=== PATIENT | female | born 1940 | race Caucasian/White ===

== ENCOUNTER 2017-02-24 16:24 | Observation (INO) | payer MEDICARE, OTHER ==
[~2017-02-24] VITALS: Ht 157.5 cm; Wt 74.6 kg
[2017-02-24] MEDS ORDERED: WARFARIN SODIU2.5 MG PO (16:38)
[2017-02-24] MEDS ORDERED: DIGITEK125 MCG PO (16:38)
[2017-02-24] MEDS ORDERED: SPIRONOLACTONE25 MG PO (16:39)
[2017-02-24] MEDS ORDERED: LISINOPRIL40 MG PO (16:39)
[2017-02-24] MEDS ORDERED: METOPROLOL SUC100 MG PO (16:39)
--- NOTE | 2017-02-24 20:20 | NUR ---
PT ARRIVED ON FLOOR, ROOM 110. PT IS REFUSING TYLENOL FOR HER FEVER AT THIS TIME. PT IS GETTING REMAINING LABS DONE AND SHOWERED.
--- NOTE | 2017-02-25 00:04 | NUR ---
PT IS SLEEPING AT THIS TIME. TEMP WAS CHECKED AGAIN. IT IS 99.0 AT THIS TIME.
--- NOTE | 2017-02-25 02:00 | NUR ---
PT HAD A SBP OF 93 MANUALLY TAKEN. MD BENÍTEZ WAS CALLED BUT PHONE WAS NOT ANSWERED. PT IS ASYMPTOMATIC SO FAR. PT IS AFREBRILE AT THIS TIME, ALL LOBES ARE CLEAR, BILATERAL LOWER LEG EDEMA IS STILL +3. BILATERAL DORSALIS PEDIS IS +1. PT IS ALERT AND ORIENTED AT THIS TIME. NO NEW ISSUES NOTED SO FAR.
--- NOTE | 2017-02-25 03:57 | NUR ---
PT IS SLEEPING AT THIS TIME.
--- NOTE | 2017-02-25 04:19 | NUR ---
ASSISTED PT TO BEDSIDE COMODE. PT DENIED N/V AND PAIN. HOWEVER PT IS STILL DIZZY.
--- NOTE | 2017-02-25 06:40 | NUR ---
UPON ARRIVAL PT HAD A TEMP OF 102.4. 650MG TYLENOL WAS GIVEN. PT NOW IS AFEBRILE. PT HAS BEEN AAO X4 ALL SHIFT. PT SLEPT MOST OF THIS SHIFT. PT DOES NOT HAVE A DECUBE II ON COCCYX. PT OVERALL SEEMS IN GOOD SPIRITS. BILATERAL LOWER LEG EDEMA IS +3 AND RED. ALL LOBES ARE CLEAR, PT DENIES PAIN. CYBER CRIME INVESTIGATOR CAME TO SEE PT AT 0640
--- NOTE | 2017-02-25 07:00 | NUR ---
BEDSIDE HANDOFF REPORT RECEIVED FROM DETENTION OFFICER RN. PT RESTING IN BED. PT DENIES NEEDS AT THIS TIME.
--- NOTE | 2017-02-25 07:30 | NUR ---
PT RESTING IN BED. PT DENIES PAIN. PT LUNG SOUNDS CLEAR, ON ROOM AIR. PT WITH POOR APPETITE, DECLINING BREAKFAST. PT BOWLE TONES ACTIVE, DENIES NAUSEA. IV FLUIDS INFUSING AT 100 ML/HR. PT WITH REDNESS AND OPEN SORES TO BLE, EDEMA 2-3+. PT DENIES NEEDS AT THIS TIME, REQUESTING TO BE DISCHARGED TODAY.
[2017-02-25] MEDS ORDERED: CEPHALEXIN500 MG PO (09:05)
[2017-02-25] MEDS ORDERED: HYDROCORTISONE1.5 GM TOP (09:07)
--- NOTE | 2017-02-25 09:24 | NUR ---
PT ASSISTED TO BATHRROM AND BACK TO BED. PT DECINING BREAKFAST. REVIEWED MORNING MEDICATIONS, DISCUSSED SIDE EFFECT OF HYPOTENSION.
--- NOTE | 2017-02-25 09:50 | NUR ---
PT DID NOT WANT BREAKFAST AND DOES NOT WANT TO SHOWER. PT HAD A LOW BP WILL NOTIFY NURSE
--- NOTE | 2017-02-25 10:33 | NUR ---
SPOKE WITH SOFIE ASTUDILLO FROM [employer] [employer] [employer]. SHE CAME AND SAW THE PATIENT THIS MORNING. SHE STATES PATIENT IS ORIENTED AND IS STATING SHE IS GOING HOME TODAY. SHE STATES THE PATIENT HAS A HOME AND ADMITS SHE SPENDS ALOT OF TIME IN HER CAR BUT THAT SHE IS DOING THIS BY CHOICE. SHE STATES SHE WILL GO TO PATIENTS HOME NEXT WEEK AND VISIT HER. PATIENT AGREED TO THIS WHEN SHE SPOKE WITH HER.
--- NOTE | 2017-02-25 11:00 | NUR ---
SPOKE WITH PATIENT IN ROOM. PATIENT STATES SHE IS GOING HOME, NO WHERE ELSE. PATIENT ORIENTED. DISCUSSED THAT I HEARD SHE LIVES IN HER CAR. SHE STATES SHE DOES STAY IN HER CAR ALOT WHEN SHE IS AT [facility]. STATES HER HOUSE THERE IS FOR THE CATS. STATES SHE HAS A HOUSE IN [place]. STATES SHE HAS NO ISSUES DRIVING, JUST AT [place] OR [place]. DISCUSSED HER PCP IN [place], ASKED IF SHE WOULD BE ABLE TO FOLLOW UP THERE, STATES YES, SHE CAN DRIVE OR GET A RIDE. PATIENT ADAMENT SHE IS GOING HOME TODAY AND THANKS ME FOR MY CONCERN. SHE DID AGREE THAT SOFIE FROM [facility] CAN CALL HER AND MAKE AN APPOINTMENT TO COME VISIT HER AT HOME.
--- NOTE | 2017-02-25 11:42 | NUR ---
PT DISCHARGED AMA, VSS. GIVEN PRESCRIPTION FOR PO ABX AND HYDROCORTISONE CREAM. EDUCATED ON SIGNS OF INFECTION WORSENING. PT PROVIDED CLEAN CLOTHES FOR DICHARGE. ESCORTED TO LOBBY WITH NURSE AIDE, FRIEND TO PROVIDE RIDE HOME.
--- NOTE | 2017-02-26 07:55 | EKG ---
[facility] [address] [place] [address] Signed Atrial fibrillation Left axis deviation Septal infarct (cited on or before 24-FEB-2017) ST \T\ T wave abnormality, consider lateral ischemia Abnormal ECG When compared with ECG of 24-FEB-2017 16:46, (Unconfirmed) Serial changes of Septal infarct present Confirmed by RAINER SAEED MD ([id number]) on 02/26/2017 7:55:23 AM Electronically Signed By: RAINER ASEED MD 02/26/17 0755 PATIENT NAME: IRIS DIAZ Electrocardiogram DATE OF : 38 PHYSICIAN: RAINER SAEED MD REPORT #: [id number] REPORT IS CONFIDENTIAL AND NOT TO BE RELEASED WITHOUT AUTHORIZATION
== END 2017-02-25 11:30 | disposition left against medical advice (07) ==
LOC: ED 16:24 → MS 16:25
PROVIDERS: ADMIT Internal Medicine
DX: L03.116 Cellulitis of left lower limb (principal); L03.115 Cellulitis of right lower limb; I11.0 Hypertensive heart disease with heart failure; I50.23 Acute on chronic systolic (congestive) heart failure; I48.91 Unspecified atrial fibrillation; R79.89 Other specified abnormal findings of blood chemistry; I89.0 Lymphedema, not elsewhere classified; Z91.19 Patient's noncompliance with other medical treatment and regimen; Z53.21 Procedure and treatment not carried out due to patient leaving prior to being seen by health care provider; Z60.9 Problem related to social environment, unspecified; Z79.01 Long term (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 of anticoagulants; Z79.899 Other long term (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; Z85.038 Personal history of other malignant neoplasm of large intestine
CPT/HCPCS: 36415; 80048; 80053; 80176; 81001; 83605; 84443; 85025; 85610; 85730; 87040; 93005; 93010; 96374; 96376; 99285; G0378; G0480; J0690

== ENCOUNTER 2017-07-07 08:03 | Inpatient (IN) | payer MEDICARE, OTHER ==
[~2017-07-07] VITALS: Ht 157.5 cm; Wt 78.1 kg
--- NOTE | 2017-07-07 | NUR ---
ASSESSMENT DONE, UNCHANGED FROM PRIOR. PT REPOSISTIONED TO LEFT SIDE.
[~2017-07-07 08:03] MED LIST: CEPHALEXIN500 MG PO; DIGITEK125 MCG PO; HYDROCORTISONE1.5 GM TOP; LISINOPRIL40 MG PO; METOPROLOL SUC100 MG PO; SPIRONOLACTONE25 MG PO; WARFARIN SODIU2.5 MG PO
[2017-07-07] MEDS ORDERED: LISINOPRIL-HCT1 EAC1 PO (10:08)
[2017-07-07] MEDS ORDERED: CIPRO500 MG PO (10:09)
--- OUTSIDE RECORDS SUMMARY | 2017-07-07 11:30 | XMS | Encounter Summary ---
Demographics + + + | Address | [address] | | | [place] [address] | + + + | Home Phone | | + + + | Preferred Language | Unknown | + + + | Marital Status | | + + + | Mandaeism Affiliation | Unknown | + + + | Race | Unknown | + + + | Ethnic Group | Unknown | + + + Author + + + | Author | [facility] | | | and [place] | + + + | Organization | [facility] | | | and [place] | + + + | Address | Unknown | + + + | Phone | Unavailable | + + + Support + + + + + | Name | Relationship | Address | Phone | + + + + + | Jin Devine | [address]VEN | | | | | [place], [place] | | + + + + + | Melinda Segura | ECON | Unknown | | + + + + + Care Team Providers + +------+ + | Care Braille Transcriber Name | Role | Phone | + +------+ + | Maya Curry MD | PCP | | + +------+ + Reason for Visit + + + | Reason | Comments | + + + | Wound Care | right lower extremity | | Appointment | | + + + Encounter Details +--------+---------+ + + + | Date | Type | Department | Care Team | Description | +--------+---------+ + + + | 05/26/ | Office | [facility] | Maya Curry MD | Cellulitis of right | | 2018 | Visit | [facility] [place] | [address] | lower extremity | | | | [address] | [place] | (Primary Dx); | | | | [place] | [address] | HYPERTENSION, BENIGN | | | | [address] | | ESSENTIAL | | | | [phone] | | | +--------+---------+ + + + Social History + +-------+ +--------+------+ | Tobacco Use | Types | Packs/Day | Years | Date | | | | | Used | | + +-------+ +--------+------+ | Never Smoker | | | | | + +-------+ +--------+------+ + +---+---+---+ | Smokeless Tobacco: | | | | | Never Used | | | | + +---+---+---+ + + +---------+ + | Alcohol Use | Drinks/We | oz/Week | Comments | | | ek | | | + + +---------+ + | No | | | | + + +---------+ + + + + | Sex Assigned at | Date Recorded | | | | + + + | Not on file | | + + + as of this encounter Last Filed Vital Signs + + + + | Vital Sign | Reading | Time Taken | + + + + | Blood Pressure | 160/80 | 05/26/20171043 PST | + + + + | Pulse | 80 | 05/26/20171043 PST | + + + + | Temperature | 36.5 C (97.7 F) | 05/26/20171043 PST | + + + + | Respiratory Rate | 16 | 05/26/20171043 PST | + + + + | Oxygen Saturation | - | - | + + + + | Inhaled Oxygen | - | - | | Concentration | | | + + + + | Weight | 75.2 kg (165 lb 12.6 | 05/26/2017 1044 PST | | | oz) | | + + + + | Height | 157.5 cm (5' 2") | 05/26/2017 1044 PST | + + + + | Body Mass Index | 30.32 | 05/26/2017 1044 PST | + + + + in this encounter Instructions Patient Instructions - Maya Curry MD - 05/26/2017 1122 PSTFormatting of this note may be different from the original. Discharge Instructions for Cellulitis You have been diagnosed with cellulitis. This is an infection in the deepest layer of the s kin. In some cases, the infection also affects the muscle. Cellulitis is caused by bacteria. The bacteria canenter the body through broken skin. This can happen with a cut, scratch, animal bite, or an insect bite that has been scratched. You may have been treated in the hos pital with antibiotics and fluids. You will likely be given a prescription for antibiotics t o take at home. This sheet will help you take care of yourself at home. Home care When you are home: Take the prescribed antibiotic medicine you are given as directed until it is gone. Take it even if you feel better. It treats the infection and stops it from returning. Not taking all the medicine can make future infections hard to treat. Keep the infected area clean. When possible, raise the infected area above the level of your heart. This helps keep sw elling down. Talk with your healthcare provider if you are in pain. Ask what kind of dyqh-zsg-pcixkgt medicine you can take for pain. Apply clean bandages as advised. Take your temperature once a day for a week. Wash your hands often to prevent spreading the infection. In the future, wash your hands before and after you touch cuts, scratches, or bandages. Thi s will help prevent infection. When to call your healthcare provider Call your healthcare provider immediately if you have any of the following: Difficulty or pain when moving the joints above or below the infected area Discharge or pus draining from the area [id number] (38C) or higher, or as directed by your healthcare provider Pain that gets worse in or around the infected Redness that gets worse in or around the infected area,particularly if the area of red ness expands to a wider area Shaking chills Swelling of the infected area Vomiting Date Last Reviewed: 10/21/201519993445-0105 [employer]. [address] [place] [address]. All righ ts reserved. This information is not intended as a substitute for professional medical care. Always follow your healthcare professional's instructions. in this encounter Progress Notes Bryce Mohr RN - 05/26/2017 1100 PSTAfter obtaining informed consent, the immunization i s given by Bryce Mohr RN. aMya Curry MD - 05/26/2017 1100 PSTFormatting of this note may be different from the o riginal. Subjective: Patient ID: Nancy Celis is a 76 y.o. female. Chief Complaint Patient presents with Wound Care Appointment right lower extremity HPI: Nancy is a 76 year old female here for wound care today. The last time I seen her was on 04/23 09/06. Patient was given antibiotic Cipro 500 mg for 10 days initially and then 7 more days. Patient still taking antibiotics, can't tell me how many days left she has... (I am not lilliana e she is taking them properly, she should have finished according to my account) She has a history of Abnormal INR, Adenomatous colon polyps, Atrial Fibrillation, cancer- A DENOCARCINOMA SIGMOID, Cardiomyopathy, carotid stenosis, Dyslipidemia, GERD, Hemmorids, hiat al hernia, mitral regurgitation, myocardial hypertrophy, osteoporosis, HTN, PUD, Pulmonary H TN, Subclavian arterial stenosis, Tricuspid regurgitation, and vitamin d def. Cellulitis of right lower extremity: 03/22/2017 hit RLE on car door and got cellulitis and not healing. [facility] agnosed her and gave her Cephalexin and it seemed not to work, took it for about 10 days and not better, rather getting worse. I Obtained culture at our last office visit and start Cipro 500 Q 12 and wound care with Te gaderm film. 4+ Enterobacter cloacae complex + Staph and Strep all sensitive to Cipro. Compression ABEBE bandapplied and to keep all the time now. She refused the offer for OT for UNNA boot/edema therapy and I strongly recommended today t hat she calls back and schedules her appointment. Her R lower leg is pretty swollen with chronic edema, skin changes, possible lymphedema. Today she states that it looks much better. HTN Follow-Up: Not bettertoday, despite her Metoprolol XL 50 mg, Spironolactone 50 mg, Lisinopril 10 mg. We are increasing her Lisionpril 20/HCTZ 25 mg. Past Medical History: Diagnosis Date Abnormal INR Adenomatous colon polyp 02/02/12 next due 2013 Anticoagulated Atrial fibrillation (HCC) Cancer (HCC) aSSTLER-cOLLER c1 ADENOCARCINOMA SIGMOID Cardiomyopathy, idiopathic (HCC) Carotid stenosis Cataract Depression Dyslipidemia GERD (gastroesophageal reflux disease) Heart murmur Hemorrhoids Hiatal hernia High cholesterol Hypercholesterolemia Hypertension Mitral regurgitation Myocardial hypertrophy Osteoporosis Peptic ulcer disease Pulmonary hypertension Renal insufficiency Subclavian arterial stenosis (HCC) Tricuspid regurgitation Vitamin D deficiency Past Surgical History: Procedure Laterality Date APPENDECTOMY 01/21/1960 SECTION X 3 COLECTOMY 01/21/2000 COLON SURGERY SIGMOID RESECTIOON august, COLON SURGERY COLONOSCOPY 11/11/2006 COLONOSCOPY 02/02/2012 One 15mm, non-bleeding polyp in the cecum. resected and retrieved.; Normal exam otherwise. - Dr Castro COLONOSCOPY 09/26/2015 Normal colonoscopy. Repeat in 5 years unless symptoms dictate otherwise. - Dr. Castro COLONOSCOPY 08/1999 DILATION AND CURETTAGE OF UTERUS 1987 DILATION AND CURETTAGE OF UTERUS 1987 TONSILLECTOMY AND ADENOIDECTOMY AT AGE 11 Family History Problem Relation Age of Onset Suicide Mother Other (see comment) Mother CHRONIC PAIN SYNDROME Cancer Mother Heart disease Father High cholesterol Father High blood pressure Father Stroke Father High blood pressure Sister Depression Sister Heart attack Maternal Grandmother Social History Social History Marital status: Spouse name: N/A Number of children: N/A Years of education: N/A Social History Main Topics Smoking status: Never Smoker Smokeless tobacco: Never Used Alcohol use No Drug use: No Sexual activity: Not Asked Other Topics Concern None Social History Narrative None Allergies No active allergies Intolerance No active intolerances/contraindications Current Outpatient Prescriptions Medication Sig Dispense Refill atorvaSTATin (LIPITOR) 20 mg tablet Take 20 mg by mouth. Calcium 500 MG TABS Take by mouth Daily. Cholecalciferol (VITAMIN D3) 2000 UNITS CAPS Take 1 tablet by mouth. digoxin (LANOXIN) 250 mcg tablet Take 250 mcg by mouth See Admin Instructions. First da y 2 tab x1, after 6 hours 1 tab lisinopril-hydrochlorothiazide (PRINZIDE,ZESTORETIC) 20-25 MG per tablet Take 1 tablet by mouth Daily. 30 tablet 5 metoprolol succinate (TOPROL-XL) 50 mg 24 hr tablet Take 1 tablet by mouth Daily. 90 ta blet 3 spironolactone (ALDACTONE) 50 mg tablet Take 1 tablet by mouth Daily. 90 tablet 1 warfarin (COUMADIN) 2.5 mg tablet take 1 tablet by mouth every Wednesday and every ay take 2 tablets by mouth THE OTHER DAYS OF THE WEEK 90 tablet 1 warfarin (COUMADIN) 5 mg tablet Take 5 mg by mouth See Admin Instructions. 1 by mouth d aily as directed. No current facility-administered medications for this visit. Review of Systems Constitutional: Positive for malaise/fatigue. Negative for fever. HENT: Negative. Negative for congestion, sore throat and tinnitus. Eyes: Negative. Negative for blurred vision and pain. Wears glasses. Respiratory: Negative. Negative for cough and shortness of breath. Cardiovascular: Negative for chest pain and palpitations. Gastrointestinal: Negative. Negative for abdominal pain, constipation, diarrhea, heartburn , nausea and vomiting. Genitourinary: Negative. Negative for dysuria. Musculoskeletal: Negative. Negative for back pain, joint pain and myalgias. Skin: Negative for rash. Right lower extremity wound care. Neurological: Negative. Negative for dizziness, tingling, weakness and headaches. Endo/Heme/Allergies: Negative. Psychiatric/Behavioral: Negative. Negative for depression. The patient is not nervous/anxi ous and does not have insomnia. Objective: BP 160/80 | Pulse 80 | Temp 36.5 C (97.7 F) (Temporal) | Resp 16 | Ht 1.575 m (5' 2 ") | Wt 75.2 kg (165 lb 12.6 oz) | ? No | BMI 30.32 kg/m Physical Exam General Appearance: Alert, cooperative, no distress, appears stated age Head: Normocephalic, without obvious abnormality, atraumatic Eyes: PERRL, conjunctiva/corneas clear, EOM's intact Nose: Nares normal, septum midline, mucosa normal, no drainage or sinus tenderness Throat: Lips, mucosa, and tongue normal; teeth and gums normal Neck: Supple, symmetrical, no adenopathy Lungs: No accessory muscle use, breath sounds are clear to auscultation bilaterally, no w heezes, crackles or rhonchi Chest Wall: No tenderness or deformity Heart: Regular rate and rhythm, S1, S2 normal, no murmur, rub or gallop Abdomen: Soft, non-tender Extremities: Extremities normal, atraumatic, no cyanosis, clubbing, or edema; RLE: lower leg edema, non pitting 2++ Cellulitis: leg is less red, hot, swollen: improved; with two nummular ulcerations on the l ateral aspect, no odor and superficial; not healing, oozing. Lymphedema RLE Pulses: Radial pulses 2+ and symmetric Skin: Warm and dry Lymph nodes: Cervical and supraclavicular nodes normal Neurologic: Gait normal Assessment/Plan: 1. Cellulitis of right lower extremity (Primary) Assessment & Plan: Will finish her Cipro 500 mg Q12 for a few more days and proceed with leg compression wrap by OT. It is a must to keep the daily compression due to large edema. F/U 2 weeks 2. HYPERTENSION, BENIGN ESSENTIAL Assessment & Plan: Not better today, despite her Metoprolol XL 50 mg, Spironolactone 50 mg, Lisinopril 10 mg. Increased Lisionpril/HCTZ 20/25 mg today Other orders - Lisinopril-Hydrochlorothiazide; Take 1 tablet by mouth Daily. Dispense: 30 tablet; R efill: 5 - Pneumococcal polysaccharide vaccine 23-valent greater than or equal to 2yo subcutaneo us/IM The patient was satisfied with the care received and voiced understanding of the issues dis cussed and the plan. Return in about 2 weeks (around 06/09/2017) for recheck wound.. She must call and schedule her OT visit.in this encounter Plan of Treatment Not on fileas of this encounter Visit Diagnoses + + | Diagnosis | + + | Cellulitis of right lower extremity - Primary | + + | Cellulitis and abscess of leg, except foot | + + | HYPERTENSION, BENIGN ESSENTIAL | + + | Essential hypertension, benign | + +
--- OUTSIDE RECORDS SUMMARY | 2017-07-07 11:30 | XMS | Encounter Summary ---
Demographics + + + | Address | [address] | | | [place] [address] | + + + | Home Phone | | + + + | Preferred Language | Unknown | + + + | Marital Status | | + + + | Quaker Affiliation | Unknown | + + + | Race | Unknown | + + + | Ethnic Group | Unknown | + + + Author + + + | Author | [facility] | | | and [place] | + + + | Organization | [facility] | | | and [place] | + + + | Address | Unknown | + + + | Phone | Unavailable | + + + Support + + + + + | Name | Relationship | Address | Phone | + + + + + | Jin Devine | [address] | | | | | [place], [place] | | + + + + + | Melinda Segura | ECON | Unknown | | + + + + + Care Team Providers + +------+ + | Care Senior Technical Business Analyst Name | Role | Phone | + +------+ + | Maya Curry MD | PCP | | + +------+ + Reason for Visit + + + | Reason | Comments | + + + | Medication Refill | | + + + Encounter Details +--------+--------+ + + + | Date | Type | Department | Care Team | Description | +--------+--------+ + + + | 04/16/ | Refill | [facility] | Maya Curry MD | Medication Refill | | 2017 | | [facility] [place] | [address] | | | | | [address] | [place] | | | | | [place] | [address] | | | | | [address] | | | | | | [phone] | | | +--------+--------+ + + + Social History + +-------+ [...] + + + as of this encounter Plan of Treatment Not on fileas of this encounter Visit Diagnoses Not on filein this encounter"
--- OUTSIDE RECORDS SUMMARY | 2017-07-07 11:30 | XMS | Clinical Summary ---
Demographics + + + | Address | [address] | | | [place] [address] | + + + | Home Phone | | + + + | Preferred Language | Unknown | + + + | Marital Status | | + + + | Synagogue Affiliation | Unknown | + + + | Race | Unknown | + + + | Ethnic Group | Unknown | + + + Author + + + | Author | [facility] | | | and [place] | + + + | Organization | [facility] | | | and [place] | + + + | Address | Unknown | + + + | Phone | Unavailable | + + + Support + + + + + | Name | Relationship | Address | Phone | + + + + + | Jin Devine | [address] | | | | | [place], [place] | | + + + + + | Melinda Segura | ECON | Unknown | | + + + + + Care Team Providers + +------+ + | Care Earth Boring Machine Operator Name | Role | Phone | + +------+ + | Maya Curry MD | PP | | + +------+ + Allergies No Known Allergies Current Medications + + +--------+---------+------+------+-------+ | Prescription | Sig. | Disp. | Refills | Star | End | Statu | | | | | | t | Date | s | | | | | | Date | | | + + +--------+---------+------+------+-------+ | Cholecalciferol | Take 1 tablet by | | | | | Activ | | (VITAMIN D3) 2000 | mouth. | | | | | e | | UNITS CAPS | | | | | | | + + +--------+---------+------+------+-------+ | Calcium 500 MG | Take by mouth | | | | | Activ | | TABS | Daily. | | | | | e | + + +--------+---------+------+------+-------+ | warfarin | Take 5 mg by mouth | | | | | Activ | | (COUMADIN) 5 mg | See Admin | | | | | e | | tablet | Instructions. 1 by | | | | | | | | mouth daily as | | | | | | | | directed. | | | | | | + + +--------+---------+------+------+-------+ | digoxin (LANOXIN) | Take 250 mcg by | | | | | Activ | | 250 mcg tablet | mouth See Admin | | | | | e | | | Instructions. First | | | | | | | | day 2 tab x1, after | | | | | | | | 6 hours 1 tab | | | | | | + + +--------+---------+------+------+-------+ | atorvaSTATin | Take 20 mg by mouth. | | | | | Activ | | (LIPITOR) 20 mg | | | | | | e | | tablet | | | | | | | + + +--------+---------+------+------+-------+ | warfarin | take 1 tablet by | 90 | 1 | / | | Activ | | (COUMADIN) 2.5 mg | mouth every Wednesday | tablet | | 2/ | | e | | tablet | and every | | | 17 | | | | | take 2 tablets by | | | | | | | | mouth THE OTHER DAYS | | | | | | | | OF THE WEEK | | | | | | + + +--------+---------+------+------+-------+ | metoprolol | Take 1 tablet by | 90 | 3 | 02/ | | Activ | | succinate | mouth Daily. | tablet | | / | | e | | (TOPROL-XL) 50 mg 24 | | | | 18 | | | | hr tablet | | | | | | | + + +--------+---------+------+------+-------+ | spironolactone | Take 1 tablet by | 90 | 1 | 02/1 | | Activ | | (ALDACTONE) 50 mg | mouth Daily. | tablet | | 4/20 | | e | | tablet | | | | 18 | | | + + +--------+---------+------+------+-------+ | | Take 1 tablet by | 30 | 5 | 03/0 | | Activ | | lisinopril-hydrochlo | mouth Daily. | tablet | | 7/20 | | e | | rothiazide | | | | 18 | | | | (PRINZIDE,ZESTORETIC | | | | | | | | ) 20-25 MG per | | | | | | | | tablet | | | | | | | + + +--------+---------+------+------+-------+ Active Problems + + + | Problem | Noted Date | + + + | Cellulitis of right lower extremity | 05/05/2017 | + + + + + | Last Assessment & Plan: Will finish her Cipro 500 mg Q12 for | | a few more days and proceed with leg compression wrap by OT.It is | | a must to keep the daily compression due to large edema.F/U 2 | | weeks | + + + + + | Abnormal INR | 04/27/2017 | + + + | Cardiomyopathy (HCC) | 04/27/2017 | + + + | Carotid stenosis | 04/27/2017 | + + + | Dyslipidemia | 04/27/2017 | + + + | Mitral valve regurgitation | 04/27/2017 | + + + | Pulmonary hypertension (HCC) | 04/27/2017 | + + + | Subclavian artery stenosis (HCC) | 04/27/2017 | + + + | Tricuspid regurgitation | 04/27/2017 | + + + | Chronic atrial fibrillation (HCC) | 01/20/2017 | + + + | Anticoagulation monitoring, INR range 2-3 | 01/20/2017 | + + + | MICROSCOPIC HEMATURIA | 05/06/2010 | + + + | HYPERTENSION, BENIGN ESSENTIAL | | + + + + + | Last Assessment & Plan: Not better today, despite her | | Metoprolol XL 50 mg, Spironolactone 50 mg, Lisinopril 10 | | mg.Increased Lisionpril/HCTZ 20/25 mg today | + + + +---+ | HYPERCHOLESTEROLEMIA | | + +---+ | VITAMIN D DEFICIENCY | | + +---+ | GASTROESOPHAGEAL REFLUX DISEASE | | + +---+ | VENTRICULAR HYPERTROPHY, LEFT | | + +---+ Encounters +--------+ + + + + | Date | Type | Specialty | Care Team | Description | +--------+ + + + + | 05/26/ | Office | | Maya Curry MD | Cellulitis of right | | 2017 | Visit | | | lower extremity | | | | | | (Primary Dx); | | | | | | HYPERTENSION, BENIGN | | | | | | ESSENTIAL | +--------+ + + + + | 05/17/ | Office | | Maya Curry MD | Cellulitis of right | | 2017 | Visit | | | lower extremity | | | | | | (Primary Dx); | | | | | | HYPERTENSION, BENIGN | | | | | | ESSENTIAL | +--------+ + + + + | 05/05/ | Office | | Maya Curry MD | Cellulitis of right | | 2018 | Visit | | | lower extremity; | | | | | | HYPERTENSION, BENIGN | | | | | | ESSENTIAL | +--------+ + + + + | 05/04/ | Telephone | | Maya Curry MD | Abstract | | 2017 | | | | | +--------+ + + + + | 04/27/ | Abstract | | Maya Curry MD | | | 2017 | | | | | +--------+ + + + + | 04/19/ | Abstract | | Maya Curry MD | | | 2017 | | | | | +--------+ + + + + | 04/16/ | Refill | | Patricio, Maya, MD | Medication Refill | | 2017 | | | | | +--------+ + + + + from Last 3 Months Immunizations + + + + | Name | Dates Previously Given | Next Due | + + + + | PNEUMOCOCCAL | 12/05/2015 | | | CONJUGATE 13-VALENT | | | | (PCV13) | | | + + + + | PNEUMOCOCCAL | 05/26/2017 | | | POLYSACCHARIDE | | | | 23-VALENT (PPSV23) | | | + + + + Family History + + +------+ + | Medical History | Relation | Name | Comments | + + +------+ + | Heart disease | Father | | | + + +------+ + | High blood pressure | Father | | | + + +------+ + | High cholesterol | Father | | | + + +------+ + | Stroke | Father | | | + + +------+ + | Heart attack | Maternal | | | | | Grandmoth | | | | | er | | | + + +------+ + | Cancer | Mother | | | + + +------+ + | Other (see comment) | Mother | | CHRONIC PAIN SYNDROME | + + +------+ + | Suicide | Mother | | | + + +------+ + | Depression | Sister | | | + + +------+ + | High blood pressure | Sister | | | + + +------+ + + +------+ + + | Relation | Name | Status | Comments | + +------+ + + | Father | | | | + +------+ + + | Maternal Grandmother | | | | + +------+ + + | Mother | | | | + +------+ + + | Sister | | | | + +------+ + + Social History + +-------+ +--------+------+ [...] on file | | + + + Last Filed Vital Signs + + + + | Vital Sign | Reading | Time Taken | + + + + | Blood Pressure | 160/80 | 05/26/2017 1044 PST | + + + + | Pulse | 80 | 05/26/20174 PST | + + + + | Temperature | 36.5 C (97.7 F) | 05/26/20171043 PST | + + + + | Respiratory Rate | 16 | 05/26/20171043 PST | + + + + | Oxygen Saturation | 99% | 05/17/20171042 PST | + + + + | Inhaled Oxygen | - | - | | Concentration | | | + + + + | Weight | 75.2 kg (165 lb 12.6 | 05/26/20171043 PST | | | oz) | | + + + + | Height | 157.5 cm (5' 2") | 05/26/20171043 PST | + + + + | Body Mass Index | 30.32 | 05/26/2017 1044 PST | + + + + Plan of Treatment + + + + + | Health Maintenance | Due Date | Last Done | Comments | + + + + + | Vaccine: | | | | | Dtap/Tdap/Td (1 - | 9 | | | | Tdap) | | | | + + + + + | Vaccine: Zoster (#1) | | | | | | 0 | | | + + + + + | Vaccine: Influenza | | | | | (Season Ended) | 8 | | | + + + + + | Vaccine: | Completed | 05/26/2017, 12/05/2015 | | | Pneumococcal 65+ | | | | | Low/Medium Risk | | | | + + + + + Results Culture, Wound, Smear (05/06/2017 0817) + + + + | Component | Value | Ref Range | + + + + | Culture | 4+ Enterobacter cloacae complexComment: | | | | Consider combination therapy for serious | | | | infections.This organism is known to | | | | possess inducible beta-lactamases. Isolates | | | | may become resistant to all cephalosporins | | | | after initiation of therapy. Avoid | | | | beta-lactam/beta-lactamase inhibitory | | | | combinations. | | + + + + | Culture | 4+ Staphylococcus aureus | | + + + + | Culture | 4+ Beta Hemolytic Streptococci, Group | | | | CComment: Penicillin is the drug of choice | | | | for this organism. | | + + + + | Gram Stain Result | No white blood cells (PMNs) seen | | + + + + | Gram Stain Result | No squamous epithelial cells seen | | + + + + | Gram Stain Result | 4+ Gram positive cocci | | + + + + | Gram Stain Result | 2+ Gram negative rods | | + + + + + + + | Specimen | Performing Laboratory | + + + | Wound - Leg | [facility] | | | [place] [address] | + + + + + +--------+ + | Organism | Antibiotic | Method | Susceptibility | + + +--------+ + | Enterobacter cloacae | Cefazolin | | >=64 ug/mL: | | complex | | | Resistant | + + +--------+ + | Enterobacter cloacae | Cefoxitin | | >=64 ug/mL: | | complex | | | Resistant | + + +--------+ + | Enterobacter cloacae | Ceftazidime | | <=1 ug/mL: | | complex | | | Sensitive | + + +--------+ + | Enterobacter cloacae | Ceftriaxone | | <=1 ug/mL: | | complex | | | Sensitive | + + +--------+ + | Enterobacter cloacae | Ciprofloxacin | | <=0.25 ug/mL: | | complex | | | Sensitive | + + +--------+ + | Enterobacter cloacae | Ertapenem | | <=0.5 ug/mL: | | complex | | | Sensitive | + + +--------+ + | Enterobacter cloacae | Gentamicin | | <=1 ug/mL: | | complex | | | Sensitive | + + +--------+ + | Enterobacter cloacae | Meropenem | | <=0.25 ug/mL: | | complex | | | Sensitive | + + +--------+ + | Enterobacter cloacae | Piperacillin + | | <=4 ug/mL: | | complex | Tazobactam | | Sensitive | + + +--------+ + | Enterobacter cloacae | Tobramycin | | <=1 ug/mL: | | complex | | | Sensitive | + + +--------+ + | Enterobacter cloacae | Trimethoprim + | | <=20 ug/mL: | | complex | Sulfamethoxazole | | Sensitive | + + +--------+ + | Staphylococcus | Clindamycin | | <=0.25 ug/mL: | | aureus | | | Sensitive | + + +--------+ + | Staphylococcus | Oxacillin | | <=0.25 ug/mL: | | aureus | | | Sensitive | + + +--------+ + | Staphylococcus | Penicillin G | | Resistant | | aureus | | | | + + +--------+ + | Staphylococcus | Rifampin | | <=0.5 ug/mL: | | aureus | | | Sensitive | + + +--------+ + | Staphylococcus | Tetracycline | | <=1 ug/mL: | | aureus | | | Sensitive | + + +--------+ + | Staphylococcus | Trimethoprim + | | <=10 ug/mL: | | aureus | Sulfamethoxazole | | Sensitive | + + +--------+ + from Last 3 Months Insurance + +--------+ +--------+ + + | Payer | Benefi | Subscriber | Type | Phone | Address | | | t Plan | ID | | | | | | / | | | | | | | Group | | | | | + +--------+ +--------+ + + | MEDICARE | MEDICA | xxxxxxxxxx | Medica | [phone]- | | | | RE | | re | [phone] | | | | PART A | | | | | | | AND B | | | | | + +--------+ +--------+ + + | MODA | MODA | [phone] | Indemn | [phone] | [address] [address] | | | HEALTH | | ity | [phone] | [facility] [place] [id number] | | | MDCR | | | | | | | SUPPL | | | | | + +--------+ +--------+ + + + +--------+ +--------+ + + | Guarantor Name | Accoun | Relation to | Date | Phone | Billing Address | | | t Type | Patient | of | | | | | | | | | | + +--------+ +--------+ + + | IRIS DIAZ | Person | Self [birth year] Home: | [address] | | | al/Fam | | 1941 | [phone] | [place] [address] | | | marian | | | [phone] | | + +--------+ +--------+ + +
--- OUTSIDE RECORDS SUMMARY | 2017-07-07 11:30 | XMS | Encounter Summary ---
Demographics + + + | Address | [address] | | | [place] [address] | + + + | Home Phone | | + + + | Preferred Language | Unknown | + + + | Marital Status | | + + + | Mandaen Affiliation | Unknown | + + + | Race | Unknown | + + + | Ethnic Group | Unknown | + + + Author + + + | Author | [facility] | | | and [place] | + + + | Organization | [facility] | | | and [place] | + + + | Address | Unknown | + + + | Phone | Unavailable | + + + Support + + + + + | Name | Relationship | Address | Phone | + + + + + | Jin Devine | [address] | | | | | [place], [place] | | + + + + + | ImeldaMelinda | ECON | Unknown | | + + + + + Care Team Providers + +------+ + | Care Cash Register Servicer Name | Role | Phone | + +------+ + | Maya Curry MD | PCP | | + +------+ + Encounter Details +--------+ + + + + | Date | Type | Department | Care Team | Description | +--------+ + + + + | 04/27/ | Abstract | [facility] | Maya Curry MD | | | 2018 | | [facility] | [address] | | | | | [address] | [place] | | | | | [place] | [address] | | | | | [address] | | | | | | [phone] | | | +--------+ + + + + Social History + +-------+ [...]
--- OUTSIDE RECORDS SUMMARY | 2017-07-07 11:30 | XMS | Encounter Summary ---
Demographics + + + | Address | [address] | | | [place] [address] | + + + | Home Phone | | + + + | Preferred Language | Unknown | + + + | Marital Status | | + + + | Baptist Affiliation | Unknown | + + + | Race | Unknown | + + + | Ethnic Group | Unknown | + + + Author + + + | Author | [facility] | | | and [place] | + + + | Organization | [facility] | | | and [place] | + + + | Address | Unknown | + + + | Phone | Unavailable | + + + Support + + + + + | Name | Relationship | Address | Phone | + + + + + | Jin Devine | [address] | | | | | [place], [place] | | + + + + + | ImeldaMelinda | ECON | Unknown | | + + + + + Care Team Providers + +------+ + | Care Technology Professional Name | Role | Phone | + +------+ + | Maya Curry MD | PCP | | + +------+ + Encounter Details +--------+ + + + + | Date | Type | Department | Care Team | Description | +--------+ + + + + | 04/19/ | Abstract | [facility] | Maya Curry MD | | | 2018 | | MEDICINE [place] | [address] | | | | | [address] | [place] | | | | | [place] | [address] | | | | | [address] | | | | | | [phone] | | | +--------+ + + + [...] Treatment Not on fileas of this encounter Results Digoxin Level (12/05/2015) + +-------+ + | Component | Value | Ref Range | + +-------+ + | Digoxin level | 1.0 | 0.8 - 2.0 ng/mL | + +-------+ + + + + | Specimen | Performing Laboratory | + + + | Blood | | + + + Lipid Panel (12/05/2015) + +-------+ + | Component | Value | Ref Range | + +-------+ + | Chol/HDL Ratio | 2.4 | 0.0 - 4.9 | + +-------+ + | LDl/HDL Ratio | 1.15 | 0 - 3.67 | + +-------+ + | VLDL Cholesterol Zafar | 13 | 0 - 30 | + +-------+ + + + + | Specimen | Performing Laboratory | + + + | Blood | | + + + External Lab: Triglycerides (12/05/2015) + +-------+ + | Component | Value | Ref Range | + +-------+ + | Triglycerides, | 64 | 40 - 150 | | External | | | + +-------+ + + + + | Specimen | Performing Laboratory | + + + | Blood | | + + + External Lab: Cholesterol, HDL (12/05/2015) + +-------+ + | Component | Value | Ref Range | + +-------+ + | HDL Cholesterol, | 61 | 40 - 67 mg/dl | | External | | | + +-------+ + + + + | Specimen | Performing Laboratory | + + + | Blood | | + + + External Lab: Cholesterol, Total (12/05/2015) + +---------+ + | Component | Value | Ref Range | + +---------+ + | Cholesterol, Total, | 144 (A) | 150 - 200 mg/dl | | External | | | + +---------+ + + + + | Specimen | Performing Laboratory | + + + | Blood | | + + + External Lab: Cholesterol, LDL (12/05/2015) + +-------+ + | Component | Value | Ref Range | + +-------+ + | LDL Cholesterol, | 70 | 68 - 100 | | External | | | + +-------+ + + + + | Specimen | Performing Laboratory | + + + | Blood | | + + + Comprehensive Metabolic Panel (12/05/2015) + +-------+ + | Component | Value | Ref Range | + +-------+ + | ANION GAP | 8 | 1 - 16 mmol/L | + +-------+ + | Bun/Creatinine | 16.7 | | + +-------+ + | OSMOLALITY | 284 | mOsm/kg | + +-------+ + | Globulin | 3 | | + +-------+ + | Albumin/Globulin | 1.37 | 1 - 2 | | Ratio | | | + +-------+ + + + + | Specimen | Performing Laboratory | + + + | Blood | | + + + External Lab: BUN (12/05/2015) + +-------+ + | Component | Value | Ref Range | + +-------+ + | BUN, External | 15 | 7 - 23 | + +-------+ + External Lab: Glucose (12/05/2015) + +-------+ + | Component | Value | Ref Range | + +-------+ + | Glucose, External | 80 | 70 - 100 | + +-------+ + External Lab: ALT (12/05/2015) + +-------+ + | Component | Value | Ref Range | + +-------+ + | ALT, External | 19 | 10 - 60 | + +-------+ + External Lab: AST (12/05/2015) + +-------+ + | Component | Value | Ref Range | + +-------+ + | AST, External | 26 | 10 - 42 | + +-------+ + External Lab: Alkaline Phosphatase (12/05/2015) + +-------+ + | Component | Value | Ref Range | + +-------+ + | ALP, External | 88 | 32 - 92 | + +-------+ + External Lab: Bilirubin, Total (12/05/2015) + +---------+ + | Component | Value | Ref Range | + +---------+ + | Bilirubin, Total, | 1.7 (A) | 0.1 - 1.2 | | External | | | + +---------+ + External Lab: Albumin (12/05/2015) + +-------+ + | Component | Value | Ref Range | + +-------+ + | Albumin, External | 4.1 | 3.2 - 5.5 | + +-------+ + External Lab: Protein, Total (12/05/2015) + +-------+ + | Component | Value | Ref Range | + +-------+ + | Protein, Total, | 7.1 | 6.1 - 8 | | External | | | + +-------+ + External Lab: Calcium (12/05/2015) + +-------+ + | Component | Value | Ref Range | + +-------+ + | Calcium, External | 9 | 8.3 - 10.5 | + +-------+ + External Lab: Carbon Dioxide (12/05/2015) + +-------+ + | Component | Value | Ref Range | + +-------+ + | Carbon Dioxide, | 27 | 22 - 32 | | External | | | + +-------+ + External Lab: Chloride (12/05/2015) + +-------+ + | Component | Value | Ref Range | + +-------+ + | Chloride, External | 102 | 100 - 110 | + +-------+ + External Lab: Potassium (12/05/2015) + +-------+ + | Component | Value | Ref Range | + +-------+ + | Potassium, External | 4.1 | 3.5 - 5.1 | + +-------+ + External Lab: Sodium (12/05/2015) + +-------+ + | Component | Value | Ref Range | + +-------+ + | Sodium, External | 137 | 135 - 145 | + +-------+ + External Lab: Vitamin D, 25-Hydroxy (12/05/2015) + +-------+ + | Component | Value | Ref Range | + +-------+ + | Vitamin D, | 44.4 | 30 - 100 | | 25-Hydroxy, External | | | + +-------+ + + + + | Specimen | Performing Laboratory | + + + | Blood | | + + + External Lab: TSH (12/05/2015) + +-------+ + | Component | Value | Ref Range | + +-------+ + | TSH, External | 1 | 0.3 - 3 | + +-------+ + + + + | Specimen | Performing Laboratory | + + + | Blood | | + + + External Lab: eGFR (12/05/2015) + +-------+ + | Component | Value | Ref Range | + +-------+ + | eGFR, External | >60 | 60 | + +-------+ + + + + | Specimen | Performing Laboratory | + + + | Blood | | + + + External Lab: Creatinine (12/05/2015) + +-------+ + | Component | Value | Ref Range | + +-------+ + | Creatinine, External | 0.9 | 0.7 - 1.3 | + +-------+ + + + + | Specimen | Performing Laboratory | + + + | Blood | | + + + CBC with Differential (12/05/2015) + +-------+ + | Component | Value | Ref Range | + +-------+ + | MCH | 30.2 | 26.0 - 34.0 pg | + +-------+ + | MCHC | 33.2 | 31.0 - 36.0 % | + +-------+ + | BASOPHILS % | 0.9 | 1.0 % | + +-------+ + + + + | Specimen | Performing Laboratory | + + + | Blood | | + + + External Lab: CBC (12/05/2015) + +-------+ + | Component | Value | Ref Range | + +-------+ + | WBC, External | 8.1 | 4.5 - 10 | + +-------+ + | HGB, External | 13.3 | 11.8 - 16 | + +-------+ + | HCT, External | 40 | 34.8 - 45.2 | + +-------+ + | PLT, External | 232 | 150 - 400 | + +-------+ + | Neutrophils %, | 59.4 | | | External | | | + +-------+ + | Lymphocytes %, | 31 | | | External | | | + +-------+ + | Monocytes %, | 8 | | | External | | | + +-------+ + | Eosinophils %, | 0.7 | | | External | | | + +-------+ + | Neutrophils, | 4.8 | 2 - 7.3 | | Absolute, External | | | + +-------+ + | Lymphocytes, | 2.5 | 0.6 - 3.4 | | Absolute, External | | | + +-------+ + | Monocytes, Absolute, | 0.6 | 0.2 - 1 | | External | | | + +-------+ + | Eosinophils, | 0.1 | 0 - 0.4 | | Absolute | | | + +-------+ + | Basophils, Absolute | 0.1 | 0 - 0.1 | + +-------+ + | RBC, External | 4.4 | 4 - 5.1 | + +-------+ + | MCV, External | 91 | 80 - 100 | + +-------+ + | RDW, External | 13.4 | 9.6 - 14.2 | + +-------+ + Lipid Panel (07/29/2015) + +-------+ + | Component | Value | Ref Range | + +-------+ + | Chol/HDL Ratio | 3.0 | 0.0 - 4.9 | + +-------+ + | LDl/HDL Ratio | 1.72 | 0 - 3.67 | + +-------+ + | VLDL Cholesterol Zafar | 18 | 0 - 30 | + +-------+ + + + + | Specimen | Performing Laboratory | + + + | Blood | | + + + External Lab: Triglycerides (07/29/2015) + +-------+ + | Component | Value | Ref Range | + +-------+ + | Triglycerides, | 90 | 40 - 150 | | External | | | + +-------+ + + + + | Specimen | Performing Laboratory | + + + | Blood | | + + + External Lab: Cholesterol, HDL (07/29/2015) + +--------+ + | Component | Value | Ref Range | + +--------+ + | HDL Cholesterol, | 70 (A) | 40 - 67 mg/dl | | External | | | + +--------+ + + + + | Specimen | Performing Laboratory | + + + | Blood | | + + + External Lab: Cholesterol, Total (07/29/2015) + +---------+ + | Component | Value | Ref Range | + +---------+ + | Cholesterol, Total, | 209 (A) | 150 - 200 mg/dl | | External | | | + +---------+ + + + + | Specimen | Performing Laboratory | + + + | Blood | | + + + External Lab: Cholesterol, LDL (07/29/2015) + +---------+ + | Component | Value | Ref Range | + +---------+ + | LDL Cholesterol, | 121 (A) | 68 - 100 | | External | | | + +---------+ + + + + | Specimen | Performing Laboratory | + + + | Blood | | + + + Lipid Panel (07/10/2014) + +-------+ + | Component | Value | Ref Range | + +-------+ + | Chol/HDL Ratio | 2.4 | 0.0 - 4.9 | + +-------+ + | LDl/HDL Ratio | 1.2 | 0 - 3.67 | + +-------+ + | VLDL Cholesterol Zafar | 13 | 0 - 30 | + +-------+ + + + + | Specimen | Performing Laboratory | + + + | Blood | | + + + External Lab: Triglycerides (07/10/2014) + +-------+ + | Component | Value | Ref Range | + +-------+ + | Triglycerides, | 65 | 40 - 150 | | External | | | + +-------+ + + + + | Specimen | Performing Laboratory | + + + | Blood | | + + + External Lab: Cholesterol, HDL (07/10/2014) + +-------+ + | Component | Value | Ref Range | + +-------+ + | HDL Cholesterol, | 63 | 40 - 67 mg/dl | | External | | | + +-------+ + + + + | Specimen | Performing Laboratory | + + + | Blood | | + + + External Lab: Cholesterol, Total (07/10/2014) + +-------+ + | Component | Value | Ref Range | + +-------+ + | Cholesterol, Total, | 151 | 150 - 200 mg/dl | | External | | | + +-------+ + + + + | Specimen | Performing Laboratory | + + + | Blood | | + + + External Lab: Cholesterol, LDL (07/10/2014) + +-------+ + | Component | Value | Ref Range | + +-------+ + | LDL Cholesterol, | 75 | 68 - 100 | | External | | | + +-------+ + + + + | Specimen | Performing Laboratory | + + + | Blood | | + + + in this encounter Visit Diagnoses Not on filein this encounter"
--- OUTSIDE RECORDS SUMMARY | 2017-07-07 11:30 | XMS | Encounter Summary ---
Demographics + + + | Address | [address] | | | [place] [address] | + + + | Home Phone | | + + + | Preferred Language | Unknown | + + + | Marital Status | | + + + | Nondenominational Affiliation | Unknown | + + + | Race | Unknown | + + + | Ethnic Group | Unknown | + + + Author + + + | Author | [facility] | | | and [place] | + + + | Organization | [facility] | | | and [place] | + + + | Address | Unknown | + + + | Phone | Unavailable | + + + Support + + + + + | Name | Relationship | Address | Phone | + + + + + | Jin Devine | ANGELICA CRAVEN | | | | | [place], [place] | | + + + + + | Melinda Segura | ECON | Unknown | | + + + + + Care Team Providers + +------+ + | Care Waste Chopper Name | Role | Phone | + +------+ + | Maya Curry MD | PCP | | + +------+ + Reason for Visit + + + | Reason | Comments | + + + | Abstract | | + + + Encounter Details +--------+ + + + + | Date | Type | Department | Care Team | Description | +--------+ + + + + | 05/04/ | Telephone | [facility] | Maya Curry MD | Abstract | | 2018 | | [facility] [place] | [address] | | | | | [address] | [place] | | | | | [place] | [address] | | | | | [address] | | | | | | [phone] | | | +--------+ + + + [...]
--- OUTSIDE RECORDS SUMMARY | 2017-07-07 11:30 | XMS | Clinical Summary ---
Demographics + + + | Address | [address] | | | [place] [address] | + + + | Home Phone | | + + + | Preferred Language | Unknown | + + + | Marital Status | | + + + | Alevism Affiliation | Unknown | + + + | Race | Unknown | + + + | Ethnic Group | Unknown | + + + Author + + + | Author | [facility] | | | and [place] | + + + | Organization | [facility] | | | and [place] | + + + | Address | Unknown | + + + | Phone | Unavailable | + + + Support + + + + + | Name | Relationship | Address | Phone | + + + + + | Jin Devine | ANGELICA CRAVEN | | | | | [place], [place] | | + + + + + | Melinda Segura | ECON | Unknown | | + + + + + Care Team Providers + +------+ + | Care Mobility Specialist Name | Role | Phone | + [...] + | Wound - Leg | [facility] | | | [place] [address] | + + + + + +--------+ [...] | Indemn | [phone] [address] [address] | | | HEALTH | | ity | [phone] | [facility] [place] [address] | | | MDCR | | | [...] | 1941 | [phone] [place] [address] | | | marian | | | [phone] | | + +--------+ +--------+ + +
--- OUTSIDE RECORDS SUMMARY | 2017-07-07 11:30 | XMS | Encounter Summary ---
Demographics + + + | Address | [address] | | | [place] [address] | + + + | Home Phone | | + + + | Preferred Language | Unknown | + + + | Marital Status | | + + + | Temple Affiliation | Unknown | + + + | Race | Unknown | + + + | Ethnic Group | Unknown | + + + Author + + + | Author | [facility] | | | and [place] | + + + | Organization | [facility] | | | and [place] | + + + | Address | Unknown | + + + | Phone | Unavailable | + + + Support + + + + + | Name | Relationship | Address | Phone | + + + + + | Jin Devine | ANGELICA CRAVEN | | | | | [place], [place] | | + + + + + | Melinda Segura | ECON | Unknown | | + + + + + Care Team Providers + +------+ + | Care System Administration Advisor Name | Role | Phone | + +------+ + | Maya Curry MD | PCP | | + +------+ + Reason for Referral Evaluate & Treat (Urgent) +--------+ + + + + + | Status | Reason | Specialty | Diagnoses / | Referred By | Referred To | | | | | Procedures | Contact | Contact | +--------+ + + + + + | Closed | Specialty | Rehabilitatio | Diagnoses | Patricio, | [facility] | | | Services | n | Cellulitis | MD Maya | Ot Op [address] | | | Required | | of right | [address] | [place] | | | | | lower | [address] [place] | [place], | | | | | extremity | [place], [place] | [place] [address] | | | | | [phone] | [phone] | Phone: | | | | | (ICD-10-CM) | Phone: | [phone] | | | | | - 682.6 | [phone] | Fax: | | | | | (ICD-9-CM) - | Fax: | [phone] | | | | | Cellulitis | [phone] | | | | | | of right | | | | | | | lower | | | | | | | extremity | | | +--------+ + + + + + + + | Scheduling Instructions | + + | Edema and wound RLE for "unna boot" or similar wrap | + + Reason for Visit + + + | Reason | Comments | + + + | Dressing Change | 1 week follow up on wound care. | + + + Encounter Details +--------+---------+ + + + | Date | Type | Department | Care Team | Description | +--------+---------+ + + + | 05/17/ | Office | [facility] | Maya Curry MD | Cellulitis of right | | 2018 | Visit | MEDICINE [place] | [address] | lower extremity | | | | [address] | [place] | (Primary Dx); | | | | [place] | [address] | HYPERTENSION, BENIGN | | | | [address] | | ESSENTIAL | | | | [phone] | | | +--------+---------+ + + + [...] + + + | Blood Pressure | 158/84 | 05/17/2017 1043 PST | + + + + | Pulse | 96 | 05/17/2017 1043 PST | + + + + | Temperature | 36.5 C (97.7 F) | 05/17/20171042 PST | + + + + | Respiratory Rate | 17 | 05/17/20171042 PST | + + + + | Oxygen Saturation | 99% | 05/17/20171042 PST | + + + + | Inhaled Oxygen | - | - | | Concentration | | | + + + + | Weight | 75.9 kg (167 lb 6.4 | 05/17/20171042 PST | | | oz) | | + + + + | Height | 157.5 cm (5' 2") | 05/17/20171042 PST | + + + + | Body Mass Index | 30.62 | 05/17/2017 1043 PST | + + + + in this encounter Instructions Patient Instructions - Maya Curry MD - 05/17/2017 1144 PSTFormatting of this note may be different [...] are in pain. Ask what kind of ipxw-bvn-hxsvfhl medicine you can take for pain. Apply [...] Discharge or pus draining from the area [place]692.4F (38C) or higher, or as directed by your healthcare provider Pain that gets worse in or around the infected Redness that gets worse in or around the infected area,particularly if the area of red ness expands to a wider area Shaking chills Swelling of the infected area Vomiting Date Last Reviewed: 10/21/201519996721-6112 [employer]. [address] [place] [address]. All righ ts reserved. This information is not intended as a substitute for professional medical care. Always follow your healthcare professional's instructions. in this encounter Progress Notes Gage Meraz, PT - 05/17/2017 1045 [facility]PM[facility] [address] [facility] [address] Incident To Physical Therapy Treatment Note Date: 05/17/2017 Patient Information Patient Name: Nancy Celis Date of : 1940 Age: 76 y.o. Timed Treatment Codes: 6 minutes Subjective: Nancy presents to primary care provider visit today with complaints of LE wound and swelling . PT called to visit to help with compression bandage to be applied to right LE. Patient reporting that she normally wraps her RLE with this wrap to help decrease swelling but would like to have it applied today while in visit. Objective: -Manual Therapy: Below treatment performed below to help manage and alleviate patient sympt oms. -6' compression wrap applied in spiral technique beginning with moderate tension at the rig ht ankle progressing to minimal tension to the right proximal calf -Patient advised to remove wrap if any discomfort or adverse effects were to arise from wra p Electronically signed by: Gage Meraz, PT, 05/17/2017 14:55 Patient Name: Nancy Celis/: 1940/ Maya Curry MD - 05/17/2017 1045 PSTFormatting of this note may be different from the o riginal. Subjective: Patient ID: Nancy Celis is a 76 y.o. female. Chief Complaint Patient presents with Dressing Change 1 week follow up on wound care. HPI Nancy is a 76 year old female who has returned to the clinic to have her wound checked on he r right lower extremity today. Cellulitis of right lower extremity: 03/22/2017 hit RLE on car door and got cellulitis and not healing[facility] and it seemed not to work, took it for about 10 days and not better, rather getting worse. I Obtained culture at our last office visit and start Cipro 500 Q 12 and wound care with Te gaderm film. Compression ABEBE band applied and to keep daily 8 am to 8 pm; she tells me that she used the compression "every day, but quit 2 days ago"... Her R lower leg is pretty swollenl Today she states that her leg is fine, looks much better today. Did not take her BP meds today: her HTN is not better. Reports she "forgot" to taker her pi lls in the [place] to get out and come here. Still did not finish her antibiotics, even though today is 11 days from our initial visit. Past Medical History: Diagnosis Date Abnormal INR [...] UTERUS 1987 DILATION AND CURETTAGE OF UTERUS 1988 TONSILLECTOMY AND ADENOIDECTOMY AT AGE 11 Family [...] Current Outpatient Prescriptions Medication Sig Dispense Refill ADULT ASPIRIN EC LOW STRENGTH PO TBEC: Take one by mouth daily atorvaSTATin (LIPITOR) 20 mg tablet Take 20 mg by mouth. Calcium 500 MG TABS Take by mouth Daily. Cholecalciferol (VITAMIN D-3) 14451 units CAPS Take by mouth Once a week. Cholecalciferol (VITAMIN D3) 2000 UNITS CAPS Take 1 tablet by mouth. ciprofloxacin (CIPRO) 500 mg tablet Take 1 tablet by mouth 2 times daily for 7 days. 14 tablet 0 digoxin (LANOXIN) 250 mcg tablet Take 250 mcg by mouth See Admin Instructions. First da y 2 tab x1, after 6 hours 1 tab Gauze Pads & Dressings (TEGADERM CONTACT LAYER) 3"X4" PADS 1 each by Does not apply rou te Daily for 20 days. 20 each 1 lisinopril (PRINIVIL, ZESTRIL) 10 mg tablet Take 1 tablet by mouth Daily. 90 tablet 1 metoprolol succinate (TOPROL-XL) 50 mg 24 hr [...] for this visit. Review of Systems Constitutional: Negative for fever and malaise/fatigue. HENT: Negative for congestion, sore throat and tinnitus. Eyes: Negative for blurred vision and pain. Wears glasses. Respiratory: Negative for cough and shortness of breath. Cardiovascular: Negative for chest pain, palpitations and leg swelling. Gastrointestinal: Negative for abdominal pain, constipation, diarrhea, heartburn, nausea an d vomiting. Genitourinary: Negative for dysuria. Musculoskeletal: Positive for joint pain. Negative for back pain and myalgias. Skin: Positive for rash. Wound right lower extremity. Neurological: Negative for dizziness, tingling, weakness and headaches. Psychiatric/Behavioral: Negative for depression. The patient is not nervous/anxious and gannon s not have insomnia. Objective: BP 158/84 | Pulse 96 | Temp 36.5 C (97.7 F) (Temporal) | Resp 17 | Ht 1.575 m (5' 2 ") | Wt 75.9 kg (167 lb 6.4 oz) | SpO2 99% | ? No | BMI 30.62 kg/m Physical Exam General Appearance: Alert, cooperative, [...] non-tender Extremities: Extremities normal, atraumatic, no cyanosis, clubbing. RLE: lower leg edema, non pitting 2++ Cellulitis: leg better, less red, hot, swollen but still some; with two nummular ulceration s on the lateral aspect, foul odor and superficial: the ulcerations seem smaller, but they a re oozing today. Cultures + for Enterobacter, Staph and Strep, susceptible to Cipro, resista nt to Cephalosporins. Pulses: Radial pulses 2+ and symmetric Skin: Warm and dry Lymph nodes: Cervical and supraclavicular nodes normal Neurologic: Gait normal Physical therapy treatment room consult to educate in self care, instruct in therapeutic ex ercises, and use of manual therapy as indicated. Use of modalities for pain and swelling red uction when appropriate. Assessment/Plan: 1. Cellulitis of right lower extremity (Primary) Assessment & Plan: Will Continue Cipro 500 mg Q12 for 7 more days and proceed with leg compression wrap by PT. It is a must that keeps the daily compression due to large edema. 2. HYPERTENSION, BENIGN ESSENTIAL Assessment & Plan: Not bettertoday, despite her Metoprolol XL 50 mg, Spironolactone 50 mg, Lisinopril 10 mg. But she did not take her meds today.... Will monitor again in 1 week. Other orders - Ciprofloxacin HCl; Take 1 tablet by mouth 2 times daily for 7 days. Dispense: 14 tab let; Refill: 0 The patient was satisfied with the care received and voiced understanding of the issues dis cussed and the plan. Return in about 1 week (around 05/24/2017) for Wound Care. in this encounter Plan of Treatment + +--------+ + + | Name | Priori | Associated Diagnoses | Order Schedule | | | ty | | | + +--------+ + + | * [facility] Occupational Therapy - AMB | Routin | Cellulitis of | Ordered: 05/17/2017 | | Referral | e | right lower | | | | | extremity | | + +--------+ + + as of this encounter Visit Diagnoses + + | Diagnosis | + + | Cellulitis of right lower extremity - Primary | + + | Cellulitis and abscess of leg, except foot | + + | HYPERTENSION, BENIGN ESSENTIAL | + + | Essential hypertension, benign | + +
--- OUTSIDE RECORDS SUMMARY | 2017-07-07 11:30 | XMS | Encounter Summary ---
Demographics + + + | Address | [address] | | | [place] [address] | + + + | Home Phone | | + + + | Preferred Language | Unknown | + + + | Marital Status | | + + + | Sabianism Affiliation | Unknown | + + + | Race | Unknown | + + + | Ethnic Group | Unknown | + + + Author + + + | Author | [facility] | | | and [place] | + + + | Organization | [facility] | | | and [place] | + + + | Address | Unknown | + + + | Phone | Unavailable | + + + Support + + + + + | Name | Relationship | Address | Phone | + + + + + | Jin Devine | ANGELICA CRAVEN | | | | | [place], [place] | | + + + + + | Melinda Segura | ECON | Unknown | | + + + + + Care Team Providers + +------+ + | Care Filler Spreader Name | Role | Phone | + [...] + + | 05/26/ | Office | [facility] | Maya Curry MD | Cellulitis of right | | 2018 | Visit | MEDICINE [place] | [address] | lower extremity | | | | [address] | [place] | (Primary Dx); | | | | [place] | [address] | HYPERTENSION, BENIGN | | | | [address] | | ESSENTIAL | | | | [phone] | | | +--------+---------+ + + + [...] are in pain. Ask what kind of uqck-svi-hmchleu medicine you can take for pain. Apply [...] Discharge or pus draining from the area [id number] (38C) or higher, or as directed by your healthcare provider Pain that gets worse in or around the infected Redness that gets worse in or around the infected area,particularly if the area of red ness expands to a wider area Shaking chills Swelling of the infected area Vomiting Date Last Reviewed: 10/21/201519990662-2618 [employer]. [address] [place] [address]. All righ ts reserved. This information is not intended as a substitute for professional medical care. Always follow your healthcare professional's instructions. in this encounter Progress Notes Bryce Mohr RN - 05/26/2017 1100 PSTAfter obtaining informed consent, the immunization i s given by Bryce Mohr RN. Maya Curry MD - 05/26/2017 1100 PSTFormatting of [...] door and got cellulitis and not healing. [facility] agnosed her and gave her Cephalexin and [...]
--- OUTSIDE RECORDS SUMMARY | 2017-07-07 11:30 | XMS | Encounter Summary ---
Demographics + + + | Address | [address] | | | [place] [address] | + + + | Home Phone | | + + + | Preferred Language | Unknown | + + + | Marital Status | | + + + | Jewish Affiliation | Unknown | + + + | Race | Unknown | + + + | Ethnic Group | Unknown | + + + Author + + + | Author | [facility] | | | and [place] | + + + | Organization | [facility] | | | and [place] | + + + | Address | Unknown | + + + | Phone | Unavailable | + + + Support + + + + + | Name | Relationship | Address | Phone | + + + + + | Jin Devine | ANGELICA CRAVEN | | | | | [place], [place] | | + + + + + | ImeldaMelinda | ECON | Unknown | | + + + + + Care Team Providers + +------+ + | Care Photoengraving Proofer Name | Role | Phone | + +------+ + | Maya Curry MD | PCP | | + +------+ + Reason for Visit + + + | Reason | Comments | + + + | Establish Care | re-establish care prior patient of [facility]. | + + + Encounter Details +--------+---------+ + + + | Date | Type | Department | Care Team | Description | +--------+---------+ + + + | 05/05/ | Office | [facility] | Maya Curry MD | Cellulitis of right | | 2018 | Visit | [facility] [place] | [address] | lower extremity; | | | | [address] | [place] | HYPERTENSION, BENIGN | | | | [place] | [phone] | ESSENTIAL | | | | [address] | | | | | | [phone] | | | +--------+---------+ + + + [...] + + + | Blood Pressure | 158/74 | 05/05/2017 1320 PST | + + + + | Pulse | 80 | 05/05/2017 1320 PST | + + + + | Temperature | 36.5 C (97.7 F) | 05/05/2017 1320 PST | + + + + | Respiratory Rate | 17 | 05/05/2017 1320 PST | + + + + | Oxygen Saturation | 98% | 05/05/20171319 PST | + + + + | Inhaled Oxygen | - | - | | Concentration | | | + + + + | Weight | 72.3 kg (159 lb 6.3 | 05/05/20171319 PST | | | oz) | | + + + + | Height | 157.5 cm (5' 2") | 05/05/20171319 PST | + + + + | Body Mass Index | 29.15 | 05/05/20171319 PST | + + + + in this encounter Instructions Patient Instructions - Maya Curry MD - 05/05/2017 1406 PSTFormatting of this note may be different from the original. Medicine for Cholesterol Control Cholesterol is a waxy substance in your bloodstream. If there is too much of it in your blo od, it can build up in the crawley of your arteries. Over time, this buildup can lead to coron jay disease. Coronary disease can put you at risk for a heart attack or stroke. It can also put you at risk for disease of the arteries in your legs and other places in your body. Medi cine can give you the extra help you need to controlyour cholesterol. How medicine helps Different kinds of medicines help with cholesterol levels. Some help lower your LDL (bad ch olesterol). Some help raise your HDL (good cholesterol).Other medicines lower your triglyc eride levels. And some do all three. It may take some time to find the right medicine for yo u. Taking medicine will be only one part of your cholesterol control plan. You will still ne ed to eat right and get regular exercise. Talk with your healthcare provider to find out your risks for having a heart attack. Your stacia stoner can tell you what goals to use to see if your treatment is working. These goals may vary based on your health issues or family history. Also ask your provider how often your ch olesterol should be checked as part of your treatment plan. You may need to fast before gett ing your cholesterol checked. Taking your medicine It is important to: Tell your healthcare provider about any other medicines you take. Thisincludes over-th e-counter medicines. It also includes vitamins and herbs. Take your medicine exactly as directed. This helps make sure that it works as it should. Don't skip a dose. Don't stop taking it if you feel better. Don't stop taking it when your cholesterol numbers improve. Order your refill before your medicine runs out. Side effects Medicines can cause side effects. These often occur at the start of taking a new medicine. Side effects can include headache and upset stomach. Rarely you can have muscle aches. Tell your healthcare provider about any side effects you have. When to call your healthcare provider When taking your medicine, let your healthcare provider know if you have: Yellowing of the whites ofeyes Blurred vision Muscle aches Trouble breathing High-risk groups Some people may need to take medicines called statins to control their cholesterol. This is in addition to eating a healthy diet and getting regular exercise. Statins can help you stay healthy. They can also help prevent a heart attack or stroke. You may need to take a statin if you are in one of these groups: Adults who have had a heart attack or stroke. Or adults who have had peripheral vascular disease, a ministroke (transient ischemic attack), or stable or unstable angina. This group also includes people who have had a procedure to restore blood flow through a blocked arter y. These procedures include percutaneous coronary intervention, angioplasty, stent, and open -heart bypass surgery. Adults who have diabetes. Or adults who are at higher risk of having a heart attack or s troke and have an LDL cholesterol level of 70 to 189 mg/dL Adults who are 21 years old or older and have an LDL cholesterol level of 190 mg/dL or h igher. If you are in a high-risk group, talk with your healthcare provider about your treatment go als. Make sure you understand why these goals are important, based on your own health histor y and your family history of heart disease or high cholesterol. Make a plan to have regular cholesterol checks. You may need to fast before getting this te st. Also ask your provider about any side effects your medicines may cause. Let your provide r know about any side effects you have. You may need to take more than one medicine to reach the cholesterol goals that you and your provider decide on. Date Last Reviewed: 12/21/201519992649-7390 [employer]. [address] [place] [address]. All righ ts reserved. This information is not intended as a substitute for professional medical care. Always follow your healthcare professional's instructions. Medicine for Cholesterol Control Cholesterol is a waxy substance in your bloodstream. If there is too much of it in your blo od, it can build up in the crawley of your arteries. Over time, this buildup can lead to coron jay disease. Coronary disease can put you at risk for a heart attack or stroke. It can also put you at risk for disease of the arteries in your legs and other places in your body. Medi cine can give you the extra help you need to controlyour cholesterol. How medicine helps Different kinds of medicines help with cholesterol levels. Some help lower your LDL (bad ch olesterol). Some help raise your HDL (good cholesterol).Other medicines lower your triglyc eride levels. And some do all three. It may take some time to find the right medicine for yo u. Taking medicine will be only one part of your cholesterol control plan. You will still ne ed to eat right and get regular exercise. Talk with your healthcare provider to find out your risks for having a heart attack. Your stacia stoner can tell you what goals to use to see if your treatment is working. These goals may vary based on your health issues or family history. Also ask your provider how often your ch olesterol should be checked as part of your treatment plan. You may need to fast before gett ing your cholesterol checked. Taking your medicine It is important to: Tell your healthcare provider about any other medicines you take. Thisincludes over-th e-counter medicines. It also includes vitamins and herbs. Take your medicine exactly as directed. This helps make sure that it works as it should. Don't skip a dose. Don't stop taking it if you feel better. Don't stop taking it when your cholesterol numbers improve. Order your refill before your medicine runs out. Side effects Medicines can cause side effects. These often occur at the start of taking a new medicine. Side effects can include headache and upset stomach. Rarely you can have muscle aches. Tell your healthcare provider about any side effects you have. When to call your healthcare provider When taking your medicine, let your healthcare provider know if you have: Yellowing of the whites ofeyes Blurred vision Muscle aches Trouble breathing High-risk groups Some people may need to take medicines called statins to control their cholesterol. This is in addition to eating a healthy diet and getting regular exercise. Statins can help you stay healthy. They can also help prevent a heart attack or stroke. You may need to take a statin if you are in one of these groups: Adults who have had a heart attack or stroke. Or adults who have had peripheral vascular disease, a ministroke (transient ischemic attack), or stable or unstable angina. This group also includes people who have had a procedure to restore blood flow through a blocked arter y. These procedures include percutaneous coronary intervention, angioplasty, stent, and open -heart bypass surgery. Adults who have diabetes. Or adults who are at higher risk of having a heart attack or s troke and have an LDL cholesterol level of 70 to 189 mg/dL Adults who are 21 years old or older and have an LDL cholesterol level of 190 mg/dL or h igher. If you are in a high-risk group, talk with your healthcare provider about your treatment go als. Make sure you understand why these goals are important, based on your own health histor y and your family history of heart disease or high cholesterol. Make a plan to have regular cholesterol checks. You may need to fast before getting this te st. Also ask your provider about any side effects your medicines may cause. Let your provide r know about any side effects you have. You may need to take more than one medicine to reach the cholesterol goals that you and your provider decide on. Date Last Reviewed: 12/21/201519997620-1750 [employer]. [address] [place] [address], [place] [address]. All righ ts reserved. This information is not intended as a substitute for professional medical care. Always follow your healthcare professional's instructions. in this encounter Progress Notes Maya Curry MD - 05/05/2017 1300 PSTFormatting of this note may be different from the o riginal. Subjective: Patient ID: Nancy Celis is a 76 y.o. female. Chief Complaint Patient presents with Establish Care re-establish care prior patient of [facility]. ZAKIA Cruz is a 76 year lod female whom is here to re-establish care with me today. Our last off ice visit was in 2015 in November on the . She has a history of Abnormal INR, Adenomatous colon polyps, Atrial Fibrillation, cancer- A DENOCARCINOMA SIGMOID, Cardiomyopathy, carotid stenosis, Dyslipidemia, GERD, Hemmorids, hiat al hernia, mitral regurgitation, myocardial hypertrophy, osteoporosis, HTN, PUD, Pulmonary H TN, Subclavian arterial stenosis, Tricuspid regurgitation, and vitamin d def. She presented to the ED on March 2017 for Right lower extremity edema with infection (aliza lulitis). She was seen at [place] [facility]. When she was there the ED physician told her she h ad low blood pressure so she stopped her BP medication. 03/22/17 hit RLE on car door and got cellulitis and not healing. [facility], diagnosed her and gave her Cephalexin and it seemed not to work, too k it for about 10 days and not better, rather getting worse... Her colonoscopy done in September of 2015 was normal repeat in [address] Castro. Past Medical History: Diagnosis Date Abnormal INR Adenomatous colon polyp 02/02/12 next due 2014 Anticoagulated Atrial fibrillation (HCC) Cancer (HCC) aSSTLER-cOLLER c1 ADENOCARCINOMA SIGMOID Cardiomyopathy, idiopathic (HCC) Carotid stenosis Dyslipidemia GERD (gastroesophageal reflux disease) Hemorrhoids Hiatal hernia Hypercholesterolemia Hypertension Mitral regurgitation Myocardial hypertrophy Osteoporosis Peptic ulcer disease Pulmonary hypertension Renal insufficiency Subclavian arterial stenosis (HCC) Tricuspid regurgitation Vitamin D deficiency Past Surgical History: Procedure Laterality Date APPENDECTOMY 01/21/1960 SECTION X 3 COLECTOMY 01/21/2000 COLECTOMY COLON SURGERY SIGMOID RESECTIOON august, COLONOSCOPY 11/11/2006 COLONOSCOPY 02/02/2012 One 15mm, non-bleeding [...] Take by mouth Daily. Cholecalciferol (VITAMIN D-3) 43870 units CAPS Take by mouth Once a week. Cholecalciferol (VITAMIN D3) 2000 UNITS CAPS Take 1 tablet by mouth. ciprofloxacin (CIPRO) 500 mg tablet Take 1 tablet by mouth 2 times daily for 10 days. 2 0 tablet 0 digoxin (LANOXIN) 250 mcg tablet [...] for this visit. Review of Systems Constitutional: Negative. Negative for fever and malaise/fatigue. HENT: Negative. Negative for congestion, sore throat and tinnitus. Eyes: Negative. Negative for blurred vision and pain. Wears glasses. Respiratory: Negative. Negative for cough and shortness of breath. Cardiovascular: Negative. Negative for chest pain, palpitations and leg swelling. Gastrointestinal: Negative for abdominal pain, constipation, diarrhea, heartburn, nausea an d vomiting. Genitourinary: Negative. Negative for dysuria. Musculoskeletal: Positive for joint pain. Negative for back pain and myalgias. Right lower leg infection. Skin: Positive for rash. Lower rt side cellulitis from edema. Neurological: Negative. Negative for dizziness, tingling, weakness and headaches. Endo/Heme/Allergies: Bruises/bleeds easily. Psychiatric/Behavioral: Negative. Negative for depression. The patient is not nervous/anxi ous and does not have insomnia. Objective: BP 158/74 | Pulse 80 | Temp 36.5 C (97.7 F) (Temporal) | Resp 17 | Ht 1.575 m (5' 2 ") | Wt 72.3 kg (159 lb 6.3 oz) | SpO2 98% | ? No | BMI 29.15 kg/m Physical Exam General Appearance: Alert, cooperative, [...] edema, non pitting 2++ Cellulitis: leg is red, hot, swollen with two nummular ulcerations on the lateral aspect, f oul odor and superficial. Cultures taken. Pulses: Radial pulses 2+ and symmetric Skin: Warm and dry Lymph nodes: Cervical and supraclavicular nodes normal Neurologic: Gait normal Assessment/Plan: 1. Cellulitis of right lower extremity Assessment & Plan: Obtained culture and will start Cipro 500 Q 12 and wound care with Tegaderm film F/U 1 week Compression ABEBE band applied and to keep daily 8 am to 8 pm 2. HYPERTENSION, BENIGN ESSENTIAL Assessment & Plan: Resume Metoprolol XL 50 mg, Spironolactone 50 mg, Lisinopril 10 mg and monitor in 1 week Other orders - Metoprolol Succinate ER; Take 1 tablet by mouth Daily. Dispense: 90 tablet; Refill: 3 - Spironolactone; Take 1 tablet by mouth Daily. Dispense: 90 tablet; Refill: 1 - Lisinopril; Take 1 tablet by mouth Daily. Dispense: 90 tablet; Refill: 1 - Ciprofloxacin HCl; Take 1 tablet by mouth 2 times daily for 10 days. Dispense: 20 ta blet; Refill: 0 - Tegaderm Contact Layer; 1 each by Does not apply route Daily for 20 days. Dispense: 20 each; Refill: 1 The patient was satisfied with the care received and voiced understanding of the issues dis cussed and the plan. Return in about 1 week (around 05/12/2017) for Wound Care. in this encounter Plan of Treatment Not on fileas of this encounter Results Culture, Wound, Smear (05/06/2017 0817) + [...] + | Wound - Leg | [facility] [address] | | | [place] [address] | + + + + + +--------+ [...] | Sensitive | + + +--------+ + in this encounter Visit Diagnoses + + | Diagnosis | + + | Cellulitis of right lower extremity | + + | Cellulitis and abscess of leg, except foot | + + | HYPERTENSION, BENIGN ESSENTIAL | + + | Essential hypertension, benign | + +
--- OUTSIDE RECORDS SUMMARY | 2017-07-07 11:31 | XMS | Encounter Summary ---
Demographics + + + | Address | [address] | | | [place] [address] | + + + | Home Phone | | + + + | Preferred Language | Unknown | + + + | Marital Status | | + + + | Oriental Orthodox Affiliation | Unknown | + + + | Race | Unknown | + + + | Ethnic Group | Unknown | + + + Author + + + | Author | [facility] | | | and [place] | + + + | Organization | [facility] | | | and [place] | + + + | Address | Unknown | + + + | Phone | Unavailable | + + + Support + + + + + | Name | Relationship | Address | Phone | + + + + + | Jin Devine | ANGELICA CRAVEN | | | | | [place], [place] | | + + + + + | ImeldaMelinda | ECON | Unknown | | + + + + + Care Team Providers + +------+ + | Care Sock Liner Name | Role | Phone | + [...] | | | 2018 | | MEDICINE [place] | [address] | | | | | [address] | [place] | | | | | [place] | [address] | | | | | [address] | | | | | | [phone] | | | +--------+ + + + [...]
--- OUTSIDE RECORDS SUMMARY | 2017-07-07 11:31 | XMS | Encounter Summary ---
Demographics + + + | Address | [address] | | | [place] [address] | + + + | Home Phone | | + + + | Preferred Language | Unknown | + + + | Marital Status | | + + + | Pentecostalism Affiliation | Unknown | + + + | Race | Unknown | + + + | Ethnic Group | Unknown | + + + Author + + + | Author | [facility] | | | and [place] | + + + | Organization | [facility] | | | and [place] | + + + | Address | Unknown | + + + | Phone | Unavailable | + + + Support + + + + + | Name | Relationship | Address | Phone | + + + + + | Jin Devine | ANGELICA CRAVEN | | | | | [place], [place] | | + + + + + | Melinda Segura | ECON | Unknown | | + + + + + Care Team Providers + +------+ + | Care Toll Test Desk Worker Name | Role | Phone | + [...] + + | 04/16/ | Refill | [facility] | Maya Curry MD | Medication Refill | | 2017 | | MEDICINE [place] | [address] | | | | | [address] | [place] | | | | | [place] | [address] | | | | | [address] | | | | | | [phone] | | | +--------+--------+ + + + [...]
--- OUTSIDE RECORDS SUMMARY | 2017-07-07 11:31 | XMS | Encounter Summary ---
Demographics + + + | Address | [address] | | | [place] [address] | + + + | Home Phone | | + + + | Preferred Language | Unknown | + + + | Marital Status | | + + + | Jewish Affiliation | Unknown | + + + | Race | Unknown | + + + | Ethnic Group | Unknown | + + + Author + + + | Author | [facility] | | | and [place] | + + + | Organization | [facility] | | | and [place] | + + + | Address | Unknown | + + + | Phone | Unavailable | + + + Support + + + + + | Name | Relationship | Address | Phone | + + + + + | Jin Devine | ANGELICA CRAVEN | | | | | [place], [place] | | + + + + + | ImeldaMelinda | ECON | Unknown | | + + + + + Care Team Providers + +------+ + | Care Race Relations Professor Name | Role | Phone | + [...] | | | 2018 | | MEDICINE [place] | [address] | | | | | [address] | [place] | | | | | [place] | [address] | | | | | [address] | | | | | | [phone] | | | +--------+ + + + [...]
--- OUTSIDE RECORDS SUMMARY | 2017-07-07 11:31 | XMS | Encounter Summary ---
Demographics + + + | Address | [address] | | | [place] [address] | + + + | Home Phone | | + + + | Preferred Language | Unknown | + + + | Marital Status | | + + + | Spiritism Affiliation | Unknown | + + + | Race | Unknown | + + + | Ethnic Group | Unknown | + + + Author + + + | Author | [facility] | | | and [place] | + + + | Organization | [facility] | | | and [place] | + + + | Address | Unknown | + + + | Phone | Unavailable | + + + Support + + + + + | Name | Relationship | Address | Phone | + + + + + | Jin Devine | ANGELICA CRAVEN | | | | | [place], [place] | | + + + + + | Melinda Segura | ECON | Unknown | | + + + + + Care Team Providers + +------+ + | Care Diesel Engine Engineer Name | Role | Phone | + [...] + + | 05/04/ | Telephone | [facility] | Maya Curry MD | Abstract | | 2018 | | [facility] [place] | [address] | | | | | [address] | [place] | | | | | [place], [place] | [address] | | | | | [address] | | | | | | [phone] | | | +--------+ + + + [...]
--- OUTSIDE RECORDS SUMMARY | 2017-07-07 11:31 | XMS | Encounter Summary ---
Demographics + + + | Address | [address] | | | [place] [address] | + + + | Home Phone | | + + + | Preferred Language | Unknown | + + + | Marital Status | | + + + | Rastafarian Affiliation | Unknown | + + + | Race | Unknown | + + + | Ethnic Group | Unknown | + + + Author + + + | Author | [facility] | | | and [place] | + + + | Organization | [facility] | | | and [place] | + + + | Address | Unknown | + + + | Phone | Unavailable | + + + Support + + + + + | Name | Relationship | Address | Phone | + + + + + | Jin Devine | ANGELICA CRAVEN | | | | | [place], [place] | | + + + + + | Melinda Segura | ECON | Unknown | | + + + + + Care Team Providers + +------+ + | Care Warehouse Puller Name | Role | Phone | + [...] + + | 05/04/ | Telephone | [facility] | Maya Curry MD | Abstract | | 2018 | | MEDICINE [place] | [address] | | | | | [address] | [place] | | | | | [place], [place] | [address] | | | | | [address] | | | | | | [phone] | | | +--------+ + + + [...]
--- OUTSIDE RECORDS SUMMARY | 2017-07-07 11:31 | XMS | Encounter Summary ---
Demographics + + + | Address | [address] | | | [place] [address] | + + + | Home Phone | | + + + | Preferred Language | Unknown | + + + | Marital Status | | + + + | Quaker Affiliation | Unknown | + + + | Race | Unknown | + + + | Ethnic Group | Unknown | + + + Author + + + | Author | and [facility] | | | and [place] | + + + | Organization | and [facility] | | | and [place] | + + + | Address | Unknown | + + + | Phone | Unavailable | + + + Support + + + + + | Name | Relationship | Address | Phone | + + + + + | Jin Devine | ANGELICA CRAVEN | | | | | [place], [place] | | + + + + + | Melinda Segura | ECON | Unknown | | + + + + + Care Team Providers + +------+ + | Care Farmworker Livestock Name | Role | Phone | + [...] of right | [address] | [place] | | | | | lower | [address] [place] | [place], | | | | | extremity | [place], [place] | [place] [address] | | | | | [phone] | [address] | Phone: | | | | | (ICD-10-CM) | Phone: | [phone] | | | | | - 682.6 | [phone] | Fax: | | | | | (ICD-9-CM) - | Fax: | [phone] | | | | | Cellulitis | [phone] | | | | | | of [...] + + | 05/17/ | Office | [facility] | Maya Curry MD | Cellulitis of right | | 2018 | Visit | MEDICINE [place] | [address] | lower extremity | | | | [address] | [place] | (Primary Dx); | | | | [place] | [address] | HYPERTENSION, BENIGN | | | | [address] | | ESSENTIAL | | | | [phone] | | | +--------+---------+ + + + [...] are in pain. Ask what kind of kdid-qzz-nbxqhwk medicine you can take for pain. Apply [...] Discharge or pus draining from the area Aqbqboy882.4F (38C) or higher, or as directed by your healthcare provider Pain that gets worse in or around the infected Redness that gets worse in or around the infected area,particularly if the area of red ness expands to a wider area Shaking chills Swelling of the infected area Vomiting Date Last Reviewed: 10/21/201519998502-8448 The [employer]. [address] [place] [address]. All righ ts reserved. This information is not intended as a substitute for professional medical care. Always follow your healthcare professional's instructions. in this encounter Progress Notes Gage Meraz, PT - 05/17/2017 [facility] [address] [facility] [address] Incident To Physical Therapy Treatment Note Date: [...] arise from wra p Electronically signed by: Ggae Meraz, PT, 05/17/2017 14:55 Patient Name: Nancy [...] door and got [facility]ul[facility] healing[facility] [...] Take by mouth Daily. Cholecalciferol (VITAMIN D-3) 81867 units CAPS Take by mouth Once a [...] | + +--------+ + + | * [facility] Occupational Therapy - AMB | Routin [...]
--- OUTSIDE RECORDS SUMMARY | 2017-07-07 11:31 | XMS | Encounter Summary ---
Demographics + + + | Address | [address] | | | [place] [address] | + + + | Home Phone | | + + + | Preferred Language | Unknown | + + + | Marital Status | | + + + | Scientologist Affiliation | Unknown | + + + | Race | Unknown | + + + | Ethnic Group | Unknown | + + + Author + + + | Author | [facility] | | | and [place] | + + + | Organization | [facility] | | | and [place] | + + + | Address | Unknown | + + + | Phone | Unavailable | + + + Support + + + + + | Name | Relationship | Address | Phone | + + + + + | Jin Devine | ANGELICA CRAVEN | | | | | [place], [place] | | + + + + + | ImeldaMelinda | ECON | Unknown | | + + + + + Care Team Providers + +------+ + | Care Shipping And Receiving Material Handler Name | Role | Phone | + [...] | | | 2018 | | MEDICINE [place] | [address] | | | | | [address] | [place] | | | | | [place] | [address] | | | | | [address] | | | | | | [phone] | | | +--------+ + + + [...]
--- OUTSIDE RECORDS SUMMARY | 2017-07-07 11:31 | XMS | Encounter Summary ---
Demographics + + + | Address | [address] | | | [place] [address] | + + + | Home Phone | | + + + | Preferred Language | Unknown | + + + | Marital Status | | + + + | Yazidism Affiliation | Unknown | + + + | Race | Unknown | + + + | Ethnic Group | Unknown | + + + Author + + + | Author | [facility] | | | and [place] | + + + | Organization | [facility] | | | and [place] | + + + | Address | Unknown | + + + | Phone | Unavailable | + + + Support + + + + + | Name | Relationship | Address | Phone | + + + + + | Jin Devine | ANGELICA CRAVEN | | | | | [place], [place] | | + + + + + | ImeldaMelinda | ECON | Unknown | | + + + + + Care Team Providers + +------+ + | Care Manager Hiv Name | Role | Phone | + +------+ + | Maya Curry MD | PCP | | + +------+ + Reason for Visit + + + | Reason | Comments | + + + | Establish Care | re-establish care prior patient of [facility]. | + + + Encounter Details +--------+---------+ + + + | Date | Type | Department | Care Team | Description | +--------+---------+ + + + | 05/05/ | Office | [facility] | Maya Curry MD | Cellulitis of right | | 2018 | Visit | MEDICINE [place] | [address] | lower extremity; | | | | [address] | [place] | HYPERTENSION, BENIGN | | | | [place] | [phone] | ESSENTIAL | | | | [address] | | | | | | [phone] | | | +--------+---------+ + + + [...] your provider decide on. Date Last Reviewed: 12/21/201519996961-4312 [employer]. [address] [place] [address]. All righ ts reserved. This information is [...] your provider decide on. Date Last Reviewed: 12/21/201519994514-6176 [employer]. [address] [place] [address], [place] [address]. All righ ts reserved. This information is [...] Establish Care re-establish care prior patient of [facility]. ZAKIA Cruz is a 76 year lod [...] infection (aliza lulitis). She was seen at [place] [facility]. When she was there the ED physician told her she h ad low blood pressure so she stopped her BP medication. 03/22/17 hit RLE on car door and got cellulitis and not healing. [facility], diagnosed her and gave her [...] Take by mouth Daily. Cholecalciferol (VITAMIN D-3) 67737 units CAPS Take by mouth Once a [...] Leg | [facility] [address] | | | [place] [address] | + + + + + +--------+ [...]
--- OUTSIDE RECORDS SUMMARY | 2017-07-07 11:31 | XMS | Encounter Summary ---
Demographics + + + | Address | [address] | | | [place] [address] | + + + | Home Phone | | + + + | Preferred Language | Unknown | + + + | Marital Status | | + + + | Protestant Affiliation | Unknown | + + + | Race | Unknown | + + + | Ethnic Group | Unknown | + + + Author + + + | Author | [facility] | | | and [place] | + + + | Organization | [facility] | | | and [place] | + + + | Address | Unknown | + + + | Phone | Unavailable | + + + Support + + + + + | Name | Relationship | Address | Phone | + + + + + | Jin Devine | ANGELICA CRAVEN | | | | | [place], [place] | | + + + + + | Melinda Segura | ECON | Unknown | | + + + + + Care Team Providers + +------+ + | Care Lead Sprinkler Name | Role | Phone | + [...] + + | 04/16/ | Refill | [facility] | Maya Curry MD | Medication Refill | | 2017 | | MEDICINE [place] | [address] | | | | | [address] | [place] | | | | | [place] | [address] | | | | | [address] | | | | | | [phone] | | | +--------+--------+ + + + [...]
--- OUTSIDE RECORDS SUMMARY | 2017-07-07 11:31 | XMS | Encounter Summary ---
Demographics + + + | Address | [address] | | | [place] [address] | + + + | Home Phone | | + + + | Preferred Language | Unknown | + + + | Marital Status | | + + + | Mormonism Affiliation | Unknown | + + + | Race | Unknown | + + + | Ethnic Group | Unknown | + + + Author + + + | Author | [facility] | | | and [place] | + + + | Organization | [facility] | | | and [place] | + + + | Address | Unknown | + + + | Phone | Unavailable | + + + Support + + + + + | Name | Relationship | Address | Phone | + + + + + | Jin Devine | ANGELICA CRAVEN | | | | | [place], [place] | | + + + + + | ImeldaMelinda | ECON | Unknown | | + + + + + Care Team Providers + +------+ + | Care Director Of Rehabilitative Services Name | Role | Phone | + +------+ + | Maya Curry MD | PCP | | + +------+ + Reason for Visit + + + | Reason | Comments | + + + | Establish Care | re-establish care prior patient of [facility]. | + + + Encounter Details +--------+---------+ + + + | Date | Type | Department | Care Team | Description | +--------+---------+ + + + | 05/05/ | Office | [facility] | Maya Curry MD | Cellulitis of right | | 2018 | Visit | MEDICINE [place] | [address] | lower extremity; | | | | [address] | [place] | HYPERTENSION, BENIGN | | | | [place] | [phone] | ESSENTIAL | | | | [address] | | | | | | [phone] | | | +--------+---------+ + + + [...] your provider decide on. Date Last Reviewed: 12/21/201519997364-1319 [employer]. [address] [place] [address]. All righ ts reserved. This information is [...] your provider decide on. Date Last Reviewed: 12/21/201519997253-6846 [employer]. [address] [place] [address], [place] [address]. All righ ts reserved. This information is [...] Establish Care re-establish care prior patient of [facility]. ZAKIA Cruz is a 76 [...] infection (aliza lulitis). She was seen at [place] [facility]. When she was there the ED physician told her she h ad low blood pressure so she stopped her BP medication. 03/22/17 hit RLE on car door and got cellulitis and not healing. [facility], diagnosed her and gave her Cephalexin and [...] Take by mouth Daily. Cholecalciferol (VITAMIN D-3) 05104 units CAPS Take by mouth Once a [...] + | Wound - Leg | [facility] [address] | | | [place] [address] | + + + + + +--------+ [...]
--- OUTSIDE RECORDS SUMMARY | 2017-07-07 11:31 | XMS | Clinical Summary ---
Demographics + + + | Address | [address] | | | [place] [address] | + + + | Home Phone | | + + + | Preferred Language | Unknown | + + + | Marital Status | | + + + | Holiness Affiliation | Unknown | + + + | Race | Unknown | + + + | Ethnic Group | Unknown | + + + Author + + + | Author | [facility] | | | and [place] | + + + | Organization | [facility] | | | and [place] | + + + | Address | Unknown | + + + | Phone | Unavailable | + + + Support + + + + + | Name | Relationship | Address | Phone | + + + + + | Jin Devine | ANGELICA CRAVEN | | | | | [place], [place] | | + + + + + | Melinda Segura | ECON | Unknown | | + + + + + Care Team Providers + +------+ + | Care Church Musician Name | Role | Phone | + [...] + | Wound - Leg | [facility] | | | [place] [address] | + + + + + +--------+ [...] | Indemn | [phone] | [address] [address] | | | HEALTH | | ity | [phone] | [facility] [place] [address] | | | MDCR | | | [...] | 1941 | [phone] | [place] [address] | | | marian | | | [address] | | + +--------+ +--------+ + +
--- OUTSIDE RECORDS SUMMARY | 2017-07-07 11:31 | XMS | Encounter Summary ---
Demographics + + + | Address | [address] | | | [place] [address] | + + + | Home Phone | | + + + | Preferred Language | Unknown | + + + | Marital Status | | + + + | Caodaism Affiliation | Unknown | + + + | Race | Unknown | + + + | Ethnic Group | Unknown | + + + Author + + + | Author | [facility] | | | and [place] | + + + | Organization | [facility] | | | and [place] | + + + | Address | Unknown | + + + | Phone | Unavailable | + + + Support + + + + + | Name | Relationship | Address | Phone | + + + + + | Jin Devine | ANGELICA CRAVEN | | | | | [place], [place] | | + + + + + | Melinda Segura | ECON | Unknown | | + + + + + Care Team Providers + +------+ + | Care Manager Audit Name | Role | Phone | + [...] + + | 05/26/ | Office | [facility] | Maya Curry MD | Cellulitis of right | | 2018 | Visit | MEDICINE [place] | [address] | lower extremity | | | | [address] | [place] | (Primary Dx); | | | | [place] | [address] | HYPERTENSION, BENIGN | | | | [address] | | ESSENTIAL | | | | [phone] | | | +--------+---------+ + + + [...] are in pain. Ask what kind of kzid-vsy-rjnfoph medicine you can take for pain. Apply [...] Discharge or pus draining from the area Oboqesz461.4F (38C) or higher, or as directed by your healthcare provider Pain that gets worse in or around the infected Redness that gets worse in or around the infected area,particularly if the area of red ness expands to a wider area Shaking chills Swelling of the infected area Vomiting Date Last Reviewed: 10/21/201519992282-1287 [employer]. [address] [place] [address]. All righ ts reserved. This information is [...] door and got cellulitis and not healing. [facility] agnosed her and gave her Cephalexin [...]
--- OUTSIDE RECORDS SUMMARY | 2017-07-07 11:31 | XMS | Encounter Summary ---
Demographics + + + | Address | [address] | | | [place] [address] | + + + | Home Phone | | + + + | Preferred Language | Unknown | + + + | Marital Status | | + + + | Religion Affiliation | Unknown | + + + | Race | Unknown | + + + | Ethnic Group | Unknown | + + + Author + + + | Author | [facility] | | | and [place] | + + + | Organization | [facility] | | | and [place] | + + + | Address | Unknown | + + + | Phone | Unavailable | + + + Support + + + + + | Name | Relationship | Address | Phone | + + + + + | Jin Devine | ANGELICA CRAVEN | | | | | [place], [place] | | + + + + + | ImeldaMelinda | ECON | Unknown | | + + + + + Care Team Providers + +------+ + | Care Granulator Operator Name | Role | Phone | [...] | | | 2018 | | MEDICINE [place] | [address] | | | | | [address] | [place] | | | | | [place] | [address] | | | | | [address] | | | | | | [phone] | | | +--------+ + + + [...]
--- OUTSIDE RECORDS SUMMARY | 2017-07-07 11:31 | XMS | Encounter Summary ---
Demographics + + + | Address | [address] | | | [place] [address] | + + + | Home Phone | | + + + | Preferred Language | Unknown | + + + | Marital Status | | + + + | Baptism Affiliation | Unknown | + + + | Race | Unknown | + + + | Ethnic Group | Unknown | + + + Author + + + | Author | [facility] | | | and [place] | + + + | Organization | [facility] | | | and [place] | + + + | Address | Unknown | + + + | Phone | Unavailable | + + + Support + + + + + | Name | Relationship | Address | Phone | + + + + + | Jin Devine | ANGELICA CRAVEN | | | | | [place], [place] | | + + + + + | Melinda Segura | ECON | Unknown | | + + + + + Care Team Providers + +------+ + | Care Chemical Process Engineer Name | Role | Phone | + +------+ + | Maya Curyr MD | PCP | | + +------+ [...] of right | [address] | [place] | | | | | lower | [address]VE [place] | [place], | | | | | extremity | [place], [place] | [place] [address] | | | | | [phone] | [address] | Phone: | | | | | (ICD-10-CM) | Phone: | [phone] | | | | | - 682.6 | [phone] | Fax: | | | | | (ICD-9-CM) - | Fax: | [phone] | | | | | Cellulitis | [phone] | | | | | | of [...] + + | 05/17/ | Office | [facility] | Maya Curry MD | Cellulitis of right | | 2018 | Visit | MEDICINE [place] | [address] | lower extremity | | | | [address] | [place] | (Primary Dx); | | | | [place] | [address] | HYPERTENSION, BENIGN | | | | [address] | | ESSENTIAL | | | | [phone] | | | +--------+---------+ + + + [...] are in pain. Ask what kind of kzml-yqf-miwtzgk medicine you can take for pain. Apply [...] Discharge or pus draining from the area Qjykdwa058.4F (38C) or higher, or as directed by your healthcare provider Pain that gets worse in or around the infected Redness that gets worse in or around the infected area,particularly if the area of red ness expands to a wider area Shaking chills Swelling of the infected area Vomiting Date Last Reviewed: 10/21/201519994107-9436 The [employer]. [address] [place] [address]. All righ ts reserved. This information is not intended as a substitute for professional medical care. Always follow your healthcare professional's instructions. in this encounter Progress Notes Gage Meraz, PT - 05/17/2017 [facility] [address] [facility] [address] Incident To Physical Therapy Treatment Note Date: [...] door and got cellul[facility] and not healing[facility] and [...] Take by mouth Daily. Cholecalciferol (VITAMIN D-3) 69892 units CAPS Take by mouth Once a [...] | + +--------+ + + | * [facility] Occupational Therapy - AMB | Routin [...]
[2017-07-07] MEDS ORDERED: SPIRONOLACTONE50 MG PO (12:06)
[2017-07-07] MEDS ORDERED: METOPROLOL SUCC50 MG PO (12:09)
--- NOTE | 2017-07-07 15:02 | NUR ---
PT ARRIVED TO ROOM 127 VIA STRETCHER FROM ER AT 1318. TRANSFERRED TO BED WITH HOVER MAT ASSIST. PT HAS LEFT SIDE NEGLECT BUT IS ABLE TO MOVE LEFT FOOT AND TOES. PT ORIENTED AND ABLE TO ANSWER QUESTIONS BUT HAS TROUBLE SPEEKING D/T LEFT SIDE FACIAL DROOP. ASSESSMENT COMPLETED, PT DENIES C/O AT THIS TIME. O.T. HERE AND WORKED WITH PT. PT RENATO WELL.
--- NOTE | 2017-07-07 15:11 | NUR ---
PT SLEEPING AT THIS TIME WITH HOB ELEVATED. RESP 20, SATS 95% ON RA, BP 157/75 HR 64
--- NOTE | 2017-07-07 15:18 | NUR ---
ULTRA SOUND TECH HERE FOR 2D ECHO PER DR. CHIOMA LUTZ.
--- NOTE | 2017-07-07 16:28 | NUR ---
ASSESSMENT COMPLETED, RESTING WITH EYES CLOSED BUT AWAKENS TO VOICE. NO CHANGE IN ASSESSMENT AT THIS TIME. I/O'S COMPLETED.
--- NOTE | 2017-07-07 16:48 | NUR ---
DR. BEDOLLA IN TO LOOK AT LOWER EXTREMITIES. CARRILLO/YELLOW DRAINAGE NOTED. ORDERS RECEIVED.
--- NOTE | 2017-07-07 16:51 | NUR ---
SPEECH THERAPY HERE TO WORK WITH PT.
--- NOTE | 2017-07-07 17:10 | NUR ---
PER SPEECH THERAPY, PT CAN TOLERATED PUREE AND THIN DIET. DR. CHIOMA VILLALTA.
--- NOTE | 2017-07-07 17:10 | NUR ---
ASSESSED PT'S ABILITY TO USE CALL LIGHT. PT UNABLE TO USE. SWITCHED TO PUSH BUTTON CALL LIGHT AT THIS TIME. ADVISED PT OF CALL LIGHT USE. PT VERALIZED AN UNDERSTANDING AND DEMONSTRATED ABILITY TO USE CALL LIGHT.
--- NOTE | 2017-07-07 17:47 | EKG ---
[facility] [address] [place] [address] Signed Poor data quality, interpretation may be adversely affected Atrial fibrillation Left axis deviation Minimal voltage criteria for LVH, may be normal variant Septal infarct (cited on or before 24-FEB-2017) ST \T\ T wave abnormality, consider lateral ischemia Abnormal ECG When compared with ECG of 07-JUL-2017 08:28, (Unconfirmed) Sinus rhythm has replaced Atrial fibrillation Nonspecific T wave abnormality now evident in Inferior leads Confirmed by TAN BEDOLLA MD ([id number]) on 07/07/2017 5:47:30 PM Electronically Signed By: TAN BEDOLLA MD 07/07/17 1747 PATIENT NAME: EMILY OSBORNIRIS Electrocardiogram DATE OF : 38 PHYSICIAN: TAN BEDOLLA MD REPORT #: [id number] REPORT IS CONFIDENTIAL AND NOT TO BE RELEASED WITHOUT AUTHORIZATION
--- NOTE | 2017-07-07 17:47 | EKG ---
[facility] [address] [place] [address] Signed Atrial fibrillation with premature ventricular or aberrantly conducted complexes Left axis deviation Anteroseptal infarct (cited on or before 24-FEB-2017) Abnormal ECG When compared with ECG of 07-JUL-2017 08:29, (Unconfirmed) Atrial fibrillation has replaced Sinus rhythm ST no longer depressed in Inferior leads Nonspecific T wave abnormality, improved in Inferior leads Confirmed by TAN BEDOLLA MD ([id number]) on 07/07/2017 5:47:35 PM Electronically Signed By: TAN BEDOLLA MD 07/07/17 1747 PATIENT NAME: EMILY OSBORNIRIS Electrocardiogram DATE OF : 38 PHYSICIAN: TAN BEDOLLA MD REPORT #: [id number] REPORT IS CONFIDENTIAL AND NOT TO BE RELEASED WITHOUT AUTHORIZATION
--- NOTE | 2017-07-07 17:50 | NUR ---
PT'S LEGS CLEANSED WITH SURGICAL SCRUB, RINSED, PAT DRIED, AND OINTMENT APPLIED. PT TOLERATED WELL. PT'S FRIEND NALLELY AT BEDSIDE.
--- NOTE | 2017-07-07 18:32 | NUR ---
PT HAS BEEN RESTING THE MAJORITY OF THE AFTERNOON. LLE AND LUE NOTED TO BE ABSENT IN SENSATION OR MOVEMENT WHEN FIRST ADMITTED. PT NOTED TO LIFT LLE AND MOVE TOES TOWARDS THE END OF SHIFT. PT ASSESSED BY OT AND SPEECH THERAPY. CONTINUOUS D5LR @ 75MLS/HR IN RAC, RH IS SALINE LOCKED AT THIS TIME AND FLUSHING WELL. PT'S FAMILY NOTIFIED AND WILL BE IN LATER TONIGHT.
--- NOTE | 2017-07-07 19:30 | NUR ---
IN FOR BEDSIDE REPORT, PT RESTING WITH EYES CLOSED, AWAKENS AND ANSWERS QUESTIONS FOR DAY SHIFT NURSE WHILE KEEPING EYES CLOSED. CALL LIGHT IN HAND.
--- NOTE | 2017-07-07 19:50 | NUR ---
PT CONTINUES RESTING WITH EYES CLOSED, HR 50'S, RR 20, CALL LIGHT IN HAND.
--- NOTE | 2017-07-07 20:30 | NUR ---
IN FOR ASSESSMENT AND NEURO CHECK. PT IS VERY SLEEPY, DOES NOT WANT TO WAKE UP BUT WILL ANSWER QUESTIONS WITH EYES CLOSED. LEFT SIDED FACIAL DROOP NOTED, SOME SLURRED SPEECH, CAN LIFT LEFT ARM AND MOVE LEFT LEG SOME. DENIES PAIN OR OTHER NEEDS.
--- NOTE | 2017-07-07 20:45 | NUR ---
DR BEDOLLA IN UNIT, AWARE OF PTS SLOWER HR AND FREQUENT PAUSES. ORDER FOR METOPROLOL CHANGED BY DR BEDOLLA.
--- NOTE | 2017-07-07 22:00 | NUR ---
[place] ARRIVED FROM [place], INTO SEE PT. PT AWAKENS AND TALKS SOME BUT MOSTLY SLEEPY.
--- NOTE | 2017-07-07 23:50 | NUR ---
PT HAS BEEN VERY RESTLESS, CONTINUES TO PULL AT IV TUBING, PULL OFF MONITOR LEADS DESPITE CONSTANT ATTEMPTS TO ORIENT/DIRECT PT. 0.5MG IV ATIVAN GIVEN TO HELP PT SLEEP AND PROTECT IV SITE.
--- NOTE | 2017-07-08 | NUR ---
ASSESSMENT DONE, PT REPOSITIONED. PTS HR STILL IN 60'S AND 50'S AT TIMES, WILL HOLD OFF ON IV METOPROLOL FOR NOW.
--- NOTE | 2017-07-08 01:00 | NUR ---
METOPROLOL GIVEN, HR IN 80'S.
--- NOTE | 2017-07-08 01:45 | NUR ---
PT RESTING SOME AND FIDGETING AND PULLING AT MONITOR CORDS OFTEN. UP TO VOID IN URINAL WITH TWO PERSON STAND BY ASSIT, REQUIRES MUCH DIRECTION TO GET HIM TO USE URINAL HE IS CONFUSED. BACK TO BED WITH BED ALARM ON.
--- NOTE | 2017-07-08 02:00 | NUR ---
PT REPOSITIONED, ABEBE WRAP WITH NON ADHERENT DRESSING APPLIED TO WOUNDS ON RIGHT LEG. PT MOSTLY SLEEPY, NO REQUESTS, BACK TO SLEEP WITH CALL LIGHT IN HAND.
--- NOTE | 2017-07-08 03:54 | NUR ---
PT UP SETTING OFF BED ALARM, VOIDS 600ML THEN BACK TO BED. HR REMAINS 70'S WHILE UP.
--- NOTE | 2017-07-08 04:23 | NUR ---
PT RESTING WITH EYES CLOSED, HR 70'S, RR 24 AND SPO2 92% ON ROOM AIR.
--- NOTE | 2017-07-08 06:30 | NUR ---
PT REPOSITIONED UP IN BED, DENIES PAIN BUT DOES STATE THAT SHE WANTS HER CATHETER OUT.
--- NOTE | 2017-07-08 07:56 | NUR ---
PT RESTING IN BED WITH EYES CLOSED. 2L O2 VIA NC, SPO2 NOTED TO BE 97% AND RR 25. D5LR RUNNING @75 MLS/HR. RAC IV NOT FLUSHING WELL AND DRAINING NOTED, WILL DC IV SITE. SPEECH THERAPY IN ROOM TO ASSESS INTAKE. NO INTAKE NOTED SINCE LAST NIGHT, PT DECLINED BREAKFAST AT THIS TIME.
--- NOTE | 2017-07-08 08:20 | NUR ---
PT IS RESTING IN BED SAFELY WITH CALL LIGHT IN REACH AND EYES CLOSED, RESPIRATIONS EVEN. NURSE CULP TOOK AND CHARTED 0800 VITALS.
--- NOTE | 2017-07-08 09:27 | NUR ---
ASSISTED NURSE CULP WITH GIVING THE PT A FULL BED BATH WITH SHAMPOO CAP, KD/CATH CARE, LEG WOUND CARE/DERSSING CHANGE, LINEN CHANGE, AND REPOSITIONING. PT IS NOW RESTING SAFELY IN BED WITH CALL LIGHT IN REACH. PT ASKED TO HAVE SOME BREAKFAST, NURSE CULP WORKING WITH PT TO SEE WHAT SHE CAN HAVE DUE TO HER DYSPHAGIA DIET.
--- NOTE | 2017-07-08 09:30 | NUR ---
TALKED TO PT AND SHE SAID I COULD TALK WITH HER DAUGHTER. HAD A CONVERSATION WITH SHANELL AND HER , AND NGUYEN. SHANELL #[phone]. OTHER CONTACT IS NGUYEN (CLOSE FAMILY FRIEND) SHANELL ASKED ME WHERE DO WE GO FROM HERE AND WHAT DOES SHE NEED TO DO TO TAKE CARE OF HER MOTHER. SHE STATES HER MOTHER WAS NOT BEING TRUTHFUL WITH THEM AND THAT SHE WAS LIVING IN THE HOUSE AND JUST HAD A FEW CATS. PT INFORMED ME THIS AM THAT SHE MOSTLY WAS STAYING IN HER CAR AND ALSO STAYING SOME AT THE MOTEL 6. SHE SAYS SHE HATES THE HOUSE BECAUSE IT DOESN'T HAVE HEAT OR WATER, NO ELECTRICITY AND THAT SHE ONLY EATS ONE MEAL A DAY--MAYBE TOAST. SO SHE STATES SHE SLEEPS IN HER CAR. WAS FOUND DOWN ON GROUND NEXT TO HER CAR BY NEIGHBORS HER CALLED 911. PT STATED SHE HAD JUST A FEW CATS IN THIS HOUSE MAYBE 12 OR SO AND A FEW AT THE HOUSE IN [place] TOO--MAYBE 4. DAUGHTER AFTER OUR CONVERSATION WOULD LIKE PT TO GO TO [facility] WHEN SHE IS READY TO BE DC'D FROM THE HOSPITAL. PT CONT TELLING ME THAT SHE IS CAPABLE OF TAKING CARE OF HERSELF AND SHE WILL BE GOING HOME. STATED TO HER THAT SHE NEEDS TO GO TO SNF FOR REHAB BEFORE GOING HOME. DAUGHTER WOULD LIKE TO MOVE HER UP TO WHERE SHE LIVES FROM THE SNF WHEN SHE FINDS PLACEMENT UP THERE. STATES SHE CAN'T KEEP LIVING LIKE SHE WAS.
--- NOTE | 2017-07-08 10:10 | NUR ---
ROCHELLE FROM CASE MANAGEMENT MEETING WITH FAMILY AT THIS TIME.
--- NOTE | 2017-07-08 10:15 | NUR ---
PT GIVEN WATER THROUGH STRAW, TOLERATED WELL, NO COUGHING OR SWALLOWING DIFFICULTIES NOTED. PT GIVEN SMALL AMOUNT OF PUDDING WITH ORAL MEDICATIONS. PT WAS ABLE TO SWALLOW MEDICATIONS WITH PUDDING AND TOELRATED WELL. PT REMAINED IN UPRIGHT POSITIONING. NO COUGHING NOTED. PT DECLINED ADDITIONAL PUDDING.
--- NOTE | 2017-07-08 10:17 | NUR ---
OT AT BEDSIDE AT [facility] TIME
[2017-07-08] MEDS ORDERED: WARFARIN SODIU2.5 MG PO (10:22)
--- NOTE | 2017-07-08 10:45 | NUR ---
PT'S WALLET AND CELLPHONE GIVEN TO PT'S DAUGHTER SHAY, PER PT'S APPROVAL.
--- NOTE | 2017-07-08 11:15 | NUR ---
PATIENT TO FLOOR FROM CCU. REPORT RECIEVED FROM ROBBI STROUD. NO COMPLAINTS OF PAIN. MCKINNON TO DRAINAGE BAG. PATIENT ON LEFT SIDE, RESTING WITH EYES CLOSED. LUNG SOUNDS CLEAR IN UPPERLOBES, DIMINISHED IN BASES. MAINTENANCE IV FLUIDS INFUSING. ORDERED PATIENT SOME MASH POTATOES FOR LUNCH, AND PUDDING PARFAIT.
--- NOTE | 2017-07-08 12:40 | NUR ---
FAXED CHART NOTES TO T AFTER TALKING WITH LISA, ADMISSIONS AT [facility], THESE INCLUDED FACESHEET, ER NOTES, H AND P, PROG NOTES, IMAGING, PT AND OT AND ST EVAL AND NOTES. RECIEVED FAX CONFIRMATION.
--- NOTE | 2017-07-08 14:02 | NUR ---
PATIENT ATE 100% OF LUNCH, NEEDING SOME ASSISTANCE WITH EATING. APPEARS TO CLENCH EYES SHUT. INSTRUCTED TO TUCK CHIN WHEN SWALLOWING, PATIENT ABLE TO FOLLOW DIRECTION. NOTED SOME POCKETING IN RIGHT CHEEK, PATIENT ABLE TO CLEAR POCKET OF FOOD IN CHEEK. NOW RESTING UP IN 90 DEGREE ANGLE, REQUESTED TO SIT THAT WAY FOR AWHILE.
--- NOTE | 2017-07-08 15:52 | NUR ---
BROUGHT PATIENT SOME ICE WATER SHE TOOK A COUPLE OF SIPS. NOW SHE IS WORKING WITH OCCUPATIONAL THERAPIST.
--- NOTE | 2017-07-08 15:55 | NUR ---
PATIENT PULLING AT MCKINNON CATHETER, STATING" I WANT THIS REMOVED NOW" TELPHONE CALL TO DR. BEDOLLA. ORDERS TO MAAME.
--- NOTE | 2017-07-08 16:33 | NUR ---
TALKED WITH BRAN FROM [facility], TO REPORT MY CONCERN REGARDING PT CURRENT LIVING HABITATING SITUATIONS. HE STATED THEY WERE AWARE OF HER AND HER CONDITIONS AND SOFIE WAS WORKING WITH HER. I ALSO INFORMED HIM OF THE SORES ON HER R LEG.
--- NOTE | 2017-07-08 18:27 | NUR ---
TRANSFER FROM CCU TODAY. RIGHT SIDED FRONTAL CVA, PATIENT FLACID ON LEFT SIDE. PT EVALUATION DONE, PATIENT NEEDS A CELESTINA LIFT. MCKINNON DCD, PATIENT DUE TO VOID. LUNG SOUNDS CLEAR, PATIENT AAOX3. CALLS APROPRIATLEY WITH PUSH BUTTON CALL LIGHT. NO COMPLAINTS OF PAIN.
--- NOTE | 2017-07-08 18:27 | NUR ---
PATIENT ATE MOST OF DINNER, PUREED HAMBURGER AND MASH POTATOES AND GRAVY AND PEACHES. TOLERATED WELL NO CHOKING.
--- NOTE | 2017-07-08 19:20 | NUR ---
SHIFT REPORT RECEIVED. PATIENT RESTING IN BED WITH EYES CLOSED. SHE RESPONDS TO QUESTIONS APPROPRIATELY BUT DOES NOT OPEN HER EYES. PATIENT'S BEDDING WAS WET FROM HER DRINK. FRESH LINEN APPLIED AND PATIENT REPOSITIONS. STATES SHE IS COMFORTABLE. CALL LIGHT BUTTON IN HAND. IV FLUIDS INFUSING PER ORDER.
--- NOTE | 2017-07-08 20:42 | NUR ---
ROUNDED CHARGE. PATIENT IS RESTING IN BED WITH EYES CLOSED. BREATHING IS EVEN AND UNLABORED, RR 17. CALL LIGHT IN REACH.
--- NOTE | 2017-07-08 22:00 | NUR ---
EVENING MEDS GIVEN PER ORDER. PATIENT ASSESSMENT COMPLETED. PATIENT IS ORIENTED X4. KEEPS HER EYES CLOSED DURING INTERACTION. DENIES PAIN. APPEARS VERY DROWSEY. LUNG SOUNDS ARE CLEAR. ABD IS SOFT AND NONTENDER. PATIENT INCONTINENT OF URINE AND DID NOT REALIZE SHE WAS WET. 2PA TO TURN AND PROVIDE KD CARE. LEGS CLEANS WITH ANTIBACTERIAL SOAP AND WATER. BACTROBAN APPLIED TO OPEN AREAS. NONADHERANT GAUZE APPLIED THEN REGULAR GAUZE WRAP AND ABEBE WRAP. PATIENT HAS SOME GROSS MOVEMENT IN LEFT LEG. NO MOVEMENT IN LEFT ARM. SENSATION DOES NOT APPEAR TO BE INTACT IN EITHER EXTREMITIY. NO FACIAL DROOP OR SLURRED SPEECH. HEELS FLOATED. IV FLUIDS INFUSING PER ORDER. IV SITE WNL.
--- NOTE | 2017-07-08 22:27 | NUR ---
HELPED RN EVAN CHANGE PT'S ATTEND INCONTINENT OF URINE. REPOSITIONED PT IN BED. BEDSIDE TABLE AND CALL LIGHT WITHIN REACH.
--- NOTE | 2017-07-09 02:10 | NUR ---
PATIENT'S ATTENDS CHANGED. LARGE AMOUNT OF URINE. FRESH BED LINEN PROVIDED. REPOSITIONED TO LEFT SIDE.
--- NOTE | 2017-07-09 05:42 | NUR ---
PATIENT SLEPT THROUGHOUT THE SHIFT. AWOKE EASILY WHEN ASSESSED FOR TOILETING NEEDS AND MEDS, BUT NEVER OPENED HER EYES. STATES "I'M JUST TIRED". NO PAIN. LUNGS ARE CLEAR, DIMINISHED IN BASES. 1L NC WHILE ASLEEP, BREATHING CAN BE SOMEWHAT LABORED AT TIMES. O2 SAT >90%. INCONTINENT OF URINE. IV FLUIDS INFUSING PER ORDER. TURN Q2H. WOUND CARE PERFORMED ON PATTIE LOWER EXTREMITIES PER ORDER. OPEN AREAS ON RIGHT LEG, HEALING AREAS ON LEFT. LEFT LEG HAS SOME GROSS MOVEMENT. LEFT ARM CONTINUES TO BE FLACCID.
--- NOTE | 2017-07-09 06:57 | NUR ---
PATIENT RESTING IN BED WITH EYES CLOSED. BREATHING NONLABORED, RR 18.
--- NOTE | 2017-07-09 07:56 | NUR ---
PT WAS SAT UP AND HAD FACE AND HANDS WASHED. PT WAS THEN FEED HER BREAKFAST. PT ONLY ATE APPROXIMATELY 40% AND DRANK 150ML OF CRANDBERRY JUICE, PT THEN STATED SHE WAS FULL AND DID NOT WANT ANYMORE. PT IS NOW RESTING IN BED SAFELY WITH CALL LIGHT IN REACH.
--- NOTE | 2017-07-09 08:00 | NUR ---
CHANGED ATTEND, SATURATED. ASSISTED PATIENT WITH EATING, THEN GRADUATE STUDENT TOOK OVER. PATIENT AAOX3. NOTED SOME WHEEZING, RT TO ROOM. LUNG SOUNDS CLEAR THROUGHUT. PATIENT HAS NO COMPLAINTS OF PAIN. FULL BODY ASSESMENT DONE.
--- NOTE | 2017-07-09 08:40 | NUR ---
PATIENT APPEARS TO BE SLEEPING SOUNDLY, CALL LIGHT IN REACH
--- NOTE | 2017-07-09 11:25 | NUR ---
2 PERSON ASSIST WITH MAXIMUS MARINELLI TO CHANGE PATIENTS ATTENDS AND DRAW SHEET. PATIENT REPORTS SHE IS NOT HUNGRY AT ALL. AGREED TO SHOWER LATER TODAY. CALL LIGHT IN REACH.
--- NOTE | 2017-07-09 14:39 | NUR ---
PATIENT SITTING AT EDGE OF BED WITH PT ADY. VITALS AND I/OS DONE. PATIENT PATIENT IS RESPONSIVE BUT UNABLE TO SIT UP UNASSISTED NOR ABLE TO KEEP HER EYES OPEN. 2 PERSON ASSIST MOVED PATIENT BACK INTO BED, LEFT LEG ELEVATED. CALL LIGHT IN REACH
[2017-07-09] MEDS ORDERED: WARFARIN SODIU2.5 MG PO ×2 (14:56→14:58)
[2017-07-09] MEDS ORDERED: LIPITOR40 MG PO (14:58)
[2017-07-09] MEDS ORDERED: ASPIRIN EC81 MG PO (15:00)
[2017-07-09] MEDS ORDERED: CITRATE OF MAG296 ML PO (15:01)
[2017-07-09] MEDS ORDERED: MUPIROCIN22 GM TOP (15:01)
[2017-07-09] MEDS ORDERED: MAPAP500 M1 PO (15:02)
[2017-07-09] MEDS ORDERED: SENNA-TIME S T1 EACH PO (15:02)
[2017-07-09] MEDS ORDERED: ONDANSETRON ODT4 MG PO (15:02)
--- NOTE | 2017-07-09 15:04 | NUR ---
DR. BEDOLLA ROUNDED, PATIENT NOW SL. PLAN TO GET PATIENT UP IN RECLINER. POSSIBLE TRANSFER TO ALF TOMORROW. PATIENT RESTING IN BED, PROVIDED PATIENT WITH GLASSES. PATIENT HAS NO COMPLAINTS OF PAIN. RESTING WELL.
[2017-07-09] MEDS ORDERED: LISINOPRIL20 MG PO (15:17)
--- NOTE | 2017-07-09 16:09 | NUR ---
PT WAS GIVEN A COMPLETE BEDBATH WITH A BASIN OF WARM SOAPY WATER AND WASH CLOTHS. KD CARE, ORAL CARE, AND SHAMPOO CAP WERE DONE. PT WAS THEN CELESTINA INIGUEZ LIFTED TO BEDSIDE CHAIR. PT WAS FLOATED WITH PILLOWS AND GIVEN WARM BLANKETS. PT IS SITTING UP IN CHAIR WITH FEET ELEVATED AND CALL LIGHT IN REACH. PK HAUSER ASSISTED ME WITH ALL CARE.
--- NOTE | 2017-07-09 17:10 | NUR ---
PATIENT SITTING UP IN CHAIR, MAXIMUS MARINELLI FEEDING PATIENT, THIS CONCRETE FINISHING MACHINE OPERATOR TOOK OVER. SON IN LAW AT BEDSIDE. CALL LIGHT IN REACH NO OTHER NEEDS
--- NOTE | 2017-07-09 18:45 | NUR ---
PATIENT UP TO RECLINER WITH CELESTINA LIFT TOLERATED WELL. NO COMPLAINTS OF PAIN THROUGHOUT DAY. TOLERATING PUREE DIET WELL, AND DRINKING GOOD AMOUNTS OF FLUID. PATIENT NOW SL. INCONTINENT. PLAN TO DC TO [facility] IN THE MORNING.
--- NOTE | 2017-07-09 19:05 | NUR ---
SHIFT REPORT RECEIVED. CNAS IN ROOM ASSISTING PATIENT BACK INTO BED FROM THE RECLINER.
--- NOTE | 2017-07-09 19:20 | NUR ---
ROUNDED CHARGE. PATIENT IS RESTING IN BED WITH EYES CLOSED. BREATHING EVEN AND UNLABORED, RR 17. CALL LIGHT IN REACH.
--- NOTE | 2017-07-09 20:30 | NUR ---
EVENING MEDS GIVEN PER ORDER. PATIENT IS ORIENTED X4, BUT FREQUENTLY DROWSEY AND KEEPS HER EYES CLOSED. PATIENT IS TOLERATING ROOM AIR, LUNGS ARE CLEAR THROUGHOUT. SHE DOES HAVE SOME LABORED DRINKING AFTER TRANSFER OR ROLLING IN BED. EVEN AFTER DRINKING SHE APPEARS SLIGHT SOB. BUT SHE DENIES FEELING SOB AND O2 SAT >90% ON RA. ABD IS MILDLY DISTENDED, SOFT AND NONTENDER. BOWEL SOUNDS ACTIVE. PATIENT TOLERATING PUREED DIET. ORAL FLUID INTAKE ENCOURAGED. ATTENDS IS DRY AT THIS TIME AND PATIENT DENIES TOILETING NEEDS. WOUND CARE DONE ON PATTIE LOWER EXTREMITIES. WASHED WITH FOAM ANTIBACTERIAL SOAP AND DRIED. LOTION APPLIED. BACTROBAN TO OPEN AREAS AND THEN NONADHERANT DRESSING, GAUZE AND ABEBE WRAP ON BOTH LEGS. PATIENT TOLERATED WELL BUT STATES HER RIGHT LEG IS PAINFUL AT THE OPEN AREAS. LEFT LEG ELEVATED ON PILLOW. +2 EDEMA NOTED PATTIE LOWER EXTREMITIES. PATIENT DENIES ANY NEEDS AT THIS TIME. CALL LIGHT IN HAND.
--- NOTE | 2017-07-09 22:30 | NUR ---
PATIENT APPEARS TO BE RESTING COMFORTABLE. REPOSITIONED PATIENT'S BLANKETS AND ASSESSED TOILETING NEEDS. ATTENDS ARE DRY. CALL LIGHT IN REACH.
--- NOTE | 2017-07-10 00:10 | NUR ---
ASSISTED SENIOR TECH MANUFACTURING ENGINEERING JUNE WITH REPOSITIONING PATIENT AND CHANGING ATTEND, WHICH WAS SATURATED WITH LARGE AMOUNT OF URINE. PATIENT'S SKIN APPEARS WNL ON COCCXY AND KD AREA. KD CARE PERFORMED. PATIENT REQUEST TO TURN TO LEFT SIDE. POSITIONED WITH PILLOWS TO REDUCE PRESSURE. PATIENT REPORTS FEELING COMFORTABLE AND DENIES OTHER NEEDS.
--- NOTE | 2017-07-10 04:45 | NUR ---
PATIENT WAS LAYING ON HER SIDE WITH HER LEGS OUT OF THE BED. PATIENT STATED "I WAS TRYING TO GET MY PILLOW". WHICH HAD FALLEN TO THE GROUND. ASSISTED PATIENT BACK TO THE BED. DISCUSSED SOME BOWEL CARE ISSUES WITH THE PATIENT. SHE IS IN AGREEMENT WITH TRYING A SUPPOSITORY. PATIENT'S ATTEND WAS SATURATED WITH URINE. KD CARE PERFORMED. SUPPOSITORY ADMINISTERED. PATIENT TOLERATED WELL. REPOSITIONED HER TO HER BACK WITH PILLOWS SUPPORTING HER LEFT SIDE. CALL LIGHT PLACED IN HAND. FRESH ICE WATER PROVIDED BY PK
--- NOTE | 2017-07-10 06:14 | NUR ---
PATIENT HAD MEDIUM SOFT BM. KD CARE PROVIDED. PATIENT STATES "MY STOMACH FEELS ALOT BETTER". SHE DENIED ANY OTHER NEEDS. CALL LIGHT IN REACH.
--- NOTE | 2017-07-10 06:28 | NUR ---
PATIENT SLEPT WELL THROUGHOUT THE NIGHT. TOLERATING ROOM AIR. ORIENTED X4. CONTINUES TO KEEP HER EYES CLOSED. ASSISTED WITH DRINKING WATER. SUPPOSITORY ADMINISTERED THIS AM. MEDIUM BOWEL MOVEMENT THIS AM.
--- NOTE | 2017-07-10 09:57 | NUR ---
PT WAS IN CONTINENT OF URINE AND STOOL, PT WAS CHANGED AND KD CARE WAS DONE. PT'S FACE AND HANDS WERE WASHED WITH A WARM WASH CLOTH. PT WAS THEN TRANSFERED VIA 2 PERSON CELESTINA LIFT TO THE CHAIR. PT WAS FED BREAKFAST BUT ONLY ATE HER PUDDING AND TWO BITES OF EGG BEFORE SHE STATED SHE DIDN'T WANT ANYMORE. PT IS NOW SITTING UP IN CHAIR WITH CALL LIGHT IN REACH AND FEET ELEVATED. PT WILL BE DISCHARGING SOON TO [place], VITALS HAVE BEEN TAKEN.
--- NOTE | 2017-07-10 10:15 | NUR ---
PATIENT WORKING WITH PHYSICAL THERAPY, ADMINISTERED MORNING MEDICAITONS. NO COMPLAINTS OF PAIN. PATIENT STATES " I REALLY AM NOT LOOKING FORWARD TO GOING TO [place]" PROVIDED ENCOURAGEMENT. PATIENT HAS NOT COMPLAINTS OF PAIN OR DISCOMFORT. FULL BODY ASSESMENT DONE, NO CHANGES.
== END 2017-07-10 11:00 | DRG 65 ==
LOC: ED 08:03 → CCU 10:28 → MS 10:28 → CCU 10:30 → MS 07-08 11:10
PROVIDERS: ADMIT Internal Medicine
DX: I63.411 Cerebral infarction due to embolism of right middle cerebral artery (principal); G81.94 Hemiplegia, unspecified affecting left nondominant side; R29.810 Facial weakness; R47.1 Dysarthria and anarthria; I48.2 Chronic atrial fibrillation; I10 Essential (primary) hypertension; G47.33 Obstructive sleep apnea (adult) (pediatric); I27.20 Pulmonary hypertension, unspecified; Z91.14 Patient's other noncompliance with medication regimen; Z59.0 Homelessness; Z79.01 Long term (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 of anticoagulants; Z79.899 Other long term (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
CPT/HCPCS: 36415; 70450; 70496; 70498; 71045; 80053; 80061; 80162; 81001; 83735; 85025; 85610; 92526; 92610; 93005; 93010; 93306; 97110; 97112; 97162; 97166; 97530; J1650; J2405; J3475; J7120; Q9967

== ENCOUNTER 2017-12-13 13:15 | Emergency (ER) | payer MEDICARE, OTHER ==
[~2017-12-13] VITALS: Ht 157.5 cm; Wt 78.1 kg
--- OUTSIDE RECORDS SUMMARY | ~2017-12-13 | XMS | Encounter Summary ---
Demographics + + + | Address | [address] | | | [place] [address] | + + + | Home Phone | | + + + | Preferred Language | Unknown | + + + | Marital Status | | + + + | Mormon Affiliation | Unknown | + + + | Race | Unknown | + + + | Ethnic Group | Unknown | + + + Author + + + | Author | [facility] | | | and [place] | + + + | Organization | [facility] | | | and [place] | + + + | Address | Unknown | + + + | Phone | Unavailable | + + + Support + + + + + | Name | Relationship | Address | Phone | + + + + + | Jin Devine | [address] | | | | | [place], [place] | | + + + + + | Melinda Segura | ECON | Unknown | | + + + + + Care Team Providers + +------+ + | Care Air Brake Mechanic Name | Role | Phone | + +------+ + | Maya Curry MD | PCP | | + +------+ + Reason for Visit + + + | Reason | Comments | + + + | Anticoagulation | NEEDS APT. | + + + Encounter Details +--------+ + + + + | Date | Type | Department | Care Team | Description | +--------+ + + + + | 11/25/ | Telephone | [facility] | Maya Curry MD | Anticoagulation | | 2018 | | MEDIC[facility] [place] | [address] | ([address] | | | | [address] | [place] | | | | | [place] | [address] | | | | | [address] | | | | | | [phone] | | | +--------+ + + + [...]
--- OUTSIDE RECORDS SUMMARY | ~2017-12-13 | XMS | Encounter Summary ---
Demographics + + + | Address | [address] | | | [place] [address] | + + + | Home Phone | | + + + | Preferred Language | Unknown | + + + | Marital Status | | + + + | Buddhist Affiliation | Unknown | + + + | Race | Unknown | + + + | Ethnic Group | Unknown | + + + Author + + + | Author | [facility] | | | and [place] | + + + | Organization | [facility] | | | and [place] | + + + | Address | Unknown | + + + | Phone | Unavailable | + + + Support + + + + + | Name | Relationship | Address | Phone | + + + + + | Jin Devine | [address] | | | | | [place], [place] | | + + + + + | Melinda Segura | ECON | Unknown | | + + + + + Care Team Providers + +------+ + | Care Jack Machine Operator Name | Role | Phone | + +------+ + | Maya Curry MD | PCP | | + +------+ + Encounter Details +--------+ + + + + | Date | Type | Department | Care Team | Description | +--------+ + + + + | 11/25/ | Anti-coag | [facility] | Maya Curry MD | Chronic atrial | | 2018 | Telephone | MEDICINE [place] | [address] | fibrillation (HCC) | | | | [address] | [place] | | | | | [place] | [address] | | | | | [address] | | | | | | [phone] | | | +--------+ + + + [...] + | Diagnosis | + + | Chronic atrial fibrillation (HCC) | + + | Atrial fibrillation | + +"
--- OUTSIDE RECORDS SUMMARY | ~2017-12-13 | XMS | Encounter Summary ---
Demographics + + + | Address | [address] | | | [place] [address] | + + + | Home Phone | | + + + | Preferred Language | Unknown | + + + | Marital Status | | + + + | Cheondoism Affiliation | Unknown | + + + | Race | Unknown | + + + | Ethnic Group | Unknown | + + + Author + + + | Author | [facility] | | | and [place] | + + + | Organization | [facility] | | | and [place] | + + + | Address | Unknown | + + + | Phone | Unavailable | + + + Support + + + + + | Name | Relationship | Address | Phone | + + + + + | Jin Devine | [address] | | | | | [place], [place] | | + + + + + | Melinda Segura | ECON | Unknown | | + + + + + Care Team Providers + +------+ + | Care Revenue Coordinator Name | Role | Phone | + +------+ + | Maya Curry MD | PCP | | + +------+ + Encounter Details +--------+ + + + + | Date | Type | Department | Care Team | Description | +--------+ + + + + | 11/25/ | Anti-coag | [facility] | Maya Curry MD | Chronic atrial | | 2018 | Telephone | MEDICINE [place] | [address] | fibrillation (HCC) | | | | [address] | [place] | | | | | [place] | [address] | | | | | [address] | | | | | | [phone] | | | +--------+ + + + [...]
--- OUTSIDE RECORDS SUMMARY | ~2017-12-13 | XMS | Encounter Summary ---
Demographics + + + | Address | [address] | | | [place] [address] | + + + | Home Phone [...] | Author | [facility] | | | and [place] | + + + | Organization | [facility] | | | and [place] | + + + | Address | Unknown | + + + | Phone | Unavailable | + + + Support + + + + + | Name | Relationship | Address | Phone | + + + + + | Jin Devine | [address] | | | | | [place], [place] | | + + + + + | Melinda Segura | ECON | Unknown | | + + + + + Care Team Providers + +------+ + | Care Machine Greaser Name | Role | Phone | + [...] + + | 11/25/ | Telephone | [facility] | Maya Curry MD | Anticoagulation | | 2018 | | MEDICINE [place] | [address] | ([address] | | | | [address] | [place] | | | | | [place] | [address] | | | | | [address] | | | | | | [phone] | | | +--------+ + + + [...]
--- OUTSIDE RECORDS SUMMARY | ~2017-12-13 | XMS | Clinical Summary ---
Demographics + + + | Address | [address] | | | [place] [address] | + + + | Home Phone [...] Author | [facility] | | | and [place] | + + + | Organization | [facility] | | | and [place] | + + + | Address | Unknown | + + + | Phone | Unavailable | + + + Support + + + + + | Name | Relationship | Address | Phone | + + + + + | Jin Devine | [address] | | | | | [place], [place] | | + + + + + | Melinda Segura | ECON | Unknown | | + + + + + Care Team Providers + +------+ + | Care Art Educator Name | Role | Phone | [...] mouth every Wednesday | tablet | | 05/11 | | e | | tablet | [...] tablet by | 90 | 3 | /1 | | Activ | | succinate | mouth Daily. | tablet | | 4/20 | | e | | (TOPROL-XL) 50 [...] + +--------+---------+------+------+-------+ | digoxin (LANOXIN) | Take 1 tablet by | 30 | 5 | 05/1 | | Activ | | 125 mcg | mouth Daily. | tablet | | 5/20 | | e | | tabletIndications: | | | | 18 | | | | Chronic atrial | | | | | | | | fibrillation (HCC) | | | | | | | [...] + + | 11/25/ | Telephone | | Maya Curry MD | Anticoagulation | | 2017 | | | | ([address] | +--------+ + + + + | 11/25/ | Anti-coag | | Maya Curry MD | Chronic atrial | | 2018 | Telephone | | | fibrillation (HCC) | +--------+ + + + + from [...] | Body Mass Index | 30.32 | 05/26/20171043 PST | + + + + Plan [...] | | | | | (#1) | 8 | | | + + [...] + + | MEDICARE | MEDICA | [id number] | Medica | [phone] | | | RE | | re | [phone] | | | | PART A | | | | | | | AND B | | | | | + +--------+ +--------+ + + | MODA | MODA | [id number] | Indemn | [phone] | [address] [address] | | | HEALTH | | ity | [phone] | [place] [address] | | | MDCR | | | [...] Self | [birth year] | Home: | [address] | | | al/Fam | | 1941 | [phone] | [place] [address] | | | marian | | | [address] | | + +--------+ +--------+ + +
--- OUTSIDE RECORDS SUMMARY | ~2017-12-13 | XMS | Clinical Summary ---
Demographics + + + | Address | [address] | | | [place] [address] | + + + | Home Phone | | + + + | Preferred Language | Unknown | + + + | Marital Status | | + + + | Mormonism Affiliation | Unknown | + + + | Race | Unknown | + + + | Ethnic Group | Unknown | + + + Author + + + | Author | [facility] | | | and [place] | + + + | Organization | [facility] | | | and [place] | + + + | Address | Unknown | + + + | Phone | Unavailable | + + + Support + + + + + | Name | Relationship | Address | Phone | + + + + + | Jin Devine | [address] | | | | | [place], [place] | | + + + + + | Melinda Segura | ECON | Unknown | | + + + + + Care Team Providers + +------+ + | Care Temporary Staff Accountant Name | Role | Phone | + [...] + + | MEDICARE | MEDICA | [id number] | Medica | [phone] | | | | RE | | re | [phone] | | | | PART A | | | | | | | AND B | | | | | + +--------+ +--------+ + + | MODA | MODA | [id number] | Indemn | [phone] | [address] [address] | | | HEALTH | | ity | [phone] | [place] [address] | | | MDCR | | | [...] | 1941 | [phone] | [place] [address] | | | marian | | | [address] | | + +--------+ +--------+ + +
[~2017-12-13 13:15] MED LIST changes: +ASPIRIN EC81 MG PO; +CIPRO500 MG PO; +CITRATE OF MAG296 ML PO; +LIPITOR40 MG PO; +LISINOPRIL-HCT1 EAC1 PO; +LISINOPRIL20 MG PO; +MAPAP500 M1 PO; +METOPROLOL SUCC50 MG PO; +MUPIROCIN22 GM TOP; +ONDANSETRON ODT4 MG PO; +SENNA-TIME S T1 EACH PO; +SPIRONOLACTONE50 MG PO
== END 2017-12-13 16:05 | disposition home or self-care (01) ==
LOC: ED 13:15
PROC: 0HQ1XZZ Repair Face Skin, External Approach (ICD-10-PCS; principal; 2017-12-13)
DX: S01.81XA Laceration without foreign body of other part of head, initial encounter (principal); Z23 Encounter for immunization; I11.0 Hypertensive heart disease with heart failure; I50.9 Heart failure, unspecified; I48.91 Unspecified atrial fibrillation; Z79.899 Other long term (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; Z79.01 Long term (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 of anticoagulants; Z79.82 Long term (current) use of aspirin; W06.XXXA Fall from bed, initial encounter
CPT/HCPCS: 12011; 70450; 90471; 90715; 99283

== ENCOUNTER 2018-03-24 11:51 | Emergency (ER) | payer MEDICARE, OTHER ==
[~2018-03-24] VITALS: Ht 157.5 cm; Wt 78.1 kg
[2018-03-24] MEDS ORDERED: LIPITOR40 MG PO (12:34)
[2018-03-24] MEDS ORDERED: TOPROL XL25 MG PO (12:36)
[2018-03-24] MEDS ORDERED: METOPROLOL TART25 MG PO (12:38)
[2018-03-24] MEDS ORDERED: XARELTO20 MG PO (12:39)
[2018-03-24] MEDS ORDERED: BISCOLAX10 MG PR (12:41)
[2018-03-24] MEDS ORDERED: MILK OF MA400 MG/5 M PO (12:42)
--- NOTE | 2018-03-24 15:19 | EKG ---
[facility] [address] [facility] [place] [address] Signed Atrial fibrillation with rapid ventricular response with premature ventricular or aberrantly conducted complexes Low voltage QRS Possible Anterolateral infarct (cited on or before 07-JUL-2017) Abnormal ECG When compared with ECG of 07-JUL-2017 09:19, QRS axis shifted right QRS voltage has decreased Questionable change in initial forces of Lateral leads Confirmed by SURENDRA JOHNSON DO ([id number]) on 03/24/2018 3:18:54 PM Electronically Signed By: SURENDRA JOHNSON DO 03/24/18 1519 PATIENT NAME: EMILY OSBORNIRIS Electrocardiogram DATE OF : 38 PHYSICIAN: SURENDRA JOHNSON DO REPORT #: [id number] REPORT IS CONFIDENTIAL AND NOT TO BE RELEASED WITHOUT AUTHORIZATION
== END 2018-03-24 16:39 | disposition short-term general hospital (02) ==
LOC: ED 11:51
DX: K92.2 Gastrointestinal hemorrhage, unspecified (principal); D68.8 Other specified coagulation defects; I95.9 Hypotension, unspecified; D64.9 Anemia, unspecified; I48.91 Unspecified atrial fibrillation; Z79.01 Long term (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 of anticoagulants; I11.0 Hypertensive heart disease with heart failure; I50.9 Heart failure, unspecified; Z86.73 Personal history of transient ischemic attack (TIA), and cerebral infarction without residual deficits; Z85.038 Personal history of other malignant neoplasm of large intestine; Z79.82 Long term (current) use of aspirin; Z79.899 Other long term (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
CPT/HCPCS: 36430; 71045; 80053; 81001; 83690; 84484; 85025; 85610; 86850; 86900; 86901; 86920; 86927; 87088; 93005; 93010; 96361; 96374; 96375; 99284-25; C9113; J2405; J3430; J7030; J7040; J7060; P9016

== ENCOUNTER 2018-03-29 14:32 | Emergency (ER) | payer MEDICARE, OTHER ==
[~2018-03-29] VITALS: Ht 157.5 cm; Wt 78.1 kg
[~2018-03-29 14:32] MED LIST changes: +BISCOLAX10 MG PR; +METOPROLOL TART25 MG PO; +MILK OF MA400 MG/5 M PO; +TOPROL XL25 MG PO; +XARELTO20 MG PO
--- OUTSIDE RECORDS SUMMARY | 2018-03-29 14:38 | XMS ---
PreManage Notification: IRIS OLIVAREZ Security Regional Safety Manager Events No recent Security Events currently on file CRITERIA MET - [facility] - 2 Visits in 30 Days CARE PROVIDERS PEDRO IGNACIO [facility] Current PHONE: Unknown Sarbjit has no Care Guidelines for this patient. E.Nida VISIT COUNT (12 MO.) [address] TOTAL 5 NOTE: Visits indicate total known visits. ED/C VISIT TRACKING (12 MO.) 03/29/2018 14:33 [facility] [place] TYPE: Emergency COMPLAINT: - LETHARGIC 03/24/2018 17:43 [facility] TYPE: Emergency DIAGNOSES: - Unspecified dementia without behavioral disturbance - Illness, unspecified - Hypovolemia - Other hypotension - Acute posthemorrhagic anemia - Gastrointestinal hemorrhage, unspecified 03/24/2018 11:51 [facility] [place] TYPE: Emergency COMPLAINT: - BLOOD PRESSURE PROBLEM DIAGNOSES: - Heart failure, unspecified - Other terminal make up operator (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 - Elevated blood-pressure reading, without diagnosis of hypertension - Gastrointestinal hemorrhage, unspecified - halfway (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 - Other specified coagulation defects - Personal history of transient ischemic attack (TIA), and cerebral infarction without residual deficits - Unspecified atrial fibrillation - halfway (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 of anticoagulants - Personal history of other malignant neoplasm of large intestine - Anemia, unspecified - Hypertensive heart disease with heart failure 12/13/2017 13:16 [facility] [place] TYPE: Emergency COMPLAINT: - FALL DIAGNOSES: - Other terminal make up operator (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 - halfway (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 - Encounter for immunization - Hypertensive heart disease with heart failure - Laceration without foreign body of other part of head, initial encounter - Unspecified atrial fibrillation - Heart failure, unspecified - ferry terminal supervisor (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 of anticoagulants - Fall from bed, initial encounter 07/07/2017 08:04 [facility] [place] TYPE: Emergency COMPLAINT: - STROKE SYMPTOMS INPATIENT VISIT TRACKING (12 MO.) 03/24/2018 17:43 [facility] TYPE: General Medicine DIAGNOSES: - Gastrointestinal hemorrhage, unspecified - Unspecified dementia without behavioral disturbance - Acute posthemorrhagic anemia - Hypovolemia - Melena - Other hypotension - Illness, unspecified 07/07/2017 10:28 [facility] [place] TYPE: Medical Surgical COMPLAINT: - STROKE, A FIB W/ RVR DIAGNOSES: - Patient's other noncompliance with medication regimen - Facial weakness - Obstructive sleep apnea (adult) (pediatric) - Cerebral infarction due to embolism of right middle cerebral artery - Chronic atrial fibrillation - Hemiplegia, unspecified affecting left nondominant side - Homelessness - Cerebral infarction, unspecified - Pulmonary hypertension, unspecified - halfway (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 of anticoagulants - Essential (primary) hypertension - Other terminal make up operator (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 - Dysarthria and anarthria [email or web address]
[2018-03-29] MEDS ORDERED: BIOFREEZE118 ML TOP (16:55)
[2018-03-29] MEDS ORDERED: MIRALAX17 GM PO (16:55)
[2018-03-29] MEDS ORDERED: OCUFLOX5 ML OPTH (16:56)
[2018-03-29] MEDS ORDERED: PRED MILD5 ML OPTH (16:56)
[2018-03-29] MEDS ORDERED: SEROQUEL100 MG PO (16:57)
[2018-03-29] MEDS ORDERED: SEROPHENE50 MG PO (16:57)
[2018-03-29] MEDS ORDERED: SEROQUEL50 MG PO (16:59)
== END 2018-03-29 16:00 | disposition home or self-care (01) ==
LOC: ED 14:32
DX: R53.1 Weakness (principal); I11.0 Hypertensive heart disease with heart failure; I50.9 Heart failure, unspecified; I48.91 Unspecified atrial fibrillation; Z79.899 Other long term (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; Z79.01 Long term (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 of anticoagulants; Z79.82 Long term (current) use of aspirin; Z85.038 Personal history of other malignant neoplasm of large intestine
CPT/HCPCS: 80048; 85025; 99284

== ENCOUNTER 2018-04-27 12:12 | Emergency (ER) | payer MEDICARE, OTHER ==
[~2018-04-27] VITALS: Ht 157.5 cm; Wt 69.5 kg
[~2018-04-27 12:12] MED LIST changes: +BIOFREEZE118 ML TOP; +MIRALAX17 GM PO; +OCUFLOX5 ML OPTH; +PRED MILD5 ML OPTH; +SEROPHENE50 MG PO; +SEROQUEL100 MG PO; +SEROQUEL50 MG PO
--- OUTSIDE RECORDS SUMMARY | 2018-04-27 12:14 | XMS ---
PreManage Notification: IRIS OLIVAREZ Security Lump Receiver Events No recent Security Events currently on file CRITERIA MET - [facility] - Has Care Guidelines - [facility] - 2 Visits in 30 Days CARE PROVIDERS PEDRO IGNACIO [facility] Current PHONE: Unknown Ryan Meza Internal Medicine: Pulmonary Disease 03/30/2018-Current PHONE: Unknown Sarbjit has no Care Guidelines for this patient. Care History Medical/Surgical 03/30/2018 [facility] - Patient is currently established with [facility]. If patient is seen in the ED during business hours. Please contact CHWs at [facility]. Care Recommendation: This patient has had 5 or more Emergency Department visits in the last 12 months.\T\nbsp; Patient requires education on the scope and purpose of the ED as an acute care provider not a Primary Care Provider and should not be utilized for chronic conditions.\T\nbsp; These are guidelines and the provider should exercise clinical judgment when providing care. E.D. VISIT COUNT (12 MO.) 1 [place] [address] MARIA ANTONIA Denny TOTAL 6 NOTE: Visits indicate total known visits. ED/UCC VISIT TRACKING (12 MO.) 04/27/2018 12:12 [facility] [place] TYPE: Emergency COMPLAINT: - SEIZURE 03/29/2018 14:33 [facility] [place] TYPE: Emergency COMPLAINT: - LETHARGIC DIAGNOSES: - intermediate school teacher (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 of anticoagulants - correction (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 - Personal history of other malignant neoplasm of large intestine - Hypertensive heart disease with heart failure - Heart failure, unspecified - Other terminal manager (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 - Weakness - Unspecified atrial fibrillation 03/24/2018 17:43 [facility] TYPE: Emergency DIAGNOSES: - Unspecified dementia without behavioral disturbance - Illness, unspecified - Hypovolemia - Other hypotension - Acute posthemorrhagic anemia - Gastrointestinal hemorrhage, unspecified 03/24/2018 11:51 [facility] TYPE: Emergency COMPLAINT: - BLOOD PRESSURE PROBLEM DIAGNOSES: - Heart failure, unspecified - Other intermediate (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 - Elevated blood-pressure reading, without diagnosis of hypertension - Gastrointestinal hemorrhage, unspecified - correction (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 - Other specified coagulation defects - Personal history of transient ischemic attack (TIA), and cerebral infarction without residual deficits - Unspecified atrial fibrillation - intermediate school teacher (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 of anticoagulants - Personal history of other malignant neoplasm of large intestine - Anemia, unspecified - Hypotension, unspecified - Hypertensive heart disease with heart failure 12/13/2017 13:16 [facility] [place] TYPE: Emergency COMPLAINT: - FALL DIAGNOSES: - Other terminal manager (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 - intermediate school teacher (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 - Encounter for immunization - Hypertensive heart disease with heart failure - Laceration without foreign body of other part of head, initial encounter - Unspecified atrial fibrillation - Heart failure, unspecified - correction (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 of anticoagulants - Fall from bed, initial encounter 07/07/2017 08:04 [facility] TYPE: Emergency COMPLAINT: - STROKE SYMPTOMS INPATIENT VISIT TRACKING (12 MO.) 03/24/2018 17:43 [facility] DIAGNOSES: - Gastrointestinal [...] infarction, unspecified - Pulmonary hypertension, unspecified - correction (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 of anticoagulants - Essential (primary) hypertension - Other terminal manager (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 - Dysarthria and anarthria [email or web address]
[2018-04-27] MEDS ORDERED: BIOFREEZE118 ML TOP (12:21)
[2018-04-27] MEDS ORDERED: CELEXA10 MG PO (12:22)
--- NOTE | 2018-04-28 00:33 | EKG ---
[facility] [address] [place] [address] Signed Atrial fibrillation Left axis deviation Septal infarct (cited on or before 24-FEB-2017) Abnormal ECG When compared with ECG of 24-MAR-2018 12:11, QRS axis shifted left Questionable change in initial forces of Lateral leads Confirmed by TAN BEDOLLA MD ([id number]) on 04/28/2018 12:33:38 AM Electronically Signed By: TAN BEDOLLA MD 04/28/18 0033 PATIENT NAME: IRIS OLIVAREZ Electrocardiogram DATE OF : 38 PHYSICIAN: TAN BEDOLLA MD REPORT #: [id number] REPORT IS CONFIDENTIAL AND NOT TO BE RELEASED WITHOUT AUTHORIZATION
== END 2018-04-27 14:30 | disposition home or self-care (01) ==
LOC: ED 12:12
DX: R56.9 Unspecified convulsions (principal); I11.0 Hypertensive heart disease with heart failure; I50.9 Heart failure, unspecified; I48.91 Unspecified atrial fibrillation; Z86.73 Personal history of transient ischemic attack (TIA), and cerebral infarction without residual deficits; Z79.899 Other long term (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
CPT/HCPCS: 51701; 80053; 81001; 84484; 85025; 93005; 93010; 99284-25

== ENCOUNTER 2018-06-12 14:22 | Emergency (ER) | payer MEDICARE, OTHER ==
[~2018-06-12] VITALS: Ht 157.5 cm; Wt 69.5 kg
[~2018-06-12 14:22] MED LIST changes: +CELEXA10 MG PO
--- OUTSIDE RECORDS SUMMARY | 2018-06-12 14:24 | XMS ---
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 Care History Medical/Surgical 03/30/2018 [facility] - Patient is currently established with [facility]. If patient is seen in the ED during business hours. Please contact CHWs at [facility]. Care Recommendation: This patient has had 5 [...] care. E.D. VISIT COUNT (12 MO.) [address] [facility] 6 MARIA ANTONIA Denny TOTAL 7 NOTE: Visits indicate total known visits. ED/UCC VISIT TRACKING (12 MO.) 06/12/2018 14:22 [facility] [place] TYPE: Emergency COMPLAINT: - WEAKNESS 04/27/2018 12:12 [facility] [place] TYPE: Emergency COMPLAINT: - SEIZURE DIAGNOSES: - Personal history of transient ischemic attack (TIA), and cerebral infarction without residual deficits - Unspecified atrial fibrillation - Unspecified convulsions - Other fpc (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 - Hypertensive heart disease with heart failure - Heart failure, unspecified 03/29/2018 14:33 [facility] [place] TYPE: Emergency COMPLAINT: - LETHARGIC DIAGNOSES: - [facility] (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 of anticoagulants - [facility] (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 - Personal history of other malignant neoplasm of large intestine - Hypertensive heart disease with heart failure - Heart failure, unspecified - Other contract technician (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 - Weakness - Unspecified atrial fibrillation 03/24/2018 17:43 [facility] TYPE: Emergency DIAGNOSES: - Unspecified dementia without behavioral disturbance - Illness, unspecified - Hypovolemia - Other hypotension - Acute posthemorrhagic anemia - Gastrointestinal hemorrhage, unspecified 03/24/2018 11:51 [facility] [place] TYPE: Emergency COMPLAINT: - BLOOD PRESSURE PROBLEM DIAGNOSES: - Heart failure, unspecified - Other contract technician (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 - Elevated blood-pressure reading, without diagnosis of hypertension - Gastrointestinal hemorrhage, unspecified - 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 mixer 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 - Other specified coagulation defects - Personal history of transient ischemic attack (TIA), and cerebral infarction without residual deficits - Unspecified atrial fibrillation - [facility] (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 of anticoagulants - Personal history of other malignant neoplasm of large intestine - Anemia, unspecified - Hypotension, unspecified - Hypertensive heart disease with heart failure 12/13/2017 13:16 [facility] [place] TYPE: Emergency COMPLAINT: - FALL DIAGNOSES: - Other fpc (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 - 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 mixer 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 - Encounter for immunization - Hypertensive heart disease with heart failure - Laceration without foreign body of other part of head, initial encounter - Unspecified atrial fibrillation - Heart failure, unspecified - 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 mixer operator (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 of anticoagulants - Fall from bed, initial encounter 07/07/2017 08:04 [facility] [place] TYPE: Emergency COMPLAINT: - STROKE SYMPTOMS INPATIENT VISIT TRACKING (12 MO.) 03/24/2018 17:[facility] TYPE: General Medicine DIAGNOSES: - Gastrointestinal hemorrhage, unspecified - Unspecified dementia without behavioral disturbance - Acute posthemorrhagic anemia - Hypovolemia - Melena - Other hypotension - Illness, unspecified 07/07/2017 10:28 [facility] TYPE: Medical Surgical COMPLAINT: - STROKE, A FIB W/ RVR DIAGNOSES: - Patient's other noncompliance with medication regimen - Facial weakness - Obstructive sleep apnea (adult) (pediatric) - Cerebral infarction due to embolism of right middle cerebral artery - Chronic atrial fibrillation - Hemiplegia, unspecified affecting left nondominant side - Homelessness - Cerebral infarction, unspecified - Pulmonary hypertension, unspecified - 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 mixer operator (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
== END 2018-06-12 18:30 | disposition home or self-care (01) ==
LOC: ED 14:22
PROC: 0T9B70Z Drainage of Bladder with Drainage Device, Via Natural or Artificial Opening (ICD-10-PCS; principal; 2018-06-12)
DX: I95.9 Hypotension, unspecified (principal); I11.0 Hypertensive heart disease with heart failure; I50.9 Heart failure, unspecified; I48.91 Unspecified atrial fibrillation; Z86.73 Personal history of transient ischemic attack (TIA), and cerebral infarction without residual deficits; Z87.440 Personal history of urinary (tract) infections; Z79.899 Other long term (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
CPT/HCPCS: 51701; 80053; 81001; 85025; 99285-25

== ENCOUNTER 2018-08-18 19:16 | Emergency (ER) | payer MEDICARE, OTHER ==
[~2018-08-18] VITALS: Ht 157.5 cm; Wt 69.4 kg
--- OUTSIDE RECORDS SUMMARY | 2018-08-18 19:20 | XMS ---
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 - Has Care Guidelines CARE PROVIDERS PEDRO IGNACIO [facility] Current PHONE: Unknown Ryan Meza Internal Medicine: Pulmonary Disease 03/30/2018-Current PHONE: Unknown Sarbjit has no Care Guidelines for this patient. Care History Medical/Surgical 03/30/2018 [facility] - Patient is currently established with [facility]. If patient is seen in the ED during business hours. Please contact CHWs at [facility]. Care Recommendation: This patient has [...] care. E.D. VISIT COUNT (12 MO.) 1 [facility] 6 MARIA ANTONIA Denny TOTAL 7 NOTE: Visits indicate total known visits. ED/UCC VISIT TRACKING (12 MO.) 08/18/2018 19:18 [facility] [place] TYPE: Emergency COMPLAINT: - DIZZINESS 06/12/2018 14:22 [facility] [place] TYPE: Emergency COMPLAINT: - WEAKNESS DIAGNOSES: - Hypertensive heart disease with heart failure - Heart failure, unspecified - Personal history of urinary (tract) infections - Other detention (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 - Personal history of transient ischemic attack (TIA), and cerebral infarction without residual deficits - Hypotension, unspecified - Unspecified atrial fibrillation 04/27/2018 12:12 [facility] TYPE: Emergency COMPLAINT: - SEIZURE DIAGNOSES: - Personal history of transient ischemic attack (TIA), and cerebral infarction without residual deficits - Unspecified atrial fibrillation - Unspecified convulsions - Other detention (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 - Hypertensive heart disease with heart failure - Heart failure, unspecified 03/29/2018 14:33 [facility] TYPE: Emergency COMPLAINT: - LETHARGIC DIAGNOSES: - terminal carman (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 of anticoagulants - penitentiary (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 - Personal history of other malignant neoplasm of large intestine - Hypertensive heart disease with heart failure - Heart failure, unspecified - Other detention (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 - Weakness - Unspecified atrial fibrillation 03/24/2018 17:43 [facility] TYPE: Emergency DIAGNOSES: - Unspecified dementia without behavioral disturbance - Illness, unspecified - Hypovolemia - Other hypotension - Acute posthemorrhagic anemia - Gastrointestinal hemorrhage, unspecified 03/24/2018 11:51 [facility] TYPE: Emergency COMPLAINT: - BLOOD PRESSURE PROBLEM DIAGNOSES: - Heart failure, unspecified - Other terminal carman (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 - Elevated blood-pressure reading, without diagnosis of hypertension - Gastrointestinal hemorrhage, unspecified - penitentiary (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 - Other specified coagulation defects - Personal history of transient ischemic attack (TIA), and cerebral infarction without residual deficits - Unspecified atrial fibrillation - terminal carman (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 of anticoagulants - Personal history of other malignant neoplasm of large intestine - Anemia, unspecified - Hypotension, unspecified - Hypertensive heart disease with heart failure 12/13/2017 13:16 [facility] TYPE: Emergency COMPLAINT: - FALL DIAGNOSES: - Other terminal carman (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 - terminal carman (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 - Encounter for immunization - Hypertensive heart disease with heart failure - Laceration without foreign body of other part of head, initial encounter - Unspecified atrial fibrillation - Heart failure, unspecified - penitentiary (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 of anticoagulants - Fall from bed, initial encounter INPATIENT VISIT TRACKING (12 MO.) 03/24/2018 17:43 [facility] TYPE: General Medicine DIAGNOSES: - Gastrointestinal hemorrhage, unspecified - Unspecified dementia without behavioral disturbance - Acute posthemorrhagic anemia - Hypovolemia - Melena - Other hypotension - Illness, unspecified [email or web address]
[2018-08-18] MEDS ORDERED: ELIQUIS5 MG PO (19:55)
--- NOTE | 2018-08-19 17:08 | EKG ---
[facility] [address] [place] [address] Signed Atrial fibrillation with rapid ventricular response with premature ventricular or aberrantly conducted complexes Left axis deviation Anteroseptal infarct (cited on or before 24-FEB-2017) ST \T\ T wave abnormality, consider lateral ischemia Abnormal ECG When compared with ECG of 27-APR-2018 12:38, T wave inversion no longer evident in Inferior leads T wave inversion now evident in Lateral leads Confirmed by SURENDRA JOHNSON DO ([id number]) on 08/19/2018 5:08:12 PM Electronically Signed By: SURENDRA JOHNSON DO 08/19/18 1708 PATIENT NAME: EMILY OSBORNIRIS Electrocardiogram DATE OF : 38 PHYSICIAN: SURENDRA JOHNSON DO REPORT #: [id number] REPORT IS CONFIDENTIAL AND NOT TO BE RELEASED WITHOUT AUTHORIZATION
== END 2018-08-18 21:44 | disposition home or self-care (01) ==
LOC: ED 19:16
PROC: 0T9B70Z Drainage of Bladder with Drainage Device, Via Natural or Artificial Opening (ICD-10-PCS; principal; 2018-08-18)
DX: I95.9 Hypotension, unspecified (principal); E86.0 Dehydration; D64.9 Anemia, unspecified; I48.91 Unspecified atrial fibrillation; I11.0 Hypertensive heart disease with heart failure; I50.9 Heart failure, unspecified; Z86.73 Personal history of transient ischemic attack (TIA), and cerebral infarction without residual deficits; Z79.899 Other long term (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
CPT/HCPCS: 36415; 51701; 80053; 81001; 83735; 84484; 85025; 93005; 93010; 99284-25

== ENCOUNTER 2019-01-03 11:51 | Observation (INO) | payer MEDICARE, OTHER ==
[~2019-01-03] VITALS: Ht 157.5 cm; Wt 77.8 kg
--- OUTSIDE RECORDS SUMMARY | ~2019-01-03 | XMS | Clinical Summary ---
Demographics + + + | Address | [address] | | | [place] [address] | + + + | Home Phone | | + + + | Preferred Language | Unknown | + + + | Marital Status | | + + + | Christian Affiliation | Unknown | + + + | Race | Unknown | + + + | Ethnic Group | Unknown | + + + Author + + + | Author | [facility] | | | and [place] | + + + | Organization | [facility] | | | and [place] | + + + | Address | Unknown | + + + | Phone | Unavailable | + + + Support + + + + + | Name | Relationship | Address | Phone | + + + + + | Jin Devine | [address] | | | | | [place], [place] | | + + + + + | ImeldaMelinda | ECON | Unknown | | + + + + + | Liliam Simpson | ECON | Unknown | | + + + + + Care Team Providers + +------+ + | Care Clinic Manager Name | Role | Phone | + +------+ + | Maya Curry MD | PCP | | + +------+ + Allergies No Known Allergies Medications + + + +---------+------+------+-------+ | Medication | Sig | Dispensed | Refills | Star | End | Statu | | | | | | t | Date | s | | | | | | Date | | | + + + +---------+------+------+-------+ | Cholecalciferol | Take 1 tablet by | | 0 | | | Activ | | (VITAMIN D3) 2000 | mouth. | | | | | e | | UNITS CAPS | | | | | | | + + + +---------+------+------+-------+ | Calcium 500 MG | Take by mouth | | 0 | | | Activ | | TABS | Daily. | | | | | e | + + + +---------+------+------+-------+ | warfarin | Take 5 mg by mouth | | 0 | | | Activ | | (COUMADIN) 5 mg | See Admin | | | | | e | | tablet | Instructions. 1 by | | | | | | | | mouth daily as | | | | | | | | directed. | | | | | | + + + +---------+------+------+-------+ | atorvaSTATin | Take 20 mg by mouth. | | 0 | | | Activ | | (LIPITOR) 20 mg | | | | | | e | | tablet | | | | | | | + + + +---------+------+------+-------+ | warfarin | take 1 tablet by | 90 | 1 | / | | Activ | | (COUMADIN) 2.5 mg | mouth every Wednesday | tablet | | 2/20 | | e | | tablet | and every | | | 17 | | | | | take 2 tablets by | | | | | | | | mouth THE OTHER DAYS | | | | | | | | OF THE WEEK | | | | | | + + + +---------+------+------+-------+ | metoprolol | Take 1 tablet by | 90 | 3 | 02/ | | Activ | | succinate | mouth Daily. | tablet | | / | | e | | (TOPROL-XL) 50 mg 24 | | | | 18 | | | | hr tablet | | | | | | | + + + +---------+------+------+-------+ | spironolactone | Take 1 tablet by | 90 | 1 | 02/1 | | Activ | | (ALDACTONE) 50 mg | mouth Daily. | tablet | | 4/20 | | e | | tablet | | | | 18 | | | + + + +---------+------+------+-------+ | | Take 1 tablet by | 30 | 5 | 03/0 | | Activ | | lisinopril-hydrochlo | mouth Daily. | tablet | | /20 | | e | | rothiazide | | | | 18 | | | | (PRINZIDE,ZESTORETIC | | | | | | | | ) 20-25 MG per | | | | | | | | tablet | | | | | | | + + + +---------+------+------+-------+ | digoxin (LANOXIN) | Take 1 tablet by | 30 | 5 | 05/1 | | Activ | | 125 mcg | mouth Daily. | tablet | | 5/20 | | e | | tabletIndications: | | | | 18 | | | | Chronic atrial | | | | | | | | fibrillation | | | | | | | + + + +---------+------+------+-------+ | menthol, topical | Apply topically | | 0 | | | Activ | | analgesic, 4 % | daily. | | | | | e | + + + +---------+------+------+-------+ | nitrofurantoin | take 1 capsule by | | 0 | 09/ | | Activ | | (MACROBID) 100 mg | mouth every 12 hours | | | 3/20 | | e | | capsule | for 5 days with | | | 18 | | | | | food | | | | | | + + + +---------+------+------+-------+ | ofloxacin | Place 1 drop into | | 0 | | | Activ | | (OCUFLOX) 0.3% | both eyes 4 (four) | | | | | e | | ophthalmic solution | times daily. | | | | | | + + + +---------+------+------+-------+ | ondansetron | Take 8 mg by mouth | | 0 | | | Activ | | (ZOFRAN ODT) 4 mg | every 6 (six) hours | | | | | e | | disintegrating | as needed for | | | | | | | tablet | Nausea. Max daily | | | | | | | | dose= 24 mg | | | | | | + + + +---------+------+------+-------+ | polyethylene | Take 17 g by mouth | | 0 | | | Activ | | glycol (MIRALAX) | daily. | | | | | e | | packet | | | | | | | + + + +---------+------+------+-------+ | prednisoLONE (PRED | Place 1 drop into | | 0 | | | Activ | | FORTE) 1% | both eyes 2 (two) | | | | | e | | ophthalmic | times daily. | | | | | | | suspension | | | | | | | + + + +---------+------+------+-------+ | QUEtiapine | Take 50-100 mg by | | 0 | | | Activ | | (SEROQUEL) 50 MG | mouth 2 (two) times | | | | | e | | tablet | daily. Take 50 mg | | | | | | | | every morning and | | | | | | | | 100 mg every evening | | | | | | | | at bedtime. | | | | | | + + + +---------+------+------+-------+ | QUEtiapine | take 1 tablet by | | 0 | 11/20 | | Activ | | (SEROQUEL) 25 mg | mouth twice a day | | | 06/08 | | e | | tablet | | | | 18 | | | + + + +---------+------+------+-------+ | rivaroxaban | Take 20 mg by mouth | | 0 | | | Activ | | (XARELTO) 20 mg | daily with | | | | | e | | tablet | breakfast. | | | | | | + + + +---------+------+------+-------+ | atorvaSTATin | Take 40 mg by mouth | | 0 | | | Activ | | (LIPITOR) 40 mg | daily. | | | | | e | | tablet | | | | | | | + + + +---------+------+------+-------+ Active Problems + + + | Problem | Noted Date | + + + | Acute blood loss anemia | 03/24/2018 | + + + | Acute lower UTI (urinary tract infection) | 03/24/2018 | + + + | CARMELA (acute kidney injury) | 03/24/2018 | + + + | Congestive heart failure | 03/24/2018 | + + + | Dementia with behavioral disturbance | 03/24/2018 | + + + | Gastrointestinal hemorrhage with melena | 03/24/2018 | + + + | Malignant neoplasm | 03/24/2018 | + + + + + | Overview: colon cancer; per patient, this was treated with | | surgery and chemo and pt has been cancer free since 1999. | + + + + + | Atrial fibrillation | 03/24/2018 | + + + | Cellulitis of [...] 04/27/2017 | + + + | Cardiomyopathy | 04/27/2017 | + + + | Carotid stenosis | 04/27/2017 | + + + | Dyslipidemia | 04/27/2017 | + + + | Mitral valve regurgitation | 04/27/2017 | + + + | Pulmonary hypertension | 04/27/2017 | + + + | Subclavian artery stenosis | 04/27/2017 | + + + | Tricuspid regurgitation | 04/27/2017 | + + + | Chronic atrial fibrillation | 01/20/2017 | + + + | [...] | +--------+ + + + + | 10/16/ | Orders Only | | Provider, | | | 2018 | | | Historical, MD | | +--------+ + + + + [...] +---------+ + | No | | | Alcoholic Drinks/day: pt denies | + + +---------+ + + + [...] recent travel history available. | + + Last Filed Vital Signs + + + + | Vital Sign | Reading | Time Taken | + + + + | Blood Pressure | 158/84 | 03/28/2018 1137 PST | + + + + | Pulse | 112 | 03/28/20181136 PST | + + + + | Temperature | 36.6 C (97.9 F) | 03/28/20181136 PST | + + + + | Respiratory Rate | 20 | 03/28/20181136 PST | + + + + | Oxygen Saturation | 99% | 05/17/20173 PST | + + + + | Inhaled Oxygen | - | - | | Concentration | | | + + + + | Weight | 75.5 kg (166 lb 7.2 | 03/28/20181136 PST | | | oz) | | + + + + | Height | 157.5 cm (5' 2") | 03/28/20181136 PST | + + + + | Body Mass Index | 30.44 | 03/28/20181136 PST | + + + + Plan of Treatment + + + + + | Health Maintenance | Due Date | Last Done | Comments | + + + + + | Vaccine: | | | | | Dtap/Tdap/Td (1 - | 9 | | | | Tdap) | | | | + + + + + | Vaccine: Zoster (1 | | | | | of 2) | 0 | | | + + + + + | Breast Cancer | | | | | Screening | 5 | | | + + + + + | Adult Annual | | | | | Wellness Visit | 5 | | | + + + + + | Vaccine: Influenza | | | | | (#1) | 9 | | | + + + + + | Vaccine: | Completed | 05/26/2017, 12/05/2015 | | | Pneumococcal 65+ | | | | | High/Highest Risk | | | | + + + + + Results Not on filefrom Last 3 Months Insurance + +--------+ +--------+ + +--------+ | Payer | Benefi | Subscriber | Effect | Phone | Address | Type | | | t Plan | ID | reji | | | | | | / | | Dates | | | | | | Group | | | | | | + +--------+ +--------+ + +--------+ | MEDICARE | MEDICA | [id number] | 06/21/19 | [phone] | | Medica | | | RE | | 05-Pre | 5 | | re | | | PART A | | sent | | | | | | AND B | | | | | | + +--------+ +--------+ + +--------+ | MODA | MODA | [id number] | 05/21/19 | [phone] | [address] | Indemn | | | HEALTH | | 08-Pre | 9 | [phone] | ity | | | MDCR | | sent | | [place], | | | | [place] | | | | [place] [address] | | + +--------+ +--------+ + +--------+ + +--------+ +--------+ + + | Guarantor Name | Accoun | Relation to | Date | Phone | Billing Address | | | t Type | Patient | of | | | | | | | | | | + +--------+ +--------+ + + | Nancy Celis | Person | Self | [birth year] | [address] [address] | | | al/Fam | | 1941 | [phone] | [place] [address] | | | marian | | | 4 (Home) | | + +--------+ +--------+ + + Advance Directives Patient has advance care planning documents on file. For more information, please contact:[facility] [address]
--- OUTSIDE RECORDS SUMMARY | ~2019-01-03 | XMS | Clinical Summary ---
Demographics + + + | Address | [address] | | | [place] [address] | + + + | Home Phone | | + + + | Preferred Language | Unknown | + + + | Marital Status | Single | + + + | Hindu Affiliation | Unknown | + + + | Race | Unknown | + + + | Ethnic Group | Unknown | + + + Author + + + | Author | [facility] (Historical as of | | | 11-05-18) | + + + | Organization | [facility] (Historical as of | | | 11-05-18) [...] Team Providers + +------+ + | Care Wire Spooler Name | Role | Phone | + [...] + + | CARMELA (acute kidney injury) ([facility]) | 03/24/2018 | + + + | [...] +------+-------+ + | MEDICARE | MEDICA | [id number] | | | [address] | | | RE | | | | [place] [address] | | | IP-OP | | | | | + +--------+ +------+-------+ + | ODS HEALTH PLAN | ODS | [id number] | | | | | | HEALTH [...] | Self | [birth year] | Home: | [address] | | | al/Jimmie | | 1941 | [phone] [place] [address] | | | marian | | | [phone] | | + +--------+ +--------+ + +
--- OUTSIDE RECORDS SUMMARY | ~2019-01-03 | XMS | Encounter Summary ---
Demographics + + + | Address | [address] | | | [place] [address] | + + + | Home Phone [...] + | Author | [facility] | | | and [place] | + + + | Organization | [facility] | | | and [place] | + + + | Address | Unknown | + + + | Phone | Unavailable | + + + Support + + + + + | Name | Relationship | Address | Phone | + + + + + | Jin Devine | [address] | | | | | [place], [place] | | + + + + + | ImeldaMelinda | ECON | Unknown | | + + + + + | Liliam Simpson | ECON | Unknown | | + + + + + Care Team Providers + +------+ + | Care Frit Burner Name | Role | Phone | + +------+ + | Maya Curry MD | PCP | | + +------+ + Encounter Details +--------+ + + + + | Date | Type | Department | Care Team | Description | +--------+ + + + + | 10/16/ | Orders Only | [facility] | Provider, | | | 2018 | | SYSTEM GENERIC OP | [address] | | | | | [address] | [address] | | | | | [address] [place], [place] | [place] [address] | | | | | [address] | | | | | | [phone] | | | +--------+ + + + [...]
[~2019-01-03 11:51] MED LIST changes: +ELIQUIS5 MG PO
--- OUTSIDE RECORDS SUMMARY | 2019-01-03 11:54 | XMS ---
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 - Has Care Guidelines CARE PROVIDERS PEDRO IGNACIO [facility] Current PHONE: Unknown Ryan Meza Internal Medicine: Pulmonary Disease 03/30/2018-Current PHONE: Unknown Sarbjit has no Care Guidelines for this patient. Care History Medical/Surgical 03/30/2018 [facility] - Patient is currently established with [facility]. If patient is seen in the ED during business hours. Please contact CHWs at [facility]. Care Recommendation: This patient has had 5 [...] care. E.D. VISIT COUNT (12 MO.) 1 [facility] 6 MARIA ANTONIA Denny TOTAL 7 NOTE: Visits indicate total known visits. ED/UCC VISIT TRACKING (12 MO.) 01/03/2019 11:51 [facility] [place] TYPE: Emergency COMPLAINT: - SOB, COUGH 08/18/2018 19:18 [facility] [place] TYPE: Emergency COMPLAINT: - DIZZINESS DIAGNOSES: - Dehydration - Other intermediate designer (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 - Anemia, unspecified - Unspecified atrial fibrillation - Heart failure, unspecified - Hypotension, unspecified - Prsnl hx of TIA (TIA), 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 deficits - Hypertensive heart disease with heart failure - Dizziness and giddiness 06/12/2018 14:22 [facility] [place] TYPE: Emergency COMPLAINT: - WEAKNESS DIAGNOSES: - Hypertensive heart disease with heart failure - Heart failure, unspecified - Personal history of urinary (tract) infections - Other intermediate designer (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 - Prsnl hx of TIA (TIA), 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 deficits - Hypotension, unspecified - Unspecified atrial fibrillation 04/27/2018 12:12 [facility] [place] TYPE: Emergency COMPLAINT: - SEIZURE DIAGNOSES: - Prsnl hx of TIA (TIA), 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 deficits - Unspecified atrial fibrillation - Unspecified convulsions - Other prison (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 - Hypertensive heart disease with heart failure - Heart failure, unspecified 03/29/2018 14:33 [facility] [place] TYPE: Emergency COMPLAINT: - LETHARGIC DIAGNOSES: - long term acute care registered nurse (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 of anticoagulants - long term acute care registered nurse (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 - Personal history of malignant neoplasm of large intestine - Hypertensive heart disease with heart failure - Heart failure, unspecified - Other prison (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 - Weakness - Unspecified atrial fibrillation 03/24/2018 17:43 [facility] TYPE: Emergency DIAGNOSES: - Unspecified dementia without behavioral disturbance - Illness, unspecified - Hypovolemia - Other hypotension - Acute posthemorrhagic anemia - Gastrointestinal hemorrhage, unspecified 03/24/2018 11:[address] [facility] [place] TYPE: Emergency COMPLAINT: - BLOOD PRESSURE PROBLEM DIAGNOSES: - Heart failure, unspecified - Other intermediate designer (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 - Elevated blood-pressure reading, w/o diagnosis of htn - Gastrointestinal hemorrhage, unspecified - group home (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 - Other specified coagulation defects - Prsnl hx of TIA (TIA), 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 deficits - Unspecified atrial fibrillation - long term acute care registered nurse (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 of anticoagulants - Personal history of malignant neoplasm of large intestine - Anemia, unspecified - Hypotension, unspecified - Hypertensive heart disease with heart failure INPATIENT VISIT TRACKING (12 MO.) 03/24/2018 17:43 [facility] TYPE: General Medicine DIAGNOSES: - Gastrointestinal hemorrhage, unspecified - Unspecified dementia without behavioral disturbance - Acute posthemorrhagic anemia - Hypovolemia - Melena - Other hypotension - Illness, unspecified [email or web address]
--- NOTE | 2019-01-03 13:03 | EKG ---
[facility] [address] [facility] [place] [address] Signed Atrial fibrillation with rapid ventricular response with premature ventricular or aberrantly conducted complexes Left axis deviation Septal infarct (cited on or before 24-FEB-2017) Abnormal ECG When compared with ECG of 18-AUG-2018 19:32, Questionable change in initial forces of Anterior leads Confirmed by TAN BEDOLLA MD ([id number]) on 01/03/2019 1:03:11 PM Electronically Signed By: TAN BEDOLLA MD 01/03/19 1303 PATIENT NAME: EMILY OSBORNIRIS Electrocardiogram DATE OF : 38 PHYSICIAN: TAN BEDOLLA MD REPORT #: [id number] REPORT IS CONFIDENTIAL AND NOT TO BE RELEASED WITHOUT AUTHORIZATION
--- NOTE | 2019-01-03 17:45 | NUR ---
PATIENT ARRIVES TO CCU AT 1725 FROM ER. PATIENT BEING ADMITTED FOR AFIB W/RVR. HEART RATE WELL CONTROLLED AT THIS TIME IN THE 90s. PT VERY EMOTIONALLY LABILE AND CAN EASILY BREAK OUT IN TEARS. PT'S LEFT SIDE HAS VERY LIMITED MOBILITY DUE TO HER CVA IN 2018. PT LIVES AT A LOCAL CARE FACILITY. PT'S CAREGIVER'S NAME IS TAINA, AND PATIENT IS VERY TRUSTING AND DEPENDENT ON LES TO HELP HER WITH HER MEDICAL DECISIONS. PT HAS AUDIBLE EXP WHEEZES HEARDBUT DENIES SHORTNESS OF BREATH. ATTENDS IN PLACE. CALL LIGHT MELITONMARIANO CLARK.
--- NOTE | 2019-01-03 18:13 | NUR ---
PATIENT UP TO BSC X 2 PERSON ASSIST. PT UNABLE TO VOID AT THIS TIME. BACK TO BED AND ATTENDS IN PLACE. PT REMAINS IN AFIB BUT HEART RATE IN THE 90s MOSTLY. SP02 97% ON ROOM AIR. AUDIBLE WHEEZING HEARD WITH ANY EXERTION BUT PATIENT DENIES SOB.CONTINUE TO MONITOR.
--- NOTE | 2019-01-03 19:16 | NUR ---
HR NOTED TO BE INCREASING TO 100-110s AT TIMES. DR. BEDOLLA NOTIFIED AND ASKED TO GIVE PATIENT 2100 DOSE OF METOPROLOL AT THIS TIME. PT HELPED TO REPOSITION TO LEFT SIDE. CONTINUE TO MONITOR.
--- NOTE | 2019-01-03 21:00 | NUR ---
PATIENT REQUESTED UP TO BSC TO VOID. 2 PERSON MAX ASSIST TO STAND PIVOT. PATIENT UNCOOPERATIVE WITH STAFF INSTRUCTIONS. PATIENT LIFTED BACK TO BED. NEW ATTENDS IN PLACE. PATIENT CRYING AND STATING "I WANT TO GO HOME, I HATE [facility]". PATIENT UNCONSOLABLE. POSITIONED FOR COMFORT. CALL LIGHT IN REACH.
--- NOTE | 2019-01-03 21:40 | NUR ---
PATIENT PROVIDED WITH EVENING MEDICATION. PATIENT REPORTS BACK PAIN, DENIES PRN TYLENOL. PATIENT STATING "I WANT TO GO HOME" REPEATEDLY AND CRYING. ATTEMPTS TO CALM PATIENT ARE SOMEWHAT HELPFUL. PATIENT HAS AUDIBLE WHEEZING WHEN EMOTIONALLY DISTURBED AND TAKES SOME TIME TO CALM BACK TO NORMAL BREATHING. APPEARS TO BE UPPER AIRWAY. PATIENT TOLERATING ROOM AIR. VS STABLE. LEFT ARM HAS LIMITED TO NO MOVEMENT AND APPEARS CONTRACTURED. LEFT LEG IS WEAKER THAN THE RIGHT. PATIENT ASSISTED TO COMFORTABLE POSITION IN BED. LIP BALM PROVIDED PER REQUEST AND FRESH ICE WATER. HR CONTROLLED; 80-90'S IRREGULAR.
--- NOTE | 2019-01-03 22:15 | NUR ---
PATIENT CALLED AND REQUESTED PRN TYLENOL FOR "20" OUT OF 10 BACK PAIN. TYLENOL PROVIDED.
--- NOTE | 2019-01-03 23:39 | NUR ---
PATIENT APPEARS TO BE SLEEPING SOUNDLY. HR 80'S AND IRREGULAR.
--- NOTE | 2019-01-04 00:56 | NUR ---
PATIENT APPEARED TO BE SLEEPING SOUNDLY. WOKE TO NURSES VOICE. PATIENT DENIES TOILETING NEEDS AT FIRST AND THEN AGREES TO USE BEDPAN. PATIENT VOIDED 75MLS. THEN SOON AFTER BEING REPOSITIONED WITH ATTENDS IN PLACE, PATIENT WAS INCONTINENT OF SMALL AMOUNT OF URINE. NEW ATTENDS PLACED. PATIENT REPOSITIONED TO LEFT SIDE AND REPORTS BEING COMFORTABLE. PATIENT THEN REPORTS THE NEED TO VOID MANY TIMES, ATTENDS ARE DRY WHEN ASSESSED. NO FURTHER VOIDS OCCURED. ENCOURAGED PATIENT TO SLEEP. CALL LIGHT IN REACH.
--- NOTE | 2019-01-04 03:50 | NUR ---
PATIENT CALLED OUT FOR ASSISTANCE. PATIENT INCONTINENT OF MODERATE AMOUNT OF URINE. NEW ATTENDS PLACED. PATIENT POSITIONED FOR COMFORT. CALL LIGHT IN RIGHT HAND.
--- NOTE | 2019-01-04 04:20 | NUR ---
PATIENT USED CALL LIGHT. REPORTS TO STAFF THAT HER USUALY ROUTINE IS TO GET UP AT 0500 AND HAVE BREAKFAST. DISCUSSED THE OPTION TO TRANSFER TO THE RECLINER FOR BREAKFAST THIS MORNING AND THAT BREAKFAST IS SERVED AROUND 0730. PATIENT APPEARED UPSET BY THIS AND STATED "I HATE THIS PLACE, I JUST WANT TO GO HOME".
--- NOTE | 2019-01-04 06:24 | NUR ---
PATIENT REPORTED NEED TO VOID. [place] RN AND READING ASSISTANT GRACY STROUD ATTEMPTED TO PLACE BEDPAN UNDER PATIENT, WHICH SHE DID NOT TOLERATE DUE TO PAIN. PATIENT REQUEST TO GET UP TO [facility] [place]. PATIENT MAX 2PA STAND PIVOT. PATIENT UNABLE TO VOID. RETURNED TO BED. PATIENT EMOTIONAL AND UPSET, STATING "I JUST WANT TO GET OUT OF HERE. I'LL RODRIGO YOU AND THIS WHOLE HOSPITAL." PATIENT DEMANDS ASSISTED LIVING EXECUTIVE DIRECTOR BE REMOVED. DISCUSSED IMPORTANCE OF CARDIAC MONITORING WITH HER CONDITION AND PLAN OF CARE TO ASSIST HER IN RETURNING HOME. PATIENT ANGRY AND VERBALLY ABUSIVE TO STAFF. PLACED CALL LIGHT IN RIGHT HAND. POSITIONED PATIENT FOR COMFORT AND SAFETY.
--- NOTE | 2019-01-04 08:18 | NUR ---
PATIENT USES CALL LIGHT AND STATES, "WASN'T ANYONE GOING TO CHECK ON ME?" PATIENT TEARFUL AND STATES SHE WANTS TO GO HOME. PT REFUSING BREAKFAST, REFUSING MEDICATIONS AT FIRST, AND AGAIN STATES SHE IS NOT STAYING HERE TODAY. HR IN THE 90-110s, AFIB. PT AGREEABLE TO TAKE MEDS AFTER DISCUSSION WITH THIS RN REGARDING HER HEART RATE. PT GIVEN WARM PACK FOR HER LOWER BACK PAIN AND ALSO TYLENOL (SEE EMAR). ASSESSMENT COMPLETE MUCH PATIENT ALLOWED. CONTINUE TO MONITOR.
--- NOTE | 2019-01-04 09:19 | NUR ---
BAKERY MANAGER HERE TO PERFORM ECHO. PATIENT HAS FINISHED HER BREAKFAST AND EAGER TO GO HOME.
--- NOTE | 2019-01-04 10:05 | NUR ---
DR. BEDOLLA IN TO SEE PATIENT AT THIS TIME.
[2019-01-04] MEDS ORDERED: LIPITOR40 MG PO ×2 (10:11)
[2019-01-04] MEDS ORDERED: METOPROLOL SUCC50 MG PO ×2 (10:12)
[2019-01-04] MEDS ORDERED: TORSEMIDE5 MG PO ×2 (10:13)
--- NOTE | 2019-01-04 11:16 | NUR ---
PATIENT TO BE D/C HOME. CALLED [facility] AND INFORMED THEM OF HER PENDING D/C. PT'S OWN WHEELCHAIR TO BE BROUGHT UP. PATIENT UP TO [facility] TO HAVE A BM AND VOID. PT IN GOOD SPIRITS NOW AND READY TO D/C HOME.
== END 2019-01-04 12:11 | disposition home or self-care (01) ==
LOC: ED 11:51 → CCU 16:56
PROVIDERS: ADMIT Internal Medicine
DX: I48.20 Chronic atrial fibrillation, unspecified (principal); I11.0 Hypertensive heart disease with heart failure; I50.33 Acute on chronic diastolic (congestive) heart failure; I69.392 Facial weakness following cerebral infarction; I69.354 Hemiplegia and hemiparesis following cerebral infarction affecting left non-dominant side; I69.322 Dysarthria following cerebral infarction; K59.00 Constipation, unspecified; F39 Unspecified mood [affective] disorder; I27.20 Pulmonary hypertension, unspecified; D50.9 Iron deficiency anemia, unspecified; E78.5 Hyperlipidemia, unspecified; Z79.899 Other long term (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; Z79.01 Long term (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 of anticoagulants
CPT/HCPCS: 71045; 80053; 82728; 83540; 83735; 83880; 84466; 84484; 85025; 85379; 93005; 93010; 93306; 96374; 99285-25; G0378

== ENCOUNTER 2019-01-04 21:10 | Emergency (ER) | payer MEDICARE, OTHER ==
[~2019-01-04] VITALS: Ht 157.5 cm; Wt 77.9 kg
--- OUTSIDE RECORDS SUMMARY | ~2019-01-04 | XMS | Encounter Summary ---
Demographics + + + | Address | [address] | | | [place] [address] | + + + | Home Phone | | + + + | Preferred Language | Unknown | + + + | Marital Status | | + + + | Hoahaoism Affiliation | Unknown | + + + | Race | Unknown | + + + | Ethnic Group | Unknown | + + + Author + + + | Author | [facility] | | | and [place] | + + + | Organization | [facility] | | | and [place] | + + + | Address | Unknown | + + + | Phone | Unavailable | + + + Support + + + + + | Name | Relationship | Address | Phone | + + + + + | Jin Devine | [address] | | | | | [place], [place] | | + + + + + | ImeldaMelinda | ECON | Unknown | | + + + + + | Liliam Simpson | ECON | Unknown | | + + + + + Care Team Providers + +------+ + | Care Autos Disassembler Name | Role | Phone | + +------+ + | Maya Curry MD | PCP | | + +------+ + Encounter Details +--------+ + + + + | Date | Type | Department | Care Team | Description | +--------+ + + + + | 10/16/ | Orders Only | [facility] | Provider, | | | 2018 | | SYSTEM GENERIC OP | [address] | | | | | [address] | [address] | | | | | [address] [place], [place] | [place] [address] | | | | | [address] | | | | | | [phone] | | | +--------+ + + + [...]
--- OUTSIDE RECORDS SUMMARY | ~2019-01-04 | XMS | Clinical Summary ---
Demographics + + + | Address | [address] | | | [place] [address] | + + + | Home Phone | | + + + | Preferred Language | Unknown | + + + | Marital Status | Single | + + + | Hinduism Affiliation | Unknown | + + + | Race | Unknown | + + + | Ethnic Group | Unknown | + + + Author + + + | Author | [facility] (Historical as of | | | 11-05-18) | + + + | Organization | [facility] (Historical as of | | | 11-05-18) | + + + | Address | Unknown | + + + | Phone | Unavailable | + + + Support + + +---------+ + | Name | Relationship | Address | Phone | + + +---------+ + | Liliam Simpson | ECON | Unknown | | + + +---------+ + Care Team Providers + +------+ + | Care Day Care Home Provider Name | Role | Phone | + +------+ + | Shellie Meza MD | PP | | + +------+ + Allergies No Known Allergies Current Medications + + +-------+---------+------+------+-------+ | Prescription | Sig. | Disp. | Refills | Star | End | Statu | | | | | | t | Date | s | | | | | | Date | | | + + +-------+---------+------+------+-------+ | atorvastatin | Take 40 mg by mouth | | | | | Activ | | (LIPITOR) 40 MG | daily. | | | | | e | | tablet | | | | | | | + + +-------+---------+------+------+-------+ | Menthol, Topical | Apply topically | | | | | Activ | | Analgesic, | daily. | | | | | e | | (BIOFREEZE) 4 % GEL | | | | | | | + + +-------+---------+------+------+-------+ | ofloxacin | Place 1 drop into | | | | | Activ | | (OCUFLOX) 0.3 % | both eyes 4 (four) | | | | | e | | ophthalmic solution | times daily. | | | | | | + + +-------+---------+------+------+-------+ | polyethylene | Take 17 g by mouth | | | | | Activ | | glycol (GLYCOLAX) | daily. | | | | | e | | packet | | | | | | | + + +-------+---------+------+------+-------+ | prednisoLONE | Place 1 drop into | | | | | Activ | | acetate (PRED FORTE) | both eyes 2 (two) | | | | | e | | 1 % ophthalmic | times daily. | | | | | | | suspension | | | | | | | + + +-------+---------+------+------+-------+ | quetiapine | Take 50-100 mg by | | | | | Activ | | (SEROQUEL) [...] | | | | | + + +-------+---------+------+------+-------+ | rivaroxaban | Take 20 mg by mouth | | | | | Activ | | (XARELTO) 20 mg | daily with | | | | | e | | tablet | breakfast. | | | | | | + + +-------+---------+------+------+-------+ | ondansetron | Take 8 mg by mouth | | | | | Activ | | (ZOFRAN-ODT) 4 MG | every 6 (six) hours | | | | | e | | disintegrating | as needed for | | | | | | | tablet | Nausea. Max daily | | | | | | | | dose= 24 mg | | | | | | + + +-------+---------+------+------+-------+ Active Problems + + + | Problem | Noted Date | + + + | Acute blood loss anemia | 03/24/2018 | + + + | Gastrointestinal hemorrhage with melena | 03/24/2018 | + + + | Congestive heart failure (HCC) | 03/24/2018 | + + + | Atrial fibrillation (HCC) | 03/24/2018 | + + + | Malignant neoplasm (HCC) | 03/24/2018 | + + + + + | Overview: colon cancer; per patient, this was treated with | | surgery and chemo and pt has been cancer free since 1999. | + + + + + | Dementia with behavioral disturbance | 03/24/2018 | + + + | Left ventricular hypertrophy | 03/24/2018 | + + + | CARMELA (acute kidney injury) ([facility]) | 03/24/2018 | + + + | Acute lower UTI (urinary tract infection) | 03/24/2018 | + + + | Mitral valve regurgitation | 04/27/2017 | + + + | Pulmonary hypertension (HCC) | 04/27/2017 | + + + | Subclavian artery stenosis (HCC) | 04/27/2017 | + + + | Tricuspid regurgitation | 04/27/2017 | + + + Immunizations + + + + | Name | Dates Previously Given | Next Due | + + + + | Pneumococcal | 12/05/2015 | | | Conjugate 13-valent | | | + + + + | Pneumococcal | 05/26/2017 | | | Polysaccharide | | | | 23-valent | | | + + + + Social History + [...] +---------+ + | No | | | pt denies | + + +---------+ + + + + | Sex Assigned at | Date Recorded | | | | + + + | Not on file | | + + + Last Filed Vital Signs + + + + | Vital Sign | Reading | Time Taken | + + + + | Blood Pressure | 158/84 | 03/28/2018 11:35 AM PST | + + + + | Pulse | 112 | 03/28/2018 11:35 AM PST | + + + + | Temperature | 36.6 C (97.9 F) | 03/28/2018 11:35 AM PST | + + + + | Respiratory Rate | 20 | 03/28/2018 11:35 AM PST | + + + + | Oxygen Saturation | 97% | 03/28/2018 11:35 AM PST | + + + + | Inhaled Oxygen | - | - | | Concentration | | | + + + + | Weight | 75.5 kg (166 lb 7.2 | 03/28/2018 5:50 AM PST | | | oz) | | + + + + | Height | 157.5 cm (5' 2") | 03/24/2018 9:01 PM PST | + + + + | Body Mass Index | 30.44 | 03/28/2018 5:50 AM PST | + + + + Plan [...] | + + + + + | DEXA SCAN SCREENING | | | | | | 5 | | | + + [...] filefrom Last 3 Months Insurance + +--------+ +------+-------+ + | Payer | Benefi | Subscriber | Type | Phone | Address | | | t Plan | ID | | | | | | / | | | | | | | Group | | | | | + +--------+ +------+-------+ + | MEDICARE | MEDICA | [id number] | | | [address] | | | RE | | | | [place] [address] | | | IP-OP | | | | | + +--------+ +------+-------+ + | ODS HEALTH PLAN | ODS | [id number] | | | | | | HEALTH | | | | | | | PLAN | | | | | + +--------+ +------+-------+ + + +--------+ +--------+ + + | Guarantor Name | Accoun | Relation to | Date | Phone | Billing Address | | | t Type | Patient | of | | | | | | | | | | + +--------+ +--------+ + + | IRIS DIAZ | Person | Self | [birth year] | Home: | [address] | | | al/Jimmie | | 1941 | [phone] | [place] [address] | | | marian | | | [address] | | + +--------+ +--------+ + +
--- OUTSIDE RECORDS SUMMARY | ~2019-01-04 | XMS | Clinical Summary ---
Demographics + + + | Address | [address] | | | [place] [address] | + + + | Home Phone [...] | [facility] | | | and [place] | + + + | Organization | [facility] | | | and [place] | + + + | Address | Unknown | + + + | Phone | Unavailable | + + + Support + + + + + | Name | Relationship | Address | Phone | + + + + + | Jin Devine | [address] | | | | | [place], [place] | | + + + + + | ImeldaMelinda | ECON | Unknown | | + + + + + | Liliam Smipson | ECON | Unknown | | + + + + + Care Team Providers + +------+ + | Care Bilingual Spanish Inbound Sales Name | Role | Phone | + [...] + +--------+ | MEDICARE | MEDICA | [id number] | 06/21/19 | [phone] | | Medica | | | RE | | 05-Pre | 5 | | re | | | PART A | | sent | | | | | | AND B | | | | | | + +--------+ +--------+ + +--------+ | MODA | MODA | [id number] | 05/21/19 | [phone] | [address] | Indemn | | | HEALTH | | 08-Pre | 9 | [phone] | ity | | | MDCR | | sent | | [place], | | | | [place] | | | | [place] [address] | | + +--------+ +--------+ + +--------+ + +--------+ +--------+ + + | Guarantor Name | Accoun | Relation to | Date | Phone | Billing Address | | | t Type | Patient | of | | | | | | | | | | + +--------+ +--------+ + + | Nancy Celis | Person | Self | [birth year] | [address] | | | al/Fam | | 1941 | [phone] | [place] [address] | | | marian | | | 4 (Home) | | + +--------+ +--------+ + + Advance Directives Patient has advance care planning documents on file. For more information, please contact:[facility] [place] [address]
--- OUTSIDE RECORDS SUMMARY | ~2019-01-04 | XMS | Clinical Summary ---
Demographics + + + | Address | [address] | | | [place] [address] | + + + | Home Phone [...] Author | [facility] | | | and [place] | + + + | Organization | [facility] | | | and [place] | + + + | Address | Unknown | + + + | Phone | Unavailable | + + + Support + + + + + | Name | Relationship | Address | Phone | + + + + + | Jin Devine | [address] | | | | | [place], [place] | | + + + + + | ImeldaMelinda | ECON | Unknown | | + + + + + | Liliam Simpson | ECON | Unknown | | + + + + + Care Team Providers + +------+ + | Care Automotive Service Consultant Name | Role | Phone | [...] + +--------+ | MEDICARE | MEDICA | [id number] | 06/21/19 | [phone] | | Medica | | | RE | | 05-Pre | 5 | | re | | | PART A | | sent | | | | | | AND B | | | | | | + +--------+ +--------+ + +--------+ | MODA | MODA | [id number] | 05/21/19 | [phone] | [address] | Indemn | | | HEALTH | | 08-Pre | 9 | [address] | ity | | | MDCR | | sent | | [place], | | | | [place] | | | | [place] [address] | | + +--------+ +--------+ + +--------+ + +--------+ +--------+ + + | Guarantor Name | Accoun | Relation to | Date | Phone | Billing Address | | | t Type | Patient | of | | | | | | | | | | + +--------+ +--------+ + + | Nancy Celis | Person | Self | [birth year] | | [address] | | | al/Fam | | 1941 | [phone] | [place] [address] | | | marian | | | 4 (Home) | | + +--------+ +--------+ + + Advance Directives Patient has advance care planning documents on file. For more information, please contact:[facility] [place] [address]
--- OUTSIDE RECORDS SUMMARY | ~2019-01-04 | XMS | Encounter Summary ---
Demographics + + + | Address | [address] | | | [place] [address] | + + + | Home Phone | | + + + | Preferred Language | Unknown | + + + | Marital Status | | + + + | Zoroastrianism Affiliation | Unknown | + + + | Race | Unknown | + + + | Ethnic Group | Unknown | + + + Author + + + | Author | [facility] | | | and [place] | + + + | Organization | [facility] | | | and [place] | + + + | Address | Unknown | + + + | Phone | Unavailable | + + + Support + + + + + | Name | Relationship | Address | Phone | + + + + + | Jin Devine | [address] | | | | | [place], [place] | | + + + + + | ImeldaMelinda | ECON | Unknown | | + + + + + | Liliam Simpson | ECON | Unknown | | + + + + + Care Team Providers + +------+ + | Care Transport Specialist Name | Role | Phone | + +------+ + | Maya Curry MD | PCP | | + +------+ + Encounter Details +--------+ + + + + | Date | Type | Department | Care Team | Description | +--------+ + + + + | 10/16/ | Orders Only | [facility] | Provider, | | | 2018 | | SYSTEM GENERIC OP | [address] | | | | | [address] | [address] | | | | | [address] [place], [place] | [place] [address] | | | | | [address] | | | | | | [phone] | | | +--------+ + + + [...]
--- OUTSIDE RECORDS SUMMARY | ~2019-01-04 | XMS | Clinical Summary ---
Demographics + + + | Address | [address] | | | [place] [address] | + + + | Home Phone | | + + + | Preferred Language | Unknown | + + + | Marital Status | Single | + + + | Orthodoxy Affiliation | Unknown | + + + | Race | Unknown | + + + | Ethnic Group | Unknown | + + + Author + + + | Author | [facility] (Historical as of | | | 11-05-18) | + + + | Organization | [facility] [facility] (Historical as of | | | 11-05-18) [...] Providers + +------+ + | Care Hot Roll Laminator Name | Role | Phone | + [...] + + | CARMELA (acute kidney injury) ([facility]) | 03/24/2018 | + + + | [...] +------+-------+ + | MEDICARE | MEDICA | [id number] | | | [address] | | | RE | | | | [place] [address] | | | IP-OP | | | | | + +--------+ +------+-------+ + | ODS HEALTH PLAN | ODS | [id number] | | | | | | HEALTH [...] | Self | [birth year] | Home: | [address] | | | al/Jimmie | | 1941 | [phone] | [place] [address] | | | marian | | | [address] | | + +--------+ +--------+ + +
[~2019-01-04 21:10] MED LIST changes: +TORSEMIDE5 MG PO
--- OUTSIDE RECORDS SUMMARY | 2019-01-04 21:14 | XMS ---
PreManage Notification: IRIS OLIVAREZ Security Quiller Runner Events No recent Security Events currently on file CRITERIA MET - [facility] - Has Care Guidelines - [facility] - 2 Visits in 30 Days CARE PROVIDERS PEDRO IGNACIO [facility] Current PHONE: Unknown Ryan Meza Internal Medicine: Pulmonary Disease 03/30/2018-Current PHONE: Unknown Sarbjit has no Care Guidelines for this patient. Care History Medical/Surgical 03/30/2018 [facility] - Patient is currently established with [facility]. If patient is seen in the ED during business hours. Please contact [facility] at [facility]. Care Recommendation: This patient has had 5 [...] care. E.D. VISIT COUNT (12 MO.) [address] [place] [address] [facility] [place] [place] TOTAL 8 NOTE: Visits indicate total known visits. ED/UCC VISIT TRACKING (12 MO.) 01/04/2019 21:11 [facility] [place] TYPE: Emergency COMPLAINT: - CHEST PAIN 01/03/2019 11:51 [facility] [place] TYPE: Emergency COMPLAINT: - SOB, COUGH 08/18/2018 19:18 [facility] [place] TYPE: Emergency COMPLAINT: - DIZZINESS DIAGNOSES: - Dehydration - Other retirement (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 - Anemia, unspecified - [...] of urinary (tract) infections - Other intermediate project manager (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 - Prsnl hx of TIA (TIA), 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 deficits - Hypotension, unspecified - Unspecified atrial fibrillation 04/27/2018 12:12 [facility] [place] TYPE: Emergency COMPLAINT: - SEIZURE DIAGNOSES: - Prsnl hx of TIA (TIA), 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 deficits - Unspecified atrial fibrillation - Unspecified convulsions - Other retirement (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 - Hypertensive heart disease with heart failure - Heart failure, unspecified 03/29/2018 14:33 [facility] [place] TYPE: Emergency COMPLAINT: - LETHARGIC DIAGNOSES: - buttermilk drier operator (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 of anticoagulants - USP (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 - Personal history of malignant neoplasm of large intestine - Hypertensive heart disease with heart failure - Heart failure, unspecified - Other intermediate project manager (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 - Weakness - Unspecified atrial fibrillation 03/24/2018 17:43 [facility] TYPE: Emergency DIAGNOSES: - Unspecified dementia without behavioral disturbance - Illness, unspecified - Hypovolemia - Other hypotension - Acute posthemorrhagic anemia - Gastrointestinal hemorrhage, unspecified 03/24/2018 11:51 [facility] [place] TYPE: Emergency COMPLAINT: - BLOOD PRESSURE PROBLEM DIAGNOSES: - Heart failure, unspecified - Other intermediate project manager (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 - Elevated blood-pressure reading, w/o diagnosis of htn - Gastrointestinal hemorrhage, unspecified - buttermilk drier 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 - Other specified coagulation defects - Prsnl hx of TIA (TIA), 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 deficits - Unspecified atrial fibrillation - buttermilk drier operator (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 of anticoagulants - Personal history of malignant neoplasm of large intestine - Anemia, unspecified - Hypotension, unspecified - Hypertensive heart disease with heart failure INPATIENT VISIT TRACKING (12 MO.) 01/03/2019 16:56 [facility] TYPE: Observation COMPLAINT: - A-FIB, RVR [facility]2018 [facility] TYPE: General Medicine DIAGNOSES: - Gastrointestinal hemorrhage, unspecified - Unspecified dementia without behavioral disturbance - Acute posthemorrhagic anemia - Hypovolemia - Melena - Other hypotension - Illness, unspecified [email or web address]
--- NOTE | 2019-01-05 20:53 | EKG ---
[facility] [address] [place] [address] Signed Atrial fibrillation with rapid ventricular response with premature ventricular or aberrantly conducted complexes Left axis deviation Anteroseptal infarct (cited on or before 24-FEB-2017) Abnormal ECG When compared with ECG of 03-JAN-2019 12:03, Questionable change in initial forces of Anterior leads Confirmed by TAN BEDOLLA MD ([id number]) on 01/05/2019 8:52:49 PM Electronically Signed By: TAN BEDOLLA MD 01/05/192052 PATIENT NAME: EMILY OSBORNIRIS Electrocardiogram DATE OF : 38 PHYSICIAN: TAN BEDOLLA MD REPORT #: [id number] REPORT IS CONFIDENTIAL AND NOT TO BE RELEASED WITHOUT AUTHORIZATION
== END 2019-01-04 22:41 | disposition home or self-care (01) ==
LOC: ED 21:10
DX: R07.9 Chest pain, unspecified (principal); I11.0 Hypertensive heart disease with heart failure; I50.9 Heart failure, unspecified; I48.91 Unspecified atrial fibrillation; Z79.899 Other long term (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
CPT/HCPCS: 71045; 80053; 83735; 84484; 85025; 93005; 93010; 99285-25

== ENCOUNTER 2019-03-28 16:45 | Emergency (ER) | payer MEDICARE, OTHER ==
[~2019-03-28] VITALS: Ht 157.5 cm; Wt 77.6 kg
--- OUTSIDE RECORDS SUMMARY | ~2019-03-28 | XMS | Encounter Summary ---
Demographics + + + | Address | [address] | | | [place] [address] | + + + | Home Phone | | + + + | Preferred Language | Unknown | + + + | Marital Status | | + + + | Samaritan Affiliation | Unknown | + + + | Race | Unknown | + + + | Ethnic Group | Unknown | + + + Author + + + | Author | [facility] | | | and [place] | + + + | Organization | [facility] | | | and [place] | + + + | Address | Unknown | + + + | Phone | Unavailable | + + + Support + + + + + | Name | Relationship | Address | Phone | + + + + + | Jin Devine | ANGELICA | NA | | | | | [place], [place] | | + + + + + | Melinda Segura | ECON | Unknown | | + + + + + | Liliam Calvin | ECON | Unknown | | + + + + + Care Team Providers + +------+ + | Care Talent Acquisition Director Name | Role | Phone | + +------+ + PCP | Unavailable | + +------+ + Encounter Details +--------+ + + + + | Date | Type | Department | Care Team | Description | +--------+ + + + + | 09/17/ | Hospital | [facility] | | | | 2004 | Encounter | MED CTR XRAY [address] | | | | | | [place] | | | | | | [place] [address] | | | | | | [phone] | | | +--------+ + + + + Social History + +-------+ +--------+------+ | Tobacco Use | Types | Packs/Day | Years | Date | | | | | Used | | + +-------+ +--------+------+ | Never Assessed | | | | | + +-------+ +--------+------+ + + + | Sex Assigned at | Date Recorded | | | | + + + | Not on file | | + + + + + + + | Job Start Date | Occupation | Industry | + + + + | Not on file | Not on file | Not on file | + + + + + + + + | Travel History | Travel Start | Travel End | + + + + + + | No recent travel history available. | + + documented as of this encounter Plan of Treatment Not on filedocumented as of this encounter Visit Diagnoses Not on filedocumented in this encounter"
--- OUTSIDE RECORDS SUMMARY | ~2019-03-28 | XMS | Encounter Summary ---
Demographics + + + | Address | [address] | | | [place] [address] | + + + | Home Phone | | + + + | Preferred Language | Unknown | + + + | Marital Status | | + + + | Anabaptist Affiliation | Unknown | + + + | Race | Unknown | + + + | Ethnic Group | Unknown | + + + Author + + + | Author | [facility] | | | and [place] | + + + | Organization | [facility] | | | and [place] [...] Team Providers + +------+ + | Care Hand Frame Surgical Elastic Knitter Name | Role | Phone | + +------+ + | Sangeetha Dixon MD | PCP | | + +------+ + Encounter Details +--------+ + + + + | Date | Type | Department | Care Team | Description | +--------+ + + + + | 02/01/ | Hospital | [facility] | Gerardo Castro MD | | | 2011 | Encounter | MED CTR MP INTRA OP | [address], [place] | | | | | [address] | [address] [place] | | | | | [place] | [address] | | | | | [address] | | | | | | [phone] | | | +--------+ + + + [...] + +---------+ + | Alcohol Use | Drinks/Week | oz/Week | Comments | + + +---------+ + | No [...] + + documented as of this encounter Medications at Time of Discharge + + + +---------+ + + | Medication | Sig | Dispensed | Refills | Start | End Date | | | | | | Date | | + + + +---------+ + + | Cholecalciferol | Take 1 tablet by | | 0 | | | | (VITAMIN D3) 2000 | mouth. | | | | | | UNITS CAPS | | | | | | + + + +---------+ + + | ADULT ASPIRIN EC | TBEC: Take one by | | 0 | 05/06/19 | | | LOW STRENGTH PO | mouth daily | | | 11 | 8 | + + + +---------+ + + | amLODIPine | Take 5 mg by mouth | | 0 | | | | (NORVASC) 5 mg | Daily. | | | | 8 | | tablet | | | | | | + + + +---------+ + + | Cholecalciferol | CAPS: 5000 unit | | 0 | 12/03/19 | | | (VITAMIN D3) | capsule by mouth | | | 12 | 6 | | | daily | | | | | + + + +---------+ + + | | Take 25 mg by mouth | | 0 | 12/03/19 | | | hydrochlorothiazide | Daily. | | | 12 | 8 | | 25 mg tablet | | | | | | + + + +---------+ + + | lisinopril | Take 30 mg by mouth | | 0 | 12/03/19 | | | (PRINIVIL,ZESTRIL) | 2 times daily. | | | 12 | 6 | | 30 MG tablet | | | | | | + + + +---------+ + + | metoprolol | Take 50 mg by mouth | | 0 | 12/03/19 | | | tartrate (LOPRESSOR) | Daily. | | | 12 | 6 | | 50 mg tablet | | | | | | + + + +---------+ + + documented as of this encounter Plan of Treatment Not on filedocumented as of this encounter Visit Diagnoses Not on filedocumented in this encounter"
--- OUTSIDE RECORDS SUMMARY | ~2019-03-28 | XMS | Encounter Summary ---
Demographics + + + | Address | [address] | | | [place] [address] | + + + | Home Phone | | + + + | Preferred Language | Unknown | + + + | Marital Status | | + + + | Rastafari Affiliation | Unknown | + + + | Race | Unknown | + + + | Ethnic Group | Unknown | + + + Author + + + | Author | [facility] | | | and [place] | + + + | Organization | [facility] | | | and [place] [...] Team Providers + +------+ + | Care President + Publisher Name | Role | Phone | + +------+ + PCP | Unavailable | + +------+ + Encounter Details +--------+ + + + + | Date | Type | Department | Care Team | Description | +--------+ + + + + | 03/13/ | Hospital | [facility] | | | | 2009 | Encounter | MED CTR XRAY [address] | | | | | | [place] | | | | | | [place] [address] | | | | | | [phone] | | | +--------+ + + + [...]
--- OUTSIDE RECORDS SUMMARY | ~2019-03-28 | XMS | Encounter Summary ---
Demographics + + + | Address | [address] | | | [place] [address] | + + + | Home Phone | | + + + | Preferred Language | Unknown | + + + | Marital Status | | + + + | Advent Affiliation | Unknown | + + + | Race | Unknown | + + + | Ethnic Group | Unknown | + + + Author + + + | Author | [facility] | | | and [place] | + + + | Organization | [facility] | | | and [...] Team Providers + +------+ + | Care Radiological Defense Officer Name | Role | Phone | + +------+ + PCP | Unavailable | + +------+ + Encounter Details +--------+ + + + + | Date | Type | Department | Care Team | Description | +--------+ + + + + | 08/30/ | Hospital | [facility] | | | | 2003 - | Encounter | MED CTR CANCER | | | | | | CENTER [address] | | | | 12/12/ | | [place] | | | | 2003 | | [address] | | | | | | [phone] | | | +--------+ + + + [...]
--- OUTSIDE RECORDS SUMMARY | ~2019-03-28 | XMS | Encounter Summary ---
Demographics + + + | Address | [address] | | | [place] [address] | + + + | Home Phone | | + + + | Preferred Language | Unknown | + + + | Marital Status | | + + + | Uatsdin Affiliation | Unknown | + + + | Race | Unknown | + + + | Ethnic Group | Unknown | + + + Author + + + | Author | [facility] | | | and [place] | + + + | Organization | [facility] | | [...] Team Providers + +------+ + | Care Worm Farmer Name | Role | Phone | + +------+ + | Maya Curry MD | PCP | | + +------+ + Encounter Details +--------+ + + + + | Date | Type | Department | Care Team | Description | +--------+ + + + + | 10/14/ | Abstract | [facility] | Jens Woodward, | | | 2016 | | [facility] [address] | BRANCH RETAIL EXECUTIVE [address] [facility] | | | | | Street [place], | [place] | | | | | [place] [address] | [address] | | | | | [phone] | | | +--------+ + + + [...] Not on filedocumented as of this encounter Procedures + +--------+ + + + | Procedure Name | Priori | Date/Time | Associated Diagnosis | Comments | | | ty | | | | + +--------+ + + + | EXTERNAL LAB: | Routin | 12/05/2015 | | Results for this | | PROTIME INR | e | | | procedure are in the | | | | | | results section. | + +--------+ + + + | EXTERNAL LAB: | Routin | 07/17/2015 | | Results for this | | PROTIME INR | e | | | procedure are in the | | | | | | results section. | + +--------+ + + + | EXTERNAL LAB: | Routin | 06/05/2015 | | Results for this | | PROTIME INR | e | | | procedure are in the | | | | | | results section. | + +--------+ + + + | EXTERNAL LAB: | Routin | 04/24/2015 | | Results for this | | PROTIME INR | e | | | procedure are in the | | | | | | results section. | + +--------+ + + + | EXTERNAL LAB: | Routin | 04/17/2015 | | Results for this | | PROTIME INR | e | | | procedure are in the | | | | | | results section. | + +--------+ + + + | EXTERNAL LAB: | Routin | 10/31/2014 | | Results for this | | PROTIME INR | e | | | procedure are in the | | | | | | results section. | + +--------+ + + + | EXTERNAL LAB: | Routin | 09/19/2014 | | Results for this | | PROTIME INR | e | | | procedure are in the | | | | | | results section. | + +--------+ + + + documented in this encounter Results External Lab: [facility] (12/05/2015) + +-------+ + + + | Component | Value | Ref Range | Performed | Pathologist | | | | | At | Signature | + +-------+ + + + | INR, | 2.6 | 2 - 3 | | | | External | | | | | + +-------+ + + + + + | Specimen | + + | Blood | + + External Lab: [facility] (07/17/2015) + +-------+ + + + | Component | Value | Ref Range | Performed | Pathologist | | | | | At | Signature | + +-------+ + + + | INR, | 3 | 2 - 3 | | | | External | | | | | + +-------+ + + + + + | Specimen | + + | Blood | + + External Lab: [facility] (06/05/2015) + +-------+ + + + | Component | Value | Ref Range | Performed | Pathologist | | | | | At | Signature | + +-------+ + + + | INR, | 2.3 | 2 - 3 | | | | External | | | | | + +-------+ + + + + + | Specimen | + + | Blood | + + External Lab: [facility] (04/24/2015) + +-------+ + + + | Component | Value | Ref Range | Performed | Pathologist | | | | | At | Signature | + +-------+ + + + | INR, | 2.4 | 2 - 3 | | | | External | | | | | + +-------+ + + + + + | Specimen | + + | Blood | + + External Lab: [facility] (04/17/2015) + +---------+ + + + | Component | Value | Ref Range | Performed | Pathologist | | | | | At | Signature | + +---------+ + + + | INR, | 1.3 (A) | 2 - 3 | | | | External | | | | | + +---------+ + + + + + | Specimen | + + | Blood | + + External Lab: [facility] (10/31/2014) + +---------+ + + + | Component | Value | Ref Range | Performed | Pathologist | | | | | At | Signature | + +---------+ + + + | INR, | 1.6 (A) | 2 - 3 | | | | External | | | | | + +---------+ + + + + + | Specimen | + + | Blood | + + External Lab: [facility] (09/19/2014) + +---------+ + + + | Component | Value | Ref Range | Performed | Pathologist | | | | | At | Signature | + +---------+ + + + | INR, | 1.2 (A) | 2 - 3 | | | | External | | | | | + +---------+ + + + + + | Specimen | + + | Blood | + + documented in this encounter Visit Diagnoses Not on filedocumented in this encounter"
--- OUTSIDE RECORDS SUMMARY | ~2019-03-28 | XMS | Encounter Summary ---
Demographics + + + | Address | [address] | | | [place] [address] | + + + | Home Phone | | + + + | Preferred Language | Unknown | + + + | Marital Status | | + + + | Mandaen Affiliation | Unknown | + + + | Race | Unknown | + + + | Ethnic Group | Unknown | + + + Author + + + | Author | [facility] | | | and [place] | + + + | Organization | [facility] | | | and [place] | [...] Team Providers + +------+ + | Care Middle School Reading Teacher Name | Role | Phone | + +------+ + | Maya Curry MD | PCP | | + +------+ + Encounter Details +--------+ + + + + | Date | Type | Department | Care Team | Description | +--------+ + + + + | 08/28/ | Orders Only | [facility] [place] | Gerardo Castro MD | Personal history of | | 2016 | | GASTROENTEROLOGY | [address], [place] | colon cancer; | | | | [address] [place] | [address] [place], [place] | Congestive heart | | | | [address] [place], [place] | [address] | failure with | | | | [address] | | cardiomyopathy (HCC) | | | | [phone] | | | +--------+ + + + [...] filedocumented as of this encounter Visit Diagnoses + + | Diagnosis | + + | Personal history of colon cancer Personal history of malignant neoplasm of large | | intestine | + + | Congestive heart failure with cardiomyopathy (HCC) Congestive heart failure, | | unspecified | + + documented in this encounter"
--- OUTSIDE RECORDS SUMMARY | ~2019-03-28 | XMS | Encounter Summary ---
Demographics + + + | Address | [address] | | | [place] [address] | + + + | Home Phone | | + + + | Preferred Language | Unknown | + + + | Marital Status | | + + + | Faith Affiliation | Unknown | + + + | Race | Unknown | + + + | Ethnic Group | Unknown | + + + Author + + + | Author | [facility] | | | and [place] | + + + | Organization | [facility] | | | and [place] [...] Team Providers + +------+ + | Care Parts Analyst Name | Role | Phone | + +------+ + PCP | Unavailable | + +------+ + Encounter Details +--------+ + + + + | Date | Type | Department | Care Team | Description | +--------+ + + + + | 09/26/ | Hospital | [facility] | Gerardo Castro MD | | | 2003 | Encounter | MED CTR GENERIC OP | [address], [place] | | | | | CONV DEPT [address] | [address] [place], [place] | | | | | [place], | [address] | | | | | [place] [address] | | | | | | [phone] | | | +--------+ + + + [...]
--- OUTSIDE RECORDS SUMMARY | ~2019-03-28 | XMS | Encounter Summary ---
Demographics + + + | Address | [address] | | | [place] [address] | + + + | Home Phone | | + + + | Preferred Language | Unknown | + + + | Marital Status | | + + + | Jehovah'S Witness Affiliation | Unknown | + + + | Race | Unknown | + + + | Ethnic Group | Unknown | + + + Author + + + | Author | [facility] | | | and [place] | + + + | Organization | [facility] [...] + + + + + | Melinda Teebairon | ECON | Unknown | | + + + + + | Liliam Calvin | ECON | Unknown | | + + + + + Care Team Providers + +------+ + | Care Associate Professor Name | Role | Phone | + +------+ + | Sangeetha Dixon MD | PCP | | + +------+ + Reason for Visit +--------+ + | Reason | Comments | +--------+ + | Other | recall for colonoscopy | +--------+ + Encounter Details +--------+ + + + + | Date | Type | Department | Care Team | Description | +--------+ + + + + | 09/12/ | Telephone | [facility] | Gerardo Castro MD | Other (recall for | | 2013 | | GASTROENTEROLOGY | [address], [place] | colonoscopy) | | | | [address] [place] | [address] [place] [facility] [place] | | | | | [address] [place], [place] | [address] | | | | | [address] | | | | | | [phone] | | | +--------+ + + + [...]
--- OUTSIDE RECORDS SUMMARY | ~2019-03-28 | XMS | Encounter Summary ---
Demographics + + + | Address | [address] | | | [place] [address] | + + + | Home Phone [...] | Author | [facility] | | | and [place] | + + + | Organization | [facility] | | | and [place] | [...] Team Providers + +------+ + | Care Bottle Selector Name | Role | Phone | + +------+ + PCP | Unavailable | + +------+ + Encounter Details +--------+ + + + + | Date | Type | Department | Care Team | Description | +--------+ + + + + | 08/31/ | Hospital | [facility] | | | | 2002 | Encounter | MED CTR LABORATORY | | | | | | [address] | | | | | | [place] | | | | | | [address] | | | | | | [phone] | | | +--------+ + + + [...]
--- OUTSIDE RECORDS SUMMARY | ~2019-03-28 | XMS | Encounter Summary ---
Demographics + + + | Address | [address] | | | [place] [address] | + + + | Home Phone | | + + + | Preferred Language | Unknown | + + + | Marital Status | | + + + | Worship Affiliation | Unknown | + + + | Race | Unknown | + + + | Ethnic Group | Unknown | + + + Author + + + | Author | [facility] | | | and [place] | + + + | Organization | [facility] [...] Team Providers + +------+ + | Care Mold Machine Operator Name | Role | Phone | + +------+ + PCP | Unavailable | + +------+ + Encounter Details +--------+ + + + + | Date | Type | Department | Care Team | Description | +--------+ + + + + | 09/08/ | Hospital | [facility] | | | | 2000 | Encounter | MED CTR XRAY [address] | | | | | | [place] | | | | | | [place] [address] | | | | | | [phone] | | | +--------+ + + + [...]
--- OUTSIDE RECORDS SUMMARY | ~2019-03-28 | XMS | Encounter Summary ---
Demographics + + + | Address | [address] | | | [place] [address] | + + + | Home Phone | | + + + | Preferred Language | Unknown | + + + | Marital Status | | + + + | Islam Affiliation | Unknown | + + + | Race | Unknown | + + + | Ethnic Group | Unknown | + + + Author + + + | Author | [facility] | | | and [place] | + + + | Organization | [facility] | | | and [place] [...] Team Providers + +------+ + | Care Reeler Operator Name | Role | Phone | + +------+ + PCP | Unavailable | + +------+ + Encounter Details +--------+ + + + + | Date | Type | Department | Care Team | Description | +--------+ + + + + | 03/07/ | Hospital | [facility] | | | | 2001 - | Encounter | MED CTR CANCER | | | | | | CENTER [address] | | | | 07/10/ | | [place] | | | | 2002 | | [address] | | | | | | [phone] | | | +--------+ + + + [...]
--- OUTSIDE RECORDS SUMMARY | ~2019-03-28 | XMS | Encounter Summary ---
Demographics + + + | Address | [address] | | | [place] [address] | + + + | Home Phone | | + + + | Preferred Language | Unknown | + + + | Marital Status | | + + + | Temple Affiliation | Unknown | + + + | Race | Unknown | + + + | Ethnic Group | Unknown | + + + Author + + + | Author | [facility] | | | and [place] | + + + | Organization | [facility] | | | and [...] Team Providers + +------+ + | Care Peer Educator Name | Role | Phone | + +------+ + PCP | Unavailable | + +------+ + Encounter Details +--------+ + + + + | Date | Type | Department | Care Team | Description | +--------+ + + + + | 05/27/ | Hospital | [facility] | | | | 2000 | Encounter | MED CTR LABORATORY | | | | | | [address] | | | | | | [place] | | | | | | [address] | | | | | | [phone] | | | +--------+ + + + [...]
--- OUTSIDE RECORDS SUMMARY | ~2019-03-28 | XMS | Encounter Summary ---
Demographics + + + | Address | [address] | | | [place] [address] | + + + | Home Phone | | + + + | Preferred Language | Unknown | + + + | Marital Status | | + + + | Restoration Affiliation | Unknown | + + + | Race | Unknown | + + + | Ethnic Group | Unknown | + + + Author + + + | Author | [facility] | | | and [place] | + + + | Organization | [facility] | | | and [place] [...] Team Providers + +------+ + | Care Field Services Analyst Name | Role | Phone | + +------+ + PCP | Unavailable | + +------+ + Encounter Details +--------+ + + + + | Date | Type | Department | Care Team | Description | +--------+ + + + + | 10/28/ | Hospital | [facility] | | | | 1999 - | Encounter | MED CTR CANCER | | | | | | CENTER [address] | | | | 03/06/ | | [place] | | | | 1999 | | [address] | | | | | | [phone] | | | +--------+ + + + [...]
--- OUTSIDE RECORDS SUMMARY | ~2019-03-28 | XMS | Encounter Summary ---
Demographics + + + | Address | [address] | | | [place] [address] | + + + | Home Phone | | + + + | Preferred Language | Unknown | + + + | Marital Status | | + + + | Voodoo Affiliation | Unknown | + + + | Race | Unknown | + + + | Ethnic Group | Unknown | + + + Author + + + | Author | [facility] | | | and [place] | + + + | Organization | [facility] | | | and [place] [...] Team Providers + +------+ + | Care Flotation Tank Operator Name | Role | Phone | + +------+ + | Sangeetha Dixon MD | PCP | | + +------+ + Reason for Referral Evaluate & Treat (Routine) +--------+ + + + + + | Status | Reason | Specialty | Diagnoses / | Referred By | Referred To | | | | | Procedures | Contact | Contact | +--------+ + + + + + | Closed | Specialty | Gastroenterol | Diagnoses | Matthew, | Matthew, | | | Services | emelina | Personal | Gerardo Fuentes MD | Gerardo Fuentes MD | | | Required | | history of | [address], | | | | | malignant | [place], [place] | [address] | | | | | neoplasm of | [address] [place] | [place], | | | | | large | [place], [place] | [place] [address] | | | | | intestine | [address] | Phone: | | | | | Procedures | Phone: | [phone] | | | | | [place] | [phone] | Fax: | | | | | COLONOSCOPY, | Fax: | [phone] | | | | | DIAGNOSTIC | [phone] | | | | | | [place] | | | | | | | COLONOSCOPY, | | | | | | | BIOPSY | | | +--------+ + + + + + Reason for Visit + + + | Reason | Comments | + + + | Follow-up | | + + + Evaluate & Treat (Routine) +--------+ + + + + + | Status | Reason | Specialty | Diagnoses / | Referred By | Referred To | | | | | Procedures | Contact | Contact | +--------+ + + + + + | Closed | Specialty | Gastroenterol | Diagnoses | Harri, | Harri, | | | Services | ogy | Personal | Gerardo Fuentes MD | Gerardo Fuentes MD | | | Required | | history of | [address], | | | | | malignant | [place], [place] | [address] | | | | | neoplasm of | [address] [place] | [place], | | | | | large | [place], [place] | [place] [address] | | | | | intestine | [address] | Phone: | | | | | Procedures | Phone: | [phone] | | | | | [place] | [phone] | Fax: | | | | | COLONOSCOPY, | Fax: | [phone] | | | | | DIAGNOSTIC | [phone] | | | | | | [place] | | | | | | | COLONOSCOPY, | | | | | | | BIOPSY | | | +--------+ + + + + + Encounter Details +--------+---------+ + + + | Date | Type | Department | Care Team | Description | +--------+---------+ + + + | 01/18/ | Office | [facility] | Gerardo Castro MD | Personal history of | | 2011 | Visit | GASTROENTEROLOGY | [address], [place] | malignant neoplasm | | | | [address] | [address] [place], [place] | of large intestine | | | | [address] [place], [place] | [address] | (Primary Dx); | | | | [address] | | Unspecified | | | | [phone] | | essential | | | | | | hypertension | +--------+---------+ + + + Social History [...] + + documented as of this encounter Last Filed Vital Signs + + + + + | Vital Sign | Reading | Time Taken | Comments | + + + + + | Blood Pressure | 135/72 | 01/19/2012 2:50 PM | | | | | PDT | | + + + + + | Pulse | 68 | 01/19/2012 2:50 PM | | | | | PDT | | + + + + + | Temperature | - | - | | + + + + + | Respiratory Rate | - | - | | + + + + + | Oxygen Saturation | - | - | | + + + + + | Inhaled Oxygen | - | - | | | Concentration | | | | + + + + + | Weight | 82.6 kg (182 lb) | 01/19/2012 2:50 PM | | | | | PDT | | + + + + + | Height | 157.5 cm (5' 2") | 01/19/2012 2:50 PM | | | | | PDT | | + + + + + | Body Mass Index | 33.29 | 01/19/2012 2:50 PM | | | | | PDT | | + + + + + documented in this encounter Progress Notes Gerardo Castro MD - 01/19/2012 3:42 PM PDT Subjective: Patient ID: Nancy Celis is a 71 y.o. female. HPI Comments: A 71-year-old female comes to the office for followup. Patient has a history of sigmoid carcinoma treated with resection in 1999. Her last colonoscopy was in 2006. Low tatum denies any change in bowel pattern murmurs her bowels daily denies alternation between constipation diarrhea or narrow stools. She denies any abdominal pain cramping or blood in the sternal or blood in the stools. He is a family history of colonic polyps in her grandm other her sister recently has been found to have heme positive stools. Chart review shows hypertension CT scan of the abdomen and pelvis in March 2010 was with in normal limits except for a hiatal hernia and atherosclerotic disease of the abdominal aor ta. Patient's laboratory studies done profile within normal limits CBC not done at that time but in july of 2011 was within normal limits with hemoglobin of 12.6 patient repor ts that she was told that she had a myocardial infarction by EKG criteria but she denies any cardiovascular symptoms and/or respiratory symptoms. Filed Vitals: 01/19/12 1450 BP: 135/72 Pulse: 68 PainSc: 0 - No pain No Known Allergies Past Medical History Diagnosis Date Cancer aSSTLER-cOLLER c1 ADENOCARCINOMA SIGMOID Hypercholesterolemia Peptic ulcer disease Hiatal hernia Hypertension Pulmonary hypertension Myocardial hypertrophy Renal insufficiency Vitamin d deficiency Osteoporosis Hemorrhoids GERD (gastroesophageal reflux disease) Past Surgical History Procedure Date Colonoscopy 11/11/2006 Dilation and curettage of uterus 1988 section X 3 Colon surgery SIGMOID RESECTIOON august, Colectomy 01/21/2000 Dilation and curettage of uterus 1988 Appendectomy 01/21/1960 Tonsillectomy and adenoidectomy AT AGE 11 Family History Problem Relation Age of Onset Suicide Mother Other (See Comment) Mother CHRONIC PAIN SYNDROME Cancer Mother Heart disease Father High cholesterol Father High blood pressure Father High blood pressure Sister Depression Sister History Social History Marital Status: Single Spouse Name: N/A Number of Children: N/A Years of Education: N/A Social History Main Topics Smoking status: Never Smoker Smokeless tobacco: Never Used Alcohol Use: No Drug Use: No Sexually Active: None Other Topics Concern None Social History Narrative None Review of Systems Constitutional: Negative. HENT: Negative. Eyes: Negative. Respiratory: Negative. Cardiovascular: Negative. Gastrointestinal: Negative. Genitourinary: Negative. Musculoskeletal: Negative. Skin: Negative. Neurological: Negative. Hematological: Negative. Psychiatric/Behavioral: Negative. Objective: Physical Exam Constitutional: She is oriented to person, place, and time. She appears well-developed and well-nourished. No distress. HENT: Head: Normocephalic and atraumatic. Right Ear: External ear normal. Left Ear: External ear normal. Nose: Nose normal. Mouth/Throat: Oropharynx is clear and moist. No oropharyngeal exudate. Eyes: Conjunctivae and EOM are normal. Pupils are equal, round, and reactive to light. Righ t eye exhibits no discharge. Left eye exhibits no discharge. Neck: Normal range of motion. Neck supple. No JVD present. No tracheal deviation present. Cardiovascular: Normal rate, regular rhythm, normal heart sounds and intact distal pulses. Exam reveals no gallop and no friction rub. No murmur heard. Pulmonary/Chest: Effort normal and breath sounds normal. No respiratory distress. She has n o wheezes. She exhibits no tenderness. Abdominal: Soft. Bowel sounds are normal. She exhibits no distension and no mass. There is no tenderness. There is no rebound and no guarding. Musculoskeletal: Normal range of motion. She exhibits no edema and no tenderness. Lymphadenopathy: She has no cervical adenopathy. Neurological: She is alert and oriented to person, place, and time. She has normal reflexes . No cranial nerve deficit. She exhibits normal muscle tone. Coordination normal. Skin: Skin is warm and dry. No rash noted. She is not diaphoretic. No erythema. No pallor. Psychiatric: She has a normal mood and affect. Her behavior is normal. Judgment and thought content normal. Assessment: Appropriate candidate for colonoscopy given past history of colonic carcinoma past colonosc opy in 2006 Other medical problems being addressed by primary care physician Plan: At this time the patient is a candidate for colonoscopy. Benefits risks procedure explaine d to the patient she concurs and she'll be scheduled sometime in the future. documented in this enc ounter Plan of Treatment + + +--------+ + + | Name | Type | Priori | Associated Diagnoses | Order Schedule | | | | ty | | | + + +--------+ + + | Ambulatory referral | Outpatient | Routin | Personal history | Expected: | | to Gastroenterology | Referral | e | of malignant | 02/02/2012, Expires: | | | | | neoplasm of large | 01/18/2013 | | | | | intestine | | + + +--------+ + + documented as of this encounter Visit Diagnoses + + | Diagnosis | + + | Personal history of malignant neoplasm of large intestine - Primary | + + | Unspecified essential hypertension | + + documented in this encounter
--- OUTSIDE RECORDS SUMMARY | ~2019-03-28 | XMS | Encounter Summary ---
Demographics + + + | Address | [address] | | | [place] [address] | + + + | Home Phone | | + + + | Preferred Language | Unknown | + + + | Marital Status | | + + + | Yazidi Affiliation | Unknown | + + + | Race | Unknown | + + + | Ethnic Group | Unknown | + + + Author + + + | Author | [facility] | | | and [place] | + + + | Organization | [facility] | | | and [place] | [...] Team Providers + +------+ + | Care Medical Specialist Name | Role | Phone | [...] | +--------+ + + + + | 07/20/ | Telephone | [facility] | Maya Curry MD | Medication Refill | | 2017 | | [facility] [place] | [address] | | | | | [address] | [place], [place] | | | | | [place], [place] | [address] | | | | | [address] | | | | | | [phone] | | | +--------+ + + + [...]
--- OUTSIDE RECORDS SUMMARY | ~2019-03-28 | XMS | Encounter Summary ---
Demographics + + + | Address | [address] | | | [place] [address] | + + + | Home Phone | | + + + | Preferred Language | Unknown | + + + | Marital Status | | + + + | Congregational Affiliation | Unknown | + + + | Race | Unknown | + + + | Ethnic Group | Unknown | + + + Author + + + | Author | [facility] | | | and [place] | + + + | Organization | [facility] | | | and [...] Team Providers + +------+ + | Care Gatekeeper Name | Role | Phone | + +------+ + PCP | Unavailable | + +------+ + Encounter Details +--------+ + + + + | Date | Type | Department | Care Team | Description | +--------+ + + + + | 12/02/ | Abstract | [facility] | DATA MIGRATION [facility] | | | 2011 | | Conversion Location | SR | | | | | [phone] | | | +--------+ + + + [...] + + + | Blood Pressure | 140/79 | 05/06/2010 12:00 AM | | | | | PST | | + + + + + | Pulse | - | - | | + [...] + + + + | Weight | 77.6 kg (171 lb) | 05/06/2010 12:00 AM | | | | | PST | | + + + + + | Height | 157.5 cm (5' 2") | 01/30/2010 12:00 AM | | | | | PST | | + + + + + | Body Mass Index | 31.28 | 01/30/2010 12:00 AM | | | | | PST | | + + + + + documented in this encounter Plan of Treatment Not on filedocumented as of this encounter Visit Diagnoses Not on filedocumented in this encounter
--- OUTSIDE RECORDS SUMMARY | ~2019-03-28 | XMS | Encounter Summary ---
Demographics + + + | Address | [address] | | | [place] [address] | + + + | Home Phone | | + + + | Preferred Language | Unknown | + + + | Marital Status | | + + + | Anglican Affiliation | Unknown | + + + | Race | Unknown | + + + | Ethnic Group | Unknown | + + + Author + + + | Author | [facility] | | | and [place] | + + + | Organization | [facility] | | | and [place] | [...] Providers + +------+ + | Care Manager Packaging Name | Role | Phone | + +------+ + PCP | Unavailable | + +------+ + Encounter Details +--------+ + + + + | Date | Type | Department | Care Team | Description | +--------+ + + + + | 08/22/ | Hospital | [facility] | | | | 2001 | Encounter | MED CTR LABORATORY | | | | | | [address] | | | | | | [place] | | | | | | [address] | | | | | | [phone] | | | +--------+ + + + [...]
--- OUTSIDE RECORDS SUMMARY | ~2019-03-28 | XMS | Encounter Summary ---
Demographics + + + | Address | [address] | | | [place] [address] | + + + | Home Phone | | + + + | Preferred Language | Unknown | + + + | Marital Status | | + + + | Roman Catholic Affiliation | Unknown | + + + | Race | Unknown | + + + | Ethnic Group | Unknown | + + + Author + + + | Author | [facility] | | | and [place] | + + + | Organization | [facility] | | | and [place] [...] Team Providers + +------+ + | Care Hard Rock Drill Operator Name | Role | Phone | [...] | | | 07/10/ | | [place] | | | | 2002 | | [address] | | | | | | [phone] | | | +--------+ + + + [...]
--- OUTSIDE RECORDS SUMMARY | ~2019-03-28 | XMS | Encounter Summary ---
Demographics + + + | Address | [address] | | | [place] [address] | + + + | Home Phone [...] + | Author | [facility] | | | and [place] | + + + | Organization | [facility] | | | and [...] Team Providers + +------+ + | Care Mainstreaming Facilitator Name | Role | Phone | + +------+ + PCP | Unavailable | + +------+ + Encounter Details +--------+ + + + + | Date | Type | Department | Care Team | Description | +--------+ + + + + | 03/07/ | Hospital | [facility] | | | | 2002 - | Encounter | MED CTR CANCER | | | | | | CENTER [address] | | | | 07/11/ | | [place] | | | | 2003 | | [address] | | | | | | [phone] | | | +--------+ + + + [...]
--- OUTSIDE RECORDS SUMMARY | ~2019-03-28 | XMS | Encounter Summary ---
Demographics + + + | Address | [address] | | | [place] [address] | + + + | Home Phone | | + + + | Preferred Language | Unknown | + + + | Marital Status | | + + + | Advent Affiliation | Unknown | + + + | Race | Unknown | + + + | Ethnic Group | Unknown | + + + Author + + + | Author | [facility] | | | and [place] | + + + | Organization | [facility] | | | and [...] Team Providers + +------+ + | Care Drug Safety Assistant Name | Role | Phone | + [...] + + | 11/25/ | Telephone | [facility] | Maya Curry MD | Anticoagulation | | 2018 | | MEDIC[facility] [place] | [address] | ([address] | | | | [address] | [place], [place] | | | | | [place], [place] | [address] | | | | | [address] | | | | | | [phone] | | | +--------+ + + + [...]
--- OUTSIDE RECORDS SUMMARY | ~2019-03-28 | XMS | Encounter Summary ---
Demographics + + + | Address | [address] | | | [place] [address] | + + + | Home Phone | | + + + | Preferred Language | Unknown | + + + | Marital Status | | + + + | Hoahaoism Affiliation | Unknown | + + + | Race | Unknown | + + + | Ethnic Group | Unknown | + + + Author + + + | Author | [facility] | | | and [place] | + + + | Organization | [facility] | | | and [...] Team Providers + +------+ + | Care Inbound Ingredient Logistics Specialist Name | Role | Phone | [...] Description | +--------+--------+ + + + | 08/22/ | Refill | [facility] | Jody Young T, | Medication Refill | | 2017 | | MEDICINE [place] | [address] | | | | | [address] | [place] | | | | | [place], [place] | [address] | | | | | [address] | | | | | | [phone] | | | +--------+--------+ + + + [...]
--- OUTSIDE RECORDS SUMMARY | ~2019-03-28 | XMS | Encounter Summary ---
Demographics + + + | Address | [address] | | | [place] [address] | + + + | Home Phone | | + + + | Preferred Language | Unknown | + + + | Marital Status | | + + + | Advent Affiliation | Unknown | + + + | Race | Unknown | + + + | Ethnic Group | Unknown | + + + Author + + + | Author | [facility] | | | and [place] | + + + | Organization | [facility] | | | and [place] [...] Team Providers + +------+ + | Care Drive Thru Order Taker Name | Role | Phone | + +------+ + PCP | Unavailable | + +------+ + Encounter Details +--------+ + + + + | Date | Type | Department | Care Team | Description | +--------+ + + + + | 10/13/ | Hospital | [facility] | | | | 1999 | Encounter | MED CTR XRAY [address] | | | | | | [place] | | | | | | [place] [address] | | | | | | [phone] | | | +--------+ + + + [...]
--- OUTSIDE RECORDS SUMMARY | ~2019-03-28 | XMS | Encounter Summary ---
Demographics + + + | Address | [address] | | | [place] [address] | + + + | Home Phone | | + + + | Preferred Language | Unknown | + + + | Marital Status | | + + + | Orthodoxy Affiliation | Unknown | + + + | Race | Unknown | + + + | Ethnic Group | Unknown | + + + Author + + + | Author | [facility] | | | and [place] | + + + | Organization | [facility] | | | and [...] Team Providers + +------+ + | Care Didactic Program In Dietetics Director Name | Role | Phone | [...] + + | 04/16/ | Refill | [facility] | Maya Curry MD | Medication Refill | | 2017 | | MEDICINE [place] | [address] | | | | | [address] | [place], [place] | | | | | [place], [place] | [address] | | | | | [address] | | | | | | [phone] | | | +--------+--------+ + + + [...]
--- OUTSIDE RECORDS SUMMARY | ~2019-03-28 | XMS | Encounter Summary ---
Demographics + + + | Address | [address] | | | [place] [address] | + + + | Home Phone | | + + + | Preferred Language | Unknown | + + + | Marital Status | | + + + | Denominational Affiliation | Unknown | + + + | Race | Unknown | + + + | Ethnic Group | Unknown | + + + Author + + + | Author | [facility] | | | and [place] | + + + | Organization | [facility] | | | and [...] Team Providers + +------+ + | Care Baker Pastry Name | Role | Phone | + +------+ + PCP | Unavailable | + +------+ + Encounter Details +--------+ + + + + | Date | Type | Department | Care Team | Description | +--------+ + + + + | 03/16/ | Hospital | [facility] | | | | 1999 - | Encounter | MED CTR CANCER | | | | | | CENTER [address] | | | | 10/01/ | | [place] | | | | 2000 | | [address] | | | | | | [phone] | | | +--------+ + + + [...]
--- OUTSIDE RECORDS SUMMARY | ~2019-03-28 | XMS | Encounter Summary ---
Demographics + + + | Address | [address] | | | [place] [address] | + + + | Home Phone | | + + + | Preferred Language | Unknown | + + + | Marital Status | | + + + | Jain Affiliation | Unknown | + + + | Race | Unknown | + + + | Ethnic Group | Unknown | + + + Author + + + | Author | [facility] | | | and [place] | + + + | Organization | [facility] | | | and [place] [...] Team Providers + +------+ + | Care Bilingual Trainer Name | Role | Phone | + +------+ + PCP | Unavailable | + +------+ + Encounter Details +--------+ + + + + | Date | Type | Department | Care Team | Description | +--------+ + + + + | 08/22/ | Hospital | [facility] | | | | 2001 | Encounter | MED CTR LABORATORY | | | | | | [address] | | | | | | [place] | | | | | | [address] | | | | | | [phone] | | | +--------+ + + + [...]
--- OUTSIDE RECORDS SUMMARY | ~2019-03-28 | XMS | Encounter Summary ---
Demographics + + + | Address | [address] | | | [place] [address] | + + + | Home Phone | | + + + | Preferred Language | Unknown | + + + | Marital Status | | + + + | Sikh Affiliation | Unknown | + + + | Race | Unknown | + + + | Ethnic Group | Unknown | + + + Author + + + | Author | [facility] | | | and [place] | + + + | Organization | [facility] | | | and [...] Team Providers + +------+ + | Care Stitching Department Supervisor Name | Role | Phone | + +------+ + | Sangeetha Dixon MD | PCP | | + +------+ + Encounter Details +--------+ + + + + | Date | Type | Department | Care Team | Description | +--------+ + + + + | 07/30/ | Abstract | [facility] | Gerardo Castro MD | | | 2015 | | GASTROENTEROLOGY | [address] | | | | | [address] | [address] [place], [place] | | | | | [address] [place], [place] | [address] | | | | | [address] | | | | | | [phone] | | | +--------+ + + + [...] + | EXTERNAL LAB: | Routin | 04/30/2015 | | Results for this | | PROTIME INR | e | | | procedure are in the | | | | | | results section. | + +--------+ + + + documented in this encounter Results External Lab: [facility] (04/30/2015) + + + + + + | Component | Value | Ref Range | Performed | Pathologist | | | | | At | Signature | + + + + + + | INR, | 2.16 | | EXTERNAL | | | External | | | LAB | | + + + + + + | PT, | 26.1 (A) | 9.7 - 12 | EXTERNAL | | | External | | | LAB | | + + + + + + + + | Specimen | + + | Blood specimen | | (specimen) | + + + + | Resulting Agency Comment | + + | [facility] | + + + +---------+ + + | Performing | Address | City/State/Zipcode | Phone Number | | Organization | | | | + +---------+ + + | EXTERNAL LAB | | | | + +---------+ + + documented in this encounter Visit Diagnoses Not on filedocumented in this encounter"
--- OUTSIDE RECORDS SUMMARY | ~2019-03-28 | XMS | Encounter Summary ---
Demographics + + + | Address | [address] | | | [place] [address] | + + + | Home Phone | | + + + | Preferred Language | Unknown | + + + | Marital Status | | + + + | Christian Affiliation | Unknown | + + + | Race | Unknown | + + + | Ethnic Group | Unknown | + + + Author + + + | Author | [facility] | | | and [place] | + + + | Organization | [facility] | [...] Team Providers + +------+ + | Care Bioinformatics Software Engineer Name | Role | Phone | + +------+ + PCP | Unavailable | + +------+ + Encounter Details +--------+ + + + + | Date | Type | Department | Care Team | Description | +--------+ + + + + | 02/21/ | Hospital | [facility] | | | | 2000 | Encounter | MED CTR XRAY [address] | | | | | | [place] | | | | | | [place] [address] | | | | | | [phone] | | | +--------+ + + + [...]
--- OUTSIDE RECORDS SUMMARY | ~2019-03-28 | XMS | Encounter Summary ---
Demographics + + + | Address | [address] | | | [place] [address] | + + + | Home Phone | | + + + | Preferred Language | Unknown | + + + | Marital Status | | + + + | Yazidi Affiliation | Unknown | + + + | Race | Unknown | + + + | Ethnic Group | Unknown | + + + Author + + + | Author | [facility] | | | and [place] | + + + | Organization | [facility] [...] Team Providers + +------+ + | Care Continuity Editor Name | Role | Phone | + +------+ + PCP | Unavailable | + +------+ + Encounter Details +--------+ + + + + | Date | Type | Department | Care Team | Description | +--------+ + + + + | 08/26/ | Hospital | [facility] | | | | 2004 - | Encounter | MED CTR GENERIC OP | | | | | | CONV DEPT [address] | | | | 11/24/ | | [place], | | | | 2004 | | [place] [address] | | | | | | [phone] | | | +--------+ + + + [...]
--- OUTSIDE RECORDS SUMMARY | ~2019-03-28 | XMS | Encounter Summary ---
Demographics + + + | Address | [address] | | | [place] [address] | + + + | Home Phone | | + + + | Preferred Language | Unknown | + + + | Marital Status | | + + + | Muslim Affiliation | Unknown | + + + | Race | Unknown | + + + | Ethnic Group | Unknown | + + + Author + + + | Author | [facility] | | | and [place] | + + + | Organization | [facility] | | | and [...] Team Providers + +------+ + | Care Dumpster Driver Name | Role | Phone | + +------+ + | Sangeetha Dixon MD | PCP | | + +------+ + Reason for Visit + + + | Reason | Comments | + + + | Results, Pathology | | + + + Encounter Details +--------+ + + + + | Date | Type | Department | Care Team | Description | +--------+ + + + + | 02/07/ | Telephone | [facility] | Gerardo Castro MD | Results, Pathology | | 2011 | | GASTROENTEROLOGY | [address] | | | | | [address] [facility] | [address] [place] [address] | | | | | [address] [place], [place] | [address] | | | | | [address] | | | | | | [phone] | | | +--------+ + + + [...]
--- OUTSIDE RECORDS SUMMARY | ~2019-03-28 | XMS | Encounter Summary ---
Demographics + + + | Address | [address] | | | [place] [address] | + + + | Home Phone | | + + + | Preferred Language | Unknown | + + + | Marital Status | | + + + | Moravian Affiliation | Unknown | + + + | Race | Unknown | + + + | Ethnic Group | Unknown | + + + Author + + + | Author | [facility] | | | and [place] | + + + | Organization | [facility] | | | and [...] Providers + +------+ + | Care Filler Feeder Name | Role | Phone | + +------+ + | Maya Curry MD | PCP | | + +------+ + Encounter Details +--------+ + + + + | Date | Type | Department | Care Team | Description | +--------+ + + + + | 04/27/ | Abstract | [facility] | Maya Curry MD | | | 2018 | | MEDICINE [place] | [address] | | | | | [address] | [place] | | | | | [place], [place] | [address] | | | | | [address] | | | | | | [phone] | | | +--------+ + + + [...]
--- OUTSIDE RECORDS SUMMARY | ~2019-03-28 | XMS | Encounter Summary ---
Demographics + + + | Address | [address] | | | [place] [address] | + + + | Home Phone | | + + + | Preferred Language | Unknown | + + + | Marital Status | | + + + | Sikhism Affiliation | Unknown | + + + | Race | Unknown | + + + | Ethnic Group | Unknown | + + + Author + + + | Author | [facility] | | | and [place] | + + + | Organization | [facility] | | | and [...] Team Providers + +------+ + | Care Environmental Programs Manager Name | Role | Phone | + +------+ + | Maya Curry MD | PCP | | + +------+ + Reason for Visit +--------+ + | Reason | Comments | +--------+ + | LABS | | +--------+ + Encounter Details +--------+ + + + + | Date | Type | Department | Care Team | Description | +--------+ + + + + | 06/03/ | Telephone | [facility] | Maya Curry MD | LABS | | 2019 | | [facility] | [address] | | | | | [address] | [place], [place] | | | | | [place], [place] | [address] | | | | | [address] | | | | | | [phone] | | | +--------+ + + + [...] + | No | | | Alcoholic | | | | | Drinks/day: pt | | | | | denies | + + +---------+ + + [...]
--- OUTSIDE RECORDS SUMMARY | ~2019-03-28 | XMS | Encounter Summary ---
Demographics + + + | Address | [address] | | | [place] [address] | + + + | Home Phone | | + + + | Preferred Language | Unknown | + + + | Marital Status | | + + + | Moravian Affiliation | Unknown | + + + | Race | Unknown | + + + | Ethnic Group | Unknown | + + + Author + + + | Author | [facility] | | | and [place] | + + + | Organization | [facility] [...] Team Providers + +------+ + | Care Composition Weatherboard Installer Name | Role | Phone | + +------+ + | Maya Curry MD | PCP | | + +------+ + Reason for Visit + + + | Reason | Comments | + + + | Appointment | r/s colon | + + + Encounter Details +--------+ + + + + | Date | Type | Department | Care Team | Description | +--------+ + + + + | 08/21/ | Telephone | [facility] | Gerardo Castro MD | Appointment (r/s | | 2015 | | GASTROENTEROLOGY | [address] | colon) | | | | [address] | [address] [place] | | | | | [address] [place] | [address] | | | | | [address] | | | | | | [phone] | | | +--------+ + + + [...]
--- OUTSIDE RECORDS SUMMARY | ~2019-03-28 | XMS | Encounter Summary ---
Demographics + + + | Address | [address] | | | [place] [address] | + + + | Home Phone | | + + + | Preferred Language | Unknown | + + + | Marital Status | | + + + | Mu-Ism Affiliation | Unknown | + + + | Race | Unknown | + + + | Ethnic Group | Unknown | + + + Author + + + | Author | [facility] | | | and [place] | + + + | Organization | [facility] | | | and [...] Team Providers + +------+ + | Care Hoisting Machine Operator Name | Role | Phone | + +------+ + PCP | Unavailable | + +------+ + Encounter Details +--------+ + + + + | Date | Type | Department | Care Team | Description | +--------+ + + + + | 05/17/ | Hospital | [facility] | | | | 2006 | Encounter | MED CTR XRAY [address] | | | | | | [place] | | | | | | [place] [address] | | | | | | [phone] | | | +--------+ + + + [...]
--- OUTSIDE RECORDS SUMMARY | ~2019-03-28 | XMS | Encounter Summary ---
Demographics + + + | Address | [address] | | | [place] [address] | + + + | Home Phone [...] | [facility] | | | and [place] | + + + | Organization | [facility] | | | and [place] [...] Team Providers + +------+ + | Care Animal Behaviorist Name | Role | Phone | + [...] + + | 05/04/ | Telephone | [facility] | Maya Curry MD | Abstract | | 2018 | | [facility] | [address] | | | | | [address] | [place], [place] | | | | | [place], [place] | [address] | | | | | [address] | | | | | | [phone] | | | +--------+ + + + [...]
--- OUTSIDE RECORDS SUMMARY | ~2019-03-28 | XMS | Encounter Summary ---
Demographics + + + | Address | [address] | | | [place] [address] | + + + | Home Phone | | + + + | Preferred Language | Unknown | + + + | Marital Status | | + + + | Sikh Affiliation | Unknown | + + + | Race | Unknown | + + + | Ethnic Group | Unknown | + + + Author + + + | Author | [facility] | | | and [place] | + + + | Organization | [facility] | | | and [...] Team Providers + +------+ + | Care Utility Sales And Service Manager Name | Role | Phone | + +------+ + PCP | Unavailable | + +------+ + Encounter Details +--------+ + + + + | Date | Type | Department | Care Team | Description | +--------+ + + + + | 09/26/ | Hospital | [facility] | Gerardo Castro MD | | | 2003 | Encounter | MED CTR GENERIC OP | [address] | | | | | CONV DEPT [address] | [address] [place], [place] | | | | | [place], | [address] | | | | | [place] [address] | | | | | | [phone] | | | +--------+ + + + [...]
--- OUTSIDE RECORDS SUMMARY | ~2019-03-28 | XMS | Encounter Summary ---
Demographics + + + | Address | [address] | | | [place] [address] | + + + | Home Phone [...] [facility] | | | and [place] | + + + | Organization | [facility] | | | and [place] [...] Team Providers + +------+ + | Care Supervisor Contact And Service Clerks Name | Role | Phone | + +------+ + PCP | Unavailable | + +------+ + Encounter Details +--------+ + + + + | Date | Type | Department | Care Team | Description | +--------+ + + + + | 09/09/ | Hospital | [facility] | | | | 2003 | Encounter | MED CTR XRAY [address] | | | | | | [place] | | | | | | [place] [address] | | | | | | [phone] | | | +--------+ + + + [...]
--- OUTSIDE RECORDS SUMMARY | ~2019-03-28 | XMS | Encounter Summary ---
Demographics + + + | Address | [address] | | | [place] [address] | + + + | Home Phone | | + + + | Preferred Language | Unknown | + + + | Marital Status | | + + + | Yarsani Affiliation | Unknown | + + + | Race | Unknown | + + + | Ethnic Group | Unknown | + + + Author + + + | Author | [facility] | | | and [place] | + + + | Organization | [facility] | | | and [place] | [...] Team Providers + +------+ + | Care Route Salesman Name | Role | Phone | + +------+ + PCP | Unavailable | + +------+ + Encounter Details +--------+ + + + + | Date | Type | Department | Care Team | Description | +--------+ + + + + | 02/27/ | Hospital | [facility] | | | | 2004 - | Encounter | MED CTR GENERIC OP | | | | | | CONV DEPT [address] | | | | 05/28/ | | [place], | | | | 2004 | | [place] [address] | | | | | | [phone] | | | +--------+ + + + [...]
--- OUTSIDE RECORDS SUMMARY | ~2019-03-28 | XMS | Encounter Summary ---
Demographics + + + | Address | [address] | | | [place] [address] | + + + | Home Phone | | + + + | Preferred Language | Unknown | + + + | Marital Status | | + + + | Confucianist Affiliation | Unknown | + + + | Race | Unknown | + + + | Ethnic Group | Unknown | + + + Author + + + | Author | [facility] | | | and [place] | + + + | Organization | [facility] | | | and [place] [...] Team Providers + +------+ + | Care Volleyball Assembler Name | Role | Phone | + +------+ + PCP | Unavailable | + +------+ + Encounter Details +--------+ + + + + | Date | Type | Department | Care Team | Description | +--------+ + + + + | 10/27/ | Hospital | [facility] | | | | 2005 | Encounter | MED CTR XRAY [address] | | | | | | [place] | | | | | | [place] [address] | | | | | | [phone] | | | +--------+ + + + [...]
--- OUTSIDE RECORDS SUMMARY | ~2019-03-28 | XMS | Encounter Summary ---
Demographics + + + | Address | [address] | | | [place] [address] | + + + | Home Phone | | + + + | Preferred Language | Unknown | + + + | Marital Status | | + + + | Hinduism Affiliation | Unknown | + + + | Race | Unknown | + + + | Ethnic Group | Unknown | + + + Author + + + | Author | [facility] | | | and [place] | + + + | Organization | [facility] | | | and [...] Team Providers + +------+ + | Care Ui Developer Name | Role | Phone | + +------+ + PCP | Unavailable | + +------+ + Encounter Details +--------+ + + + + | Date | Type | Department | Care Team | Description | +--------+ + + + + | 09/20/ | Hospital | [facility] | | | | 2002 | Encounter | MED CTR GENERIC OP | | | | | | CONV DEPT [address] | | | | | | [place], | | | | | | [place] [address] | | | | | | [phone] | | | +--------+ + + + [...]
--- OUTSIDE RECORDS SUMMARY | ~2019-03-28 | XMS | Encounter Summary ---
Demographics + + + | Address | [address] | | | [place] [address] | + + + | Home Phone | | + + + | Preferred Language | Unknown | + + + | Marital Status | | + + + | Amish Affiliation | Unknown | + + + | Race | Unknown | + + + | Ethnic Group | Unknown | + + + Author + + + | Author | [facility] | | | and [place] | + + + | Organization | [facility] | | | and [place] [...] Team Providers + +------+ + | Care Physical Therapy Teacher Name | Role | Phone | + +------+ + PCP | Unavailable | + +------+ + Encounter Details +--------+ + + + + | Date | Type | Department | Care Team | Description | +--------+ + + + + | 08/25/ | Hospital | [facility] | | | | 2001 | Encounter | MED CTR XRAY [address] | | | | | | [place] | | | | | | [place] [address] | | | | | | [phone] | | | +--------+ + + + [...]
--- OUTSIDE RECORDS SUMMARY | ~2019-03-28 | XMS | Encounter Summary ---
Demographics + + + | Address | [address] | | | [place] [address] | + + + | Home Phone | | + + + | Preferred Language | Unknown | + + + | Marital Status | | + + + | Jainism Affiliation | Unknown | + + + | Race | Unknown | + + + | Ethnic Group | Unknown | + + + Author + + + | Author | [facility] | | | and [place] | + + + | Organization | [facility] | | | and [...] Team Providers + +------+ + | Care Big Data Admin Name | Role | Phone | + [...] + + | 08/21/ | Telephone | [facility] | Gerardo Castro MD | Appointment (r/s | | 2015 | | GASTROENTEROLOGY | [address], [place] | colon) | | | | [address] [place] | [address] [place] | | | | | [address] [place] | [address] | | | | | [address] | | | | | | [phone] | | | +--------+ + + + [...]
--- OUTSIDE RECORDS SUMMARY | ~2019-03-28 | XMS | Clinical Summary ---
Demographics + + + | Address | [address] | | | [place] [address] | + + + | Home Phone | | + + + | Preferred Language | Unknown | + + + | Marital Status | Single | + + + | Episcopal Affiliation | Unknown | + + + | Race | Unknown | + + + | Ethnic Group | Unknown | + + + Author + + + | Author | [facility] (Historical as of | | | 11-05-18) | + + + | Organization | [facility] (Historical as of | | | 11-05-18) [...] Team Providers + +------+ + | Care It Quality Assurance Analyst Name | Role | Phone | [...] + + | CARMELA (acute kidney injury) ([facility]) | 03/24/2018 | + + + [...] +------+-------+ + | MEDICARE | MEDICA | [id number] | | | [address] | | | RE | | | | [place] [address] | | | IP-OP | | | | | + +--------+ +------+-------+ + | [employer]DS HEALTH PLAN | ODS | [id number] | | | | | | HEALTH [...] | Self | [birth year] | Home: | [address] | | | al/Jimmie | | 1941 | [phone] [place] [address] | | | marian | | | [phone] | | + +--------+ +--------+ + +
--- OUTSIDE RECORDS SUMMARY | ~2019-03-28 | XMS | Encounter Summary ---
Demographics + + + | Address | [address] | | | [place] [address] | + + + | Home Phone | | + + + | Preferred Language | Unknown | + + + | Marital Status | | + + + | Pentecostal Affiliation | Unknown | + + + | Race | Unknown | + + + | Ethnic Group | Unknown | + + + Author + + + | Author | [facility] | | | and [place] | + + + | Organization | [facility] | | | and [...] + + + + + | Liliam Ghoshaly | ECON | Unknown | | + + + + + Care Team Providers + +------+ + | Care Area Manager Name | Role | Phone | [...] | Rehabilitatio | Diagnoses | Patricio, | Krystalm | | | Services | n | Cellulitis | MD Maya | Oncology | | | Required | | of right | [address] | Therapy [address] | | | | | [address] | [address] [place] | [address] | | | | | extremity | [place], [place] | [place], | | | | | [phone] | [address] | [place] [address] | | | | | (ICD-10-CM) | Phone: | Phone: | | | | | - 241.6 | [phone] | [phone] | | | | | (ICD-9-CM) - | Fax: | Fax: | | | | | Cellulitis | [phone] | [phone] | | | | | of right [...] + + | 05/17/ | Office | [facility] | Maya Curry MD | Cellulitis of right | | 2018 | Visit | MEDICINE [place] | [address] | lower extremity | | | | [address] | [place] | (Primary Dx); | | | | [place], [place] | [address] | HYPERTENSION, BENIGN | | | | [address] | | ESSENTIAL | | | | [phone] | | | +--------+---------+ + + + [...] | Blood Pressure | 158/84 | 05/17/2017 10:43 AM | | | | | PST | | + + + + + | Pulse | 96 | 05/17/2017 10:43 AM | | | | | PST | | + + + + + | Temperature | 36.5 C (97.7 F) | 05/17/2017 10:43 AM | | | | | PST | | + + + + + | Respiratory Rate | 17 | 05/17/2017 10:43 AM | | | | | PST | | + + + + + | Oxygen Saturation | 99% | 05/17/2017 10:43 AM | | | | | PST | | + + + + + | Inhaled Oxygen | - | - | | | Concentration | | | | + + + + + | Weight | 75.9 kg (167 lb 6.4 | 05/17/2017 10:43 AM | | | | oz) | PST | | + + + + + | Height | 157.5 cm (5' 2") | 05/17/2017 10:43 AM | | | | | PST | | + + + + + | Body Mass Index | 30.62 | 05/17/2017 10:43 AM | | | | | PST | | + + + + + documented in this encounter Patient Instructions Patient Instructions Maya Curry MD - 05/17/2017 11:44 AM PSTFormatting of this note mi ght be different from the original. Discharge Instructions [...] are in pain. Ask what kind of rvmn-yow-jcgwixa medicine you can take for pain. Apply [...] Discharge or pus draining from the area Svwfwgk468.4F (38C) or higher, or as directed by your healthcare provider Pain that gets worse in or around the infected Redness that gets worse in or around the infected area,particularly if the area of red ness expands to a wider area Shaking chills Swelling of the infected area Vomiting Date Last Reviewed: 10/21/201519992515-8780 The [email or web address]. [address] [place] [address]. All rig ts reserved. This information is not intended as a substitute for professional medical care. Always follow your healthcare professional's instructions. documented in this encounter Progress Notes Gage Meraz, PT - 05/17/2017 10:45 [facility] [place] [address] [place] [address] Incident To Physical Therapy Treatment Note Date: [...] 14:55 Patient Name: Nancy Celis/: 1940/ Maya Merino MD - 05/17/2017 10:45 AM PST Subjective: Patient ID: Nancy Celis is a [...] door and got cellulitis and not healing. [facility] agnosed her and gave her Cephalexin [...] Take by mouth Daily. Cholecalciferol (VITAMIN D-3) 40747 units CAPS Take by mouth Once a [...] 1 week (around 05/24/2017) for Wound Care. documented in this enc ounter Plan of Treatment + + +--------+ + + | Name | Type | Priori | Associated Diagnoses | Order Schedule | | | | ty | | | + + +--------+ + + | * [facility] Occupational | Outpatient | Routin | Cellulitis of | Ordered: 05/17/2017 | | Therapy - AMB | Referral | e | right lower | | | Referral | | | extremity | | + + +--------+ + + documented as of this encounter Visit Diagnoses + + | Diagnosis | + + | Cellulitis of right lower extremity - Primary Cellulitis and abscess of leg, except | | foot | + + | HYPERTENSION, BENIGN ESSENTIAL Essential hypertension, benign | + + documented in this encounter
--- OUTSIDE RECORDS SUMMARY | ~2019-03-28 | XMS | Encounter Summary ---
Demographics + + + | Address | [address] | | | [place] [address] | + + + | Home Phone | | + + + | Preferred Language | Unknown | + + + | Marital Status | | + + + | Pentecostal Affiliation | Unknown | + + + | Race | Unknown | + + + | Ethnic Group | Unknown | + + + Author + + + | Author | [facility] | | | and [place] | + + + | Organization | [facility] | | | and [place] [...] Team Providers + +------+ + | Care Figure Skater Name | Role | Phone | + +------+ + | Maya Curry MD | PCP | | + +------+ + Reason for Visit + + + | Reason | Comments | + + + | Lab Order | | + + + Encounter Details +--------+ + + + + | Date | Type | Department | Care Team | Description | +--------+ + + + + | 03/03/ | Telephone | [facility] | Jody Young, | Lab Order | | 2016 | | MEDICINE [place] | CLINICAL STATISTICS MANAGER [address] | | | | | [address] | [address] | | | | | [place] | [address] | | | | | [address] | | | | | | [phone] | | | +--------+ + + + [...]
--- OUTSIDE RECORDS SUMMARY | ~2019-03-28 | XMS | Encounter Summary ---
Demographics + + + | Address | [address] | | | [place] [address] | + + + | Home Phone | | + + + | Preferred Language | Unknown | + + + | Marital Status | | + + + | Rastafari Affiliation | Unknown | + + + | Race | Unknown | + + + | Ethnic Group | Unknown | + + + Author + + + | Author | [facility] | | | and [place] | + + + | Organization | [facility] | | [...] Team Providers + +------+ + | Care Dry Cleaning Supervisor Name | Role | Phone | + +------+ + | Pcp, Prov Inactive | PCP | | + +------+ + Reason for Visit + + + | Reason | Comments | + + + | Medication Refill | | + + + Encounter Details +--------+--------+ + + + | Date | Type | Department | Care Team | Description | +--------+--------+ + + + | 12/09/ | Refill | [facility] | Jody Young T, | Medication Refill | | 2016 | | MEDICINE [place] | BLOCK GREASER [address] | | | | | [address] | [place] | | | | | [place] | [id number] | | | | | [address] | | | | | | [phone] | | | +--------+--------+ + + + [...]
--- OUTSIDE RECORDS SUMMARY | ~2019-03-28 | XMS | Encounter Summary ---
Demographics + + + | Address | [address] | | | [place] [address] | + + + | Home Phone | | + + + | Preferred Language | Unknown | + + + | Marital Status | | + + + | Nondenominational Affiliation | Unknown | + + + | Race | Unknown | + + + | Ethnic Group | Unknown | + + + Author + + + | Author | [facility] | | | and [place] | + + + | Organization | [facility] | | [...] Team Providers + +------+ + | Care In Room Dining Server Name | Role | Phone | + +------+ + PCP | Unavailable | + +------+ + Encounter Details +--------+ + + + + | Date | Type | Department | Care Team | Description | +--------+ + + + + | 03/12/ | Hospital | [facility] | | | | 2008 | Encounter | MED CTR XRAY [address] | | | | | | [place] | | | | | | [place] [address] | | | | | | [phone] | | | +--------+ + + + [...]
--- OUTSIDE RECORDS SUMMARY | ~2019-03-28 | XMS | Encounter Summary ---
Demographics + + + | Address | [address] | | | [place] [address] | + + + | Home Phone | | + + + | Preferred Language | Unknown | + + + | Marital Status | | + + + | Congregation Affiliation | Unknown | + + + | Race | Unknown | + + + | Ethnic Group | Unknown | + + + Author + + + | Author | [facility] | | | and [place] | + + + | Organization | [facility] | | | and [place] [...] Team Providers + +------+ + | Care Mill Operator Helper Name | Role | Phone | + +------+ + PCP | Unavailable | + +------+ + Encounter Details +--------+ + + + + | Date | Type | Department | Care Team | Description | +--------+ + + + + | 02/27/ | Hospital | [facility] | | | | 2004 - | Encounter | MED CTR GENERIC OP | | | | | | CONV DEPT [address] | | | | 05/28/ | | [place], | | | | 2004 | | [place] [address] | | | | | | [phone] | | | +--------+ + + + [...]
--- OUTSIDE RECORDS SUMMARY | ~2019-03-28 | XMS | Encounter Summary ---
Demographics + + + | Address | [address] | | | [place] [address] | + + + | Home Phone | | + + + | Preferred Language | Unknown | + + + | Marital Status | | + + + | Methodist Affiliation | Unknown | + + + | Race | Unknown | + + + | Ethnic Group | Unknown | + + + Author + + + | Author | [facility] | | | and [place] | + + + | Organization | [facility] | | | and [place] [...] Team Providers + +------+ + | Care Printing Pressman Name | Role | Phone | + +------+ + PCP | Unavailable | + +------+ + Encounter Details +--------+ + + + + | Date | Type | Department | Care Team | Description | +--------+ + + + + | 03/13/ | Hospital | [facility] | | | | 2009 | Encounter | MED CTR XRAY [address] | | | | | | [place] | | | | | | [place] [address] | | | | | | [phone] | | | +--------+ + + + [...]
--- OUTSIDE RECORDS SUMMARY | ~2019-03-28 | XMS | Encounter Summary ---
Demographics + + + | Address | [address] | | | [place] [address] | + + + | Home Phone | | + + + | Preferred Language | Unknown | + + + | Marital Status | | + + + | Voodoo Affiliation | Unknown | + + + | Race | Unknown | + + + | Ethnic Group | Unknown | + + + Author + + + | Author | [facility] | | | and [place] | + + + | Organization | [facility] | | | and [...] Team Providers + +------+ + | Care Home Manager Name | Role | Phone | [...] 2016 | | GASTROENTEROLOGY | [address], [place] | colon cancer; | | | | [address] [place] | [address] [place] | Congestive heart | | | | [address] [place], [place] | [address] | failure with | | | | [address] | | cardiomyopathy (HCC) | | | | [phone] | | | +--------+ + + + [...]
--- OUTSIDE RECORDS SUMMARY | ~2019-03-28 | XMS | Encounter Summary ---
Demographics + + + | Address | [address] | | | [place] [address] | + + + | Home Phone | | + + + | Preferred Language | Unknown | + + + | Marital Status | | + + + | Druze Affiliation | Unknown | + + + | Race | Unknown | + + + | Ethnic Group | Unknown | + + + Author + + + | Author | [facility] | | | and [place] | + + + | Organization | [facility] | | | and [...] Team Providers + +------+ + | Care Seaport Planning Manager Name | Role | Phone | + +------+ + PCP | Unavailable | + +------+ + Encounter Details +--------+ + + + + | Date | Type | Department | Care Team | Description | +--------+ + + + + | 11/13/ | Hospital | [facility] | | | | 2005 | Encounter | MED CTR XRAY [address] | | | | | | [place] | | | | | | [place] [address] | | | | | | [phone] | | | +--------+ + + + [...]
--- OUTSIDE RECORDS SUMMARY | ~2019-03-28 | XMS | Encounter Summary ---
Demographics + + + | Address | [address] | | | [place] [address] | + + + | Home Phone | | + + + | Preferred Language | Unknown | + + + | Marital Status | | + + + | Bahai Affiliation | Unknown | + + + | Race | Unknown | + + + | Ethnic Group | Unknown | + + + Author + + + | Author | [facility] | | | and [place] | + + + | Organization | [facility] | | | and [...] Team Providers + +------+ + | Care Call Center Consultant Name | Role | Phone | + [...] Description | +--------+--------+ + + + | 02/10/ | Refill | [facility] | Jody Young T, | Medication Refill | | 2017 | | MEDICINE [place] | FLYING TEACHER [address] | | | | | [address] | [place] | | | | | [place], [place] | [address] | | | | | [address] | | | | | | [phone] | | | +--------+--------+ + + + [...]
--- OUTSIDE RECORDS SUMMARY | ~2019-03-28 | XMS | Encounter Summary ---
Demographics + + + | Address | [address] | | | [place] [address] | + + + | Home Phone | | + + + | Preferred Language | Unknown | + + + | Marital Status | | + + + | Yazdanism Affiliation | Unknown | + + + | Race | Unknown | + + + | Ethnic Group | Unknown | + + + Author + + + | Author | [facility] | | | and [place] | + + + | Organization | [facility] | | | and [...] Team Providers + +------+ + | Care Alumni Relations Coordinator Name | Role | Phone | + +------+ + PCP | Unavailable | + +------+ + Encounter Details +--------+ + + + + | Date | Type | Department | Care Team | Description | +--------+ + + + + | 08/30/ | Hospital | [facility] | | | | 2000 | Encounter | MED CTR LABORATORY | | | | | | [address] | | | | | | [place] | | | | | | [address] | | | | | | [phone] | | | +--------+ + + + [...]
--- OUTSIDE RECORDS SUMMARY | ~2019-03-28 | XMS | Encounter Summary ---
Demographics + + + | Address | [address] | | | [place] [address] | + + + | Home Phone | | + + + | Preferred Language | Unknown | + + + | Marital Status | | + + + | Christianity Affiliation | Unknown | + + + | Race | Unknown | + + + | Ethnic Group | Unknown | + + + Author + + + | Author | [facility] | | | and [place] | + + + | Organization | [facility] | | | and [...] Team Providers + +------+ + | Care Plate Finisher Name | Role | Phone | + +------+ + PCP | Unavailable | + +------+ + Encounter Details +--------+ + + + + | Date | Type | Department | Care Team | Description | +--------+ + + + + | 10/09/ | Hospital | [facility] | | | | 1999 | Encounter | MED CTR GENERIC OP | | | | | | CONV DEPT [address] | | | | | | [place], | | | | | | [place] [address] | | | | | | [phone] | | | +--------+ + + + [...]
--- OUTSIDE RECORDS SUMMARY | ~2019-03-28 | XMS | Encounter Summary ---
Demographics + + + | Address | [address] | | | [place] [address] | + + + | Home Phone | | + + + | Preferred Language | Unknown | + + + | Marital Status | | + + + | Zoroastrian Affiliation | Unknown | + + + | Race | Unknown | + + + | Ethnic Group | Unknown | + + + Author + + + | Author | [facility] | | | and [place] | + + + | Organization | [facility] | | [...] Providers + +------+ + | Care Medical Technologist Chemistry Name | Role | Phone | + +------+ + PCP | Unavailable | + +------+ + Encounter Details +--------+ + + + + | Date | Type | Department | Care Team | Description | +--------+ + + + + | 02/25/ | Hospital | [facility] | | | | 1997 | Encounter | MED CTR XRAY [address] | | | | | | [place] | | | | | | [place] [address] | | | | | | [phone] | | | +--------+ + + + [...]
--- OUTSIDE RECORDS SUMMARY | ~2019-03-28 | XMS | Encounter Summary ---
Demographics + + + | Address | [address] | | | [place] [address] | + + + | Home Phone | | + + + | Preferred Language | Unknown | + + + | Marital Status | | + + + | Jain Affiliation | Unknown | + + + | Race | Unknown | + + + | Ethnic Group | Unknown | + + + Author + + + | Author | [facility] | | | and [place] | + + + | Organization | [facility] [...] Team Providers + +------+ + | Care Brush Painter Name | Role | Phone | + +------+ + PCP | Unavailable | + +------+ + Encounter Details +--------+ + + + + | Date | Type | Department | Care Team | Description | +--------+ + + + + | 10/15/ | Hospital | [facility] | | | | 1999 - | Encounter | MED CTR MED ONC | | | | | | [address] | | | | 10/19/ | | [place] [address] | | | | 1999 | | [phone] | | | +--------+ + + + [...]
--- OUTSIDE RECORDS SUMMARY | ~2019-03-28 | XMS | Encounter Summary ---
Demographics + + + | Address | [address] | | | [place] [address] | + + + | Home Phone | | + + + | Preferred Language | Unknown | + + + | Marital Status | | + + + | Episcopalian Affiliation | Unknown | + + + | Race | Unknown | + + + | Ethnic Group | Unknown | + + + Author + + + | Author | [facility] | | | and [place] | + + + | Organization | [facility] [...] + + + + + | Liliam Gohshaly | ECON | Unknown | | + + + + + Care Team Providers + +------+ + | Care Hydraulic Boom Operator Name | Role | Phone | [...] | Gastroenterol | Diagnoses | Harri, | [place] | | | Services | ogy | Personal | Gerardo Fuentes MD | [facility] [facility] | | | Required | | history of | [address] | | | | | colon cancer | [address] [place], [place] | [address] | | | | | Congestive | [address] [place] [address] [place] | | | | | heart | [place] | | | | | failure with | [address] | [address] | | | | | | Phone: | | | | | | cardiomyopat | [phone] | | | | | | hy (HCC) | Fax: | | | | | | Procedures | [phone] | | | | | | [place] | | | | | | | COLONOSCOPY | | | | | | | FLX DX | | | | | | | W/COLLJ SPEC | | | | | | | WHEN PFRMD | | | | | | | [place] | | | | | | | COLONOSCOPY | | | | | | | W/BIOPSY | | | | | | | SINGLE/MULTI | | | | | | | PLE [place] | | | | | | | COLSC FLX | | | | | | | W/RMVL OF | | | | | | | TUMOR POLYP | | | | | | | LESION SNARE | | | | | | | TQ VA | | | | | | | ANESTH,INTES | | | | | | | ENOCH,SCOPE,L | | | | | | | OW | | | +--------+ + + + + + Reason for Visit + + + | Reason | Comments | + + + | Colon Cancer | | | Screening | | + + + Evaluate & Treat (Routine) +--------+--------+ + + + + | Status | Reason | Specialty | Diagnoses / | Referred By | Referred To | | | | | Procedures | Contact | Contact | +--------+--------+ + + + + | Closed | | Gastroenterol | Diagnoses | Zack, | Matthew, | | | | ogy | Personal | Sangeetha Meredith MD | Gerardo Fuentes MD | | | | | history of | [address], | | | | | other | Second | [address] [address] | | | | | malignant | [address] | [place], | | | | | neoplasm of | [place], | [place] [address] | | | | | large | [place] [address] | Phone: | | | | | intestine | Phone: | [phone] | | | | | Follow | [phone] | Fax: | | | | | up/Medicare/ | Fax: | [phone] | | | | | Shinkle | [phone] | | | | | | Procedures | | | | | | | OFFICE VISIT | | | | | | | REGULAR | | | +--------+--------+ + + + + Encounter Details +--------+---------+ + + + | Date | Type | Department | Care Team | Description | +--------+---------+ + + + | 08/06/ | Office | [facility] | Gerardo Castro MD | Personal history of | | 2016 | Visit | GASTROENTEROLOGY | [address], [place] | colon cancer | | | | [address] [place] | [address] | (Primary Dx); | | | | [address] | [address] | Congestive heart | | | | [address] | | failure with | | | | [phone] | | cardiomyopathy (HCC) | +--------+---------+ + + + Social History [...] + + + | Blood Pressure | 146/72 | 08/07/2015 1:44 PM | | | | | PDT | | + + + + + | Pulse | 72 | 08/07/2015 1:44 PM | | | | | PDT | | + + + + + | Temperature | - | - | | + + + + + | Respiratory Rate | 16 | 08/07/2015 1:44 PM | | | | | PDT | | + + + + + | Oxygen Saturation | 97% | 08/07/2015 1:44 PM | | | | | PDT | | + + + + + | Inhaled Oxygen | - | - | | | Concentration | | | | + + + + + | Weight | 72.1 kg (159 lb) | 08/07/2015 1:44 PM | | | | | PDT | | + + + + + | Height | 157.5 cm (5' 2") | 08/07/2015 1:44 PM | | | | | PDT | | + + + + + | Body Mass Index | 29.08 | 08/07/2015 1:44 PM | | | | | PDT | | + + + + + documented in this encounter Progress Notes Gerardo Castro MD - 08/07/2015 2:13 PM PDT Subjective: Patient ID: Nancy Celis is a 75 y.o. female. HPI Comments: The patient has a history of colon cancer. Outside records are reviewed incl uding cardiology studies office notes Patient has a history of sigmoid carcinoma treated with resection in 1999. Last colonoscop y in 2010 was positive for no adenomatous polyp removed from the cecum. The patient denies any change in bowel pattern or any blood in the stools. She denies any abdominal pain. The patient has a significant history of atherosclerotic cardiovascular disease atrial fibr illation. She is on chronic anticoagulation with Coumadin. Patient reports that she can cl imb 1 flight of stairs without difficulties and in fact climbed a continuous flight of stair s to reach the office for appointment today. She denies any chest pain denies any periphera l edema or PND. Echocardiogram done 2014 showed left ventricular ejection fraction of 20% pulmonary hypertension with right systolic pressure of 55-60. She is ongoing evaluation wi respect to her atrial fibrillation. Pressure today is 146/72. He overall is feeling wel l although she states she had a rough year with the loss of her brother and her son Filed Vitals: 08/07/15 1344 BP: 146/72 Pulse: 72 Resp: 16 PainSc: 0 - No pain No Known Allergies Past Medical History Diagnosis Date Cancer (HCC) aSSTLER-cOLLER c1 ADENOCARCINOMA SIGMOID Hypercholesterolemia Peptic ulcer disease Hiatal hernia Hypertension Pulmonary hypertension (HCC) Myocardial hypertrophy Renal insufficiency Vitamin D deficiency Osteoporosis Hemorrhoids GERD (gastroesophageal reflux disease) Adenomatous colon polyp 02/02/12 next due 2013 Dyslipidemia Atrial fibrillation (HCC) Cardiomyopathy, idiopathic (HCC) Carotid stenosis Mitral regurgitation Subclavian arterial stenosis (HCC) Tricuspid regurgitation Past Surgical History Procedure Laterality Date Colonoscopy 11/11/2006 Dilation and curettage of uterus 1987 section X 3 Colon surgery SIGMOID RESECTIOON august, Colectomy 01/21/2000 Dilation and curettage of uterus 1987 Appendectomy 01/21/1960 Tonsillectomy and adenoidectomy AT AGE 11 Family History Problem Relation Age of Onset Suicide Mother Other (see comment) Mother CHRONIC PAIN SYNDROME Cancer Mother Heart disease Father High cholesterol Father High blood pressure Father High blood pressure Sister Depressive disorder Sister Stroke Father History Social History Marital Status: Spouse Name: N/A Number of Children: N/A Years of Education: N/A Social History Main Topics Smoking status: Never Smoker Smokeless tobacco: Never Used Alcohol Use: No Drug Use: No Sexual Activity: Not on file Other Topics Concern None Social History Narrative Review of Systems Cardiovascular: Positive for palpitations. All other systems reviewed and are negative. Objective: Physical Exam Constitutional: She is oriented [...] no discharge. Left eye exhibits no discharge. No scleral icterus. Neck: Normal range of motion. Neck supple. No JVD present. No tracheal deviation present. Cardiovascular: Exam reveals no gallop and no friction rub. No murmur heard. Irregular rhythm Pulmonary/Chest: Effort normal and breath sounds normal. No stridor. No respiratory distres s. She has no wheezes. She has no rales. She exhibits no tenderness. Abdominal: Soft. Bowel sounds are normal. She exhibits no distension and no mass. There is no tenderness. There is no rebound and no guarding. Musculoskeletal: Normal range of motion. She exhibits no edema or tenderness. Lymphadenopathy: She has no cervical adenopathy. Neurological: She is alert and oriented to person, place, and time. No cranial nerve defici t. She exhibits normal muscle tone. Coordination normal. Skin: Skin is warm and dry. No rash noted. She is not diaphoretic. No erythema. No pallor. Psychiatric: She has a normal mood and affect. Her behavior is normal. Judgment and thought content normal. Nursing note and vitals reviewed. Assessment: History of colon cancer status post sigmoid resection adenomatous polyp removed on last exa m in 2010 appropriate candidate for colonic polyp cancer surveillance Atherosclerotic cardiovascular disease with atrial fibrillation decrease in ejection fracti on moderate pulmonary hypertension Chronic anticoagulation Plan: Colonoscopy with propofol sedation. Benefits and risks of the procedure explained to the p atient she concurs and she'll be scheduled as an outpatient. I will contact the cardiology department all [facility] and get their clearance wit h respect to discontinuation of Unasyn for 3 days and overall assessment with respect to the patient will tolerate the procedure with modest pulmonary hypertension decreased ejection f raction Portions of this report were transcribed using voice recognition software. Every effort wa s made to ensure accuracy; however, inadvertent computerized shaker out errors may be pre sent. documented in this enc ounter Plan of Treatment + + +--------+ + + | Name | Type | Priori | Associated Diagnoses | Order Schedule | | | | ty | | | + + +--------+ + + | Ambulatory referral | Outpatient | Routin | Personal history | Expected: | | to Gastroenterology | Referral | e | of colon cancer | 08/29/2015, Expires: | | (matthew) | | | Congestive heart | 08/06/2016 | | | | | failure with | | | | | | cardiomyopathy (HCC) | | + + +--------+ + + documented as of this encounter Visit Diagnoses + + | Diagnosis | + + | Personal history of colon cancer - Primary Personal history of malignant neoplasm of | | large intestine | + + | Congestive heart failure with cardiomyopathy (HCC) Congestive heart failure, | | unspecified | + + documented in this encounter
--- OUTSIDE RECORDS SUMMARY | ~2019-03-28 | XMS | Encounter Summary ---
Demographics + + + | Address | [address] | | | [place] [address] | + + + | Home Phone | | + + + | Preferred Language | Unknown | + + + | Marital Status | | + + + | Gnosticism Affiliation | Unknown | + + + | Race | Unknown | + + + | Ethnic Group | Unknown | + + + Author + + + | Author | [facility] | | | and [place] | + + + | Organization | [facility] | | | and [place] [...] Team Providers + +------+ + | Care Support Services Tech Name | Role | Phone | + [...] + + | 08/22/ | Refill | [facility] | Jody Young T, | Medication Refill | | 2017 | | MEDICINE [place] | POLICE RESERVES COMMANDER [address] | | | | | [address] | [place] | | | | | [place], [place] | [address] | | | | | [address] | | | | | | [phone] | | | +--------+--------+ + + + [...]
--- OUTSIDE RECORDS SUMMARY | ~2019-03-28 | XMS | Encounter Summary ---
Demographics + + + | Address | [address] | | | [place] [address] | + + + | Home Phone | | + + + | Preferred Language | Unknown | + + + | Marital Status | | + + + | Taoism Affiliation | Unknown | + + + | Race | Unknown | + + + | Ethnic Group | Unknown | + + + Author + + + | Author | [facility] | | | and [place] | + + + | Organization | [facility] [...] Team Providers + +------+ + | Care Elevator Operator Service Name | Role | Phone | + +------+ + | Maya Curry MD | PCP | | + +------+ + Reason for Visit + + + | Reason | Comments | + + + | Medication Prior | [employer] | | Authorization | | + + + Encounter Details +--------+ + + + + | Date | Type | Department | Care Team | Description | +--------+ + + + + | 07/28/ | Telephone | [facility] | Maya Curry MD | Medication Prior | | 2017 | | MEDICINE [place] | [address] | Authorization | | | | [address] | [place], [place] | ([employer]) | | | | [place], [place] | [address] | | | | | [address] | | | | | | [phone] | | | +--------+ + + + [...] | + + | Chronic atrial fibrillation - Primary Atrial fibrillation | + + documented in this encounter"
--- OUTSIDE RECORDS SUMMARY | ~2019-03-28 | XMS | Encounter Summary ---
Demographics + + + | Address | [address] | | | [place] [address] | + + + | Home Phone [...] + | Author | [facility] | | | and [place] | + + + | Organization | [facility] | | | and [...] Team Providers + +------+ + | Care Pilot Teacher Name | Role | Phone | [...] 2015 | | GASTROENTEROLOGY | [address], [place] | | | | | [address] [place] | [address] [place], [place] | | | | | [address] [place], [place] | [address] | | | | | [address] | | | | | | [phone] | | | +--------+ + + + [...]
--- OUTSIDE RECORDS SUMMARY | ~2019-03-28 | XMS | Encounter Summary ---
Demographics + + + | Address | [address] | | | [place] [address] | + + + | Home Phone | | + + + | Preferred Language | Unknown | + + + | Marital Status | | + + + | Holiness Affiliation | Unknown | + + + | Race | Unknown | + + + | Ethnic Group | Unknown | + + + Author + + + | Author | [facility] | | | and [place] | + + + | Organization | [facility] | | | and [place] [...] Team Providers + +------+ + | Care Seed Cone Picker Name | Role | Phone | + +------+ + | Maya uCrry MD | PCP | | + +------+ + Encounter Details +--------+ + + + + | Date | Type | Department | Care Team | Description | +--------+ + + + + | 04/27/ | Abstract | [facility] | Maya Curry MD | | | 2018 | | MEDICINE [place] | [address] | | | | | [address] | [place] | | | | | [place], [place] | [address] | | | | | [address] | | | | | | [phone] | | | +--------+ + + + [...]
--- OUTSIDE RECORDS SUMMARY | ~2019-03-28 | XMS | Encounter Summary ---
Demographics + + + | Address | [address] | | | [place] [address] | + + + | Home Phone [...] | Author | [facility] | | | and [place] | + + + | Organization | [facility] | | | and [...] Providers + +------+ + | Care Supervisor Bit And Shank Department Name | Role | Phone | + [...] + + | 02/10/ | Refill | [facility] | Jody Young T, | Medication Refill | | 2017 | | MEDICINE [place] | MAIL OPENER [address] | | | | | [address] | [place] | | | | | [place], [place] | [address] | | | | | [address] | | | | | | [phone] | | | +--------+--------+ + + + [...]
--- OUTSIDE RECORDS SUMMARY | ~2019-03-28 | XMS | Encounter Summary ---
Demographics + + + | Address | [address] | | | [place] [address] | + + + | Home Phone [...] | Author | [facility] | | | and [place] | + + + | Organization | [facility] | [...] Team Providers + +------+ + | Care Tire Changer Aircraft Name | Role | Phone | + [...] + + | 07/28/ | Telephone | [facility] | Maya Curry MD | Medication Prior | | 2017 | | MEDICINE [place] | [address] | Authorization | | | | [address] | [place], [place] | ([employer]) | | | | [place], [place] | [address] | | | | | [address] | | | | | | [phone] | | | +--------+ + + + [...]
--- OUTSIDE RECORDS SUMMARY | ~2019-03-28 | XMS | Encounter Summary ---
Demographics + + + | Address | [address] | | | [place] [address] | + + + | Home Phone [...] Author | [facility] | | | and [place] | + + + | Organization | [facility] | | | and [place] | [...] Team Providers + +------+ + | Care Production Welding Supervisor Name | Role | Phone | + +------+ + | Maya Curry MD | PCP | | + +------+ + Encounter Details +--------+ + + + + | Date | Type | Department | Care Team | Description | +--------+ + + + + | 09/08/ | Patient | [facility] | Maya Curry MD | | | 2017 | Outreach | MEDICINE [place] | [address] | | | | | [address] | [place] | | | | | [place] | [address] | | | | | [address] | | | | | | [phone] | | | +--------+ + + + [...]
--- OUTSIDE RECORDS SUMMARY | ~2019-03-28 | XMS | Encounter Summary ---
Demographics + + + | Address | [address] | | | [place] [address] | + + + | Home Phone | | + + + | Preferred Language | Unknown | + + + | Marital Status | | + + + | Muslim Affiliation | Unknown | + + + | Race | Unknown | + + + | Ethnic Group | Unknown | + + + Author + + + | Author | [facility] | | | and [place] | + + + | Organization | [facility] | | | [...] Team Providers + +------+ + | Care Labeling Machine Operator Name | Role | Phone | + +------+ + PCP | Unavailable | + +------+ + Encounter Details +--------+ + + + + | Date | Type | Department | Care Team | Description | +--------+ + + + + | 08/26/ | Hospital | [facility] | | | | 2004 - | Encounter | MED CTR GENERIC OP | | | | | | CONV DEPT [address] | | | | 11/24/ | | [place], | | | | 2004 | | [place] [address] | | | | | | [phone] | | | +--------+ + + + [...]
--- OUTSIDE RECORDS SUMMARY | ~2019-03-28 | XMS | Encounter Summary ---
Demographics + + + | Address | [address] | | | [place] [address] | + + + | Home Phone | | + + + | Preferred Language | Unknown | + + + | Marital Status | | + + + | Buddhism Affiliation | Unknown | + + + | Race | Unknown | + + + | Ethnic Group | Unknown | + + + Author + + + | Author | [facility] | | | and [place] | + + + | Organization | [facility] | | | and [place] [...] Team Providers + +------+ + | Care Sales Audit Clerk Name | Role | Phone | + +------+ + | Maya Curry MD | PCP | | + +------+ + Encounter Details +--------+ + + + + | Date | Type | Department | Care Team | Description | +--------+ + + + + | 10/16/ | Orders Only | [facility] | Provider, | | | 2018 | | SYSTEM GENERIC OP | [address] | | | | | [address] | [place] | | | | | [address] [place], [place] | [place] [address] | | | | | [address] | | | | | | [phone] | | | +--------+ + + + [...]
--- OUTSIDE RECORDS SUMMARY | ~2019-03-28 | XMS | Encounter Summary ---
Demographics + + + | Address | [address] | | | [place] [address] | + + + | Home Phone [...] Author | [facility] | | | and [place] | + + + | Organization | [facility] | | [...] Team Providers + +------+ + | Care Railroad Track Inspector Name | Role | Phone | + +------+ + | Sangeetha Dixon MD | PCP | | + +------+ + Encounter Details +--------+ + + + + | Date | Type | Department | Care Team | Description | +--------+ + + + + | 01/18/ | Abstract | [facility] [place] | Gerardo Castro MD | | | 2011 | | GASTROENTEROLOGY | [address], [place] | | | | | [address] [place] | [address] [place], [place] | | | | | [address] [place], [place] | [address] | | | | | [address] | | | | | | [phone] | | | +--------+ + + + [...]
--- OUTSIDE RECORDS SUMMARY | ~2019-03-28 | XMS | Encounter Summary ---
Demographics + + + | Address | [address] | | | [place] [address] | + + + | Home Phone | | + + + | Preferred Language | Unknown | + + + | Marital Status | | + + + | Jainism Affiliation | Unknown | + + + | Race | Unknown | + + + | Ethnic Group | Unknown | + + + Author + + + | Author | [facility] | | | and [place] | + + + | Organization | [facility] | | | [...] Team Providers + +------+ + | Care Inspector Plug Seam Name | Role | Phone | + +------+ + | Maya Curry MD | PCP | | + +------+ + Encounter Details +--------+ + + + + | Date | Type | Department | Care Team | Description | +--------+ + + + + | 11/25/ | Anti-coag | [facility] | Maya Curry MD | Chronic atrial | | 2018 | Telephone | MEDICINE [place] | [address] | fibrillation (HCC) | | | | [address] | [place] | | | | | [place] | [address] | | | | | [address] | | | | | | [phone] | | | +--------+ + + + [...] | + + | Chronic atrial fibrillation Atrial fibrillation | + + documented in this encounter"
--- OUTSIDE RECORDS SUMMARY | ~2019-03-28 | XMS | Encounter Summary ---
Demographics + + + | Address | [address] | | | [place] [address] | + + + | Home Phone [...] + + | Author | [facility] | | | and [place] | + + + | Organization | [facility] | | | and [place] | [...] + +------+ + | Care Director Of Alumni Relations Name | Role | Phone | + [...] + + | 03/03/ | Telephone | [facility] | Jody Young, | Lab Order | | 2016 | | MEDICINE [place] | SOCCER COACH [address] | | | | | [address] | [place] | | | | | [place] | [address] | | | | | [address] | | | | | | [phone] | | | +--------+ + + + [...]
--- OUTSIDE RECORDS SUMMARY | ~2019-03-28 | XMS | Encounter Summary ---
Demographics + + + | Address | [address] | | | [place] [address] | + + + | Home Phone [...] + + + | Author | [facility] | | | and [place] | + + + | Organization | [facility] | [...] Team Providers + +------+ + | Care Molder Apprentice Name | Role | Phone | + +------+ + PCP | Unavailable | + +------+ + Encounter Details +--------+ + + + + | Date | Type | Department | Care Team | Description | +--------+ + + + + | 02/25/ | Hospital | [facility] | | | | 1997 | Encounter | MED CTR XRAY [address] | | | | | | [place] | | | | | | [place] [address] | | | | | | [phone] | | | +--------+ + + + [...]
--- OUTSIDE RECORDS SUMMARY | ~2019-03-28 | XMS | Encounter Summary ---
Demographics + + + | Address | [address] | | | [place] [address] | + + + | Home Phone | | + + + | Preferred Language | Unknown | + + + | Marital Status | | + + + | Faith Affiliation | Unknown | + + + | Race | Unknown | + + + | Ethnic Group | Unknown | + + + Author + + + | Author | [facility] | | | and [place] | + + + | Organization | [facility] | | | and [place] [...] Team Providers + +------+ + | Care Pamphlet Distributor Name | Role | Phone | + [...] | SR | | | | | [phone] | | | +--------+ + + + [...]
--- OUTSIDE RECORDS SUMMARY | ~2019-03-28 | XMS | Encounter Summary ---
Demographics + + + | Address | [address] | | | [place] [address] | + + + | Home Phone | | + + + | Preferred Language | Unknown | + + + | Marital Status | | + + + | Restorationism Affiliation | Unknown | + + + | Race | Unknown | + + + | Ethnic Group | Unknown | + + + Author + + + | Author | [facility] | | | and Juanito[place] | + + + | Organization | [facility] | | | and [...] Providers + +------+ + | Care Supervisor Fishing Name | Role | Phone | + [...] + | 05/26/ | Office | [facility] | Maay Curry MD | Cellulitis of right | | 2018 | Visit | [facility] [place] | [address] | lower extremity | | | | [address] | [place] | (Primary Dx); | | | | [place] | [address] | HYPERTENSION, BENIGN | | | | [address] | | ESSENTIAL | | | | [phone] | | | +--------+---------+ + + + [...] | Blood Pressure | 160/80 | 05/26/2017 10:44 AM | | | | | PST | | + + + + + | Pulse | 80 | 05/26/2017 10:44 AM | | | | | PST | | + + + + + | Temperature | 36.5 C (97.7 F) | 05/26/2017 10:44 AM | | | | | PST | | + + + + + | Respiratory Rate | 16 | 05/26/2017 10:44 AM | | | | | PST | | + + + + + | Oxygen Saturation | - | - | | + + + + + | Inhaled Oxygen | - | - | | | Concentration | | | | + + + + + | Weight | 75.2 kg (165 lb 12.6 | 05/26/2017 10:44 AM | | | | oz) | PST | | + + + + + | Height | 157.5 cm (5' 2") | 05/26/2017 10:44 AM | | | | | PST | | + + + + + | Body Mass Index | 30.32 | 05/26/2017 10:44 AM | | | | | PST | | + + + + + documented in this encounter Patient Instructions Patient Instructions Maya Curry MD - 05/26/2017 11:22 AM PSTFormatting of this note mi ght [...] are in pain. Ask what kind of vejt-wbr-mdvfjnu medicine you can take for pain. Apply [...] Discharge or pus draining from the area [id number] (38C) or higher, or as directed by your healthcare provider Pain that gets worse in or around the infected Redness that gets worse in or around the infected area,particularly if the area of red ness expands to a wider area Shaking chills Swelling of the infected area Vomiting Date Last Reviewed: 10/21/201519992171-9570 [employer]. [address] [place] [address]. All righ ts reserved. This information is not intended as a substitute for professional medical care. Always follow your healthcare professional's instructions. documented in this encounter Progress Notes Bryce Mohr RN - 05/26/2017 11:00 AM PSTAfter obtaining informed consent, the immunizati on is given by Bryce Mohr RN. Maya Merino MD - 11:00 AM PST Subjective: Patient ID: Nancy Celis [...] got cellulitis and not healing. [facility] agnosed her and gave her Cephalexin and [...] She must call and schedule her OT visit.Electronically signed by Maya Curry MD at 05/26 6:38 PM PSTdocumented in this encounter Plan of Treatment Not on filedocumented as of this encounter Visit Diagnoses + + | Diagnosis | + + | Cellulitis of right lower extremity - Primary Cellulitis and abscess of leg, except | | foot | + + | HYPERTENSION, BENIGN ESSENTIAL Essential hypertension, benign | + + documented in this encounter
--- OUTSIDE RECORDS SUMMARY | ~2019-03-28 | XMS | Encounter Summary ---
Demographics + + + | Address | [address] | | | [place] [address] | + + + | Home Phone [...] | Author | [facility] | | | and [place] | + + + | Organization | [facility] | [...] Team Providers + +------+ + | Care Patient Support Assistant Name | Role | Phone | + +------+ + | Maya Curry MD | PCP | | + +------+ + Encounter Details +--------+ + + + + | Date | Type | Department | Care Team | Description | +--------+ + + + + | 07/12/ | Patient | [facility] | Maya Curry MD | [facility] | | 2019 | Outreach | [facility] [place] | [address] | Conditions | | | | [address] | [place] | | | | | [place], [place] | [address] | | | | | [address] | | | | | | [phone] | | | +--------+ + + + [...]
--- OUTSIDE RECORDS SUMMARY | ~2019-03-28 | XMS | Encounter Summary ---
Demographics + + + | Address | [address] | | | [place] [address] | + + + | Home Phone [...] Author | [facility] | | | and [place] | + + + | Organization | [facility] | [...] Team Providers + +------+ + | Care Nuclear Medicine Technologist Name | Role | Phone | + +------+ + | Maya Curry MD | PCP | | + +------+ + Reason for Visit + + + | Reason | Comments | + + + | Establish Care | re-establish care prior patient of [facility]. | + + + Encounter Details +--------+---------+ + + + | Date | Type | Department | Care Team | Description | +--------+---------+ + + + | 05/05/ | Office | [facility] | Maya Curry MD | Cellulitis of right | | 2018 | Visit | [facility] [place] | [address] | lower extremity; | | | | [address] | [place] | HYPERTENSION, BENIGN | | | | [place] | [address] | ESSENTIAL | | | | [address] | | | | | | [phone] | | | +--------+---------+ + + + [...] | Blood Pressure | 158/74 | 05/05/2017 1:20 PM | | | | | PST | | + + + + + | Pulse | 80 | 05/05/2017 1:20 PM | | | | | PST | | + + + + + | Temperature | 36.5 C (97.7 F) | 05/05/2017 1:20 PM | | | | | PST | | + + + + + | Respiratory Rate | 17 | 05/05/2017 1:20 PM | | | | | PST | | + + + + + | Oxygen Saturation | 98% | 05/05/2017 1:20 PM | | | | | PST | | + + + + + | Inhaled Oxygen | - | - | | | Concentration | | | | + + + + + | Weight | 72.3 kg (159 lb 6.3 | 05/05/2017 1:20 PM | | | | oz) | PST | | + + + + + | Height | 157.5 cm (5' 2") | 05/05/2017 1:20 PM | | | | | PST | | + + + + + | Body Mass Index | 29.15 | 05/05/2017 1:20 PM | | | | | PST | | + + + + + documented in this encounter Patient Instructions Patient Instructions Maya Curry MD - 05/05/2017 2:06 PM PSTFormatting of this note mi ght be different from the original. Medicine for [...] your provider decide on. Date Last Reviewed: 12/21/201519990524-6939 [employer]. [address] [place] [address], [place] [address]. All righ ts reserved. This information is [...] risks for having a heart attack. Your p georgiana can tell you what goals to use [...] your provider decide on. Date Last Reviewed: 12/21/201519992372-2469 [employer]. [address] [place] [address]. All righ ts reserved. This information is not intended as a substitute for professional medical care. Always follow your healthcare professional's instructions. documented in this encounter Progress Notes Maya Curry MD - 05/05/2017 1:00 PM PST Subjective: Patient ID: Nancy Celis is a 76 y.o. female. Chief Complaint Patient presents with Establish Care re-establish care prior patient of [facility]. HPI Nancy is a 76 year lod female whom [...] infection (aliza lulitis). She was seen at [place] ED. When she was there the ED physician told her she h ad low blood pressure so she stopped her BP medication. 03/22/17 hit RLE on car door and got cellulitis and not healing. [facility], diagnosed her and gave her Cephalexin and [...] Take by mouth Daily. Cholecalciferol (VITAMIN D-3) 81903 units CAPS Take by mouth Once a [...] 1 week (around 05/12/2017) for Wound Care. documented in this enc ounter Plan of Treatment Not on filedocumented as of this encounter Procedures + +--------+ + + + | Procedure Name | Priori | Date/Time | Associated Diagnosis | Comments | | | ty | | | | + +--------+ + + + | CULTURE, WOUND, | Routin | 05/06/2017 | Cellulitis of | Results for this | | SMEAR | e | 8:17 AM | right lower | procedure are in the | | | | PST | extremity | results section. | + +--------+ + + + documented in this encounter Results Culture, Wound, Smear (05/06/2017 8:17 AM PST) + + + + + + | Component | Value | Ref Range | Performed | Pathologist | | | | | At | Signature | + + + + + + | Culture | 4+ Enterobacter cloacae | | [facility] | | | | complexComment: Consider | | [facility] | | | | combination therapy for | | MEDICAL | | | | serious infections.This | | CENTER - | | | | organism is known to | | LABORATORY | | | | possess inducible | | | | | | beta-lactamases. | | | | | | Isolates may become | | | | | | resistant to all | | | | | | cephalosporins after | | | | | | initiation of therapy. | | | | | | Avoid | | | | | | beta-lactam/beta-lactama | | | | | | se inhibitory | | | | | | combinations. | | | | + + + + + + | Culture | 4+ Staphylococcus aureus | | [facility] | | | | | | [facility] | | | | | | MEDICAL | | | | | | CENTER - | | | | | | LABORATORY | | + + + + + + | Culture | 4+ Beta Hemolytic | | [facility] | | | | Streptococci, Group | | [facility] | | | | CComment: Penicillin is | | MEDICAL | | | | the drug of choice for | | CENTER - | | | | this organism. | | LABORATORY | | + + + + + + | Gram Stain | No white blood cells | | [facility] | | | Result | (PMNs) seen | | [facility] | | | | | | MEDICAL | | | | | | CENTER - | | | | | | LABORATORY | | + + + + + + | Gram Stain | No squamous epithelial | | [facility] | | | Result | cells seen | | [facility] | | | | | | MEDICAL | | | | | | CENTER - | | | | | | LABORATORY | | + + + + + + | Gram Stain | 4+ Gram positive cocci | | [facility] | | | Result | | | [facility] | | | | | | MEDICAL | | | | | | CENTER - | | | | | | LABORATORY | | + + + + + + | Gram Stain | 2+ Gram negative rods | | [facility] | | | Result | | | [facility] | | | | | | MEDICAL | | | | | | CENTER - | | | | | | LABORATORY | | + + + + + + + + | Specimen | + + | Wound - All legs | | (body structure) | + + + + +--------+ + | [...] | Sensitive | + + +--------+ + + + + + + | Performing | Address | City/State/Zipcode | Phone Number | | Organization | | | | + + + + + | [facility] | [address] | [place], [place] | [phone] | | [facility] | | [address] | | | - LABORATORY | | | | + + + + + documented in this encounter Visit Diagnoses + + | Diagnosis | + + | Cellulitis of right lower extremity Cellulitis and abscess of leg, except foot | + + | HYPERTENSION, BENIGN ESSENTIAL Essential hypertension, benign | + + documented in this encounter
--- OUTSIDE RECORDS SUMMARY | ~2019-03-28 | XMS | Encounter Summary ---
Demographics + + + | Address | [address] | | | [place] [address] | + + + | Home Phone [...] | Author | [facility] | | | and [place] | + + + | Organization | [facility] | | | and [place] [...] Team Providers + +------+ + | Care Fastener Sewing Machine Operator Name | Role | Phone | + +------+ + | Maya Curry MD | PCP | | + +------+ + Reason for Visit + + + | Reason | Comments | + + + | Anticoagulation | presents for anticoagulation therapy (3.5/41.6) | + + + | Medication Screening | stated that doesn't have changes her medications with exception | | | of her vitamin D (stopped) | + + + Encounter Details +--------+ + + + + | Date | Type | Department | Care Team | Description | +--------+ + + + + | 01/20/ | Anti-coag | [facility] | Hector, Jody T, | Anticoagulation | | 2017 | visit | [facility] [place] | [employer] [address] | monitoring, INR | | | | [address] | [place] | range 2-3 (Primary | | | | [place], [place] | [address] | Dx); Chronic atrial | | | | [address] | | fibrillation (HCC) | | | | [phone] | | | +--------+ + + + [...] this encounter Last Filed Vital Signs + +---------+ + + | Vital Sign | Reading | Time Taken | Comments | + +---------+ + + | Blood Pressure | 228/118 | 01/20/2017 2:39 PM | | | | | PDT | | + +---------+ + + | Pulse | 84 | 01/20/2017 2:39 PM | | | | | PDT | | + +---------+ + + | Temperature | - | - | | + +---------+ + + | Respiratory Rate | - | - | | + +---------+ + + | Oxygen Saturation | - | - | | + +---------+ + + | Inhaled Oxygen | - | - | | | Concentration | | | | + +---------+ + + | Weight | - | - | | + +---------+ + + | Height | - | - | | + +---------+ + + | Body Mass Index | - | - | | + +---------+ + + documented in this encounter Patient Instructions Patient Instructions Jody Young ARNP - 01/20/2017 2:30 PM PDTINR 3.5 is over goal 2. 0-3.0 PLAN: Take 2.5mg Wed/Wed/Wed and 5mg the other 4 days of the week. Repeat INR in 2 weeks on 02/01/17. documented in this encounter Progress Notes Jody Young ARNP - 01/20/2017 2:30 PM PDTFormatting of this note might be different f rom the original. Subjective: Patient ID: Nancy Celis is a 76 y.o. female. Chief Complaint Patient presents with Anticoagulation presents for anticoagulation therapy (3.5/41.6) Medication Screening stated that doesn't have changes her medications with exception of her vitamin D (stopped ) HPI Nancy was not seen for PT/INR or primary care since [facility] closed. PCP: Dr. Curry, has appt scheduled for mid February. Last seen for INR 09/23/16 when I was at [facility]. INR 2.6 on that date. Taking 2.5mg on / and 5mg tablets all the other days. Patient Findings Positives: Change in medications (stopped Vit D3), Falls (sidewalk slippery and wet/fell on sidewalk and bruised Left knee) Legs are swelling and oozing fluids. Negatives: Alcohol Changes, Change in diet/appetite, Hospital admission, Other complaint s (chronically swollen lower extremities that are oozing.), Procedures Scheduled, Missed/Ext ra Doses, Bleeding sx, Clotting sx, Activity Changes, Tobacco/Drug Use Change, Cognition Brigette nges, Health Changes, Pain Comments: Past Medical History: Diagnosis Date Abnormal INR [...] COLON SURGERY SIGMOID RESECTIOON august, COLONOSCOPY 11/11/2006 DILATION AND CURETTAGE OF UTERUS 1988 DILATION AND CURETTAGE OF UTERUS 1988 TONSILLECTOMY [...] Topics Concern None Social History Narrative None Current Outpatient Prescriptions Medication Sig Dispense Refill ADULT ASPIRIN EC LOW STRENGTH PO TBEC: Take one by mouth daily amLODIPine (NORVASC) 5 mg tablet Take 5 mg by mouth Daily. atorvaSTATin (LIPITOR) 20 mg tablet Take 20 mg by mouth. Calcium 500 MG TABS Take by mouth Daily. Cholecalciferol (VITAMIN D-3) 22759 units CAPS Take by mouth Once a week. Cholecalciferol (VITAMIN D3) 2000 UNITS CAPS Patient is not sure what dose she is taking? Take 1 tablet by mouth. digoxin (LANOXIN) 125 mcg tablet Take 125 mcg by mouth Daily. digoxin (LANOXIN) 250 mcg tablet Take 250 mcg by mouth See Admin Instructions. First da y 2 tab x1, after 6 hours 1 tab hydrochlorothiazide 25 mg tablet Take 25 mg by mouth Daily. lisinopril (PRINIVIL,ZESTRIL) 40 MG tablet Take 40 mg by mouth Daily. metoprolol succinate (TOPROL-XL) 100 mg ER tablet Take 100 mg by mouth 2 times daily. spironolactone (ALDACTONE) 25 mg tablet Take 25 mg by mouth Daily. warfarin (COUMADIN) 2.5 mg tablet take 1 tablet by mouth every Wednesday every a nd 2 tablets THE OTHER DAYS OF THE WEEK 90 tablet 0 warfarin (COUMADIN) 5 mg tablet Take 5 mg by mouth See Admin Instructions. 1 by mouth d aily as directed. No current facility-administered medications for this visit. Allergies No active allergies Intolerance No active intolerances/contraindications Review of Systems Respiratory: Negative for cough and shortness of breath. Cardiovascular: Positive for leg swelling. Negative for chest pain and palpitations. All other systems reviewed and are negative. Objective: BP (!) 228/118 | Pulse 84 Recheck BP 192/110 pulse 92 Physical Exam Constitutional: She is well-developed, well-nourished, and in no distress. HENT: Head: Normocephalic. Cardiovascular: Normal rate and normal heart sounds. irregular Pulmonary/Chest: Effort normal and breath sounds normal. No respiratory distress. She has n o wheezes. She has no rales. Skin: She is not diaphoretic. She reports edema for over 2 months. Bilateral LE are severely swollen, measuring >20 inches at calf; skin shiny and oozing sero us fluid. There are ulcerations And superficial excoriations on the right shen. She can bar willy get her pants off to show me they are so tight. Assessment/Plan: 1. Anticoagulation monitoring, INR range 2-3 (Primary) INR 3.5 is over goal 2.0-3.0 PLAN: Take 2.5mg Mon/Wed/Wed and 5mg the other 4 days of the week. Repeat INR in 2 weeks on 02/01/17. 2. Chronic atrial fibrillation (HCC) Other orders - POCT PT/INR fingerstick Her BP is very elevated. She has a history of pulmonary hypertension. I am going to try to assist her to get her appointment with Dr. Curry moved up if possible . Return in about 12 days (around 02/01/2017) for anticoagulation. documented in this encounter Plan of Treatment Not on filedocumented as of this encounter Procedures + +--------+ + + + | Procedure Name | Priori | Date/Time | Associated Diagnosis | Comments | | | ty | | | | + +--------+ + + + | POC PT/INR | Routin | 01/20/2017 | Anticoagulation | Results for this | | FINGERSTICK | e | 2:55 PM | monitoring, INR | procedure are in the | | | | PDT | range 2-3 Chronic | results section. | | | | | atrial fibrillation | | | | | | (HCC) | | + +--------+ + + + documented in this encounter Results POCT PT/INR fingerstick (01/20/2017 2:55 PM PDT) + +---------+ + + + | Component | Value | Ref Range | Performed | Pathologist | | | | | At | Signature | + +---------+ + + + | INR, POC | 3.5 (A) | 2 - 3 | | | + +---------+ + + + + + | Specimen | + + | Blood | + + documented in this encounter Visit Diagnoses + + | Diagnosis | + + | Anticoagulation monitoring, INR range 2-3 - Primary Encounter for long-term (current) | | use of anticoagulants | + + | Chronic atrial fibrillation Atrial fibrillation | + + documented in this encounter"
--- OUTSIDE RECORDS SUMMARY | ~2019-03-28 | XMS | Encounter Summary ---
Demographics + + + | Address | [address] | | | [place] [address] | + + + | Home Phone | | + + + | Preferred Language | Unknown | + + + | Marital Status | | + + + | Holiness Affiliation | Unknown | + + + | Race | Unknown | + + + | Ethnic Group | Unknown | + + + Author + + + | Author | [facility] | | | and [place] | + + + | Organization | [facility] | | | and [place] [...] Providers + +------+ + | Care Sales Representative Groceries Name | Role | Phone | + +------+ + PCP | Unavailable | + +------+ + Encounter Details +--------+ + + + + | Date | Type | Department | Care Team | Description | +--------+ + + + + | 09/16/ | Hospital | [facility] | | | | 2000 | Encounter | [facility] | | | | | | CONV DEPT [address] | | | | | | [place], | | | | | | [place] [address] | | | | | | [phone] | | | +--------+ + + + [...]
--- OUTSIDE RECORDS SUMMARY | ~2019-03-28 | XMS | Encounter Summary ---
Demographics + + + | Address | [address] | | | [place] [address] | + + + | Home Phone | | + + + | Preferred Language | Unknown | + + + | Marital Status | | + + + | Restorationist Affiliation | Unknown | + + + | Race | Unknown | + + + | Ethnic Group | Unknown | + + + Author + + + | Author | [facility] | | | and [place] | + + + | Organization | [facility] | | | and [place] [...] Team Providers + +------+ + | Care Rn Hospital Name | Role | Phone | + +------+ + | Maya Curry MD | PCP | | + +------+ + Encounter Details +--------+ + + + + | Date | Type | Department | Care Team | Description | +--------+ + + + + | 09/08/ | Patient | [facility] | Maya Curry MD | | | 2017 | Outreach | [facility] [place] | [address] | | | | | [address] | [place] | | | | | [place] | [address] | | | | | [address] | | | | | | [phone] | | | +--------+ + + + [...]
--- OUTSIDE RECORDS SUMMARY | ~2019-03-28 | XMS | Encounter Summary ---
Demographics + + + | Address | [address] | | | [place] [address] | + + + | Home Phone [...] | Author | [facility] | | | and [place] | + + + | Organization | [facility] Team Providers + +------+ + | Care Core Filer Name | Role | Phone | + +------+ + | Maya Curry MD | PCP | | + +------+ + Encounter Details +--------+ + + + + | Date | Type | Department | Care Team | Description | +--------+ + + + + | 04/19/ | Abstract | [facility] | Maya Curry MD | | | 2017 | | [facility] [place] | [address] | | | | | [address] | [place] | | | | | [place], [place] | [address] | | | | | [address] | | | | | | [phone] | | | +--------+ + + + [...] +--------+ + + + | EXTERNAL LAB: KATEY | Routin | 12/05/2015 | | Results for this | | | e | | | procedure are in the | | | | | | results section. | + +--------+ + + + | EXTERNAL LAB: | Routin | 12/05/2015 | | Results for this | | GLUCOSE | e | | | procedure are in the | | | | | | results section. | + +--------+ + + + | EXTERNAL LAB: ALT | Routin | 12/05/2015 | | Results for this | | | e | | | procedure are in the | | | | | | results section. | + +--------+ + + + | EXTERNAL LAB: AST | Routin | 12/05/2015 | | Results for this | | | e | | | procedure are in the | | | | | | results section. | + +--------+ + + + | EXTERNAL LAB: | Routin | 12/05/2015 | | Results for this | | ALKALINE PHOSPHATASE | e | | | procedure are in the | | | | | | results section. | + +--------+ + + + | EXTERNAL LAB: | Routin | 12/05/2015 | | Results for this | | BILIRUBIN, TOTAL | e | | | procedure are in the | | | | | | results section. | + +--------+ + + + | EXTERNAL LAB: | Routin | 12/05/2015 | | Results for this | | ALBUMIN | e | | | procedure are in the | | | | | | results section. | + +--------+ + + + | EXTERNAL LAB: | Routin | 12/05/2015 | | Results for this | | PROTEIN, TOTAL | e | | | procedure are in the | | | | | | results section. | + +--------+ + + + | EXTERNAL LAB: | Routin | 12/05/2015 | | Results for this | | CALCIUM | e | | | procedure are in the | | | | | | results section. | + +--------+ + + + | EXTERNAL LAB: CARBON | Routin | 12/05/2015 | | Results for this | | DIOXIDE | e | | | procedure are in the | | | | | | results section. | + +--------+ + + + | EXTERNAL LAB: | Routin | 12/05/2015 | | Results for this | | CHLORIDE | e | | | procedure are in the | | | | | | results section. | + +--------+ + + + | EXTERNAL LAB: | Routin | 12/05/2015 | | Results for this | | POTASSIUM | e | | | procedure are in the | | | | | | results section. | + +--------+ + + + | EXTERNAL LAB: SODIUM | Routin | 12/05/2015 | | Results for this | | | e | | | procedure are in the | | | | | | results section. | + +--------+ + + + | EXTERNAL LAB: | Routin | 12/05/2015 | | Results for this | | VITAMIN D, | e | | | procedure are in the | | 25-HYDROXY | | | | results section. | + +--------+ + + + | EXTERNAL LAB: CBC | Routin | 12/05/2015 | | Results for this | | | e | | | procedure are in the | | | | | | results section. | + +--------+ + + + | EXTERNAL LAB: TSH | Routin | 12/05/2015 | | Results for this | | | e | | | procedure are in the | | | | | | results section. | + +--------+ + + + | EXTERNAL LAB: | Routin | 12/05/2015 | | Results for this | | TRIGLYCERIDES | e | | | procedure are in the | | | | | | results section. | + +--------+ + + + | EXTERNAL LAB: | Routin | 12/05/2015 | | Results for this | | CHOLESTEROL, HDL | e | | | procedure are in the | | | | | | results section. | + +--------+ + + + | EXTERNAL LAB: | Routin | 12/05/2015 | | Results for this | | CHOLESTEROL, TOTAL | e | | | procedure are in the | | | | | | results section. | + +--------+ + + + | EXTERNAL LAB: | Routin | 12/05/2015 | | Results for this | | CHOLESTEROL, LDL | e | | | procedure are in the | | | | | | results section. | + +--------+ + + + | EXTERNAL LAB: EGFR | Routin | 12/05/2015 | | Results for this | | | e | | | procedure are in the | | | | | | results section. | + +--------+ + + + | EXTERNAL LAB: | Routin | 12/05/2015 | | Results for this | | CREATININE | e | | | procedure are in the | | | | | | results section. | + +--------+ + + + | LIPID PANEL | Routin | 12/05/2015 | | Results for this | | | e | | | procedure are in the | | | | | | results section. | + +--------+ + + + | CBC WITH | Routin | 12/05/2015 | | Results for this | | DIFFERENTIAL | e | | | procedure are in the | | | | | | results section. | + +--------+ + + + | DIGOXIN LEVEL | Routin | 12/05/2015 | | Results for this | | | e | | | procedure are in the | | | | | | results section. | + +--------+ + + + | COMPREHENSIVE | Routin | 12/05/2015 | | Results for this | | METABOLIC PANEL | e | | | procedure are in the | | | | | | results section. | + +--------+ + + + | EXTERNAL LAB: | Routin | 07/29/2015 | | Results for this | | TRIGLYCERIDES | e | | | procedure are in the | | | | | | results section. | + +--------+ + + + | EXTERNAL LAB: | Routin | 07/29/2015 | | Results for this | | CHOLESTEROL, HDL | e | | | procedure are in the | | | | | | results section. | + +--------+ + + + | EXTERNAL LAB: | Routin | 07/29/2015 | | Results for this | | CHOLESTEROL, TOTAL | e | | | procedure are in the | | | | | | results section. | + +--------+ + + + | EXTERNAL LAB: | Routin | 07/29/2015 | | Results for this | | CHOLESTEROL, LDL | e | | | procedure are in the | | | | | | results section. | + +--------+ + + + | LIPID PANEL | Routin | 07/29/2015 | | Results for this | | | e | | | procedure are in the | | | | | | results section. | + +--------+ + + + | EXTERNAL LAB: | Routin | 07/10/2014 | | Results for this | | TRIGLYCERIDES | e | | | procedure are in the | | | | | | results section. | + +--------+ + + + | EXTERNAL LAB: | Routin | 07/10/2014 | | Results for this | | CHOLESTEROL, HDL | e | | | procedure are in the | | | | | | results section. | + +--------+ + + + | EXTERNAL LAB: | Routin | 07/10/2014 | | Results for this | | CHOLESTEROL, TOTAL | e | | | procedure are in the | | | | | | results section. | + +--------+ + + + | EXTERNAL LAB: | Routin | 07/10/2014 | | Results for this | | CHOLESTEROL, LDL | e | | | procedure are in the | | | | | | results section. | + +--------+ + + + | LIPID PANEL | Routin | 07/10/2014 | | Results for this | | | e | | | procedure are in the | | | | | | results section. | + +--------+ + + + documented in this encounter Results Digoxin Level (12/05/2015) + +-------+ + + + | Component | Value | Ref Range | Performed | Pathologist | | | | | At | Signature | + +-------+ + + + | Digoxin | 1.0 | 0.8 - 2.0 ng/mL | | | | level | | | | | + +-------+ + + + + + | Specimen | + + | Blood | + + Lipid Panel (12/05/2015) + +-------+ + + + | Component | Value | Ref Range | Performed | Pathologist | | | | | At | Signature | + +-------+ + + + | Chol/HDL | 2.4 | 0.0 - 4.9 | | | | Ratio | | | | | + +-------+ + + + | LDl/HDL | 1.15 | 0 - 3.67 | | | | Ratio | | | | | + +-------+ + + + | VLDL | 13 | 0 - 30 | | | | Cholesterol | | | | | | Zafar | | | | | + +-------+ + + + + + | Specimen | + + | Blood | + + External Lab: Triglycerides (12/05/2015) + +-------+ + + + | Component | Value | Ref Range | Performed | Pathologist | | | | | At | Signature | + +-------+ + + + | Triglycerid | 64 | 40 - 150 | | | | es, | | | | | | External | | | | | + +-------+ + + + + + | Specimen | + + | Blood | + + External Lab: Cholesterol, HDL (12/05/2015) + +-------+ + + + | Component | Value | Ref Range | Performed | Pathologist | | | | | At | Signature | + +-------+ + + + | HDL | 61 | 40 - 67 mg/dl | | | | Cholesterol | | | | | | , External | | | | | + +-------+ + + + + + | Specimen | + + | Blood | + + External Lab: Cholesterol, Total (12/05/2015) + +---------+ + + + | Component | Value | Ref Range | Performed | Pathologist | | | | | At | Signature | + +---------+ + + + | Cholesterol | 144 (A) | 150 - 200 mg/dl | | | | , Total, | | | | | | External | | | | | + +---------+ + + + + + | Specimen | + + | Blood | + + External Lab: Cholesterol, LDL (12/05/2015) + +-------+ + + + | Component | Value | Ref Range | Performed | Pathologist | | | | | At | Signature | + +-------+ + + + | LDL | 70 | 68 - 100 | | | | Cholesterol | | | | | | , Direct, | | | | | | External | | | | | + +-------+ + + + + + | Specimen | + + | Blood | + + Comprehensive Metabolic Panel (12/05/2015) + +-------+ + + + | Component | Value | Ref Range | Performed | Pathologist | | | | | At | Signature | + +-------+ + + + | Anion Gap | 8 | 1 - 16 mmol/L | | | + +-------+ + + + | Bun/Creatin | 16.7 | | | | | ine | | | | | + +-------+ + + + | Osmolality, | 284 | mOsm/kg | | | | Serum | | | | | + +-------+ + + + | Globulin | 3 | | | | + +-------+ + + + | Albumin/Leona | 1.37 | 1 - 2 | | | | bulin Ratio | | | | | + +-------+ + + + + + | Specimen | + + | Blood | + + External Lab: BUN (12/05/2015) + +-------+ + + + | Component | Value | Ref Range | Performed | Pathologist | | | | | At | Signature | + +-------+ + + + | BUN, | 15 | 7 - 23 | | | | External | | | | | + +-------+ + + + External Lab: Glucose (12/05/2015) + +-------+ + + + | Component | Value | Ref Range | Performed | Pathologist | | | | | At | Signature | + +-------+ + + + | Glucose, | 80 | 70 - 100 | | | | External | | | | | + +-------+ + + + External Lab: ALT (12/05/2015) + +-------+ + + + | Component | Value | Ref Range | Performed | Pathologist | | | | | At | Signature | + +-------+ + + + | ALT, | 19 | 10 - 60 | | | | External | | | | | + +-------+ + + + External Lab: AST (12/05/2015) + +-------+ + + + | Component | Value | Ref Range | Performed | Pathologist | | | | | At | Signature | + +-------+ + + + | AST, | 26 | 10 - 42 | | | | External | | | | | + +-------+ + + + External Lab: Alkaline Phosphatase (12/05/2015) + +-------+ + + + | Component | Value | Ref Range | Performed | Pathologist | | | | | At | Signature | + +-------+ + + + | ALP, | 88 | 32 - 92 | | | | External | | | | | + +-------+ + + + External Lab: Bilirubin, Total (12/05/2015) + +---------+ + + + | Component | Value | Ref Range | Performed | Pathologist | | | | | At | Signature | + +---------+ + + + | Bilirubin, | 1.7 (A) | 0.1 - 1.2 | | | | Total, | | | | | | External | | | | | + +---------+ + + + External Lab: Albumin (12/05/2015) + +-------+ + + + | Component | Value | Ref Range | Performed | Pathologist | | | | | At | Signature | + +-------+ + + + | Albumin, | 4.1 | 3.2 - 5.5 | | | | External | | | | | + +-------+ + + + External Lab: Protein, Total (12/05/2015) + +-------+ + + + | Component | Value | Ref Range | Performed | Pathologist | | | | | At | Signature | + +-------+ + + + | Protein, | 7.1 | 6.1 - 8 | | | | Total, | | | | | | External | | | | | + +-------+ + + + External Lab: Calcium (12/05/2015) + +-------+ + + + | Component | Value | Ref Range | Performed | Pathologist | | | | | At | Signature | + +-------+ + + + | Calcium, | 9 | 8.3 - 10.5 | | | | External | | | | | + +-------+ + + + External Lab: Carbon Dioxide (12/05/2015) + +-------+ + + + | Component | Value | Ref Range | Performed | Pathologist | | | | | At | Signature | + +-------+ + + + | Carbon | 27 | 22 - 32 | | | | Dioxide, | | | | | | External | | | | | + +-------+ + + + External Lab: Chloride (12/05/2015) + +-------+ + + + | Component | Value | Ref Range | Performed | Pathologist | | | | | At | Signature | + +-------+ + + + | Chloride, | 102 | 100 - 110 | | | | External | | | | | + +-------+ + + + External Lab: Potassium (12/05/2015) + +-------+ + + + | Component | Value | Ref Range | Performed | Pathologist | | | | | At | Signature | + +-------+ + + + | Potassium, | 4.1 | 3.5 - 5.1 | | | | External | | | | | + +-------+ + + + External Lab: Sodium (12/05/2015) + +-------+ + + + | Component | Value | Ref Range | Performed | Pathologist | | | | | At | Signature | + +-------+ + + + | Sodium, | 137 | 135 - 145 | | | | External | | | | | + +-------+ + + + External Lab: Vitamin D, 25-Hydroxy (12/05/2015) + +-------+ + + + | Component | Value | Ref Range | Performed | Pathologist | | | | | At | Signature | + +-------+ + + + | Vitamin D, | 44.4 | 30 - 100 | | | | 25-Hydroxy, | | | | | | External | | | | | + +-------+ + + + + + | Specimen | + + | Blood | + + External Lab: TSH (12/05/2015) + +-------+ + + + | Component | Value | Ref Range | Performed | Pathologist | | | | | At | Signature | + +-------+ + + + | TSH, | 1 | 0.3 - 3 | | | | External | | | | | + +-------+ + + + + + | Specimen | + + | Blood | + + External Lab: eGFR (12/05/2015) + +-------+ + + + | Component | Value | Ref Range | Performed | Pathologist | | | | | At | Signature | + +-------+ + + + | eGFR, | >60 | 60 | | | | External | | | | | + +-------+ + + + + + | Specimen | + + | Blood | + + External Lab: Creatinine (12/05/2015) + +-------+ + + + | Component | Value | Ref Range | Performed | Pathologist | | | | | At | Signature | + +-------+ + + + | Creatinine, | 0.9 | 0.7 - 1.3 | | | | External | | | | | + +-------+ + + + + + | Specimen | + + | Blood | + + CBC with Differential (12/05/2015) + +-------+ + + + | Component | Value | Ref Range | Performed | Pathologist | | | | | At | Signature | + +-------+ + + + | MCH | 30.2 | 26.0 - 34.0 pg | | | + +-------+ + + + | MCHC | 33.2 | 31.0 - 36.0 % | | | + +-------+ + + + | % Basophils | 0.9 | 1.0 % | | | + +-------+ + + + + + | Specimen | + + | Blood | + + External Lab: CBC (12/05/2015) + +-------+ + + + | Component | Value | Ref Range | Performed | Pathologist | | | | | At | Signature | + +-------+ + + + | WBC, | 8.1 | 4.5 - 10 | | | | External | | | | | + +-------+ + + + | HGB, | 13.3 | 11.8 - 16 | | | | External | | | | | + +-------+ + + + | HCT, | 40 | 34.8 - 45.2 | | | | External | | | | | + +-------+ + + + | PLT, | 232 | 150 - 400 | | | | External | | | | | + +-------+ + + + | Neutrophils | 59.4 | | | | | %, | | | | | | External | | | | | + +-------+ + + + | Lymphocytes | 31 | | | | | %, | | | | | | External | | | | | + +-------+ + + + | Monocytes | 8 | | | | | %, External | | | | | + +-------+ + + + | Eosinophils | 0.7 | | | | | %, | | | | | | External | | | | | + +-------+ + + + | Neutrophils | 4.8 | 2 - 7.3 | | | | , Absolute, | | | | | | External | | | | | + +-------+ + + + | Lymphocytes | 2.5 | 0.6 - 3.4 | | | | , Absolute, | | | | | | External | | | | | + +-------+ + + + | Monocytes, | 0.6 | 0.2 - 1 | | | | Absolute, | | | | | | External | | | | | + +-------+ + + + | Eosinophils | 0.1 | 0 - 0.4 | | | | , Absolute | | | | | + +-------+ + + + | Basophils, | 0.1 | 0 - 0.1 | | | | Absolute | | | | | + +-------+ + + + | RBC, | 4.4 | 4 - 5.1 | | | | External | | | | | + +-------+ + + + | MCV, | 91 | 80 - 100 | | | | External | | | | | + +-------+ + + + | RDW, | 13.4 | 9.6 - 14.2 | | | | External | | | | | + +-------+ + + + Lipid Panel (07/29/2015) + +-------+ + + + | Component | Value | Ref Range | Performed | Pathologist | | | | | At | Signature | + +-------+ + + + | Chol/HDL | 3.0 | 0.0 - 4.9 | | | | Ratio | | | | | + +-------+ + + + | LDl/HDL | 1.72 | 0 - 3.67 | | | | Ratio | | | | | + +-------+ + + + | VLDL | 18 | 0 - 30 | | | | Cholesterol | | | | | | Zafar | | | | | + +-------+ + + + + + | Specimen | + + | Blood | + + External Lab: Triglycerides (07/29/2015) + +-------+ + + + | Component | Value | Ref Range | Performed | Pathologist | | | | | At | Signature | + +-------+ + + + | Triglycerid | 90 | 40 - 150 | | | | es, | | | | | | External | | | | | + +-------+ + + + + + | Specimen | + + | Blood | + + External Lab: Cholesterol, HDL (07/29/2015) + +--------+ + + + | Component | Value | Ref Range | Performed | Pathologist | | | | | At | Signature | + +--------+ + + + | HDL | 70 (A) | 40 - 67 mg/dl | | | | Cholesterol | | | | | | , External | | | | | + +--------+ + + + + + | Specimen | + + | Blood | + + External Lab: Cholesterol, Total (07/29/2015) + +---------+ + + + | Component | Value | Ref Range | Performed | Pathologist | | | | | At | Signature | + +---------+ + + + | Cholesterol | 209 (A) | 150 - 200 mg/dl | | | | , Total, | | | | | | External | | | | | + +---------+ + + + + + | Specimen | + + | Blood | + + External Lab: Cholesterol, LDL (07/29/2015) + +---------+ + + + | Component | Value | Ref Range | Performed | Pathologist | | | | | At | Signature | + +---------+ + + + | LDL | 121 (A) | 68 - 100 | | | | Cholesterol | | | | | | , Direct, | | | | | | External | | | | | + +---------+ + + + + + | Specimen | + + | Blood | + + Lipid Panel (07/10/2014) + +-------+ + + + | Component | Value | Ref Range | Performed | Pathologist | | | | | At | Signature | + +-------+ + + + | Chol/HDL | 2.4 | 0.0 - 4.9 | | | | Ratio | | | | | + +-------+ + + + | LDl/HDL | 1.2 | 0 - 3.67 | | | | Ratio | | | | | + +-------+ + + + | VLDL | 13 | 0 - 30 | | | | Cholesterol | | | | | | Zafar | | | | | + +-------+ + + + + + | Specimen | + + | Blood | + + External Lab: Triglycerides (07/10/2014) + +-------+ + + + | Component | Value | Ref Range | Performed | Pathologist | | | | | At | Signature | + +-------+ + + + | Triglycerid | 65 | 40 - 150 | | | | es, | | | | | | External | | | | | + +-------+ + + + + + | Specimen | + + | Blood | + + External Lab: Cholesterol, HDL (07/10/2014) + +-------+ + + + | Component | Value | Ref Range | Performed | Pathologist | | | | | At | Signature | + +-------+ + + + | HDL | 63 | 40 - 67 mg/dl | | | | Cholesterol | | | | | | , External | | | | | + +-------+ + + + + + | Specimen | + + | Blood | + + External Lab: Cholesterol, Total (07/10/2014) + +-------+ + + + | Component | Value | Ref Range | Performed | Pathologist | | | | | At | Signature | + +-------+ + + + | Cholesterol | 151 | 150 - 200 mg/dl | | | | , Total, | | | | | | External | | | | | + +-------+ + + + + + | Specimen | + + | Blood | + + External Lab: Cholesterol, LDL (07/10/2014) + +-------+ + + + | Component | Value | Ref Range | Performed | Pathologist | | | | | At | Signature | + +-------+ + + + | LDL | 75 | 68 - 100 | | | | Cholesterol | | | | | | , Direct, | | | | | | External | | | | | + +-------+ + + + + + | Specimen | + + | Blood | + + documented in this encounter Visit Diagnoses Not on filedocumented in this encounter"
--- OUTSIDE RECORDS SUMMARY | ~2019-03-28 | XMS | Encounter Summary ---
Demographics + + + | Address | [address] | | | [place] [address] | + + + | Home Phone | | + + + | Preferred Language | Unknown | + + + | Marital Status | | + + + | Moravian Affiliation | Unknown | + + + | Race | Unknown | + + + | Ethnic Group | Unknown | + + + Author + + + | Author | [facility] | | | and [place] | + + + | Organization | [facility] | | [...] Team Providers + +------+ + | Care Farm Equipment Operator Name | Role | Phone | + +------+ + PCP | Unavailable | + +------+ + Encounter Details +--------+ + + + + | Date | Type | Department | Care Team | Description | +--------+ + + + + | 05/17/ | Hospital | [facility] | | | | 2006 | Encounter | MED CTR XRAY [address] | | | | | | [place] | | | | | | [place] [address] | | | | | | [phone] | | | +--------+ + + + [...]
--- OUTSIDE RECORDS SUMMARY | ~2019-03-28 | XMS | Encounter Summary ---
Demographics + + + | Address | [address] | | | [place] [address] | + + + | Home Phone | | + + + | Preferred Language | Unknown | + + + | Marital Status | | + + + | Buddhist Affiliation | Unknown | + + + | Race | Unknown | + + + | Ethnic Group | Unknown | + + + Author + + + | Author | [facility] | | | and [place] | + + + | Organization | [facility] | | | and [...] Team Providers + +------+ + | Care Reel Film Inspector Name | Role | Phone | [...] | | | | colon cancer | [place], [address] | [address] | | | | | Congestive | [address] [address] [place] | | | | | heart | [place] | [place] | | | | | failure with | [address] | [address] | | | | | | Phone: | | | | | | cardiomyopat | [phone] | | | | | | hy (HCC) | Fax: | | | | | | Procedures | [phone] | | | | | | [place] | | | | | | | COLONOSCOPY | | | | | | | FLX DX | | | | | | | W/COLLJ SPEC | | | | | | | WHEN PFRMD | | | | | | | [place] | | | | | | | COLONOSCOPY | | | | | | | W/BIOPSY | | | | | | | SINGLE/MULTI | | | | | | | PLE [place] | | | | | | | COLSC FLX | | | | | | | W/RMVL OF | | | | | | | TUMOR POLYP | | | | | | | LESION SNARE | | | | | | | TQ [place] | | | | | | | [...] of | [address], | | | | | other | Second | [address] | | | | | malignant | [address] | [place], | | | | | neoplasm of | [place], | [place] [address] | | | | | large | [place] [address] | Phone: | | | | | intestine | Phone: | [phone] | | | | | Follow | [phone] | Fax: | | | | | up/Medicare/ | Fax: | [phone] | | | | | [place] | [phone] | | | | | | Procedures | | | | | | | OFFICE VISIT | | | | | | | REGULAR | | | +--------+--------+ + + + + Encounter Details +--------+---------+ + + + | Date | Type | Department | Care Team | Description | +--------+---------+ + + + | 08/06/ | Office | [facility] | Gerardo Castro MD | Personal history of | | 2016 | Visit | GASTROENTEROLOGY | [address], [place] | colon cancer | | | | [address] [place] | [address] | (Primary Dx); | | | | [address] | [address] | 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 Every effort wa s made to ensure accuracy; however, inadvertent computerized finger lift operator errors may be pre sent. documented in [...]
--- OUTSIDE RECORDS SUMMARY | ~2019-03-28 | XMS | Encounter Summary ---
Demographics + + + | Address | [address] | | | [place] [address] | + + + | Home Phone | | + + + | Preferred Language | Unknown | + + + | Marital Status | | + + + | Congregational Affiliation | Unknown | + + + | Race | Unknown | + + + | Ethnic Group | Unknown | + + + Author + + + | Author | [facility] | | | and [place] | + + + | Organization | [facility] | [...] Team Providers + +------+ + | Care Maintenance Aide Name | Role | Phone | + +------+ + | Maya Curry MD | PCP | | + +------+ + Encounter Details +--------+ + + + + | Date | Type | Department | Care Team | Description | +--------+ + + + + | 10/16/ | Orders Only | [facility] | Provider, | | | 2018 | | [facility] GENER[facility] OP | [address] | | | | | [address] | [place] | | | | | [address] [place], [place] | [place] [address] | | | | | [address] | | | | | | [phone] | | | +--------+ + + + [...]
--- OUTSIDE RECORDS SUMMARY | ~2019-03-28 | XMS | Encounter Summary ---
Demographics + + + | Address | [address] | | | [place] [address] | + + + | Home Phone [...] + | Author | [facility] | | | and [place] | + + + | Organization | [facility] | | | and [place] [...] Team Providers + +------+ + | Care Slide Fastener Repairer Name | Role | Phone | + +------+ + | Maya Curry MD | PCP | | + +------+ + Encounter Details +--------+ + + + + | Date | Type | Department | Care Team | Description | +--------+ + + + + | 01/21/ | Abstract | [facility] | Maya Curry MD | | | 2016 | | [facility] [place] | [address] | | | | | [address] | [place] | | | | | [place], [place] | [address] | | | | | [address] | | | | | | [phone] | | | +--------+ + + + [...] | + +--------+ + + + | EXTERNAL: | Routin | 02/02/2012 | | Results for this | | COLONOSCOPY | e | | | procedure are in the | | | | | | results section. | + +--------+ + + + documented in this encounter Results EXTERNAL: COLONOSCOPY (02/02/2012) + + + + + + | Component | Value | Ref Range | Performed | Pathologist | | | | | At | Signature | + + + + + + | Colonoscopy | One 15mm, non-bleeding | | | | | | polyp in the cecum. | | | | | Impression, | resected and retrieved.; | | | | | External | Otherwise normal exam. | | | | | | - Dr. Castro | | | | + + + + + + documented in this encounter Visit Diagnoses Not on filedocumented in this encounter"
--- OUTSIDE RECORDS SUMMARY | ~2019-03-28 | XMS | Encounter Summary ---
Demographics + + + | Address | [address] | | | [place] [address] | + + + | Home Phone | | + + + | Preferred Language | Unknown | + + + | Marital Status | | + + + | Judaism Affiliation | Unknown | + + + | Race | Unknown | + + + | Ethnic Group | Unknown | + + + Author + + + | Author | [facility] | | | and [place] | + + + | Organization | [facility] | | [...] Team Providers + +------+ + | Care Flagsetter Name | Role | Phone | + [...] | | 2019 | Outreach | [facility] [place] | [address] | Conditions | | | | [address] | [place] | | | | | [place], [place] | [address] | | | | | [address] | | | | | | [phone] | | | +--------+ + + + [...]
--- OUTSIDE RECORDS SUMMARY | ~2019-03-28 | XMS | Encounter Summary ---
Demographics + + + | Address | [address] | | | [place] [address] | + + + | Home Phone | | + + + | Preferred Language | Unknown | + + + | Marital Status | | + + + | Yazidi Affiliation | Unknown | + + + | Race | Unknown | + + + | Ethnic Group | Unknown | + + + Author + + + | Author | [facility] | | | and [place] | + + + | Organization | [facility] | | | and [place] [...] Team Providers + +------+ + | Care Citizenship Instructor Name | Role | Phone | + [...] | | 10/[birth year]/ | | [place] [address] | | | | 2000 | | [phone] | | | +--------+ + + + [...]
--- OUTSIDE RECORDS SUMMARY | ~2019-03-28 | XMS | Encounter Summary ---
Demographics + + + | Address | [address] | | | [place] [address] | + + + | Home Phone | | + + + | Preferred Language | Unknown | + + + | Marital Status | | + + + | Mandaen Affiliation | Unknown | + + + | Race | Unknown | + + + | Ethnic Group | Unknown | + + + Author + + + | Author | [facility] | | | and [place] | + + + | Organization | [facility] | | | and [place] [...] Team Providers + +------+ + | Care Gang Boss Name | Role | Phone | + [...] | | | | 2001 | | [address] | | | | | | [phone] | | | +--------+ + + + [...]
--- OUTSIDE RECORDS SUMMARY | ~2019-03-28 | XMS | Encounter Summary ---
Demographics + + + | Address | [address] | | | [place] [address] | + + + | Home Phone | | + + + | Preferred Language | Unknown | + + + | Marital Status | | + + + | Restorationism Affiliation | Unknown | + + + | Race | Unknown | + + + | Ethnic Group | Unknown | + + + Author + + + | Author | [facility] | | | and [place] | + + + | Organization | [facility] | | | and [...] Team Providers + +------+ + | Care Hostess Name | Role | Phone | + [...] + + | 05/04/ | Telephone | [facility] | Maya Curry MD | Abstract | | 2018 | | [facility] | [address] | | | | | [address] | [place], [place] | | | | | [place], [place] | [address] | | | | | [address] | | | | | | [phone] | | | +--------+ + + + [...]
--- OUTSIDE RECORDS SUMMARY | ~2019-03-28 | XMS | Encounter Summary ---
Demographics + + + | Address | [address] | | | [place] [address] | + + + | Home Phone [...] + | Author | [facility] | | | and [place] | + + + | Organization | [facility] | | [...] Team Providers + +------+ + | Care Stagecraft Professor Name | Role | Phone | + +------+ + | Sangeetha Dixon MD | PCP | | + +------+ + Encounter Details +--------+ + + + + | Date | Type | Department | Care Team | Description | +--------+ + + + + | 02/01/ | Hospital | [facility] | Gerardo Castro MD | | | 2011 | Encounter | MED CTR MP INTRA OP | [address], [place] | | | | | [address] | [address] [place] | | | | | [place] | [address] | | | | | [address] | | | | | | [phone] | | | +--------+ + + + [...]
--- OUTSIDE RECORDS SUMMARY | ~2019-03-28 | XMS | Encounter Summary ---
Demographics + + + | Address | [address] | | | [place] [address] | + + + | Home Phone [...] | Author | [facility] | | | and [place] | + + + | Organization | [facility] | | [...] Team Providers + +------+ + | Care Survey Research Associate Name | Role | Phone | + [...] + + | 05/26/ | Office | [facility] | Maya Curry MD | Cellulitis of right | | 2018 | Visit | [facility] [place] | [address] | lower extremity | | | | [address] | [place] | (Primary Dx); | | | | [place] | [address] | HYPERTENSION, BENIGN | | | | [address] | | ESSENTIAL | | | | [phone] | | | +--------+---------+ + + + [...] are in pain. Ask what kind of ddht-rod-tazfwug medicine you can take for pain. Apply [...] Discharge or pus draining from the area [id number] (38C) or higher, or as directed by your healthcare provider Pain that gets worse in or around the infected Redness that gets worse in or around the infected area,particularly if the area of red ness expands to a wider area Shaking chills Swelling of the infected area Vomiting Date Last Reviewed: 10/21/[id number] [employer]. [address] [place] [address]. All righ ts reserved. This information is [...] got cellulitis and not healing. [facility] agnosed her and gave her Cephalexin [...]
--- OUTSIDE RECORDS SUMMARY | ~2019-03-28 | XMS | Encounter Summary ---
Demographics + + + | Address | [address] | | | [place] [address] | + + + | Home Phone [...] | [facility] | | | and [place] | + + + | Organization | [facility] | | | and [...] Team Providers + +------+ + | Care Deposit Clerk Name | Role | Phone | [...] | 06/03/ | Telephone | [facility] | Maya Curyr MD | LABS | | 2019 | | [facility] | [address] | | | | | [address] | [place], [place] | | | | | [place], [place] | [address] | | | | | [address] | | | | | | [phone] | | | +--------+ + + + [...]
--- OUTSIDE RECORDS SUMMARY | ~2019-03-28 | XMS | Encounter Summary ---
Demographics + + + | Address | [address] | | | [place] [address] | + + + | Home Phone [...] + + | Author | [facility] | | | and [place] | + + + | Organization | [facility] | | | and [place] [...] Providers + +------+ + | Care Manager Ed Name | Role | Phone | + +------+ + PCP | Unavailable | + +------+ + Encounter Details +--------+ + + + + | Date | Type | Department | Care Team | Description | +--------+ + + + + | 02/21/ | Hospital | [facility] | | | | 2000 | Encounter | MED CTR XRAY [address] | | | | | | [place] | | | | | | [place] [address] | | | | | | [phone] | | | +--------+ + + + [...]
--- OUTSIDE RECORDS SUMMARY | ~2019-03-28 | XMS | Encounter Summary ---
Demographics + + + | Address | [address] | | | [place] [address] | + + + | Home Phone [...] | [facility] | | | and [place] | + + + | Organization | [facility] | | | and [...] Team Providers + +------+ + | Care Oyster Farmer Name | Role | Phone | + +------+ + PCP | Unavailable | + +------+ + Encounter Details +--------+ + + + + | Date | Type | Department | Care Team | Description | +--------+ + + + + | 08/24/ | Hospital | [facility] | | | | 2001 | Encounter | MED CTR GENERIC OP | | | | | | CONV DEPT [address] | | | | | | [place], | | | | | | [place] [address] | | | | | | [phone] | | | +--------+ + + + [...]
--- OUTSIDE RECORDS SUMMARY | ~2019-03-28 | XMS | Encounter Summary ---
Demographics + + + | Address | [address] | | | [place] [address] | + + + | Home Phone | | + + + | Preferred Language | Unknown | + + + | Marital Status | | + + + | Jew Affiliation | Unknown | + + + | Race | Unknown | + + + | Ethnic Group | Unknown | + + + Author + + + | Author | [facility] | | | and [place] | + + + | Organization | [facility] | | [...] Team Providers + +------+ + | Care Folded Towel Machine Operator Name | Role | Phone | + +------+ + PCP | Unavailable | + +------+ + Encounter Details +--------+ + + + + | Date | Type | Department | Care Team | Description | +--------+ + + + + | 09/20/ | Hospital | [facility] | | | | 2002 | Encounter | MED CTR GENERIC OP | | | | | | CONV DEPT [address] | | | | | | [place], | | | | | | [place] [address] | | | | | | [phone] | | | +--------+ + + + [...]
--- OUTSIDE RECORDS SUMMARY | ~2019-03-28 | XMS | Encounter Summary ---
Demographics + + + | Address | [address] | | | [place] [address] | + + + | Home Phone [...] | Author | [facility] | | | and [place] | + + + | Organization | [facility] | | | and [place] | [...] Team Providers + +------+ + | Care Administrative Intern Name | Role | Phone | + +------+ + PCP | Unavailable | + +------+ + Encounter Details +--------+ + + + + | Date | Type | Department | Care Team | Description | +--------+ + + + + | 08/25/ | Hospital | [facility] | | | | 2001 | Encounter | MED CTR XRAY [address] | | | | | | [place] | | | | | | [place] [address] | | | | | | [phone] | | | +--------+ + + + [...]
--- OUTSIDE RECORDS SUMMARY | ~2019-03-28 | XMS | Encounter Summary ---
Demographics + + + | Address | [address] | | | [place] [address] | + + + | Home Phone | | + + + | Preferred Language | Unknown | + + + | Marital Status | | + + + | Church Affiliation | Unknown | + + + | Race | Unknown | + + + | Ethnic Group | Unknown | + + + Author + + + | Author | [facility] | | | and [place] | + + + | Organization | [facility] | | [...] Team Providers + +------+ + | Care Blood Bank Technologist Name | Role | Phone | + +------+ + PCP | Unavailable | + +------+ + Encounter Details +--------+ + + + + | Date | Type | Department | Care Team | Description | +--------+ + + + + | 09/05/ | Hospital | [facility] | | | | 2002 - | Encounter | MED CTR CANCER | | | | | | CENTER [address] | | | | 12/14/ | | [place] | | | | 2002 | | [address] | | | | | | [phone] | | | +--------+ + + + [...]
--- OUTSIDE RECORDS SUMMARY | ~2019-03-28 | XMS | Encounter Summary ---
Demographics + + + | Address | [address] | | | [place] [address] | + + + | Home Phone [...] | Author | [facility] | | | and [place] | + + + | Organization | [facility] | | | and [place] [...] Providers + +------+ + | Care It Security Analyst Name | Role | Phone | + +------+ + PCP | Unavailable | + +------+ + Encounter Details +--------+ + + + + | Date | Type | Department | Care Team | Description | +--------+ + + + + | 02/25/ | Hospital | [facility] | | | | 1997 | Encounter | MED CTR GENERIC OP | | | | | | CONV DEPT [address] | | | | | | [place], | | | | | | [place] [address] | | | | | | [phone] | | | +--------+ + + + [...]
--- OUTSIDE RECORDS SUMMARY | ~2019-03-28 | XMS | Encounter Summary ---
Demographics + + + | Address | [address] | | | [place] [address] | + + + | Home Phone | | + + + | Preferred Language | Unknown | + + + | Marital Status | | + + + | Latter-Day Affiliation | Unknown | + + + | Race | Unknown | + + + | Ethnic Group | Unknown | + + + Author + + + | Author | [facility] | | | and [place] | + + + | Organization | [facility] | | | and [...] Team Providers + +------+ + | Care Personnel Scheduler Name | Role | Phone | + +------+ + PCP | Unavailable | + +------+ + Encounter Details +--------+ + + + + | Date | Type | Department | Care Team | Description | +--------+ + + + + | 09/05/ | Hospital | [facility] | | | | 2002 | Encounter | MED CTR XRAY [address] | | | | | | [place] | | | | | | [place] [address] | | | | | | [phone] | | | +--------+ + + + [...]
--- OUTSIDE RECORDS SUMMARY | ~2019-03-28 | XMS | Encounter Summary ---
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 GLUF 77 03/26/2018 BUN 20 03/26/2018 CREATININE 1.1 (H) 03/26/2018 BCR 18 03/26/2018 CA 7.7 (L) 03/26/2018 EGFR 48 (L) 03/26/2018 EGD 03/25/18: Impression: - Normal esophagus. - 5 cm hiatal hernia. - Normal examined duodenum. - No specimens collected. Recommendation: - [facility]. - Clear liquid diet. - Perform a colonoscopy tomorrow. - NPO after midnight - Continue to monitor Hgb - Continue present medications. PROBLEM LIST Principal Problem: Gastrointestinal hemorrhage with melena Active Problems: Acute blood loss anemia Congestive heart failure (HCC) Atrial fibrillation (HCC) Malignant neoplasm (HCC) Dementia with behavioral disturbance CARMELA (acute kidney injury) (HCC) Acute lower UTI (urinary tract infection) ASSESSMENT & PLAN Acute GI Bleed - S/p transfusion at [facility]: 3 units pRBC, 2 unit FFP - S/P [address] [facility] - S/P EGD - no evidence of upper GI bleed, will d/c ppi drip, change to IV BID - Plan for colonoscopy today Congestive heart failure, pulmonary HTN, MR, TR, LVH Atrial fibrillation on warfarin (rivaroxaban on med list?) - S/P Vitamin K at OSH - s/p lasix IV x1 in ICU for volume overload after transfusion - No recent echo on file - Not on heart failure medications; will discuss w patient after resolution of bleed Urinary tract infection - UA at [facility] turbid sample, 4+ bacteria, large amount of leukocyte esterase, negat reji nitrites - continue ceftriaxone Dementia vs mood disorder (?) - Continue home Seroquel Disposition: Inpatient Code Status: Full Code Zenia Winston DO 03/26/2018 onversion Transact ion, Provider Unknown - 03/26/2018 7:35 AM PSTFormatting of this note might be different fr om the original. Nurse Progress Note by Jamie Saul RN at 03/26/18 3720 Author: Jamie Saul RN Service: (none) Author Type: Registered Nurse Filed: 03/26/18 0582 Date of Service: 03/26/18 0735 Status: Signed Mainspring Winder And Oiler: Jamie Saul RN (Registered Nurse) 7:35 AM IV infiltrated. Protonix gtt infusing. Pharmacy notified. Per pharmacy, no pharmaceutical treatment needed. Will elevate extremity and place warm pack over area. Pt unable to tolera te Golytely over night, per RN, pt refused despite having 3 other RN's educate and encourage bowel prep. Stool is not clear. Stool is dark brown/black. Last drink about 0300. Will noti fy OPP. Will continue to monitor. Jamie Saul RN onver daniel Transaction, Provider Unknown - 03/26/2018 2:18 AM PST Nurse Progress Note by Ling Wise RN at 03/26/18 0218 Author: Ling Wise RN Service: (none) Author Type: Registered Nurse Filed: 03/26/18 0811 Date of Service: 03/26/18217 Status: Addendum [employer]spring Winder And Oiler: Ling Wise RN (Registered Nurse) Related Notes: Original Note by Ling Wise RN (Registered Nurse) filed at 0 03/26/18 0808 Patient drank approximately half of Golytely. Patient refused to continue drinking Golytely . Patient educated on importance of Golytely and continued to refuse to consume more even af ter education. Patient declined rectal tube. Patient was educated on the importance of the Golytely for the upcoming procedure by 3 othe r RNs and continued to refuse to drink more. Patient had an episode of tachycardia with a HR in the low 100s otherwise VSS. PRN zofran given x1. Chart check complete Ling Wise RN enia Walter DO - 03/25/2018 5:19 PM PST Progress Notes by Zenia Winston DO at 03/25/18 0350 Author: Zenia Winston DO Service: Hospitalist Author Type: Physician Filed: 03/25/18 1754 Date of Service: 03/25/18 1719 Status: Signed [employer] Winder And Oiler: Zenia Winston DO (Physician) Brief Hospitalist Transfer Note Ms. Celis is a 77 yo F [address] to [facility] for acute GI bleed. Patient admitted to ICU on 03/24/18. She received 3 units pRBCs and 2 units FFP at OSH. Received additional 2 units aft er arrival. She underwent EGD on 03/25/18 which did not reveal source of bleed. Patient was transferred to hospitalist service on 03/25/18. Plan is for colonoscopy prep and colo tomorr ow. Patient seen and evaluated after transfer. VS: 97.7F, HR 69, BP 125/60, RR 20, 96% Labs: Hb 9.5, 10.1, 10.6, continue Q4H Hb/Hct. Full code. Zenia Winston DO Adult Hospitalist - 7RP onversion Transact ion, Provider Unknown - 03/25/2018 1:58 PM PSTFormatting of this note might be different fr om the original. Nurse Progress Note by Jamie Saul RN at 03/25/18 8218 Author: Jamie Saul RN Service: (none) Author Type: Registered Nurse Filed: 03/25/18 1533 Date of Service: 03/25/18 1358 Status: Signed [employer] Winder And Oiler: Jamie Saul RN (Registered Nurse) Pt arrived from ICU. Pt A/O x3. Pt disoriented to month. Pt denies pain. Denies SOB, N/V. P t in no apparent distress. Pt NPO for EGD. Will continue to monitor. Jamie Saul RN onver daniel Transaction, Provider Unknown - 03/25/2018 1:42 PM PST Nurse Progress Note by Stefany Anderson RN at 03/25/18 6700 Author: Stefany Andreson RN Service: (none) Author Type: Registered Nurse Filed: 03/25/18 1342 Date of Service: 03/25/18 1342 Status: Signed [employer] Winder And Oiler: Stefany Anderson RN (Registered Nurse) Report given to Jamie/RN. Pt taken to floor via bed. onver daniel Transaction, Provider Unknown - 03/25/2018 1:24 PM PST Nurse Progress Note by Stefany Anderson RN at 03/25/18 1324 Author: Stefany Anderson RN Service: (none) Author Type: Registered Nurse Filed: 03/25/18 1324 Date of Service: 03/25/18 1324 Status: Signed [employer] Winder And Oiler: Stefany Anderson RN (Registered Nurse) Dayshift chart audit completed. onver daniel Transaction, Provider Unknown - 03/25/2018 11:20 AM PST Case Management by NOLA Slater at 03/25/18 1120 Author: NOLA Slater Service: (none) Author Type: Flat Folding Machine Operator Filed: 03/25/18 1127 Date of Service: 03/25/18 112 Status: Addendum [employer] Winder And Oiler: NOLA Slater (Flat Folding Machine Operator) Related Notes: Original Note by NOLA Slater (Flat Folding Machine Operator) filed at 03/25/18 1125 Re[facility] from [facility] to look into whether pt's daughter is legal guardian. She receive d a phone call from pt's daughter Dipika Simpson ([phone]) requesting info about pt. I r ead ER CM note and pt's chart indicates that she is an "opt-out". I called [facility] where pt lives. Rep there states that they had all paperwork sent over with pt when she c west to [facility] and that daughter IS the legal guardian. I checked pt's physical chart which ferguson d the paperwork in there. I called pt's daughter to inform that she should be able to get i nfo about pt. Provided her with ICU phone number and name of RN caring for pt today. onver daniel Transaction, Provider Unknown - 03/25/2018 11:13 AM PST Progress Notes by Jin Sánchez at 03/25/18 2699 Author: Jin Sánchez Service: (none) Author Type: Issuing Operator Filed: 03/25/18 1141 Date of Service: 03/25/181112 Status: Signed [employer] Winder And Oiler: Jin Sánchez (Issuing Operator) Referral from [facility] d/t evidence of difficulty coping and broken relationships (dtr/POA ). Pt states she is a fiercely independent person; not very social and admits to shunning her children. She had a passion for caring for stray cats and cared for scores of them until sh e moved from her home (see below). Now she enjoys watching TV and socializing with a few cl ose friends. Pt presents with frequent tears/weeping, but it does not appear to be always r elated to emotional distress; suspect it may be r/t a past CVA. CHANGES: Presents w/ GI bleed. Suspected Hx dementia; however she appears A&Ox4 w/ good c ommand of details. Last spring, sold house and car (with help from dtr Liliam), moved from personal house to assisted living facility, & stopped driving. Three yrs ago, son & brother w/in 2 mo of each other. some years ago after many years of a difficult jerrica gabriel. EXPERIENCES: Pt complains bitterly about the loss of home, car & cats; ie loss of independ ence and personal control. She carries prolonged sorrow over deaths of son & brother; unabl e to do effective grieving to heal her broken heart. She expresses anger and resentment at 2 dtrs--likely contributing to significant spiritual (meaningfulness) distress, that may in part be manifesting in her GI bleed (both are "gut" issues). INTENTIONS: Pt wants mostly to go back to her apartment, watch TV and see a couple closed friends. She states she does not want any contact w/ her dtrs d/t bitterness against them. RESOURCES: Extended conversational medicine applied, mixed with humor and empathetic liste gaurav. Affirmed her stubborn independence as a means of enduring and coping with her life-bobby shay. Proposed idea of making peace with dtrs, but this was rejected. Suggested to her a metaphor that just as the GI bleed could "drain life out of her," so too does a broken re lationship. Pt did identify a trusted person, a family friend Jin Buckley whose name was grayson chao on the white board. In addition, she noted a couple persons whom she sees regularly. Pt denied to RN being a alevism person, so did not explore this aspect. OUTCOMES: Pt seemed calmer and more reflective after interventions. Did not push family r econciliation any further. Report given to [facility] Mccall. PLAN OF CARE: No further contact planned; however, pt may contact recruitment consultant again PRN. onver daniel Sutherland, Provider Unknown - 03/25/2018 5:46 AM PST Pharmacy Note by Lianne Velarde RPH at 03/25/18545 Author: Lianne Velarde RPH Service: Pharmacy Author Type: Pharmacist Filed: 03/25/18545 Date of Service: 03/25/18545 Status: Signed [employer] Winder And Oiler: Lianne Velarde RPH (Pharmacist) Clinical Pharmacy Note: Renal Monitoring Height: 157.5 cm Weight: 78 kg Serum creatinine: 1.3 mg/dL (H) 03/25/18 0347 Estimated creatinine clearance: 34.5 mL/min (A) Currently there are no medications needing to be adjusted. Pharmacy will continue to monito r for changes in medication orders and in renal function and adjust accordingly. LIANNE VELARDE Pharmacist 03/25/2018 5:46 AM Jody Latif, TAVO - 03/25/2018 5:27 AM PST Progress Notes by ABILIO Juarez at 03/25/18526 Author: ABILIO Juarez Service: Teachers Aide Author Type: Advanced Registered Nurse Practitioner Filed: 03/25/18 0553 Date of Service: 03/25/18526 Status: Signed [employer] Winder And Oiler: ABILIO Juarez (Advanced Registered Nurse Practitioner) [facility] Teachers Aide Service Progress Note Nancy Celis 77 y.o. Hospital Day: LOS: 1 day Post-Op Day: * No surgery date entered * Consulting Physicians Treatment Team: Consulting Physician: Los Christopher MD Consulting Physician: Sven Harper MD Admitting Provider: Los Christopher MD SUBJECTIVE Patient Summary: [facility] on 03/24/18: The patient is a 77 y.o. female with significant past medical history of atrial fibrillatio n (on warfarin), CHF, dementia (lives in an assisted living facility), and colon cancer (per pt she received surgery and chemo for this in 1999 and has been cancer-free since then) who presents with melena at home for several days. Pt was seen at [facility] earlier today where the H & H was critically low at 4.9 and 15 .4. A rectal exam was done which showed no masses or tenderness, and stool that was dark an d strongly occult blood positive. Lab work there included: INR 1.9, Na 135, K 4.0, Cl 107, CO2 18, creatinine 1.72, BUN 46. Urinalysis results: turbid, moderate amt of blood, nitrite negative, leukocyte esterase large, bacteria 4+, urine glucose normal. Urine culture refle xed. An EKG showed atrial fibrillation with RVR and PVCs. While blood was being prepared, the patient was given 1500 ml crystalloids and started on a Protonix infusion. 3 units PRBCs, 2 units FFP, and 10 mg of vit K were given. Due to the need for a higher level of care, [facility] was called with request for transfer. Upon arrival to [facility], patient was hypotensive, BPs 80s/50s. 2 more units PRBCs were ordered, and pt wa s accepted to the burrer hand service for further management. ICU Timeline: 03/24: Pt presented to [facility] with melena, Hgb 4.9. Transferred to [facility], then ad mitted to ICU. Events Overnight: Received a 4th unit of PRBCs overnight. 20 mg Lasix given with goo d urine output, but had some hypotension following this. 500 ml of 5% albumin given which a dequately corrected the BP. SCHEDULED MEDICATIONS albumin human cefTRIAXone 1 g Intravenous Q24H CONTINUOUS INFUSIONS dextrose pantoprazole 8 mg/hr (03/25/18 031) OBJECTIVE VITAL SIGNS Temp: [97.1 F (36.2 C)-98.9 F (37.2 C)] 98.4 F (36.9 C) Heart Rate: [61-96] 67 Resp: [15-29] 24 BP: (76-133)/(46-92) 104/51 Intake/Output Summary (Last 24 hours) at 03/25/18 0527 Last data filed at 03/25/18 0500 Gross per 24 hour Intake 1887 ml Output 2175 ml Net -288 ml EXAM GEN: resting in bed, sleepy, oriented x 3, NAD NEURO: PERRLA, EOMI, no facial asymmetry, moves all extremities HEENT: sclerae clear, nonicteric, oral mmm, pink NECK: supple, trachea midline CV: irregular, S1/S2, no murmur, rub or gallop, peripheral pulses palpable, cap refill bris k LUNGS: clear b/l, no wheezing, rales or rhonchi, symmetric chest expansion, even/unlabored respirations ABD: soft, nondistended, nontender to palpation, no masses, bowel tones present EXTR: 1+ edema to BLE, no clubbing or cyanosis SKIN: warm, dry, no rash or mottling; no e/o skin breakdown over the occiput, scapulae, elb ows, sacrum or heels LINES/TUBES: PIVs, urethral catheter (03/24) DATA Recent Labs Lab 03/25/18 0347 03/25/18 0001 03/24/18 1803 WBC 4.76 6.38 -- RBC 3.01* 3.28* -- HGB 9.0* 9.7* 7.6* HCT 26.9* 29.8* 23.2* MCV 89.4 90.8 -- MCH 30.1 29.5 -- MCHC 33.7 32.5 -- RDW 50.8 50.8 -- PLT 143* 149* -- MPV 8.4 8.7 -- NEUTROABS 2.72 3.94 -- LYMPHSABS 1.31 1.61 -- MONOSABS 0.66 0.76 -- BASOSABS 0.03 0.03 -- EOSABS 0.04 0.05 -- Recent Labs Lab 03/25/18 0347 NA 143 K 3.5 CL 114* CO2 20* ANIONGAP 13 GLUF 83 BUN 31* CREATININE 1.3* BCR 24 CA 7.2* EGFR 40* PHOS 3.5 MG 1.9 Recent Labs Lab 03/25/18 0347 03/24/18 1803 INR 1.0 1.1 IMAGING No results found. PROBLEM LIST Principal Problem: Gastrointestinal hemorrhage with melena Active Problems: Acute blood loss anemia Congestive heart failure (HCC) Atrial fibrillation (HCC) Malignant neoplasm (HCC) Dementia with behavioral disturbance CARMELA (acute kidney injury) (HCC) Acute lower UTI (urinary tract infection) Resolved Problems: * No resolved hospital problems. * ASSESSMENT & PLAN NEURO: Dementia; pt is a resident at an assisted living facility. CAM-ICU screening every shift. CV: Congestive heart failure, pulmonary HTN, MR, TR, LVH. No recent echo available. Concer sonja for fluid overload after several units blood transfusion. 20 mg Lasix given overnight w ith excellent urine output. Atrial fibrillation on warfarin. INR 1.9. Pt was given 2 FFP and vitamin K at [facility]. INR now down to 1.0 this am. Hypotension, secondary to acute blood loss -- resolved. PULM: No acute issues. Currently on room air and protecting her airway. GI/NUTRITION: Gastrointestinal hemorrhage with melena. Continue Protonix infusion. Appropriate resuscitation with blood products: has received 4 PRBCs, 2 FFP, 10 mg vit K. There is 1 unit PRBCs available to be given if needed. Check H & H q 4 hrs. Last check .0/ .9 Dr. Harper consulted, awaiting colonoscopy. RENAL/LYTES: Probable CARMELA: prerenal, due to acute blood loss. Baseline creatinine unknown, but no hi story of CKD, and creatinine was 1.7 on presentation. Now down to 1.3 Renally dose medications, avoid nephrotoxins. Monitor electrolytes and replace per protocol. Monitor Is/Os. BMP daily. ID: UTI. Urinalysis at [facility] with turbid sample, 4+ bacteria, large amount of leuko cyte esterase, negative nitrites. Will start ceftriaxone empirically. HEME: Acute blood loss anemia. (See GI section above regarding transfusions.) Macrocytic anemia. CBC daily. ENDO: No history of diabetes. Some mild hypoglycemia upon admission. Hypoglycemia protocol i n place. Implement Endotool if indicated per ICU protocol. MUSC/SKIN: PT/OT/mobilize patient cautiously as able. Skin care and pressure ulcer prevention per nursing standards. PROPHYLAXIS: Stress ulcer prophylaxis: Protonix infusion DVT prophylaxis: SCDs, do not give chemical VTE prophylaxis VAP bundle: not indicated Disposition: ICU plan of care as above. Code Status: Full Code *Please bill 35 minutes of critical care time spent evaluating the patient, reviewing the d diann and formulating a plan exclusive of all other procedures. ABILIO Youssef 03/25/2018 onversion Arango saction, Provider Unknown - 03/24/2018 6:35 PM PSTFormatting of this note might be differen t from the original. Case Management by NOLA Gaytan at 03/24/181834 Author: NOLA Gaytan Service: (none) Author Type: Flat Folding Machine Operator Filed: 03/24/181839 Date of Service: 03/24/181834 Status: Signed Mainspring Winder And Oiler: NOLA Gaytan (Flat Folding Machine Operator) 03/24/18 Discharge Planning Evaluation Admitting Diagnosis (GI bleed) Readmission No Support Systems Home care staff Type of Residence Assisted living ([facility] [address] [facility], [place] [address] ) Independent with ADL's No-comment (patient states she feeds herself, has assist with dressing, bathing, meals, housekeeping) Independent with Mobility No-comment (w/c) Caregiver after Discharge Yes (facility staff) Mental Status Oriented Power of Tumbler Drier Operator Other (comment) (patient states that her daughter is no longer her POA and requests staff NOT contact mike roy) Resources Financial concerns No Transportation issues No (states she uses a "Dial a Ride" type of service in [place] but is unsure) Patient/Family concerns No Prescription Plan Yes Previous home health equipment No Vascular access device No Ostomy/Drains/Appliances No Anticipated Disposition Facility Type (return to [facility], [place], [place] ) Met with patient alone in room, advised of pending admission. Patient tearful, states she wanted to be sent to [place] instead. Pt is a 77 y.o., female here with GIB, sent to [facility] by [facility] for GIB. Patient re sides at an assisted living care facility in [place], [place], has assist with ADLS, uses a whe elchair, denies use of O2 or CPAP. States she is on blood thinning medications but is uncertain about INR monitoring or transp ortation to OP appointments. Patient's PCP is: Shellie Meza Patient's insurance: Medicare and [employer] ([place]) Coverage concerns: No concerns at this time Medication coverage/concerns: No concerns at this time Community resources utilized / needed: No needs at this time Assistance in transportation: patient is unsure of how she transports outside the facility, states it is a dial-a-ride service Identification of any specific education / training: none Barriers to Discharge / Alternative housing needed: none Anticipated DCP: return to [facility] [phone]. NOLA Gaytan docume nted in this encounter Plan of Treatment Not on filedocumented as of this encounter Procedures + +--------+ + + + | Procedure Name | Priori | Date/Time | Associated Diagnosis | Comments | | | ty | | | | + +--------+ + + + | HEMOGLOBIN AND | Routin | 03/28/2018 | | Results for this | | HEMATOCRIT | e | 8:10 AM | | procedure are in the | | | | PST | | results section. | + +--------+ + + + | EXTERNAL LAB: CBC | Routin | 03/28/2018 | | Results for this | | | e | 4:19 AM | | procedure are in the | | | | PST | | results section. | + +--------+ + + + | PHOSPHORUS | Routin | 03/28/2018 | | Results for this | | | e | 4:19 AM | | procedure are in the | | | | PST | | results section. | + +--------+ + + + | MAGNESIUM | Routin | 03/28/2018 | | Results for this | | | e | 4:19 AM | | procedure are in the | | | | PST | | results section. | + +--------+ + + + | BASIC METABOLIC | Routin | 03/28/2018 | | Results for this | | PANEL | e | 4:19 AM | | procedure are in the | | | | PST | | results section. | + +--------+ + + + | HEMOGLOBIN AND | Routin | 03/27/2018 | | Results for this | | HEMATOCRIT | e | 8:12 PM | | procedure are in the | | | | PST | | results section. | + +--------+ + + + | HEMOGLOBIN AND | Routin | 03/27/2018 | | Results for this | | HEMATOCRIT | e | 7:48 AM | | procedure are in the | | | | PST | | results section. | + +--------+ + + + | EXTERNAL LAB: CBC | Routin | 03/27/2018 | | Results for this | | | e | 3:47 AM | | procedure are in the | | | | PST | | results section. | + +--------+ + + + | PHOSPHORUS | Routin | 03/27/2018 | | Results for this | | | e | 3:47 AM | | procedure are in the | | | | PST | | results section. | + +--------+ + + + | MAGNESIUM | Routin | 03/27/2018 | | Results for this | | | e | 3:47 AM | | procedure are in the | | | | PST | | results section. | + +--------+ + + + | BASIC METABOLIC | Routin | 03/27/2018 | | Results for this | | PANEL | e | 3:47 AM | | procedure are in the | | | | PST | | results section. | + +--------+ + + + | HEMOGLOBIN AND | Routin | 03/26/2018 | | Results for this | | HEMATOCRIT | e | 11:54 PM | | procedure are in the | | | | PST | | results section. | + +--------+ + + + | HEMOGLOBIN AND | Routin | 03/26/2018 | | Results for this | | HEMATOCRIT | e | 7:54 PM | | procedure are in the | | | | PST | | results section. | + +--------+ + + + | POTASSIUM | Routin | 03/26/2018 | | Results for this | | | e | 7:54 PM | | procedure are in the | | | | PST | | results section. | + +--------+ + + + | MAGNESIUM | Routin | 03/26/2018 | | Results for this | | | e | 7:54 PM | | procedure are in the | | | | PST | | results section. | + +--------+ + + + | HEMOGLOBIN AND | Routin | 03/26/2018 | | Results for this | | HEMATOCRIT | e | 4:00 PM | | procedure are in the | | | | PST | | results section. | + +--------+ + + + | MAGNESIUM | Routin | 03/26/2018 | | Results for this | | | e | 4:00 PM | | procedure are in the | | | | PST | | results section. | + +--------+ + + + | HEMOGLOBIN AND | Routin | 03/26/2018 | | Results for this | | HEMATOCRIT | e | 12:07 PM | | procedure are in the | | | | PST | | results section. | + +--------+ + + + | COLONOSCOPY | Routin | 03/26/2018 | | Results for this | | | e | 10:56 AM | | procedure are in the | | | | PST | | results section. | + +--------+ + + + | HEMOGLOBIN AND | Routin | 03/26/2018 | | Results for this | | HEMATOCRIT | e | 8:39 AM | | procedure are in the | | | | PST | | results section. | + +--------+ + + + | EXTERNAL LAB: CBC | Routin | 03/26/2018 | | Results for this | | | e | 4:48 AM | | procedure are in the | | | | PST | | results section. | + +--------+ + + + | PHOSPHORUS | Routin | 03/26/2018 | | Results for this | | | e | 4:48 AM | | procedure are in the | | | | PST | | results section. | + +--------+ + + + | MAGNESIUM | Routin | 03/26/2018 | | Results for this | | | e | 4:48 AM | | procedure are in the | | | | PST | | results section. | + +--------+ + + + | BASIC METABOLIC | Routin | 03/26/2018 | | Results for this | | PANEL | e | 4:48 AM | | procedure are in the | | | | PST | | results section. | + +--------+ + + + | HEMOGLOBIN AND | Routin | 03/25/2018 | | Results for this | | HEMATOCRIT | e | 11:56 PM | | procedure are in the | | | | PST | | results section. | + +--------+ + + + | HEMOGLOBIN AND | Routin | 03/25/2018 | | Results for this | | HEMATOCRIT | e | 8:29 PM | | procedure are in the | | | | PST | | results section. | + +--------+ + + + | HEMOGLOBIN AND | Routin | 03/25/2018 | | Results for this | | HEMATOCRIT | e | 3:53 PM | | procedure are in the | | | | PST | | results section. | + +--------+ + + + | ENDOSCOPY | Routin | 03/25/2018 | | Results for this | | | e | 2:36 PM | | procedure are in the | | | | PST | | results section. | + +--------+ + + + | HEMOGLOBIN AND | Routin | 03/25/2018 | | Results for this | | HEMATOCRIT | e | 11:22 AM | | procedure are in the | | | | PST | | results section. | + +--------+ + + + | POTASSIUM | Routin | 03/25/2018 | | Results for this | | | e | 11:22 AM | | procedure are in the | | | | PST | | results section. | + +--------+ + + + | HEMOGLOBIN AND | Routin | 03/25/2018 | | Results for this | | HEMATOCRIT | e | 8:09 AM | | procedure are in the | | | | PST | | results section. | + +--------+ + + + | MAGNESIUM | Routin | 03/25/2018 | | Results for this | | | e | 8:09 AM | | procedure are in the | | | | PST | | results section. | + +--------+ + + + | POC GLUCOSE | Routin | 03/25/2018 | | Results for this | | | e | 6:36 AM | | procedure are in the | | | | PST | | results section. | + +--------+ + + + | POC GLUCOSE | Routin | 03/25/2018 | | Results for this | | | e | 3:55 AM | | procedure are in the | | | | PST | | results section. | + +--------+ + + + | EXTERNAL LAB: CBC | Routin | 03/25/2018 | | Results for this | | | e | 3:47 AM | | procedure are in the | | | | PST | | results section. | + +--------+ + + + | PROTIME INR | Routin | 03/25/2018 | | Results for this | | | e | 3:47 AM | | procedure are in the | | | | PST | | results section. | + +--------+ + + + | PHOSPHORUS | Routin | 03/25/2018 | | Results for this | | | e | 3:47 AM | | procedure are in the | | | | PST | | results section. | + +--------+ + + + | MAGNESIUM | Routin | 03/25/2018 | | Results for this | | | e | 3:47 AM | | procedure are in the | | | | PST | | results section. | + +--------+ + + + | BASIC METABOLIC | Routin | 03/25/2018 | | Results for this | | PANEL | e | 3:47 AM | | procedure are in the | | | | PST | | results section. | + +--------+ + + + | EXTERNAL LAB: CBC | Routin | 03/25/2018 | | Results for this | | | e | 12:01 AM | | procedure are in the | | | | PST | | results section. | + +--------+ + + + | CALCIUM, IONIZED | Routin | 03/25/2018 | | Results for this | | | e | 12:01 AM | | procedure are in the | | | | PST | | results section. | + +--------+ + + + | POC GLUCOSE | Routin | 03/24/2018 | | Results for this | | | e | 11:18 PM | | procedure are in the | | | | PST | | results section. | + +--------+ + + + | MRSA NAAT | Routin | 03/24/2018 | | Results for this | | | e | 9:14 PM | | procedure are in the | | | | PST | | results section. | + +--------+ + + + | POC GLUCOSE | Routin | 03/24/2018 | | Results for this | | | e | 8:49 PM | | procedure are in the | | | | PST | | results section. | + +--------+ + + + | HEMOGLOBIN AND | Routin | 03/24/2018 | | Results for this | | HEMATOCRIT | e | 6:03 PM | | procedure are in the | | | | PST | | results section. | + +--------+ + + + | PROTIME INR | Routin | 03/24/2018 | | Results for this | | | e | 6:03 PM | | procedure are in the | | | | PST | | results section. | + +--------+ + + + | XR CHEST 1 VIEW | Routin | 03/24/2018 | | Results for this | | | e | 3:41 PM | | procedure are in the | | | | PST | | results section. | + +--------+ + + + documented in this encounter Results Hemoglobin and Hematocrit (03/28/2018 8:10 AM PST) + + + + + + | Component | Value | Ref Range | Performed | Pathologist | | | | | At | Signature | + + + + + + | Hgb | 11.0 (L) | 11.3 - 15.5 | EXTERNAL | | | | | g/dL | LAB | | + + + + + + | Hematocrit, | 33.9 (L)Comment: Testing | 34.0 - 46.0 % | EXTERNAL | | | POC | performed at [facility];[address] | | [address] | | | | [address];[place] | | | | | | [address] | | | | + + + + + + + + | Specimen | + + | | + + + +---------+ + + | Performing | Address | City/State/Zipcode | Phone Number | | Organization | | | | + +---------+ + + | EXTERNAL LAB | | | | + +---------+ + + External Lab: CBC (03/28/2018 4:19 AM PST) + + + + + + | Component | Value | Ref Range | Performed | Pathologist | | | | | At | Signature | + + + + + + | WBC | 7.14 | 3.80 - 11.00 | EXTERNAL | | | | | K/uL | LAB | | + + + + + + | RED CELL | 3.39 (L) | 3.70 - 5.10 | EXTERNAL | | | COUNT | | M/uL | LAB | | + + + + + + | Hgb | 10.2 (L) | 11.3 - 15.5 | EXTERNAL | | | | | g/dL | LAB | | + + + + + + | Hematocrit, | 30.6 (L) | 34.0 - 46.0 % | EXTERNAL | | | POC | | | LAB | | + + + + + + | MCV | 90.4 | 80.0 - 100.0 fl | EXTERNAL | | | | | | LAB | | + + + + + + | MCH | 30.0 | 27.0 - 34.0 pg | EXTERNAL | | | | | | LAB | | + + + + + + | MCHC | 33.2 | 32.0 - 35.5 | EXTERNAL | | | | | g/dL | LAB | | + + + + + + | RDW-CV | 51.6 | 37 - 53 fl | EXTERNAL | | | | | | LAB | | + + + + + + | Platelet | 167 | 150 - 400 K/uL | EXTERNAL | | | Count | | | LAB | | | Plasma | | | | | + + + + + + | MPV | 8.5 | fl | EXTERNAL | | | | | | LAB | | + + + + + + | Differentia | AUTOMATED | | EXTERNAL | | | l Type | | | LAB | | + + + + + + | % Segmented | 65.81 | % | EXTERNAL | | | | | | LAB | | | Neutrophils | | | | | + + + + + + | % | 20.56 | % | EXTERNAL | | | Lymphocytes | | | LAB | | + + + + + + | % Monocytes | 9.14 | % | EXTERNAL | | | | | | LAB | | + + + + + + | % | 4.19 | % | EXTERNAL | | | Eosinophils | | | LAB | | + + + + + + | % Basophils | 0.30 | % | EXTERNAL | | | | | | LAB | | + + + + + + | Absolute | 4.70 | 1.90 - 7.40 | EXTERNAL | | | Segmented | | K/uL | LAB | | | Neutrophils | | | | | + + + + + + | Absolute | 1.47 | 1.00 - 3.90 | EXTERNAL | | | Lymphocytes | | K/uL | LAB | | + + + + + + | Absolute | 0.65 | 0.00 - 0.80 | EXTERNAL | | | Monocytes | | K/uL | LAB | | + + + + + + | Absolute | 0.30 | 0.00 - 0.50 | EXTERNAL | | | Eosinophils | | K/uL | LAB | | + + + + + + | Absolute | 0.02Comment: Testing | 0.00 - 0.10 | EXTERNAL | | | Basophils | performed at [facility], [address] | [address] | LAB | | | | [address], | | | | | | [place] [address] | | | | + + + + + + + + | Specimen | + + | Blood specimen | | (specimen) | + + + +---------+ + + | Performing | Address | City/State/Zipcode | Phone Number | | Organization | | | | + +---------+ + + | EXTERNAL LAB | | | | + +---------+ + + Phosphorus (03/28/2018 4:19 AM PST) + + + + + + | Component | Value | Ref Range | Performed | Pathologist | | | | | At | Signature | + + + + + + | PHOSPHORUS | 2.8Comment: Testing | 2.3 - 4.8 mg/dL | EXTERNAL | | | | performed at [facility], [address] | | LAB | | | | [address], | | | | | | [place] [address] | | | | + + + + + + + + | Specimen | + + | Blood specimen | | (specimen) | + + + +---------+ + + | Performing | Address | City/State/Zipcode | Phone Number | | Organization | | | | + +---------+ + + | EXTERNAL LAB | | | | + +---------+ + + Magnesium (03/28/2018 4:19 AM PST) + + + + + + | Component | Value | Ref Range | Performed | Pathologist | | | | | At | Signature | + + + + + + | Magnesium | 2.0Comment: Testing | 1.7 - 2.4 mg/dL | EXTERNAL | | | | performed at [facility], [address] | | LAB | | | | [address], | | | | | | [place] [address] | | | | + + + + + + + + | Specimen | + + | Blood specimen | | (specimen) | + + + +---------+ + + | Performing | Address | City/State/Zipcode | Phone Number | | Organization | | | | + +---------+ + + | EXTERNAL LAB | | | | + +---------+ + + Basic Metabolic Panel (03/28/2018 4:19 AM PST) + + + + + + | Component | Value | Ref Range | Performed | Pathologist | | | | | At | Signature | + + + + + + | Na | 143 | 135 - 145 | EXTERNAL | | | | | mmol/L | LAB | | + + + + + + | K | 4.0 | 3.5 - 4.9 | EXTERNAL | | | | | mmol/L | LAB | | + + + + + + | Cl | 116 (H) | 99 - 109 mmol/L | EXTERNAL | | | | | | LAB | | + + + + + + | CO2 | 19 (L) | 23 - 32 mmol/L | EXTERNAL | | | | | | LAB | | + + + + + + | Anion Gap | 12 | 5 - 20 mmol/L | EXTERNAL | | | | | | LAB | | + + + + + + | Glucose, | 87 | 65 - 99 mg/dL | EXTERNAL | | | Fasting | | | LAB | | + + + + + + | BUN | 17 | 8 - 25 mg/dL | EXTERNAL | | | | | | LAB | | + + + + + + | Creatinine | 1.1 (H) | 0.50 - 1.00 | EXTERNAL | | | | | mg/dL | LAB | | + + + + + + | BUN/Creatin | 15 | | EXTERNAL | | | ine Ratio | | | LAB | | + + + + + + | Calcium | 7.4 (L) | 8.5 - 10.5 | EXTERNAL | | | | | mg/dL | LAB | | + + + + + + | Estimated | 48 (L)Comment: GFR <60: | mL/min/1.73m2 | EXTERNAL | | | GFR | CHRONIC KIDNEY DISEASE, | | LAB | | | | IF FOUND OVER A 3 MONTH | | | | | | PERIOD.GFR <15: KIDNEY | | | | | | FAILURE.FOR | | | | | | AMERICANS, MULTIPLY THE | | | | | | CALCULATED GFR BY | | | | | | 1.210.This eGFR is | | | | | | calculated using the | | | | | | MDRD IDWY traceable | | | | | | equation.Testing | | | | | | performed at [facility], [address] | | | | | | [facility], | | | | | | [place] [address] | | | | + + + + + + + + | Specimen | + + | Blood specimen | | (specimen) | + + + +---------+ + + | Performing | Address | City/State/Zipcode | Phone Number | | Organization | | | | + +---------+ + + | EXTERNAL LAB | | | | + +---------+ + + Hemoglobin and Hematocrit (03/27/2018 8:12 PM PST) + + + + + + | Component | Value | Ref Range | Performed | Pathologist | | | | | At | Signature | + + + + + + | Hgb | 10.4 (L) | 11.3 - 15.5 | EXTERNAL | | | | | g/dL | LAB | | + + + + + + | Hematocrit, | 32.0 (L)Comment: Testing | 34.0 - 46.0 % | EXTERNAL | | | POC | performed at [facility];[address] | | LAB | | | | [address];[place], [place] | | | | | | [address] | | | | + + + + + + + + | Specimen | + + | | + + + +---------+ + + | Performing | Address | City/State/Zipcode | Phone Number | | Organization | | | | + +---------+ + + | EXTERNAL LAB | | | | + +---------+ + + Hemoglobin and Hematocrit (03/27/2018 7:48 AM PST) + + + + + + | Component | Value | Ref Range | Performed | Pathologist | | | | | At | Signature | + + + + + + | Hgb | 10.3 (L) | 11.3 - 15.5 | EXTERNAL | | | | | g/dL | LAB | | + + + + + + | Hematocrit, | 30.7 (L)Comment: Testing | 34.0 - 46.0 % | EXTERNAL | | | POC | performed at [facility];[address] | | LAB | | | | [address];[place], [place] | | | | | | [address] | | | | + + + + + + + + | Specimen | + + | | + + + +---------+ + + | Performing | Address | City/State/Zipcode | Phone Number | | Organization | | | | + +---------+ + + | EXTERNAL LAB | | | | + +---------+ + + External Lab: CBC (03/27/2018 3:47 AM PST) + + + + + + | Component | Value | Ref Range | Performed | Pathologist | | | | | At | Signature | + + + + + + | WBC | 5.87 | 3.80 - 11.00 | EXTERNAL | | | | | K/uL | LAB | | + + + + + + | RED CELL | 3.35 (L) | 3.70 - 5.10 | EXTERNAL | | | COUNT | | M/uL | LAB | | + + + + + + | Hgb | 10.1 (L) | 11.3 - 15.5 | EXTERNAL | | | | | g/dL | LAB | | + + + + + + | Hematocrit, | 30.9 (L) | 34.0 - 46.0 % | EXTERNAL | | | POC | | | LAB | | + + + + + + | MCV | 92.3 | 80.0 - 100.0 fl | EXTERNAL | | | | | | LAB | | + + + + + + | MCH | 30.1 | 27.0 - 34.0 pg | EXTERNAL | | | | | | LAB | | + + + + + + | MCHC | 32.6 | 32.0 - 35.5 | EXTERNAL | | | | | g/dL | LAB | | + + + + + + | RDW-CV | 57.3 (H) | 37 - 53 fl | EXTERNAL | | | | | | LAB | | + + + + + + | Platelet | 167 | 150 - 400 K/uL | EXTERNAL | | | Count | | | LAB | | | Plasma | | | | | + + + + + + | MPV | 8.5 | fl | EXTERNAL | | | | | | LAB | | + + + + + + | Differentia | AUTOMATED | | EXTERNAL | | | l Type | | | LAB | | + + + + + + | % Segmented | 56.63 | % | EXTERNAL | | | | | | LAB | | | Neutrophils | | | | | + + + + + + | % | 28.19 | % | EXTERNAL | | | Lymphocytes | | | LAB | | + + + + + + | % Monocytes | 10.82 | % | EXTERNAL | | | | | | LAB | | + + + + + + | % | 3.77 | % | EXTERNAL | | | Eosinophils | | | LAB | | + + + + + + | % Basophils | 0.59 | % | EXTERNAL | | | | | | LAB | | + + + + + + | Absolute | 3.32 | 1.90 - 7.40 | EXTERNAL | | | Segmented | | K/uL | LAB | | | Neutrophils | | | | | + + + + + + | Absolute | 1.66 | 1.00 - 3.90 | EXTERNAL | | | Lymphocytes | | K/uL | LAB | | + + + + + + | Absolute | 0.64 | 0.00 - 0.80 | EXTERNAL | | | Monocytes | | K/uL | LAB | | + + + + + + | Absolute | 0.22 | 0.00 - 0.50 | EXTERNAL | | | Eosinophils | | K/uL | LAB | | + + + + + + | Absolute | 0.03Comment: Testing | 0.00 - 0.10 | EXTERNAL | | | Basophils | performed at [facility], [address] | [address] | LAB | | | | [address], | | | | | | [place] [address] | | | | + + + + + + + + | Specimen | + + | Blood specimen | | (specimen) | + + + +---------+ + + | Performing | Address | City/State/Zipcode | Phone Number | | Organization | | | | + +---------+ + + | EXTERNAL LAB | | | | + +---------+ + + Phosphorus (03/27/2018 3:47 AM PST) + + + + + + | Component | Value | Ref Range | Performed | Pathologist | | | | | At | Signature | + + + + + + | PHOSPHORUS | 2.7Comment: Testing | 2.3 - 4.8 mg/dL | EXTERNAL | | | | performed at [facility], [address] | | LAB | | | | [address], | | | | | | [place] [address] | | | | + + + + + + + + | Specimen | + + | Blood specimen | | (specimen) | + + + +---------+ + + | Performing | Address | City/State/Zipcode | Phone Number | | Organization | | | | + +---------+ + + | EXTERNAL LAB | | | | + +---------+ + + Magnesium (03/27/2018 3:47 AM PST) + + + + + + | Component | Value | Ref Range | Performed | Pathologist | | | | | At | Signature | + + + + + + | Magnesium | 2.4Comment: Testing | 1.7 - 2.4 mg/dL | EXTERNAL | | | | performed at [facility], [address] | | LAB | | | | [address], | | | | | | [place] [address] | | | | + + + + + + + + | Specimen | + + | Blood specimen | | (specimen) | + + + +---------+ + + | Performing | Address | City/State/Zipcode | Phone Number | | Organization | | | | + +---------+ + + | EXTERNAL LAB | | | | + +---------+ + + Basic Metabolic Panel (03/27/2018 3:47 AM PST) + + + + + + | Component | Value | Ref Range | Performed | Pathologist | | | | | At | Signature | + + + + + + | Na | 143 | 135 - 145 | EXTERNAL | | | | | mmol/L | LAB | | + + + + + + | K | 4.1 | 3.5 - 4.9 | EXTERNAL | | | | | mmol/L | LAB | | + + + + + + | Cl | 115 (H) | 99 - 109 mmol/L | EXTERNAL | | | | | | LAB | | + + + + + + | CO2 | 19 (L) | 23 - 32 mmol/L | EXTERNAL | | | | | | LAB | | + + + + + + | Anion Gap | 13 | 5 - 20 mmol/L | EXTERNAL | | | | | | LAB | | + + + + + + | Glucose, | 76 | 65 - 99 mg/dL | EXTERNAL | | | Fasting | | | LAB | | + + + + + + | BUN | 17 | 8 - 25 mg/dL | EXTERNAL | | | | | | LAB | | + + + + + + | Creatinine | 1.1 (H) | 0.50 - 1.00 | EXTERNAL | | | | | mg/dL | LAB | | + + + + + + | BUN/Creatin | 15 | | EXTERNAL | | | ine Ratio | | | LAB | | + + + + + + | Calcium | 7.4 (L) | 8.5 - 10.5 | EXTERNAL | | | | | mg/dL | LAB | | + + + + + + | Estimated | 48 (L)Comment: GFR <60: | mL/min/1.73m2 | EXTERNAL | | | GFR | CHRONIC KIDNEY DISEASE, | | LAB | | | | IF FOUND OVER A 3 MONTH | | | | | | PERIOD.GFR <15: KIDNEY | | | | | | FAILURE.FOR | | | | | | AMERICANS, MULTIPLY THE | | | | | | CALCULATED GFR BY | | | | | | 1.210.This eGFR is | | | | | | calculated using the | | | | | | MDRD IDMS traceable | | | | | | equation.Testing | | | | | | performed at [facility], [address] | | | | | | [facility], | | | | | | [place] [address] | | | | + + + + + + + + | Specimen | + + | Blood specimen | | (specimen) | + + + +---------+ + + | Performing | Address | City/State/Zipcode | Phone Number | | Organization | | | | + +---------+ + + | EXTERNAL LAB | | | | + +---------+ + + Hemoglobin and Hematocrit (03/26/2018 11:54 PM PST) + + + + + + | Component | Value | Ref Range | Performed | Pathologist | | | | | At | Signature | + + + + + + | Hgb | 9.5 (L) | 11.3 - 15.5 | EXTERNAL | | | | | g/dL | LAB | | + + + + + + | Hematocrit, | 29.9 (L)Comment: Testing | 34.0 - 46.0 % | EXTERNAL | | | POC | performed at [facility];[address] | | LAB | | | | [address];[place] | | | | | | [address] | | | | + + + + + + + + | Specimen | + + | | + + + +---------+ + + | Performing | Address | City/State/Zipcode | Phone Number | | Organization | | | | + +---------+ + + | EXTERNAL LAB | | | | + +---------+ + + Hemoglobin and Hematocrit (03/26/2018 7:54 PM PST) + + + + + + | Component | Value | Ref Range | Performed | Pathologist | | | | | At | Signature | + + + + + + | Hgb | 9.9 (L) | 11.3 - 15.5 | EXTERNAL | | | | | g/dL | LAB | | + + + + + + | Hematocrit, | 30.7 (L)Comment: Testing | 34.0 - 46.0 % | EXTERNAL | | | POC | performed at [facility];[address] | | LAB | | | | [address];[place], [place] | | | | | | [address] | | | | + + + + + + + + | Specimen | + + | | + + + +---------+ + + | Performing | Address | City/State/Zipcode | Phone Number | | Organization | | | | + +---------+ + + | EXTERNAL LAB | | | | + +---------+ + + Potassium (03/26/2018 7:54 PM PST) + + + + + + | Component | Value | Ref Range | Performed | Pathologist | | | | | At | Signature | + + + + + + | K | 4.3Comment: Testing | 3.5 - 4.9 | EXTERNAL | | | | performed at [facility];[address] | mmol/L | LAB | | | | [address];[place] | | | | | | [address] | | | | + + + + + + + + | Specimen | + + | Blood specimen | | (specimen) | + + + +---------+ + + | Performing | Address | City/State/Zipcode | Phone Number | | Organization | | | | + +---------+ + + | EXTERNAL LAB | | | | + +---------+ + + Magnesium (03/26/2018 7:54 PM PST) + + + + + + | Component | Value | Ref Range | Performed | Pathologist | | | | | At | Signature | + + + + + + | Magnesium | 2.4Comment: Testing | 1.7 - 2.4 mg/dL | EXTERNAL | | | | performed at [facility];[address] | | LAB | | | | [address];[place], [place] | | | | | | [address] | | | | + + + + + + + + | Specimen | + + | Blood specimen | | (specimen) | + + + +---------+ + + | Performing | Address | City/State/Zipcode | Phone Number | | Organization | | | | + +---------+ + + | EXTERNAL LAB | | | | + +---------+ + + Hemoglobin and Hematocrit (03/26/2018 4:00 PM PST) + + + + + + | Component | Value | Ref Range | Performed | Pathologist | | | | | At | Signature | + + + + + + | Hgb | 9.8 (L) | 11.3 - 15.5 | EXTERNAL | | | | | g/dL | LAB | | + + + + + + | Hematocrit, | 30.5 (L)Comment: Testing | 34.0 - 46.0 % | EXTERNAL | | | POC | performed at [facility];[address] | | LAB | | | | [address];[place], [place] | | | | | | [address] | | | | + + + + + + + + | Specimen | + + | | + + + +---------+ + + | Performing | Address | City/State/Zipcode | Phone Number | | Organization | | | | + +---------+ + + | EXTERNAL LAB | | | | + +---------+ + + Magnesium (03/26/2018 4:00 PM PST) + + + + + + | Component | Value | Ref Range | Performed | Pathologist | | | | | At | Signature | + + + + + + | Magnesium | 2.1Comment: Testing | 1.7 - 2.4 mg/dL | EXTERNAL | | | | performed at [facility];[address] | | LAB | | | | [address];[place] | | | | | | [address] | | | | + + + + + + + + | Specimen | + + | Blood specimen | | (specimen) | + + + +---------+ + + | Performing | Address | City/State/Zipcode | Phone Number | | Organization | | | | + +---------+ + + | EXTERNAL LAB | | | | + +---------+ + + Hemoglobin and Hematocrit (03/26/2018 12:07 PM PST) + + + + + + | Component | Value | Ref Range | Performed | Pathologist | | | | | At | Signature | + + + + + + | Hgb | 9.8 (L) | 11.3 - 15.5 | EXTERNAL | | | | | g/dL | LAB | | + + + + + + | Hematocrit, | 30.7 (L)Comment: Testing | 34.0 - 46.0 % | EXTERNAL | | | POC | performed at [facility];[address] | | LAB | | | | [address];[place] | | | | | | [address] | | | | + + + + + + + + | Specimen | + + | | + + + +---------+ + + | Performing | Address | City/State/Zipcode | Phone Number | | Organization | | | | + +---------+ + + | EXTERNAL LAB | | | | + +---------+ + + COLONOSCOPY (03/26/2018 10:56 AM PST) + + | Specimen | + + | | + + + + + | Narrative | Performed At | + + + | Historically converted procedure from [facility] Epic environment | EXTERNAL LAB | | [facility] | | | | | | Patient Name: Nancy Celis Procedure Date: | | | 03/26/2018 10:56 AM | | | Date of : 1940 | | | Note Status: Finalized Attending MD: Sven Harper , | | | Instrument Name: [id number] Colonoscope | | | | | | Procedure Type: Colonoscopy | | | Indications: Melena, Acute post hemorrhagic | | | anemia Medicines: Monitored Anesthesia | | | Care Complications: No immediate | | | complications. Estimated blood | | | loss: None. | | | | | | Procedure: Pre-Anesthesia Assessment: - | | | Prior to the procedure, a History and Physical was performed, and | | | patient medications and allergies were reviewed. The patient's | | | tolerance of previous anesthesia was also reviewed. The risks | | | and benefits of the procedure and the sedation options and | | | risks were discussed with the patient. All questions were | | | answered, and informed consent was obtained. Prior | | | Anticoagulants: The patient has taken Coumadin (warfarin). ASA | | | Grade Assessment: III - A patient with severe systemic disease. | | | After reviewing the risks and benefits, the patient was | | | deemed in satisfactory condition to undergo the procedure. | | | After I obtained informed consent, the scope was passed under | | | direct vision. Throughout the procedure, the patient's blood | | | pressure, pulse, and oxygen saturations were monitored | | | continuously. The Colonoscope was introduced through the anus | | | and advanced to 10 cm into the ileum. The colonoscopy was | | | performed without difficulty. The patient tolerated the | | | procedure well. The quality of the bowel preparation was adequate. The | | | terminal ileum, ileocecal valve, appendiceal orifice, and | | | rectum were photographed. | | | | | | Estimated Blood Loss: Estimated blood | | | loss: none. Scope Withdrawal Time 0 hours 19 minutes 15 seconds | | | Total Procedure Duration Time 0 hours 27 minutes 9 seconds Findings: | | | The terminal ileum appeared normal. Hematin (altered | | | blood/pplkob-nwmufo-pthw material) was found in the entire | | | colon. This was a very small amount of flaky material consistent | | | with melena/old blood. No fresh blood seen. No source of | | | blood loss seen in the entire colon. No ulcers, masses, | | | polyps, AVM's, or other source. | | | | | | Impression: - The examined portion of the ileum | | | was normal. - Very small amounts of black material consistent | | | with small amounts of blood in the entire examined colon. | | | - No specimens collected. - Exact source of GI bleed is | | | unclear | | | | | | Recommendation: - [facility] | | | care. - Advance diet as tolerated. - Continue present | | | medications. - Continue to monitor Hgb - Will only | | | perform repeat intervention if she bleeds again. - No | | | recommendation at this time regarding repeat colonoscopy. | | | | | | | | | Sven Harper, 03/26/2018 11:41:29 AM This report has been | | | signed electronically. Note Initiated On: 03/26/2018 10:56 AM | | | Number of Addenda: 0 [facility] | | [facility] | | + + + + +---------+ + + | Performing | Address | City/State/Zipcode | Phone Number | | Organization | | | | + +---------+ + + | EXTERNAL LAB | | | | + +---------+ + + Hemoglobin and Hematocrit (03/26/2018 8:39 AM PST) + + + + + + | Component | Value | Ref Range | Performed | Pathologist | | | | | At | Signature | + + + + + + | Hgb | 10.0 (L) | 11.3 - 15.5 | EXTERNAL | | | | | g/dL | LAB | | + + + + + + | Hematocrit, | 29.7 (L)Comment: Testing | 34.0 - 46.0 % | EXTERNAL | | | POC | performed at [facility];[id number] | [address] | | | | [address];[place], [place] | | | | | | [id number] | | | | + + + + + + + + | Specimen | + + | | + + + +---------+ + + | Performing | Address | City/State/Zipcode | Phone Number | | Organization | | | | + +---------+ + + | EXTERNAL LAB | | | | + +---------+ + + External Lab: [facility] (03/26/2018 4:48 AM PST) + + + + + + | Component | Value | Ref Range | Performed | Pathologist | | | | | At | Signature | + + + + + + | WBC | 5.81 | 3.80 - 11.00 | EXTERNAL | | | | | K/uL | LAB | | + + + + + + | RED CELL | 3.31 (L) | 3.70 - 5.10 | EXTERNAL | | | COUNT | | M/uL | LAB | | + + + + + + | Hgb | 9.8 (L) | 11.3 - 15.5 | EXTERNAL | | | | | g/dL | LAB | | + + + + + + | Hematocrit, | 29.8 (L) | 34.0 - 46.0 % | EXTERNAL | | | POC | | | LAB | | + + + + + + | MCV | 90.0 | 80.0 - 100.0 fl | EXTERNAL | | | | | | LAB | | + + + + + + | MCH | 29.7 | 27.0 - 34.0 pg | EXTERNAL | | | | | | LAB | | + + + + + + | MCHC | 33.0 | 32.0 - 35.5 | EXTERNAL | | | | | g/dL | LAB | | + + + + + + | RDW-CV | 52.5 | 37 - 53 fl | EXTERNAL | | | | | | LAB | | + + + + + + | Platelet | 164 | 150 - 400 K/uL | EXTERNAL | | | Count | | | LAB | | | Plasma | | | | | + + + + + + | MPV | 8.3 | fl | EXTERNAL | | | | | | LAB | | + + + + + + | Differentia | AUTOMATED | | EXTERNAL | | | l Type | | | LAB | | + + + + + + | % Segmented | 62.54 | % | EXTERNAL | | | | | | LAB | | | Neutrophils | | | | | + + + + + + | % | 24.61 | % | EXTERNAL | | | Lymphocytes | | | LAB | | + + + + + + | % Monocytes | 10.82 | % | EXTERNAL | | | | | | LAB | | + + + + + + | % | 1.52 | % | EXTERNAL | | | Eosinophils | | | LAB | | + + + + + + | % Basophils | 0.51 | % | EXTERNAL | | | | | | LAB | | + + + + + + | Absolute | 3.63 | 1.90 - 7.40 | EXTERNAL | | | Segmented | | K/uL | LAB | | | Neutrophils | | | | | + + + + + + | Absolute | 1.43 | 1.00 - 3.90 | EXTERNAL | | | Lymphocytes | | K/uL | LAB | | + + + + + + | Absolute | 0.63 | 0.00 - 0.80 | EXTERNAL | | | Monocytes | | K/uL | LAB | | + + + + + + | Absolute | 0.09 | 0.00 - 0.50 | EXTERNAL | | | Eosinophils | | K/uL | LAB | | + + + + + + | Absolute | 0.03Comment: Testing | 0.00 - 0.10 | EXTERNAL | | | Basophils | performed at [facility];[address] | K/u[address] | LAB | | | | [address];[place] | | | | | | [address] | | | | + + + + + + + + | Specimen | + + | Blood specimen | | (specimen) | + + + +---------+ + + | Performing | Address | City/State/Zipcode | Phone Number | | Organization | | | | + +---------+ + + | EXTERNAL LAB | | | | + +---------+ + + Phosphorus (03/26/2018 4:48 AM PST) + + + + + + | Component | Value | Ref Range | Performed | Pathologist | | | | | At | Signature | + + + + + + | PHOSPHORUS | 2.9Comment: Testing | 2.3 - 4.8 mg/dL | EXTERNAL | | | | performed at [facility], [address] | | LAB | | | | [address], | | | | | | [place] [address] | | | | + + + + + + + + | Specimen | + + | Blood specimen | | (specimen) | + + + +---------+ + + | Performing | Address | City/State/Zipcode | Phone Number | | Organization | | | | + +---------+ + + | EXTERNAL LAB | | | | + +---------+ + + Magnesium (03/26/2018 4:48 AM PST) + + + + + + | Component | Value | Ref Range | Performed | Pathologist | | | | | At | Signature | + + + + + + | Magnesium | 2.1Comment: Testing | 1.7 - 2.4 mg/dL | EXTERNAL | | | | performed at [facility], [address] | | LAB | | | | [address], | | | | | | [place] [address] | | | | + + + + + + + + | Specimen | + + | Blood specimen | | (specimen) | + + + +---------+ + + | Performing | Address | City/State/Zipcode | Phone Number | | Organization | | | | + +---------+ + + | EXTERNAL LAB | | | | + +---------+ + + Basic Metabolic Panel (03/26/2018 4:48 AM PST) + + + + + + | Component | Value | Ref Range | Performed | Pathologist | | | | | At | Signature | + + + + + + | Na | 146 (H) | 135 - 145 | EXTERNAL | | | | | mmol/L | LAB | | + + + + + + | K | 3.7 | 3.5 - 4.9 | EXTERNAL | | | | | mmol/L | LAB | | + + + + + + | Cl | 115 (H) | 99 - 109 mmol/L | EXTERNAL | | | | | | LAB | | + + + + + + | CO2 | 18 (L) | 23 - 32 mmol/L | EXTERNAL | | | | | | LAB | | + + + + + + | Anion Gap | 17 | 5 - 20 mmol/L | EXTERNAL | | | | | | LAB | | + + + + + + | Glucose, | 77 | 65 - 99 mg/dL | EXTERNAL | | | Fasting | | | LAB | | + + + + + + | BUN | 20 | 8 - 25 mg/dL | EXTERNAL | | | | | | LAB | | + + + + + + | Creatinine | 1.1 (H) | 0.50 - 1.00 | EXTERNAL | | | | | mg/dL | LAB | | + + + + + + | BUN/Creatin | 18 | | EXTERNAL | | | ine Ratio | | | LAB | | + + + + + + | Calcium | 7.7 (L) | 8.5 - 10.5 | EXTERNAL | | | | | mg/dL | LAB | | + + + + + + | Estimated | 48 (L)Comment: GFR <60: | mL/min/1.73m2 | EXTERNAL | | | GFR | CHRONIC KIDNEY DISEASE, | | LAB | | | | IF FOUND OVER A 3 MONTH | | | | | | PERIOD.GFR <15: KIDNEY | | | | | | FAILURE.FOR | | | | | | AMERICANS, MULTIPLY THE | | | | | | CALCULATED GFR BY | | | | | | 1.210.This eGFR is | | | | | | calculated using the | | | | | | MDRD IDWY traceable | | | | | | equation.Testing | | | | | | performed at [facility], [address] | | | | | | [facility], | | | | | | [place] [address] | | | | + + + + + + + + | Specimen | + + | Blood specimen | | (specimen) | + + + +---------+ + + | Performing | Address | City/State/Zipcode | Phone Number | | Organization | | | | + +---------+ + + | EXTERNAL LAB | | | | + +---------+ + + Hemoglobin and Hematocrit (03/25/2018 11:56 PM PST) + + + + + + | Component | Value | Ref Range | Performed | Pathologist | | | | | At | Signature | + + + + + + | Hgb | 10.1 (L) | 11.3 - 15.5 | EXTERNAL | | | | | g/dL | LAB | | + + + + + + | Hematocrit, | 31.2 (L)Comment: Testing | 34.0 - 46.0 % | EXTERNAL | | | POC | performed at [facility];[address] | | LAB | | | | [address];[place], [place] | | | | | | [address] | | | | + + + + + + + + | Specimen | + + | | + + + +---------+ + + | Performing | Address | City/State/Zipcode | Phone Number | | Organization | | | | + +---------+ + + | EXTERNAL LAB | | | | + +---------+ + + Hemoglobin and Hematocrit (03/25/2018 8:29 PM PST) + + + + + + | Component | Value | Ref Range | Performed | Pathologist | | | | | At | Signature | + + + + + + | Hgb | 10.8 (L) | 11.3 - 15.5 | EXTERNAL | | | | | g/dL | LAB | | + + + + + + | Hematocrit, | 33.3 (L)Comment: Testing | 34.0 - 46.0 % | EXTERNAL | | | POC | performed at [facility] | | LAB | | | | [address];[place], [place] | | | | | | [address] | | | | + + + + + + + + | Specimen | + + | | + + + +---------+ + + | Performing | Address | City/State/Zipcode | Phone Number | | Organization | | | | + +---------+ + + | EXTERNAL LAB | | | | + +---------+ + + Hemoglobin and Hematocrit (03/25/2018 3:53 PM PST) + + + + + + | Component | Value | Ref Range | Performed | Pathologist | | | | | At | Signature | + + + + + + | Hgb | 10.6 (L) | 11.3 - 15.5 | EXTERNAL | | | | | g/dL | LAB | | + + + + + + | Hematocrit, | 32.6 (L)Comment: Testing | 34.0 - 46.0 % | EXTERNAL | | | POC | performed at [facility];[address] | | LAB | | | | [address];[place] | | | | | | [address] | | | | + + + + + + + + | Specimen | + + | | + + + +---------+ + + | Performing | Address | City/State/Zipcode | Phone Number | | Organization | | | | + +---------+ + + | EXTERNAL LAB | | | | + +---------+ + + Endoscopy Procedures (03/25/2018 2:36 PM PST) + + | Specimen | + + | | + + + + + | Narrative | Performed At | + + + | Historically converted procedure from [facility] environment | EXTERNAL LAB | | [facility] | | | | | | Patient Name: Nancy Celis Procedure Date: | | | 03/25/2018 2:36 PM | | | Date of : 1940 | | | Note Status: Finalized Attending MD: Sven Harper , | | | Instrument Name: [id number] Gastroscope | | | | | | Procedure Type: Upper GI endoscopy | | | Indications: Melena Medicines: | | | Monitored Anesthesia Care Complications: | | | No immediate complications. Estimated blood | | | loss: None. | | | | | | Procedure: Pre-Anesthesia Assessment: - | | | Prior to the procedure, a History and Physical was performed, and | | | patient medications and allergies were reviewed. The patient's | | | tolerance of previous anesthesia was also reviewed. The risks | | | and benefits of the procedure and the sedation options and | | | risks were discussed with the patient. All questions were | | | answered, and informed consent was obtained. Prior | | | Anticoagulants: The patient has taken Coumadin (warfarin). ASA | | | Grade Assessment: III - A patient with severe systemic disease. | | | After reviewing the risks and benefits, the patient was | | | deemed in satisfactory condition to undergo the procedure. | | | After obtaining informed consent, the endoscope was passed under | | | direct vision. Throughout the procedure, the patient's blood | | | pressure, pulse, and oxygen saturations were monitored | | | continuously. The Endoscope was introduced through the mouth, | | | and advanced to the third part of duodenum. The upper GI | | | endoscopy was accomplished without difficulty. The patient | | | tolerated the procedure well. | | | | | | Estimated Blood Loss: Estimated blood loss: | | | none. Total Procedure Duration Time 0 hours 7 minutes 8 seconds | | | Findings: The esophagus was normal. A 5 cm hiatal | | | hernia was present. There is no endoscopic evidence of | | | bleeding, ulceration, varices or erosion in the entire | | | examined stomach. The examined duodenum was normal. | | | | | | Impression: - Normal | | | esophagus. - 5 cm hiatal hernia. - Normal examined | | | duodenum. - No specimens collected. | | | | | | Recommendation: - [facility] to | | | [facility]. - Clear liquid diet. - | | | Perform a colonoscopy tomorrow. - NPO after midnight | | | - Continue to monitor Hgb - Continue present medications. | | | | | | | | | Sven Harper, 03/25/2018 3:04:19 PM This report has been | | | signed electronically. Note Initiated On: 03/25/2018 2:36 PM Number | | | of Addenda: 0 [facility] - Endoscopy | | | Services | | + + + + +---------+ + + | Performing | Address | City/State/Zipcode | Phone Number | | Organization | | | | + +---------+ + + | EXTERNAL LAB | | | | + +---------+ + + Hemoglobin and Hematocrit (03/25/2018 11:22 AM PST) + + + + + + | Component | Value | Ref Range | Performed | Pathologist | | | | | At | Signature | + + + + + + | Hgb | 10.1 (L) | 11.3 - 15.5 | EXTERNAL | | | | | g/dL | LAB | | + + + + + + | Hematocrit, | 30.4 (L)Comment: Testing | 34.0 - 46.0 % | EXTERNAL | | | POC | performed at [facility];[address] | | LAB | | | | [address];[place], [place] | | | | | | [address] | | | | + + + + + + + + | Specimen | + + | | + + + +---------+ + + | Performing | Address | City/State/Zipcode | Phone Number | | Organization | | | | + +---------+ + + | EXTERNAL LAB | | | | + +---------+ + + Potassium (03/25/2018 11:22 AM PST) + + + + + + | Component | Value | Ref Range | Performed | Pathologist | | | | | At | Signature | + + + + + + | K | 4.1Comment: Testing | 3.5 - 4.9 | EXTERNAL | | | | performed at [facility];[address] | mmol/L | LAB | | | | [address];[place] | | | | | | [address] | | | | + + + + + + + + | Specimen | + + | Blood specimen | | (specimen) | + + + +---------+ + + | Performing | Address | City/State/Zipcode | Phone Number | | Organization | | | | + +---------+ + + | EXTERNAL LAB | | | | + +---------+ + + Hemoglobin and Hematocrit (03/25/2018 8:09 AM PST) + + + + + + | Component | Value | Ref Range | Performed | Pathologist | | | | | At | Signature | + + + + + + | Hgb | 9.5 (L) | 11.3 - 15.5 | EXTERNAL | | | | | g/dL | LAB | | + + + + + + | Hematocrit, | 28.0 (L)Comment: Testing | 34.0 - 46.0 % | EXTERNAL | | | POC | performed at [facility];[address] | | LAB | | | | [address];[place] | | | | | | [address] | | | | + + + + + + + + | Specimen | + + | | + + + +---------+ + + | Performing | Address | City/State/Zipcode | Phone Number | | Organization | | | | + +---------+ + + | EXTERNAL LAB | | | | + +---------+ + + Magnesium (03/25/2018 8:09 AM PST) + + + + + + | Component | Value | Ref Range | Performed | Pathologist | | | | | At | Signature | + + + + + + | Magnesium | 2.3Comment: Testing | 1.7 - 2.4 mg/dL | EXTERNAL | | | | performed at [facility];[address] | | LAB | | | | [address];[place], [place] | | | | | | [address] | | | | + + + + + + + + | Specimen | + + | Blood specimen | | (specimen) | + + + +---------+ + + | Performing | Address | City/State/Zipcode | Phone Number | | Organization | | | | + +---------+ + + | EXTERNAL LAB | | | | + +---------+ + + POC Glucose (03/25/2018 6:36 AM PST) + + + + + + | Component | Value | Ref Range | Performed | Pathologist | | | | | At | Signature | + + + + + + | Glucose, | 89Comment: Testing | 65 - 99 mg/dL | EXTERNAL | | | Fingerstick | performed at [facility];[address] | | LAB | | | | [address];[place] | | | | | | [address] | | | | + + + + + + + + | Specimen | + + | | + + + +---------+ + + | Performing | Address | City/State/Zipcode | Phone Number | | Organization | | | | + +---------+ + + | EXTERNAL LAB | | | | + +---------+ + + POC Glucose (03/25/2018 3:55 AM PST) + + + + + + | Component | Value | Ref Range | Performed | Pathologist | | | | | At | Signature | + + + + + + | Glucose, | 81Comment: Testing | 65 - 99 mg/dL | EXTERNAL | | | Fingerstick | performed at [facility];[address] | | LAB | | | | [address];[place] | | | | | | [address] | | | | + + + + + + + + | Specimen | + + | | + + + +---------+ + + | Performing | Address | City/State/Zipcode | Phone Number | | Organization | | | | + +---------+ + + | EXTERNAL LAB | | | | + +---------+ + + Protime INR (03/25/2018 3:47 AM PST) + + + + + + | Component | Value | Ref Range | Performed | Pathologist | | | | | At | Signature | + + + + + + | INR | 1.0Comment: REFERENCE | | EXTERNAL | | | | RANGE:0.9 - 1.2 | | LAB | | | | NON-ANTICOAGULATED2.0 | | | | | | - 3.0 ALL OTHER | | | | | | THERAPEUTIC | | | | | | INDICATIONS2.5 - 3.5 | | | | | | MECHANICAL HEART VALVES, | | | | | | RECURRENT OR SYSTEMIC | | | | | | EMBOLISMTesting | | | | | | performed at [facility];[address] | | | | | | [address];[place], [place] | | | | | | [address] | | | | + + + + + + + + | Specimen | + + | Blood specimen | | (specimen) | + + + +---------+ + + | Performing | Address | City/State/Zipcode | Phone Number | | Organization | | | | + +---------+ + + | EXTERNAL LAB | | | | + +---------+ + + External Lab: CHACHO (03/25/2018 3:47 AM PST) + + + + + + | Component | Value | Ref Range | Performed | Pathologist | | | | | At | Signature | + + + + + + | WBC | 4.76 | 3.80 - 11.00 | EXTERNAL | | | | | K/uL | LAB | | + + + + + + | RED CELL | 3.01 (L) | 3.70 - 5.10 | EXTERNAL | | | COUNT | | M/uL | LAB | | + + + + + + | Hgb | 9.0 (L) | 11.3 - 15.5 | EXTERNAL | | | | | g/dL | LAB | | + + + + + + | Hematocrit, | 26.9 (L) | 34.0 - 46.0 % | EXTERNAL | | | POC | | | LAB | | + + + + + + | MCV | 89.4 | 80.0 - 100.0 fl | EXTERNAL | | | | | | LAB | | + + + + + + | MCH | 30.1 | 27.0 - 34.0 pg | EXTERNAL | | | | | | LAB | | + + + + + + | MCHC | 33.7 | 32.0 - 35.5 | EXTERNAL | | | | | g/dL | LAB | | + + + + + + | RDW-CV | 50.8 | 37 - 53 fl | EXTERNAL | | | | | | LAB | | + + + + + + | Platelet | 143 (L) | 150 - 400 K/uL | EXTERNAL | | | Count | | | LAB | | | Plasma | | | | | + + + + + + | MPV | 8.4 | fl | EXTERNAL | | | | | | LAB | | + + + + + + | Differentia | AUTOMATED | | EXTERNAL | | | l Type | | | LAB | | + + + + + + | % Segmented | 57.07 | % | EXTERNAL | | | | | | LAB | | | Neutrophils | | | | | + + + + + + | % | 27.49 | % | EXTERNAL | | | Lymphocytes | | | LAB | | + + + + + + | % Monocytes | 13.85 | % | EXTERNAL | | | | | | LAB | | + + + + + + | % | 0.91 | % | EXTERNAL | | | Eosinophils | | | LAB | | + + + + + + | % Basophils | 0.68 | % | EXTERNAL | | | | | | LAB | | + + + + + + | Absolute | 2.72 | 1.90 - 7.40 | EXTERNAL | | | Segmented | | K/uL | LAB | | | Neutrophils | | | | | + + + + + + | Absolute | 1.31 | 1.00 - 3.90 | EXTERNAL | | | Lymphocytes | | K/uL | LAB | | + + + + + + | Absolute | 0.66 | 0.00 - 0.80 | EXTERNAL | | | Monocytes | | K/uL | LAB | | + + + + + + | Absolute | 0.04 | 0.00 - 0.50 | EXTERNAL | | | Eosinophils | | K/uL | LAB | | + + + + + + | Absolute | 0.03Comment: Testing | 0.00 - 0.10 | EXTERNAL | | | Basophils | performed at [facility];[address] | K/uL | LAB | | | | [address];[place], [place] | | | | | | [address] | | | | + + + + + + + + | Specimen | + + | Blood specimen | | (specimen) | + + + +---------+ + + | Performing | Address | City/State/Zipcode | Phone Number | | Organization | | | | + +---------+ + + | EXTERNAL LAB | | | | + +---------+ + + Phosphorus (03/25/2018 3:47 AM PST) + + + + + + | Component | Value | Ref Range | Performed | Pathologist | | | | | At | Signature | + + + + + + | PHOSPHORUS | 3.5Comment: Testing | 2.3 - 4.8 mg/dL | EXTERNAL | | | | performed at [facility], [address] | | LAB | | | | [address], | | | | | | [place] [address] | | | | + + + + + + + + | Specimen | + + | Blood specimen | | (specimen) | + + + +---------+ + + | Performing | Address | City/State/Zipcode | Phone Number | | Organization | | | | + +---------+ + + | EXTERNAL LAB | | | | + +---------+ + + Magnesium (03/25/2018 3:47 AM PST) + + + + + + | Component | Value | Ref Range | Performed | Pathologist | | | | | At | Signature | + + + + + + | Magnesium | 1.9Comment: Testing | 1.7 - 2.4 mg/dL | EXTERNAL | | | | performed at [facility], [address] | | LAB | | | | [address], | | | | | | [place] [address] | | | | + + + + + + + + | Specimen | + + | Blood specimen | | (specimen) | + + + +---------+ + + | Performing | Address | City/State/Zipcode | Phone Number | | Organization | | | | + +---------+ + + | EXTERNAL LAB | | | | + +---------+ + + Basic Metabolic Panel (03/25/2018 3:47 AM PST) + + + + + + | Component | Value | Ref Range | Performed | Pathologist | | | | | At | Signature | + + + + + + | Na | 143 | 135 - 145 | EXTERNAL | | | | | mmol/L | LAB | | + + + + + + | K | 3.5 | 3.5 - 4.9 | EXTERNAL | | | | | mmol/L | LAB | | + + + + + + | Cl | 114 (H) | 99 - 109 mmol/L | EXTERNAL | | | | | | LAB | | + + + + + + | CO2 | 20 (L) | 23 - 32 mmol/L | EXTERNAL | | | | | | LAB | | + + + + + + | Anion Gap | 13 | 5 - 20 mmol/L | EXTERNAL | | | | | | LAB | | + + + + + + | Glucose, | 83 | 65 - 99 mg/dL | EXTERNAL | | | Fasting | | | LAB | | + + + + + + | BUN | 31 (H) | 8 - 25 mg/dL | EXTERNAL | | | | | | LAB | | + + + + + + | Creatinine | 1.3 (H) | 0.50 - 1.00 | EXTERNAL | | | | | mg/dL | LAB | | + + + + + + | BUN/Creatin | 24 | | EXTERNAL | | | ine Ratio | | | LAB | | + + + + + + | Calcium | 7.2 (L) | 8.5 - 10.5 | EXTERNAL | | | | | mg/dL | LAB | | + + + + + + | Estimated | 40 (L)Comment: GFR <60: | mL/min/1.73m2 | EXTERNAL | | | GFR | CHRONIC KIDNEY DISEASE, | | LAB | | | | IF FOUND OVER A 3 MONTH | | | | | | PERIOD.GFR <15: KIDNEY | | | | | | FAILURE.FOR | | | | | | AMERICANS, MULTIPLY THE | | | | | | CALCULATED GFR BY | | | | | | 1.210.This eGFR is | | | | | | calculated using the | | | | | | MDRD IDWY traceable | | | | | | equation.Testing | | | | | | performed at [facility], [address] | | | | | | [facility], | | | | | | [place] [address] | | | | + + + + + + + + | Specimen | + + | Blood specimen | | (specimen) | + + + +---------+ + + | Performing | Address | City/State/Zipcode | Phone Number | | Organization | | | | + +---------+ + + | EXTERNAL LAB | | | | + +---------+ + + External Lab: CBC (03/25/2018 12:01 AM PST) + + + + + + | Component | Value | Ref Range | Performed | Pathologist | | | | | At | Signature | + + + + + + | WBC | 6.38 | 3.80 - 11.00 | EXTERNAL | | | | | K/uL | LAB | | + + + + + + | RED CELL | 3.28 (L) | 3.70 - 5.10 | EXTERNAL | | | COUNT | | M/uL | LAB | | + + + + + + | Hgb | 9.7 (L) | 11.3 - 15.5 | EXTERNAL | | | | | g/dL | LAB | | + + + + + + | Hematocrit, | 29.8 (L) | 34.0 - 46.0 % | EXTERNAL | | | POC | | | LAB | | + + + + + + | MCV | 90.8 | 80.0 - 100.0 fl | EXTERNAL | | | | | | LAB | | + + + + + + | MCH | 29.5 | 27.0 - 34.0 pg | EXTERNAL | | | | | | LAB | | + + + + + + | MCHC | 32.5 | 32.0 - 35.5 | EXTERNAL | | | | | g/dL | LAB | | + + + + + + | RDW-CV | 50.8 | 37 - 53 fl | EXTERNAL | | | | | | LAB | | + + + + + + | Platelet | 149 (L) | 150 - 400 K/uL | EXTERNAL | | | Count | | | LAB | | | Plasma | | | | | + + + + + + | MPV | 8.7 | fl | EXTERNAL | | | | | | LAB | | + + + + + + | Differentia | AUTOMATED | | EXTERNAL | | | l Type | | | LAB | | + + + + + + | % Segmented | 61.65 | % | EXTERNAL | | | | | | LAB | | | Neutrophils | | | | | + + + + + + | % | 25.27 | % | EXTERNAL | | | Lymphocytes | | | LAB | | + + + + + + | % Monocytes | 11.87 | % | EXTERNAL | | | | | | LAB | | + + + + + + | % | 0.81 | % | EXTERNAL | | | Eosinophils | | | LAB | | + + + + + + | % Basophils | 0.40 | % | EXTERNAL | | | | | | LAB | | + + + + + + | Absolute | 3.94 | 1.90 - 7.40 | EXTERNAL | | | Segmented | | K/uL | LAB | | | Neutrophils | | | | | + + + + + + | Absolute | 1.61 | 1.00 - 3.90 | EXTERNAL | | | Lymphocytes | | K/uL | LAB | | + + + + + + | Absolute | 0.76 | 0.00 - 0.80 | EXTERNAL | | | Monocytes | | K/uL | LAB | | + + + + + + | Absolute | 0.05 | 0.00 - 0.50 | EXTERNAL | | | Eosinophils | | K/uL | LAB | | + + + + + + | Absolute | 0.03Comment: Testing | 0.00 - 0.10 | EXTERNAL | | | Basophils | performed at [facility];[address] | K/uL | LAB | | | | [address];[place], [place] | | | | | | [address] | | | | + + + + + + + + | Specimen | + + | Blood specimen | | (specimen) | + + + +---------+ + + | Performing | Address | City/State/Zipcode | Phone Number | | Organization | | | | + +---------+ + + | EXTERNAL LAB | | | | + +---------+ + + Calcium, Ionized (03/25/2018 12:01 AM PST) + + + + + + | Component | Value | Ref Range | Performed | Pathologist | | | | | At | Signature | + + + + + + | Calcium | 1.06 (L) | 1.08 - 1.25 | EXTERNAL | | | (Calc) | | mmol/L | LAB | | + + + + + + | pH, Bld | 7.261 (L)Comment: | 7.300 - 7.450 | EXTERNAL | | | | Testing performed at | | LAB | | | | [facility];[address] [facility] | | | | | [address];[place] [address] | | | | + + + + + + + + | Specimen | + + | Blood specimen | | (specimen) | + + + +---------+ + + | Performing | Address | City/State/Zipcode | Phone Number | | Organization | | | | + +---------+ + + | EXTERNAL LAB | | | | + +---------+ + + POC Glucose (03/24/2018 11:18 PM PST) + + + + + + | Component | Value | Ref Range | Performed | Pathologist | | | | | At | Signature | + + + + + + | Glucose, | 81Comment: Testing | 65 - 99 mg/dL | EXTERNAL | | | Fingerstick | performed at [facility];[address] | | LAB | | | | [address];[place] | | | | | | [address] | | | | + + + + + + + + | Specimen | + + | | + + + +---------+ + + | Performing | Address | City/State/Zipcode | Phone Number | | Organization | | | | + +---------+ + + | EXTERNAL LAB | | | | + +---------+ + + MRSA NAAT (03/24/2018 9:14 PM PST) + + | Specimen | + + | | + + + + + | Narrative | Performed At | + + + | SOURCE NARES(NOSE) MRSA | EXTERNAL LAB | | PCR NEGATIVE Testing | | | performed at [facility];[address];[place] [address] | | + + + + +---------+ + + | Performing | Address | City/State/Zipcode | Phone Number | | Organization | | | | + +---------+ + + | EXTERNAL LAB | | | | + +---------+ + + POC Glucose (03/24/2018 8:49 PM PST) + + + + + + | Component | Value | Ref Range | Performed | Pathologist | | | | | At | Signature | + + + + + + | Glucose, | 76Comment: Testing | 65 - 99 mg/dL | EXTERNAL | | | Fingerstick | performed at [facility];[address] | | LAB | | | | [address];[place] | | | | | | [address] | | | | + + + + + + + + | Specimen | + + | | + + + +---------+ + + | Performing | Address | City/State/Zipcode | Phone Number | | Organization | | | | + +---------+ + + | EXTERNAL LAB | | | | + +---------+ + + Hemoglobin and Hematocrit (03/24/2018 6:03 PM PST) + + + + + + | Component | Value | Ref Range | Performed | Pathologist | | | | | At | Signature | + + + + + + | Hgb | 7.6 (L) | 11.3 - 15.5 | EXTERNAL | | | | | g/dL | LAB | | + + + + + + | Hematocrit, | 23.2 (L)Comment: Testing | 34.0 - 46.0 % | EXTERNAL | | | POC | performed at [facility];[address] | | LAB | | | | [address];[place] | | | | | | [address] | | | | + + + + + + + + | Specimen | + + | | + + + +---------+ + + | Performing | Address | City/State/Zipcode | Phone Number | | Organization | | | | + +---------+ + + | EXTERNAL LAB | | | | + +---------+ + + Protime INR (03/24/2018 6:03 PM PST) + + + + + + | Component | Value | Ref Range | Performed | Pathologist | | | | | At | Signature | + + + + + + | INR | 1.1Comment: REFERENCE | | EXTERNAL | | | | RANGE:0.9 - 1.2 | | LAB | | | | NON-ANTICOAGULATED2.0 | | | | | | - 3.0 ALL OTHER | | | | | | THERAPEUTIC | | | | | | INDICATIONS2.5 - 3.5 | | | | | | MECHANICAL HEART VALVES, | | | | | | RECURRENT OR SYSTEMIC | | | | | | EMBOLISMTesting | | | | | | performed at [facility];[id number] | | | | | | [facility];[place], [place] | | | | | | [address] | | | | + + + + + + + + | Specimen | + + | Blood specimen | | (specimen) | + + + +---------+ + + | Performing | Address | City/State/Zipcode | Phone Number | | Organization | | | | + +---------+ + + | EXTERNAL LAB | | | | + +---------+ + + XR Chest 1 Vw (03/24/2018 3:41 PM PST) + + | Specimen | + + | | + + + + + | Narrative | Performed At | + + + | This is a non-reportable procedure without a radiologist report and | | | is used for image storage only | | + + + + + | Procedure Note | + + | Eliceo Alejandre - 11/01/2018 10:16 PM PDT This is a non-reportable procedure | | without a radiologist report and isused for image storage only | + + documented in this encounter Visit Diagnoses + + | Diagnosis | + + | Diagnosis unknown Other unknown and unspecified cause of morbidity or mortality | + + | Hypotension due to hypovolemia | + + | Acute upper GI bleed Hemorrhage of gastrointestinal tract, unspecified | + + | Anemia associated with acute blood loss Acute posthemorrhagic anemia | + + | Dementia without behavioral disturbance, unspecified dementia type (HCC) | + + | Acute blood loss anemia Acute posthemorrhagic anemia | + + | Gastrointestinal hemorrhage with melena | + + documented in this encounter
--- OUTSIDE RECORDS SUMMARY | ~2019-03-28 | XMS | Encounter Summary ---
Demographics + + + | Address | [address] | | | [place] [address] | + + + | Home Phone | | + + + | Preferred Language | Unknown | + + + | Marital Status | | + + + | Yarsanism Affiliation | Unknown | + + + | Race | Unknown | + + + | Ethnic Group | Unknown | + + + Author + + + | Author | [facility] | | | and [place] | + + + | Organization | [facility] | | | and [place] [...] Team Providers + +------+ + | Care Product Coordinator Name | Role | Phone | + +------+ + PCP | Unavailable | + +------+ + Encounter Details +--------+ + + + + | Date | Type | Department | Care Team | Description | +--------+ + + + + | 11/11/ | Hospital | [facility] | Gerardo Castro MD | | | 2006 | Encounter | MED CTR GENERIC OP | [address], [place] | | | | | CONV DEPT [address] | [address] [place], [place] | | | | | [place], | [address] | | | | | [place] [address] | | | | | | [phone] | | | +--------+ + + + [...]
--- OUTSIDE RECORDS SUMMARY | ~2019-03-28 | XMS | Encounter Summary ---
Demographics + + + | Address | [address] | | | [place] [address] | + + + | Home Phone [...] | Author | [facility] | | | and [place] | + + + | Organization | [facility] | | | and [place] [...] Team Providers + +------+ + | Care Labor Law Professor Name | Role | Phone | [...] + + | 07/20/ | Telephone | [facility] | Maya Curry MD | Medication Refill | | 2017 | | MEDICINE [facility]UNFER[facility]INE | [address] | | | | | [address] | [place], [place] | | | | | [place], [place] | [address] | | | | | [address] | | | | | | [phone] | | | +--------+ + + + [...]
--- OUTSIDE RECORDS SUMMARY | ~2019-03-28 | XMS | Encounter Summary ---
Demographics + + + | Address | [address] | | | [place] [address] | + + + | Home Phone | | + + + | Preferred Language | Unknown | + + + | Marital Status | | + + + | Shinto Affiliation | Unknown | + + + | Race | Unknown | + + + | Ethnic Group | Unknown | + + + Author + + + | Author | [facility] | | | and [place] | + + + | Organization | [facility] | | | and [...] Team Providers + +------+ + | Care Hse Specialist Name | Role | Phone | + +------+ + | Maya Curry MD | PCP | | + +------+ + Encounter Details +--------+ + + + + | Date | Type | Department | Care Team | Description | +--------+ + + + + | 07/07/ | Orders Only | [facility] | Erasmo Hornerarcelia [place], | | | 2017 | | CONVERSION [address] | MD [address] | | | | | [address] | [address] [place] | | | | | [place], [place] | [address] | | | | | [address] | | | | | | [phone] | | | +--------+ + + + [...] | + +--------+ + + + | ECHO INTERPRETATION | Routin | 07/07/2017 | | Results for this | | OF OUTSIDE FILMS | e | 4:56 PM | | procedure are in the | | | | PDT | | results section. | + +--------+ + + + documented in this encounter Results ECHO Interpretation of Outside Films (07/07/2017 4:56 PM PDT) + + | Specimen | + + | | + + + + + | Impressions | Performed At | + + + | 1. The left ventricle is normal in size, wall thickness and low | | | normal systolic function EF 50-55% . 2. The right ventricle is | | | moderately enlarged with mildly impaired systolic function. 3. Severe | | | tricuspid regurgitation with moderate to severe pulmonary | | | hypertension RVSP 62 mmHg 4. There is no pericardial effusion. | | + + + + + + | Narrative | Performed At | + + + | Patient Name: Nancy Unger Date of : 1940 | | | Performing Physician: Jam Calles | | | | | | INDICATIONS INPATIENT: STROKE CONCLUSIONS | | | 1. The left ventricle is normal in size, wall thickness | | | and low normal systolic function EF 50-55% . 2. The right ventricle | | | is moderately enlarged with mildly impaired systolic function. 3. | | | Severe tricuspid regurgitation with moderate to severe pulmonary | | | hypertension RVSP 62 mmHg 4. There is no pericardial effusion. | | | FINDINGS -------- ECG rhythm: Atrial fibrillation. Study: A | | | 2-dimensional transthoracic echocardiogram with m-mode, spectral and | | | color flow Doppler was perfomed. Study: This was a technically | | | adequate study. Left Ventricle: Overall left ventricular systolic | | | function is low-normal with, an EF between 50 - 55 %. Left Ventricle: | | | The left ventricle cavity size is normal. Left Ventricle: Left | | | ventricular wall thickness is normal. Right Ventricle: The right | | | ventricle is moderately enlarged. Right Ventricle: The right | | | ventricular systolic function is mildly impaired. Left Atrium: The | | | left atrium is markedly dilated. Right Atrium: The right atrium is | | | moderately enlarged. Aortic Valve: The aortic valve is trileaflet. | | | Aortic Valve: The aortic valve is mildly calcified. Aortic Valve: | | | There is mild aortic regurgitation. Mitral Valve: Mild mitral | | | regurgitation is present. Mitral Valve: Mild mitral annular | | | calcification present. Tricuspid Valve: The tricuspid valve appears | | | structurally normal. Tricuspid Valve: Severe tricuspid regurgitation | | | present. Tricuspid Valve: There is moderate to severe pulmonary | | | hypertension. Tricuspid Valve: The right ventricular systolic | | | pressure (pulmonary artery systolic pressure), as measured by Doppler, | | | is 62.04mmHg. Pulmonic Valve: The pulmonic valve is normal. | | | Pulmonic Valve: Mild pulmonic regurgitation. Pericardium: There is no | | | pericardial effusion. Pericardium: No pleural effusion seen. | | | IVC/Hepatic Veins: The IVC is normal size (1.5-2.5cm) and collapses | | | <50% with sniff, consistent with central venous pressures of | | | 10-15mmHg. MEASUREMENTS RA Area: 28.73 cm2 Ao | | | asc: 2.94 cm Ao Diam: 2.78 cm IVC: 2.02 cm EDV(Teich): | | | 105.08 ml IVSd: 1.01 cm LVIDd: 4.75 cm LVPWd: 1.02 cm | | | LVOT Diam: 1.76 cm %FS: 25.96 % EF(Teich): 50.96 % | | | ESV(Teich): 51.53 ml LVIDs: 3.51 cm SV(Teich): 53.55 ml | | | RVIDd: 3.95 cm LVEF MOD A4C: 51.97 % SV MOD A4C: 42.97 ml | | | LVEDV MOD A4C: 82.69 ml LVLd A4C: 6.39 cm LVESV MOD A4C: | | | 39.71 ml LVLs A4C: 5.52 cm LAESV(A-L): 146.35 ml LAESV Index | | | (A-L): 83.15 ml/m2 LAAs A2C: 33.81 cm2 LAESV A-L A2C: | | | 142.49 ml LALs A2C: 6.81 cm LAAs A4C: 34.72 cm2 LAESV A-L | | | A4C: 134.41 ml LALs A4C: 7.61 cm TAPSE: 1.54 cm AR Dec | | | [place]: 1.90 m/s2 AR Dec Time: 2358.76 ms AR maxP.26 | | | mmHg AR PHT: 684.04 ms AR Vmax: 4.00 m/s HR: 55.71 BPM AV | | | maxP.35 mmHg AV meanP.96 mmHg AV Vmax: 1.52 m/s | | | AV Vmean: 1.02 m/s AV VTI: 39.70 cm THOMAS Vmax: 1.41 cm2 THOMAS | | | (VTI): 1.07 cm2 AVAI Vmax: 0.00 cm2/m2 AVAI (VTI): 0.00 | | | cm2/m2 LVCI Dopp: 1.54 l/minm2 LVCO Dopp: 2.71 l/min HR: | | | 63.74 BPM LVOT maxP.11 mmHg LVOT meanP.76 mmHg LVSI | | | Dopp: 24.22 ml/m2 LVSV Dopp: 42.63 ml LVOT Vmax: 0.88 m/s | | | LVOT Vmean: 0.61 m/s LVOT VTI: 17.34 cm MV A Chong: 0.28 m/s | | | MV DecT: 225.31 ms MV E Chong: 1.31 m/s MV E/A Ratio: 4.60 | | | Septal e': 0.04 m/s Septal E/e': 28.48 Lateral e': 0.07 m/s | | | Lateral E/e': 18.16 PV maxP.85 mmHg PV Vmax: 2.33 | | | m/s RAP: 10 mmHg RVSP: 62.03 mmHg TR maxP.03 mmHg TR | | | Vmax: 3.60 m/s Saddle And Side Wire Stitcher: Authenticated by: Jam | | | Stevan Report Date/Time: 07-07-2017 20:14:40 | | + + + + + | Procedure Note | + + | Hill, Rad Conversion - 11/10/2018 5:30 PM PDT Patient Name: Susan Unger | | of : 1940 Performing Physician: Jam | | Stevan INDICATIONS------ | | -----INPATIENT: STROKE CONCLUSIONS 1. The left ventricle is normal in size, | | wall thickness and low normal systolic function EF 50-55% .2. The right ventricle is | | moderately enlarged with mildly impaired systolic function.3. Severe tricuspid | | regurgitation with moderate to severe pulmonary hypertension RVSP 62 mmHg4. There is no | | pericardial effusion. FINDINGS--------ECG rhythm: Atrial fibrillation.Study: A | | 2-dimensional transthoracic echocardiogram with m-mode, spectral and color flow Doppler | | was perfomed.Study: This was a technically adequate study.Left Ventricle: Overall left | | ventricular systolic function is low-normal with, an EF between 50 - 55 %.Left | | Ventricle: The left ventricle cavity size is normal.Left Ventricle: Left ventricular | | wall thickness is normal.Right Ventricle: The right ventricle is moderately | | enlarged.Right Ventricle: The right ventricular systolic function is mildly | | impaired.Left Atrium: The left atrium is markedly dilated.Right Atrium: The right atrium | | is moderately enlarged.Aortic Valve: The aortic valve is trileaflet.Aortic Valve: The | | aortic valve is mildly calcified.Aortic Valve: There is mild aortic regurgitation.Mitral | | Valve: Mild mitral regurgitation is present.Mitral Valve: Mild mitral annular | | calcification present.Tricuspid Valve: The tricuspid valve appears structurally | | normal.Tricuspid Valve: Severe tricuspid regurgitation present.Tricuspid Valve: There is | | moderate to severe pulmonary hypertension.Tricuspid Valve: The right ventricular | | systolic pressure (pulmonary artery systolic pressure), as measured by Doppler, is | | 62.04mmHg.Pulmonic Valve: The pulmonic valve is normal.Pulmonic Valve: Mild pulmonic | | regurgitation.Pericardium: There is no pericardial effusion.Pericardium: No pleural | | effusion seen.IVC/Hepatic Veins: The IVC is normal size (1.5-2.5cm) and collapses <50% | | with sniff, consistent with central venous pressures of 10-15mmHg. | | MEASUREMENTS RA Area: 28.73 cm2Ao asc: 2.94 cmAo Diam: 2.78 cmIVC: | | 2.02 cmEDV(Teich): 105.08 mlIVSd: 1.01 cmLVIDd: 4.75 cmLVPWd: 1.02 cmLVOT Diam: | | 1.76 cm%FS: 25.96 %EF(Teich): 50.96 %ESV(Teich): 51.53 mlLVIDs: 3.51 | | cmSV(Teich): 53.55 mlRVIDd: 3.95 cmLVEF MOD A4C: 51.97 %SV MOD A4C: 42.97 | | mlLVEDV MOD A4C: 82.69 mlLVLd A4C: 6.39 cmLVESV MOD A4C: 39.71 mlLVLs A4C: 5.52 | | cmLAESV(A-L): 146.35 mlLAESV Index (A-L): 83.15 ml/m2LAAs A2C: 33.81 [id number] A-L | | A2C: 142.49 mlLALs A2C: 6.81 cmLAAs A4C: 34.72 [id number] A-L A4C: 134.41 mlLALs | | A4C: 7.61 cmTAPSE: 1.54 cmAR Dec [place]: 1.90 m/s2AR Dec Time: 2358.76 msAR | | maxP.26 mmHgAR PHT: 684.04 msAR Vmax: 4.00 m/sHR: 55.71 BPMAV maxP.35 | | mmHgAV meanP.96 mmHgAV Vmax: 1.52 m/Sariah Vmean: 1.02 m/Sariah VTI: 39.70 cmAVA | | Vmax: 1.41 cm2AVA (VTI): 1.07 [id number] Vmax: 0.00 cm2/m2AVAI (VTI): 0.00 | | cm2/m2LVCI Dopp: 1.54 l/loyi3WZAF Dopp: 2.71 l/minHR: 63.74 BPMLVOT maxP.11 | | mmHgLVOT meanP.76 mmHgLVSI Dopp: 24.22 ml/m2LVSV Dopp: 42.63 mlLVOT Vmax: | | 0.88 m/sLVOT Vmean: 0.61 m/sLVOT VTI: 17.34 cmMV A Chong: 0.28 m/sMV DecT: 225.31 | | msMV E Chong: 1.31 m/sMV E/A Ratio: 4.60Septal e': 0.04 m/sSeptal E/e': | | 28.48Lateral e': 0.07 m/sLateral E/e': 18.16PV maxP.85 mmHgPV Vmax: 2.33 | | m/sRAP: 10 mmHgRVSP: 62.03 mmHgTR maxP.03 mmHgTR Vmax: 3.60 m/s | | Saddle And Side Wire Stitcher:Authenticated by: Jam Keys Date/Time: 07-07-2017 20:14:40 | | IMPRESSION: 1. The left ventricle is normal in size, wall thickness and low normal | | systolic function EF 50-55% .2. The right ventricle is moderately enlarged with mildly | | impaired systolic function.3. Severe tricuspid regurgitation with moderate to severe | | pulmonary hypertension RVSP 62 mmHg4. There is no pericardial effusion. | |RA Area: 28.73 cm2 | |Ao asc: 2.94 cm | |Ao Diam: 2.78 cm | |IVC: 2.02 cm | |EDV(Teich): 105.08 ml | |IVSd: 1.01 cm | |LVIDd: 4.75 cm | |LVPWd: 1.02 cm | |LVOT Diam: 1.76 cm | |%FS: 25.96 % | |EF(Teich): 50.96 % | |ESV(Teich): 51.53 ml | |LVIDs: 3.51 cm | |SV(Teich): 53.55 ml | |RVIDd: 3.95 cm | |LVEF MOD A4C: 51.97 % | |SV MOD A4C: 42.97 ml | |LVEDV MOD A4C: 82.69 ml | |LVLd A4C: 6.39 cm | |LVESV MOD A4C: 39.71 ml | |LVLs A4C: 5.52 cm | |LAESV(A-L): 146.35 ml | |LAESV Index (A-L): 83.15 ml/m2 | |LAAs A2C: 33.81 cm2 | |LAESV A-L A2C: 142.49 ml | |LALs A2C: 6.81 cm | |LAAs A4C: 34.72 cm2 | |LAESV A-L A4C: 134.41 ml | |LALs A4C: 7.61 cm | |TAPSE: 1.54 cm | |AR Dec [place]: 1.90 m/s2 | |AR Dec Time: 2358.76 ms | |AR maxP.26 mmHg | |AR PHT: 684.04 ms | |AR Vmax: 4.00 m/s | |HR: 55.71 BPM | |AV maxP.35 mmHg | |AV meanP.96 mmHg | |AV Vmax: 1.52 m/s | |AV Vmean: 1.02 m/s | |AV VTI: 39.70 cm | |THOMAS Vmax: 1.41 cm2 | |THOMAS (VTI): 1.07 cm2 | |AVAI Vmax: 0.00 cm2/m2 | |AVAI (VTI): 0.00 cm2/m2 | |LVCI Dopp: 1.54 l/minm2 | |LVCO Dopp: 2.71 l/min | |HR: 63.74 BPM | |LVOT maxP.11 mmHg | |LVOT meanP.76 mmHg | |LVSI Dopp: 24.22 ml/m2 | |LVSV Dopp: 42.63 ml | |LVOT Vmax: 0.88 m/s | |LVOT Vmean: 0.61 m/s | |LVOT VTI: 17.34 cm | |MV A Chong: 0.28 m/s | |MV DecT: 225.31 ms | |MV E Chong: 1.31 m/s | |MV E/A Ratio: 4.60 | |Septal e': 0.04 m/s | |Septal E/e': 28.48 | |Lateral e': 0.07 m/s | |Lateral E/e': 18.16 | |PV maxP.85 mmHg | |PV Vmax: 2.33 m/s | |RAP: 10 mmHg | |RVSP: 62.03 mmHg | |TR maxP.03 mmHg | |TR Vmax: 3.60 m/s | | | |Saddle And Side Wire Stitcher: | |Authenticated by: Jam Calles | |Report Date/Time: 07-07-2017 20:14:40 | | | |IMPRESSION: | |1. The left ventricle is normal in size, wall thickness and low normal systolic function EF 50-55% . | |2. The right ventricle is moderately enlarged with mildly impaired systolic function. | |3. Severe tricuspid regurgitation with moderate to severe pulmonary hypertension RVSP 62 mm Hg | |4. There is no pericardial effusion. | + + documented in this encounter Visit Diagnoses Not on filedocumented in this encounter"
--- OUTSIDE RECORDS SUMMARY | ~2019-03-28 | XMS | Encounter Summary ---
Demographics + + + | Address | [address] | | | [place] [address] | + + + | Home Phone [...] Author | [facility] | | | and [place] | + + + | Organization | [facility] | | | and [place] [...] Providers + +------+ + | Care Bottle Feeder Name | Role | Phone | + +------+ + PCP | Unavailable | + +------+ + Encounter Details +--------+ + + + + | Date | Type | Department | Care Team | Description | +--------+ + + + + | 09/08/ | Hospital | [facility] | | | | 2000 | Encounter | MED CTR XRAY [address] | | | | | | [place] | | | | | | [place] [address] | | | | | | [phone] | | | +--------+ + + + [...]
--- OUTSIDE RECORDS SUMMARY | ~2019-03-28 | XMS | Encounter Summary ---
Demographics + + + | Address | [address] | | | [place] [address] | + + + | Home Phone [...] + + | Author | [facility] | | | and [place] | + + + | Organization | [facility] | | | [...] Team Providers + +------+ + | Care Motel Keeper Name | Role | Phone | + +------+ + PCP | Unavailable | + +------+ + Encounter Details +--------+ + + + + | Date | Type | Department | Care Team | Description | +--------+ + + + + | 09/16/ | Hospital | [facility] | | | | 2000 | Encounter | MED CTR GENERIC OP | | | | | | CONV DEPT [address] | | | | | | [place], | | | | | | [place] [address] | | | | | | [phone] | | | +--------+ + + + [...]
--- OUTSIDE RECORDS SUMMARY | ~2019-03-28 | XMS | Encounter Summary ---
Demographics + + + | Address | [address] | | | [place] [address] | + + + | Home Phone [...] + | Author | [facility] | | | and [place] | + + + | Organization | [facility] [...] Team Providers + +------+ + | Care Analytical Technician Name | Role | Phone | + +------+ + PCP | Unavailable | + +------+ + Encounter Details +--------+ + + + + | Date | Type | Department | Care Team | Description | +--------+ + + + + | 05/27/ | Hospital | [facility] | | | | 2000 | Encounter | MED CTR LABORATORY | | | | | | [address] | | | | | | [place] | | | | | | [address] | | | | | | [phone] | | | +--------+ + + + [...]
--- OUTSIDE RECORDS SUMMARY | ~2019-03-28 | XMS | Encounter Summary ---
Demographics + + + | Address | [address] | | | [place] [address] | + + + | Home Phone [...] + | Author | [facility] | | | and [place] | + + + | Organization | [facility] [...] Team Providers + +------+ + | Care Picker And Sorter Load And Unload Name | Role | Phone | + +------+ + | Maya Curry MD | PCP | | + +------+ + Encounter Details +--------+ + + + + | Date | Type | Department | Care Team | Description | +--------+ + + + + | 03/02/ | Abstract | [facility] | Maya Curry MD | | | 2017 | | MEDICINE [place] | [address] | | | | | [address] | [place] | | | | | [place], [place] | [address] | | | | | [address] | | | | | | [phone] | | | +--------+ + + + [...] | + +--------+ + + + | DEXA BONE DENSITY | Routin | 12/05/2015 | | Results for this | | STUDY TRACIE CHAVEZ | e | | | procedure are in the | | ASSESSMENT | | | | results section. | + +--------+ + + + | EXTERNAL: | Routin | 09/26/2015 | | Results for this | | COLONOSCOPY | e | | | procedure are in the | | | | | | results section. | + +--------+ + + + documented in this encounter Results DEXA Bone Density Study TRACIE Felipe (12/05/2015) + +-------+ + + + | Component | Value | Ref Range | Performed | Pathologist | | | | | At | Signature | + +-------+ + + + | EXT LOWEST | -3.0 | | | | | T-SCORE | | | | | + +-------+ + + + EXTERNAL: COLONOSCOPY (09/26/2015) + + + + + + | Component | Value | Ref Range | Performed | Pathologist | | | | | At | Signature | + + + + + + | Colonoscopy | normal,repeat in 5 years | | | | | | | | | | | Impression, | | | | | | External | | | | | + + + + + + documented in this encounter Visit Diagnoses Not on filedocumented in this encounter"
--- OUTSIDE RECORDS SUMMARY | ~2019-03-28 | XMS | Encounter Summary ---
Demographics + + + | Address | [address] | | | [place] [address] | + + + | Home Phone | | + + + | Preferred Language | Unknown | + + + | Marital Status | | + + + | Gnosticism Affiliation | Unknown | + + + | Race | Unknown | + + + | Ethnic Group | Unknown | + + + Author + + + | Author | [facility] | | | and [place] | + + + | Organization | [facility] | | [...] Team Providers + +------+ + | Care Diamond Grader Name | Role | Phone | + +------+ + PCP | Unavailable | + +------+ + Encounter Details +--------+ + + + + | Date | Type | Department | Care Team | Description | +--------+ + + + + | 05/06/ | Hospital | [facility] | Keith Koenig, | | | 2010 | Encounter | MED CTR LABORATORY | [address] [facility] | | | | | [address] [place] | [place], [place] | | | | | [place], [place] | [address] | | | | | [address] | | | | | | [phone] | | | +--------+ + + + [...]
--- OUTSIDE RECORDS SUMMARY | ~2019-03-28 | XMS | Encounter Summary ---
Demographics + + + | Address | [address] | | | [place] [address] | + + + | Home Phone | | + + + | Preferred Language | Unknown | + + + | Marital Status | | + + + | Taoist Affiliation | Unknown | + + + | Race | Unknown | + + + | Ethnic Group | Unknown | + + + Author + + + | Author | [facility] | | | and [place] | + + + | Organization | [facility] [...] Team Providers + +------+ + | Care Career Services Representative Name | Role | Phone | + [...] + + | 12/09/ | Refill | [facility] | Jody Young T, | Medication Refill | | 2016 | | MEDICINE [place] | [employer] [address] | | | | | [address] | [place] | | | | | [place] | [id number] | | | | | [address] | | | | | | [phone] | | | +--------+--------+ + + + [...]
--- OUTSIDE RECORDS SUMMARY | ~2019-03-28 | XMS | Encounter Summary ---
Demographics + + + | Address | [address] | | | [place] [address] | + + + | Home Phone | | + + + | Preferred Language | Unknown | + + + | Marital Status | | + + + | Sabianist Affiliation | Unknown | + + + | Race | Unknown | + + + | Ethnic Group | Unknown | + + + Author + + + | Author | [facility] | | | and [place] | + + + | Organization | [facility] | | | and [place] [...] Team Providers + +------+ + | Care Rivet Hole Machine Operator Name | Role | Phone [...] + + | 02/07/ | Telephone | [facility] | Gerardo Castro MD | Results, Pathology | | 2011 | | GASTROENTEROLOGY | [address] [place] | | | | | [address] [facility] | [address] [place] | | | | | [address] [place], [place] | [address] | | | | | [address] | | | | | | [phone] | | | +--------+ + + + [...]
--- OUTSIDE RECORDS SUMMARY | ~2019-03-28 | XMS | Encounter Summary ---
Demographics + + + | Address | [address] | | | [place] [address] | + + + | Home Phone | | + + + | Preferred Language | Unknown | + + + | Marital Status | | + + + | Synagogue Affiliation | Unknown | + + + | Race | Unknown | + + + | Ethnic Group | Unknown | + + + Author + + + | Author | [facility] | | | and [place] | + + + | Organization | [facility] [...] Team Providers + +------+ + | Care Type Caster Name | Role | Phone | + [...] + + | 02/07/ | Telephone | [facility] | Gerardo Castro MD | Results, Pathology | | 2011 | | GASTROENTEROLOGY | [address] [place] | | | | | [address] [facility] | [address] [place] | | | | | [address] [place], [place] | [address] | | | | | [address] | | | | | | [phone] | | | +--------+ + + + [...]
--- OUTSIDE RECORDS SUMMARY | ~2019-03-28 | XMS | Encounter Summary ---
Demographics + + + | Address | [address] | | | [place] [address] | + + + | Home Phone | | + + + | Preferred Language | Unknown | + + + | Marital Status | | + + + | Mormon Affiliation | Unknown | + + + | Race | Unknown | + + + | Ethnic Group | Unknown | + + + Author + + + | Author | [facility] | | | and [place] | + + + | Organization | [facility] | | | and [place] [...] Team Providers + +------+ + | Care Jacquard Lace Weaver Name | Role | Phone | + +------+ + PCP | Unavailable | + +------+ + Encounter Details +--------+ + + + + | Date | Type | Department | Care Team | Description | +--------+ + + + + | 08/28/ | Hospital | [facility] | | | | 2003 | Encounter | [facility] X[facility] [address] | | | | | | [place] | | | | | | [place] [address] | | | | | | [phone] | | | +--------+ + + + [...]
--- OUTSIDE RECORDS SUMMARY | ~2019-03-28 | XMS | Encounter Summary ---
Demographics + + + | Address | [address] | | | [place] [address] | + + + | Home Phone [...] + | Author | [facility] | | | and [place] | + + + | Organization | [facility] | | [...] Team Providers + +------+ + | Care Noise Tester Name | Role | Phone | + +------+ + | Maya Curry MD | PCP | | + +------+ + Encounter Details +--------+ + + + + | Date | Type | Department | Care Team | Description | +--------+ + + + + | 11/25/ | Anti-coag | [facility] | Maya Curry MD | Chronic atrial | | 2018 | Telephone | [facility] [place] | [address] | fibrillation (HCC) | | | | [address] | [place] | | | | | [place] | [address] | | | | | [address] | | | | | | [phone] | | | +--------+ + + + [...]
--- OUTSIDE RECORDS SUMMARY | ~2019-03-28 | XMS | Encounter Summary ---
Demographics + + + | Address | [address] | | | [place] [address] | + + + | Home Phone [...] | Author | [facility] | | | and [place] | + + + | Organization | [facility] | | | and [...] Team Providers + +------+ + | Care Hot Stone Setter Name | Role | Phone | + +------+ + PCP | Unavailable | + +------+ + Encounter Details +--------+ + + + + | Date | Type | Department | Care Team | Description | +--------+ + + + + | 02/25/ | Hospital | [facility] | | | | 1997 | Encounter | MED CTR GENERIC OP | | | | | | CONV DEPT [address] | | | | | | [place], | | | | | | [place] [address] | | | | | | [phone] | | | +--------+ + + + [...]
--- OUTSIDE RECORDS SUMMARY | ~2019-03-28 | XMS | Encounter Summary ---
Demographics + + + | Address | [address] | | | [place] [address] | + + + | Home Phone [...] + | Author | [facility] | | | and [place] | + + + | Organization | [facility] | | | and [place] [...] Team Providers + +------+ + | Care Head Of [employer] Name | Role | Phone | + +------+ + PCP | Unavailable | + +------+ + Encounter Details +--------+ + + + + | Date | Type | Department | Care Team | Description | +--------+ + + + + | 03/12/ | Hospital | [facility] | | | | 2008 | Encounter | MED CTR XRAY [address] | | | | | | [place] | | | | | | [place] [address] | | | | | | [phone] | | | +--------+ + + + [...]
--- OUTSIDE RECORDS SUMMARY | ~2019-03-28 | XMS | Encounter Summary ---
Demographics + + + | Address | [address] | | | [place] [address] | + + + | Home Phone [...] Author | [facility] | | | and Juanitoana | + + + | Organization | [facility] [...] + +------+ + | Care Director Of Strategic Sales Name | Role | Phone | + +------+ + | Maya Curry MD | PCP | | + +------+ + Encounter Details +--------+ + + + + | Date | Type | Department | Care Team | Description | +--------+ + + + + | 04/04/ | Abstract | [facility] | Maya Curry MD | | | 2019 | | [facility] | [address] | | | | | [address] | [place] | | | | | [place], [place] | [address] | | | | | [address] | | | | | | [phone] | | | +--------+ + + + [...] +--------+ + + + | EXTERNAL LAB: BUN | Routin | 03/24/2018 | | Results for this | | | e | | | procedure are in the | | | | | | results section. | + +--------+ + + + | EXTERNAL LAB: | Routin | 03/24/2018 | | Results for this | | GLUCOSE | e | | | procedure are in the | | | | | | results section. | + +--------+ + + + | EXTERNAL LAB: | Routin | 03/24/2018 | | Results for this | | TROPONIN T | e | | | procedure are in the | | | | | | results section. | + +--------+ + + + | EXTERNAL LAB: LIPASE | Routin | 03/24/2018 | | Results for this | | | e | | | procedure are in the | | | | | | results section. | + +--------+ + + + | EXTERNAL LAB: ALT | Routin | 03/24/2018 | | Results for this | | | e | | | procedure are in the | | | | | | results section. | + +--------+ + + + | EXTERNAL LAB: AST | Routin | 03/24/2018 | | Results for this | | | e | | | procedure are in the | | | | | | results section. | + +--------+ + + + | EXTERNAL LAB: | Routin | 03/24/2018 | | Results for this | | ALKALINE PHOSPHATASE | e | | | procedure are in the | | | | | | results section. | + +--------+ + + + | EXTERNAL LAB: | Routin | 03/24/2018 | | Results for this | | BILIRUBIN, TOTAL | e | | | procedure are in the | | | | | | results section. | + +--------+ + + + | EXTERNAL LAB: | Routin | 03/24/2018 | | Results for this | | ALBUMIN | e | | | procedure are in the | | | | | | results section. | + +--------+ + + + | EXTERNAL LAB: | Routin | 03/24/2018 | | Results for this | | PROTEIN, TOTAL | e | | | procedure are in the | | | | | | results section. | + +--------+ + + + | EXTERNAL LAB: | Routin | 03/24/2018 | | Results for this | | CALCIUM | e | | | procedure are in the | | | | | | results section. | + +--------+ + + + | EXTERNAL LAB: CARBON | Routin | 03/24/2018 | | Results for this | | DIOXIDE | e | | | procedure are in the | | | | | | results section. | + +--------+ + + + | EXTERNAL LAB: | Routin | 03/24/2018 | | Results for this | | CHLORIDE | e | | | procedure are in the | | | | | | results section. | + +--------+ + + + | EXTERNAL LAB: | Routin | 03/24/2018 | | Results for this | | POTASSIUM | e | | | procedure are in the | | | | | | results section. | + +--------+ + + + | EXTERNAL LAB: SODIUM | Routin | 03/24/2018 | | Results for this | | | e | | | procedure are in the | | | | | | results section. | + +--------+ + + + | EXTERNAL LAB: | Routin | 03/24/2018 | | Results for this | | URINALYSIS | e | | | procedure are in the | | | | | | results section. | + +--------+ + + + | EXTERNAL LAB: CBC | Routin | 03/24/2018 | | Results for this | | | e | | | procedure are in the | | | | | | results section. | + +--------+ + + + | EXTERNAL LAB: | Routin | 03/24/2018 | | Results for this | | PROTIME INR | e | | | procedure are in the | | | | | | results section. | + +--------+ + + + | EXTERNAL LAB: EGFR | Routin | 03/24/2018 | | Results for this | | | e | | | procedure are in the | | | | | | results section. | + +--------+ + + + | EXTERNAL LAB: | Routin | 03/24/2018 | | Results for this | | CREATININE | e | | | procedure are in the | | | | | | results section. | + +--------+ + + + | URINALYSIS, REFLEX | Routin | 03/24/2018 | | Results for this | | MICROSCOPIC AND/OR | e | | | procedure are in the | | CULTURE | | | | results section. | + +--------+ + + + | CBC WITH | Routin | 03/24/2018 | | Results for this | | DIFFERENTIAL | e | | | procedure are in the | | | | | | results section. | + +--------+ + + + | COMPREHENSIVE | Routin | 03/24/2018 | | Results for this | | METABOLIC PANEL | e | | | procedure are in the | | | | | | results section. | + +--------+ + + + documented in this encounter Results Urinalysis, Reflex Microscopic and/or Culture (03/24/2018) + + + + + + | Component | Value | Ref Range | Performed | Pathologist | | | | | At | Signature | + + + + + + | COLLECTION | Clean Catch | | REFERENCE | | | METHOD 1 | | | LAB | | | | | | [facility] | | + + + + + + | Color, | Yellow | Light Yellow, | REFERENCE | | | Urine | | Yellow | LAB | | | | | | [facility] | | + + + + + + | Clarity | Turbid | | REFERENCE | | | | | | LAB | | | | | | [facility] | | + + + + + + | Bilirubin, | Negative | Negative | REFERENCE | | | Urine | | | LAB | | | | | | [facility] | | + + + + + + | Urobilinoge | < 0.2 mg/dL | < 0.2 mg/dL, | REFERENCE | | | n, Urine | | 1.0 mg/dL, 4.0 | LAB | | | | | mg/dL, Normal, | [facility] | | | | | 1.0 E.U./dL, | | | | | | 0.2 E.U./dL, | | | | | | 0.2 mg/dL, | | | | | | Negative, 1 | | | | | | mg/dL, <2.0 | | | | | | mg/dL | | | + + + + + + | Nitrite, | Negative | Negative | REFERENCE | | | Urine | | | LAB | | | | | | [facility] | | + + + + + + | Hyaline | 0 | 0 - 1 | REFERENCE | | | cast, UA | | | LAB | | | | | | [facility] | | + + + + + + | WBC UA | 50 (A) | 0 - 4 /HPF | REFERENCE | | | | | | LAB | | | | | | [facility] | | + + + + + + | SQUAMOUS | 0-2 | 0 - 2 /LPF | REFERENCE | | | EPITHELIAL | | | LAB | | | UA | | | [facility] | | + + + + + + | CRYSTAL UA | Negative | | REFERENCE | | | | | | LAB | | | | | | [facility] | | + + + + + + | BACTERIA UA | 4+ (A) | Negative /HPF | REFERENCE | | | | | | LAB | | | | | | [facility] | | + + + + + + + + | Specimen | + + | Urine | + + + + + + + | Performing | Address | City/State/Zipcode | Phone Number | | Organization | | | | + + + + + | REFERENCE LAB | [address] [facility] | [place] [address] | [phone] | | [facility] | | | | + + + + + | REFERENCE LAB | [facility] | [place] [address] | [phone] | | [facility] | | | | + + + + + External Lab: Urinalysis (03/24/2018) + + + + + + | Component | Value | Ref Range | Performed | Pathologist | | | | | At | Signature | + + + + + + | UA Blood, | Moderate | | REFERENCE | | | External | | | LAB | | | | | | [facility] | | + + + + + + | UA Glucose, | Normal | | REFERENCE | | | External | | | LAB | | | | | | [facility] | | + + + + + + | UA Ketones, | Negative | | REFERENCE | | | External | | | LAB | | | | | | [facility] | | + + + + + + | UA Ph, | 5 | 5 - 9 | REFERENCE | | | External | | | LAB | | | | | | [facility] | | + + + + + + | UA | Negative | | REFERENCE | | | Proteins, | | | LAB | | | External | | | [facility] | | + + + + + + | UA RBC, | 0 | 0 - 4 | REFERENCE | | | External | | | LAB | | | | | | [facility] | | + + + + + + | UA Specific | 1.013 | 1.005 - 1.03 | REFERENCE | | | [place], | | | LAB | | | External | | | [facility] | | + + + + + + | UA | Large | | REFERENCE | | | Leukocyte | | | LAB | | | Esterase, | | | [facility] | | | External | | | | | + + + + + + + + + + + | Performing | Address | City/State/Zipcode | Phone Number | | Organization | | | | + + + + + | REFERENCE LAB | [address] [facility] | [place] [address] | [phone] | | [facility] | | | | + + + + + | REFERENCE LAB | [address] [facility] | [place] [address] | [phone] | | [facility] | | | | + + + + + External Lab: Ricci VITALE (03/24/2018) + + + + + + | Component | Value | Ref Range | Performed | Pathologist | | | | | At | Signature | + + + + + + | INR, | 1.9 | | REFERENCE | | | External | | | LAB | | | | | | [facility] | | + + + + + + | PT, | 23.8 (A) | 12.8 - 15.5 | REFERENCE | | | External | | | LAB | | | | | | [facility] | | + + + + + + + + | Specimen | + + | Blood | + + + + + + + | Performing | Address | City/State/Zipcode | Phone Number | | Organization | | | | + + + + + | REFERENCE LAB | [address] | [place] [address] | [phone] | | [facility] | | | | + + + + + | REFERENCE LAB | [address] [facility] | [place] [address] | [phone] | | [facility] | | | | + + + + + CBC with Differential (03/24/2018) + +-------+ + + + | Component | Value | Ref Range | Performed | Pathologist | | | | | At | Signature | + +-------+ + + + | MCH | 33.0 | 27.0 - 33.0 pg | REFERENCE | | | | | | LAB | | | | | | [facility] | | + +-------+ + + + | MCHC | 32.0 | 30.0 - 36.0 % | REFERENCE | | | | | | LAB | | | | | | [facility] | | + +-------+ + + + | % Basophils | 0.6 | 0.0 - 2.0 % | REFERENCE | | | | | | LAB | | | | | | [facility] | | + +-------+ + + + + + | Specimen | + + | Blood | + + + + + + + | Performing | Address | City/State/Zipcode | Phone Number | | Organization | | | | + + + + + | REFERENCE LAB | [address] | [place] [address] | [phone] | | [facility] | | | | + + + + + | REFERENCE LAB | [address] | [place] [address] | [phone] | | [facility] | | | | + + + + + External Lab: CBC (03/24/2018) + + + + + + | Component | Value | Ref Range | Performed | Pathologist | | | | | At | Signature | + + + + + + | WBC, | 5.3 | 4.5 - 11 | REFERENCE | | | External | | | LAB | | | | | | [facility] | | + + + + + + | HGB, | 4.9 (A) | 12 - 16 | REFERENCE | | | External | | | LAB | | | | | | [facility] | | + + + + + + | HCT, | 15.4 (A) | 35 - 45 | REFERENCE | | | External | | | LAB | | | | | | [facility] | | + + + + + + | PLT, | 213 | 140 - 440 | REFERENCE | | | External | | | LAB | | | | | | [facility] | | + + + + + + | Neutrophils | 61.1 | 39 - 80 | REFERENCE | | | %, | | | LAB | | | External | | | [facility] | | + + + + + + | Lymphocytes | 23.5 (A) | 24 - 44 | REFERENCE | | | %, | | | LAB | | | External | | | [facility] | | + + + + + + | Monocytes | 14.5 (A) | 0 - 12 | REFERENCE | | | %, External | | | LAB | | | | | | [facility] | | + + + + + + | Eosinophils | 0.3 | 0 - 6 | REFERENCE | | | %, | | | LAB | | | External | | | [facility] | | + + + + + + | RBC, | 1.5 (A) | 3.8 - 5.1 | REFERENCE | | | External | | | LAB | | | | | | [facility] | | + + + + + + | MCV, | 103 (A) | 81 - 99 | REFERENCE | | | External | | | LAB | | | | | | [facility] | | + + + + + + | RDW, | 19.4 (A) | 10.5 - 15 | REFERENCE | | | External | | | LAB | | | | | | [facility] | | + + + + + + + + + + + | Performing | Address | City/State/Zipcode | Phone Number | | Organization | | | | + + + + + | REFERENCE LAB | [address] [facility] | [place] [address] | [phone] | | [facility] | | | | + + + + + | REFERENCE LAB | [address] [facility] | [place] [address] | [phone] | | [facility] | | | | + + + + + Comprehensive Metabolic Panel (03/24/2018) + +-------+ + + + | Component | Value | Ref Range | Performed | Pathologist | | | | | At | Signature | + +-------+ + + + | Anion Gap | 14 | 7 - 21 mmol/L | REFERENCE | | | | | | LAB | | | | | | [facility] | | + +-------+ + + + | Bun/Creatin | 26.7 | 6 - 28.6 | REFERENCE | | | ine | | | LAB | | | | | | [facility] | | + +-------+ + + + | Globulin | 2.2 | 1.8 - 3.5 | REFERENCE | | | | | | LAB | | | | | | [facility] | | + +-------+ + + + | Albumin/Leona | 1.4 | 1.1 - 2.4 | REFERENCE | | | bulin Ratio | | | LAB | | | | | | [facility] | | + +-------+ + + + + + | Specimen | + + | Blood | + + + + + + + | Performing | Address | City/State/Zipcode | Phone Number | | Organization | | | | + + + + + | REFERENCE LAB | [facility] [address] | [place] [address] | [phone] | | [facility] | | | | + + + + + | REFERENCE LAB | [facility] [address] | [place] [address] | [phone] | | [facility] | | | | + + + + + External Lab: KATEY (03/24/2018) + +--------+ + + + | Component | Value | Ref Range | Performed | Pathologist | | | | | At | Signature | + +--------+ + + + | BUN, | 46 (A) | 6 - 23 | REFERENCE | | | External | | | LAB | | | | | | [facility] | | + +--------+ + + + + + + + + | Performing | Address | City/State/Zipcode | Phone Number | | Organization | | | | + + + + + | REFERENCE LAB | [address] | [place] [address] | [phone] | | [facility] | | | | + + + + + | REFERENCE LAB | [address] | [place] [address] | [phone] | | [facility] | | | | + + + + + External Lab: Glucose (03/24/2018) + +---------+ + + + | Component | Value | Ref Range | Performed | Pathologist | | | | | At | Signature | + +---------+ + + + | Glucose, | 136 (A) | 70 - 100 | REFERENCE | | | External | | | LAB | | | | | | [facility] | | + +---------+ + + + + + + + + | Performing | Address | City/State/Zipcode | Phone Number | | Organization | | | | + + + + + | REFERENCE LAB | [address] | [place] [address] | [phone] | | [facility] | | | | + + + + + | REFERENCE LAB | [address] | [place] [address] | [phone] | | [facility] | | | | + + + + + External Lab: Troponin T (03/24/2018) + + + + + + | Component | Value | Ref Range | Performed | Pathologist | | | | | At | Signature | + + + + + + | Troponin T, | 0.014 (A) | 0.01 | REFERENCE | | | External | | | LAB | | | | | | [facility] | | + + + + + + + + + + + | Performing | Address | City/State/Zipcode | Phone Number | | Organization | | | | + + + + + | REFERENCE LAB | [facility] | [place] [address] | [phone] | | [facility] | | | | + + + + + | REFERENCE LAB | [address] [facility] | [place] [address] | [phone] | | [facility] | | | | + + + + + External Lab: Lipase (03/24/2018) + +-------+ + + + | Component | Value | Ref Range | Performed | Pathologist | | | | | At | Signature | + +-------+ + + + | Lipase, | 23 | 11 - 82 | REFERENCE | | | External | | | LAB | | | | | | [facility] | | + +-------+ + + + + + + + + | Performing | Address | City/State/Zipcode | Phone Number | | Organization | | | | + + + + + | REFERENCE LAB | [address] | [place] [address] | [phone] | | [facility] | | | | + + + + + | REFERENCE LAB | [address] | [place] [address] | [phone] | | [facility] | | | | + + + + + External Lab: ALT (03/24/2018) + +-------+ + + + | Component | Value | Ref Range | Performed | Pathologist | | | | | At | Signature | + +-------+ + + + | ALT, | 8 | 7 - 52 | REFERENCE | | | External | | | LAB | | | | | | [facility] | | + +-------+ + + + + + + + + | Performing | Address | City/State/Zipcode | Phone Number | | Organization | | | | + + + + + | REFERENCE LAB | [address] | [place] [address] | [phone] | | [facility] | | | | + + + + + | REFERENCE LAB | [facility] | [place] [address] | [phone] | | [facility] | | | | + + + + + External Lab: ERIN (03/24/2018) + +-------+ + + + | Component | Value | Ref Range | Performed | Pathologist | | | | | At | Signature | + +-------+ + + + | AST, | 18 | 13 - 39 | REFERENCE | | | External | | | LAB | | | | | | [facility] | | + +-------+ + + + + + + + + | Performing | Address | City/State/Zipcode | Phone Number | | Organization | | | | + + + + + | REFERENCE LAB | [address] | [place] [address] | [phone] | | [facility] | | | | + + + + + | REFERENCE LAB | [address] | [place] [address] | [phone] | | [facility] | | | | + + + + + External Lab: Alkaline Phosphatase (03/24/2018) + +-------+ + + + | Component | Value | Ref Range | Performed | Pathologist | | | | | At | Signature | + +-------+ + + + | ALP, | 59 | 31 - 130 | REFERENCE | | | External | | | LAB | | | | | | [facility] | | + +-------+ + + + + + + + + | Performing | Address | City/State/Zipcode | Phone Number | | Organization | | | | + + + + + | REFERENCE LAB | [facility] | [place] [address] | [phone] | | [facility] | | | | + + + + + | REFERENCE LAB | [address] [facility] | [place] [address] | [phone] | | [facility] | | | | + + + + + External Lab: Bilirubin, Total (03/24/2018) + +-------+ + + + | Component | Value | Ref Range | Performed | Pathologist | | | | | At | Signature | + +-------+ + + + | Bilirubin, | 0.5 | 0 - 1.2 | REFERENCE | | | Total, | | | LAB | | | External | | | [facility] | | + +-------+ + + + + + + + + | Performing | Address | City/State/Zipcode | Phone Number | | Organization | | | | + + + + + | REFERENCE LAB | [facility] | [place] [address] | [phone] | | [facility] | | | | + + + + + | REFERENCE LAB | [facility] | [place] [address] | [phone] | | [facility] | | | | + + + + + External Lab: Albumin (03/24/2018) + +---------+ + + + | Component | Value | Ref Range | Performed | Pathologist | | | | | At | Signature | + +---------+ + + + | Albumin, | 3.1 (A) | 3.5 - 5 | REFERENCE | | | External | | | LAB | | | | | | [facility] | | + +---------+ + + + + + + + + | Performing | Address | City/State/Zipcode | Phone Number | | Organization | | | | + + + + + | REFERENCE LAB | [address] [facility] | [place] [address] | [phone] | | [facility] | | | | + + + + + | REFERENCE LAB | [address] [facility] | [place] [address] | [phone] | | [facility] | | | | + + + + + External Lab: Protein, Total (03/24/2018) + +---------+ + + + | Component | Value | Ref Range | Performed | Pathologist | | | | | At | Signature | + +---------+ + + + | Protein, | 5.3 (A) | 6 - 8.3 | REFERENCE | | | Total, | | | LAB | | | External | | | [facility] | | + +---------+ + + + + + + + + | Performing | Address | City/State/Zipcode | Phone Number | | Organization | | | | + + + + + | REFERENCE LAB | [address] [facility] | [place] [address] | [phone] | | [facility] | | | | + + + + + | REFERENCE LAB | [address] [facility] | [place] [address] | [phone] | | [facility] | | | | + + + + + External Lab: Calcium (03/24/2018) + +---------+ + + + | Component | Value | Ref Range | Performed | Pathologist | | | | | At | Signature | + +---------+ + + + | Calcium, | 8.3 (A) | 8.5 - 10.3 | REFERENCE | | | External | | | LAB | | | | | | [facility] | | + +---------+ + + + + + + + + | Performing | Address | City/State/Zipcode | Phone Number | | Organization | | | | + + + + + | REFERENCE LAB | [address] [facility] | [place] [address] | [phone] | | [facility] | | | | + + + + + | REFERENCE LAB | [address] [facility] | [place] [address] | [phone] | | [facility] | | | | + + + + + External Lab: Carbon Dioxide (03/24/2018) + +--------+ + + + | Component | Value | Ref Range | Performed | Pathologist | | | | | At | Signature | + +--------+ + + + | Carbon | 18 (A) | 19 - 31 | REFERENCE | | | Dioxide, | | | LAB | | | External | | | [facility] | | + +--------+ + + + + + + + + | Performing | Address | City/State/Zipcode | Phone Number | | Organization | | | | + + + + + | REFERENCE LAB | [address] | [place] [address] | [phone] | | [facility] | | | | + + + + + | REFERENCE LAB | [address] | [place] [address] | [phone] | | [facility] | | | | + + + + + External Lab: Chloride (03/24/2018) + +-------+ + + + | Component | Value | Ref Range | Performed | Pathologist | | | | | At | Signature | + +-------+ + + + | Chloride, | 107 | 95 - 112 | REFERENCE | | | External | | | LAB | | | | | | [facility] | | + +-------+ + + + + + + + + | Performing | Address | City/State/Zipcode | Phone Number | | Organization | | | | + + + + + | REFERENCE LAB | [address] | [place] [address] | [phone] | | [facility] | | | | + + + + + | REFERENCE LAB | [address] | [place] [address] | [phone] | | [facility] | | | | + + + + + External Lab: Potassium (03/24/2018) + +-------+ + + + | Component | Value | Ref Range | Performed | Pathologist | | | | | At | Signature | + +-------+ + + + | Potassium, | 4.0 | 3.6 - 5.1 | REFERENCE | | | External | | | LAB | | | | | | [facility] | | + +-------+ + + + + + + + + | Performing | Address | City/State/Zipcode | Phone Number | | Organization | | | | + + + + + | REFERENCE LAB | [address] [facility] | [place] [address] | [phone] | | [facility] | | | | + + + + + | REFERENCE LAB | [address] | [place] [address] | [phone] | | [facility] | | | | + + + + + External Lab: Sodium (03/24/2018) + +-------+ + + + | Component | Value | Ref Range | Performed | Pathologist | | | | | At | Signature | + +-------+ + + + | Sodium, | 135 | 132 - 143 | REFERENCE | | | External | | | LAB | | | | | | [facility] | | + +-------+ + + + + + + + + | Performing | Address | City/State/Zipcode | Phone Number | | Organization | | | | + + + + + | REFERENCE LAB | [address] | [place] [address] | [phone] | | [facility] | | | | + + + + + | REFERENCE LAB | [address] | [place] [address] | [phone] | | [facility] | | | | + + + + + External Lab: eGFR (03/24/2018) + +--------+ + + + | Component | Value | Ref Range | Performed | Pathologist | | | | | At | Signature | + +--------+ + + + | eGFR, | 29 (A) | 60 | REFERENCE | | | External | | | LAB | | | | | | [facility] | | + +--------+ + + + + + | Specimen | + + | Blood | + + + + + + + | Performing | Address | City/State/Zipcode | Phone Number | | Organization | | | | + + + + + | REFERENCE LAB | [facility] | [place] [address] | [phone] | | [facility] | | | | + + + + + | REFERENCE LAB | [address] [facility] | [place] [address] | [phone] | | [facility] | | | | + + + + + External Lab: Creatinine (03/24/2018) + + + + + + | Component | Value | Ref Range | Performed | Pathologist | | | | | At | Signature | + + + + + + | Creatinine, | 1.72 (A) | 0.7 - 1.18 | REFERENCE | | | External | | | LAB | | | | | | [facility] | | + + + + + + + + | Specimen | + + | Blood | + + + + + + + | Performing | Address | City/State/Zipcode | Phone Number | | Organization | | | | + + + + + | REFERENCE LAB | [address] [facility] | [place] [address] | [phone] | | [facility] | | | | + + + + + | REFERENCE LAB | [address] [facility] | [place] [address] | [phone] | | [facility] | | | | + + + + + documented in this encounter Visit Diagnoses Not on filedocumented in this encounter"
--- OUTSIDE RECORDS SUMMARY | ~2019-03-28 | XMS | Clinical Summary ---
Demographics + + + | Address | [address] | | | [place] [address] | + + + | Home Phone [...] Author | [facility] | | | and [place]ito[place] | + + + | Organization | [facility] [...] Team Providers + +------+ + | Care Materials Branch Chief Name | Role | Phone | + [...] tablet by | 90 | 3 | / | | Activ | | succinate | mouth Daily. | tablet | | 07/09 | | e | | (TOPROL-XL) 50 [...] 1 capsule by | | 0 | 09/1 | | Activ | | (MACROBID) 100 [...] VENTRICULAR HYPERTROPHY, LEFT | | + +---+ Immunizations + + + + | Name | Administration Dates | Next Due | + + + [...] | | + + + + + Plan of Treatment + + + + + | Health Maintenance | Due Date | Last Done | Comments | + + + + + | Vaccine: | | | | | Dtap/Tdap/Td (1 - | 1 | | | | Tdap) | | [...] | Pneumococcal 65+ | | | | + + + [...] + +--------+ | MEDICARE | MEDICA | [id number] | 06/21/19 | [phone] | | Medica | | | RE | | 05-Pre | 5 | | re | | | PART A | | sent | | | | | | AND B | | | | | | + +--------+ +--------+ + +--------+ | MODA | MODA | [id number] | 05/21/19 | [phone] | [address] | Indemn | | | HEALTH | | 08-Pre | 9 | [phone] | ity | | | MDCR | | sent | | [place], | | | | [place] | | | | [place] [address] | | + +--------+ +--------+ + +--------+ + +--------+ +--------+ + + | Guarantor Name | Accoun | Relation to | Date | Phone | Billing Address | | | t Type | Patient | of | | | | | | | | | | + +--------+ +--------+ + + | Nancy Celis | Person | Self | [birth year] | [address] | | | al/Fam | | 1941 | [phone] | [place] [address] | | | marian | | | 4 (Home) | | + +--------+ +--------+ + + Advance Directives + + + + + | Type | Date Recorded | Patient | Explanation | | | | Automatic Car Wash Attendant | | + + + + + | Power of | | | | | Personnel Supervisor | | | | + + + + + | Advance | | | | | Directive | | | | + + + + +
--- OUTSIDE RECORDS SUMMARY | ~2019-03-28 | XMS | Encounter Summary ---
Demographics + + + | Address | [address] | | | [place] [address] | + + + | Home Phone [...] + | Author | [facility] | | | and [place] | + + + | Organization | [facility] | [...] Team Providers + +------+ + | Care Almond Sorter Name | Role | Phone | + +------+ + | Maya Curry MD | PCP | | + +------+ + Reason for Visit + + + | Reason | Comments | + + + | Appointment | | + + + Encounter Details +--------+ + + + + | Date | Type | Department | Care Team | Description | +--------+ + + + + | 04/01/ | Telephone | [facility] | Maya Curry MD | Appointment | | 2019 | | MEDICINE [place] | [address] | | | | | [address] | [place] | | | | | [place] | [address] | | | | | [address] | | | | | | [phone] | | | +--------+ + + + [...]
--- OUTSIDE RECORDS SUMMARY | ~2019-03-28 | XMS | Encounter Summary ---
Demographics + + + | Address | [address] | | | [place] [address] | + + + | Home Phone [...] [facility] | | | and [place] | + + + | Organization | [facility] | [...] Team Providers + +------+ + | Care Transmitter Tester Name | Role | Phone | + +------+ + PCP | Unavailable | + +------+ + Encounter Details +--------+ + + + + | Date | Type | Department | Care Team | Description | +--------+ + + + + | 08/28/ | Hospital | [facility] | | | | 2003 | Encounter | MED CTR XRAY [address] | | | | | | [place] | | | | | | [place] [address] | | | | | | [phone] | | | +--------+ + + + [...]
--- OUTSIDE RECORDS SUMMARY | ~2019-03-28 | XMS | Encounter Summary ---
Demographics + + + | Address | [address] | | | [place] [address] | + + + | Home Phone [...] | Author | [facility] | | | and [place] | + + + | Organization | [facility] | | | and [...] Team Providers + +------+ + | Care Satellite Dish Technician Name | Role | Phone | [...] | | | | 2000 | | [address] | | | | | | [phone] | | | +--------+ + + + [...]
--- OUTSIDE RECORDS SUMMARY | ~2019-03-28 | XMS | Encounter Summary ---
Demographics + + + | Address | [address] | | | [place] [address] | + + + | Home Phone | | + + + | Preferred Language | Unknown | + + + | Marital Status | | + + + | Mormon Affiliation | Unknown | + + + | Race | Unknown | + + + | Ethnic Group | Unknown | + + + Author + + + | Author | [facility] | | | and [place] | + + + | Organization | [facility] | [...] Team Providers + +------+ + | Care Ironworker Name | Role | Phone | + [...] | lower | [address] [place] | [address] | | | | | extremity | [place], [place] | [place], | | | | | [phone] | [address] | [place] [address] | | | | | (ICD-10-CM) | Phone: | Phone: | | | | | - 049.6 | [phone] | [phone] | | | | | (ICD-9-CM) - | Fax: | Fax: | | | | | Cellulitis | [phone] | [phone] | | | | | of right [...] | | 2018 | Visit | MEDICINE [place] | [address] | lower extremity | | | | [address] | [place] | (Primary Dx); | | | | [place], [place] | [address] | HYPERTENSION, BENIGN | | | | [address] | | ESSENTIAL | | | | [phone] | | | +--------+---------+ + + + [...] in this encounter Patient Instructions Patient Instructions Myaa Curry MD - 05/17/2017 11:44 AM PSTFormatting [...] are in pain. Ask what kind of elnv-lrm-rratwwz medicine you can take for pain. Apply [...] Discharge or pus draining from the area Cvavvab388.4F (38C) or higher, or as directed by your healthcare provider Pain that gets worse in or around the infected Redness that gets worse in or around the infected area,particularly if the area of red ness expands to a wider area Shaking chills Swelling of the infected area Vomiting Date Last Reviewed: 10/21/201519999407-8263 [employer]. [address] [place] [address]. All rig ts reserved. This information is not intended as a substitute for professional medical care. Always follow your healthcare professional's instructions. documented in this encounter Progress Notes Gage Meraz, PT - 05/17/2017 10:45 AM [place]PM[facility] [place] [address] [place] [id number] Incident To Physical Therapy Treatment Note Date: [...] door and got cellulitis and not healing. [facility] agnosed her and gave her [...] Take by mouth Daily. Cholecalciferol (VITAMIN D-3) 82811 units CAPS Take by mouth Once a [...]
--- OUTSIDE RECORDS SUMMARY | ~2019-03-28 | XMS | Encounter Summary ---
Demographics + + + | Address | [address] | | | [place] [address] | + + + | Home Phone [...] + | Author | [facility] | | | and [place] | + + + | Organization | [facility] | | [...] Team Providers + +------+ + | Care Supervising Airplane Pilot Name | Role | Phone | + +------+ + | Maya Curry MD | PCP | | + +------+ + Encounter Details +--------+ + + + + | Date | Type | Department | Care Team | Description | +--------+ + + + + | 01/21/ | Abstract | [facility] [place] [facility] | Maya Curry MD | | | 2016 | | MEDICINE [place] | [address] | | | | | [address] | [place] | | | | | [place], [place] | [address] | | | | | [address] | | | | | | [phone] | | | +--------+ + + + [...]
--- OUTSIDE RECORDS SUMMARY | ~2019-03-28 | XMS | Encounter Summary ---
Demographics + + + | Address | [address] | | | [place] [address] | + + + | Home Phone [...] | Author | [facility] | | | and [place] | + + + | Organization | [facility] | | | and [place] [...] Team Providers + +------+ + | Care Soil Expert Name | Role | Phone | + +------+ + PCP | Unavailable | + +------+ + Encounter Details +--------+ + + + + | Date | Type | Department | Care Team | Description | +--------+ + + + + | 09/17/ | Hospital | [facility] | | | | 2004 | Encounter | MED CTR XRAY [address] | | | | | | [place] | | | | | | [place] [address] | | | | | | [phone] | | | +--------+ + + + [...]
--- OUTSIDE RECORDS SUMMARY | ~2019-03-28 | XMS | Encounter Summary ---
Demographics + + + | Address | [address] | | | [place] [address] | + + + | Home Phone [...] | [facility] | | | and [place] | + + + | Organization | [facility] | | | and [place] [...] Team Providers + +------+ + | Care Swimming Pool Salesperson Name | Role | Phone | + +------+ + PCP | Unavailable | + +------+ + Encounter Details +--------+ + + + + | Date | Type | Department | Care Team | Description | +--------+ + + + + | 03/28/ | Hospital | [facility] | | | | 2001 - | Encounter | MED CTR CANCER | | | | | | CENTER [address] | | | | 06/26/ | | [place] | | | | 2001 | | [address] | | | | | | [phone] | | | +--------+ + + + [...]
--- OUTSIDE RECORDS SUMMARY | ~2019-03-28 | XMS | Encounter Summary ---
Demographics + + + | Address | [address] | | | [place] [address] | + + + | Home Phone [...] Author | [facility] | | | and [place] | + + + | Organization | [facility] | | | and [place] | [...] Team Providers + +------+ + | Care French Folding Machine Operator Name | Role | Phone | + +------+ + | Maya Curry MD | PCP | | + +------+ + Encounter Details +--------+ + + + + | Date | Type | Department | Care Team | Description | +--------+ + + + + | 04/04/ | Abstract | [facility] [place] [facility] | Maya Curry MD | | | 2019 | | MEDICINE [place] | [address] | | | | | [address] | [place] | | | | | [place], [place] | [address] | | | | | [address] | | | | | | [phone] | | | +--------+ + + + [...] + + | REFERENCE LAB | [address] [facility] | [place] [address] | [phone] | | [facility] | | | | + + + + + | REFERENCE LAB | [facility] | [place] [address] | [phone] | | [facility] | | | | [...] - 1.03 | REFERENCE | | | [place], | | | LAB | | | [...] + + | REFERENCE LAB | [address] [facility] | [place] [address] | [phone] | | [facility] | | | | + + + + + | REFERENCE LAB | [address] [facility] | [place] [address] | [phone] | | [facility] | | | | [...] | [address] | [place] [address] | [phone] | | [facility] | | | | + + + + + | REFERENCE LAB | [address] [facility] | [place] [address] | [phone] | | [facility] | | | | [...] | [address] | [place] [address] | [phone] | | [facility] | | | | + + + + + | REFERENCE LAB | [address] | [place] [address] | [phone] | | [facility] | | | | [...] + + | REFERENCE LAB | [address] [facility] | [place] [address] | [phone] | | [facility] | | | | + + + + + | REFERENCE LAB | [address] [facility] | [place] [address] | [phone] | | [facility] | | | | [...] + + + | REFERENCE LAB | [facility] [address] | [place] [address] | [phone] | | [facility] | | | | + + + + + | REFERENCE LAB | [facility] [address] | [place] [address] | [phone] | | [facility] | | | | [...] | [address] | [place] [address] | [phone] | | [facility] | | | | + + + + + | REFERENCE LAB | [address] | [place] [address] | [phone] | | [facility] | | | | [...] | [address] | [place] [address] | [phone] | | [facility] | | | | + + + + + | REFERENCE LAB | [address] | [place] [address] | [phone] | | [facility] | | | | [...] + + + | REFERENCE LAB | [facility] | [place] [address] | [phone] | | [facility] | | | | + + + + + | REFERENCE LAB | [address] [facility] | [place] [address] | [phone] | | [facility] | | | | [...] | [address] | [place] [address] | [phone] | | [facility] | | | | + + + + + | REFERENCE LAB | [address] | [place] [address] | [phone] | | [facility] | | | | [...] + | REFERENCE LAB | [address] | [place] [address] | [phone] | | [facility] | | | | + + + + + | REFERENCE LAB | [facility] | [place] [address] | [phone] | | [facility] | | | | [...] | [address] | [place] [address] | [phone] | | [facility] | | | | + + + + + | REFERENCE LAB | [address] | [place] [address] | [phone] | | [facility] | | | | [...] + + + | REFERENCE LAB | [facility] | [place] [address] | [phone] | | [facility] | | | | + + + + + | REFERENCE LAB | [address] [facility] | [place] [address] | [phone] | | [facility] | | | | [...] + + + | REFERENCE LAB | [facility] [address] | [place] [address] | [phone] | | [facility] | | | | + + + + + | REFERENCE LAB | [facility] [address] | [place] [address] | [phone] | | [facility] | | | | [...] + + | REFERENCE LAB | [address] [facility] | [place] [address] | [phone] | | [facility] | | | | + + + + + | REFERENCE LAB | [address] [facility] | [place] [address] | [phone] | | [facility] | | | | [...] + + | REFERENCE LAB | [address] [facility] | [place] [address] | [phone] | | [facility] | | | | + + + + + | REFERENCE LAB | [address] [facility] | [place] [address] | [phone] | | [facility] | | | | [...] + + | REFERENCE LAB | [address] [facility] | [place] [address] | [phone] | | [facility] | | | | + + + + + | REFERENCE LAB | [address] [facility] | [place] [address] | [phone] | | [facility] | | | | [...] | [address] | [place] [address] | [phone] | | [facility] | | | | + + + + + | REFERENCE LAB | [address] | [place] [address] | [phone] | | [facility] | | | | [...] + | REFERENCE LAB | [address] | [place] [address] | [phone] | | [facility] | | | | + + + + + | REFERENCE LAB | [address] | [place] [address] | [phone] | | [facility] | | | | [...] + + | REFERENCE LAB | [address] [facility] | [place] [address] | [phone] | | [facility] | | | | + + + + + | REFERENCE LAB | [address] | [place] [address] | [phone] | | [facility] | | | | [...] | REFERENCE LAB | [address] | [place] [address] | [phone] | | [facility] | | | | + + + + + | REFERENCE LAB | [address] | [place] [address] | [phone] | | [facility] | | | | [...] + + + | REFERENCE LAB | [facility] | [place] [address] | [phone] | | [facility] | | | | + + + + + | REFERENCE LAB | [address] [facility] | [place] [address] | [phone] | | [facility] | | | | [...] + + | REFERENCE LAB | [address] [facility] | [place] [address] | [phone] | | [facility] | | | | + + + + + | REFERENCE LAB | [address] [facility] | [place] [address] | [phone] | | [facility] | | | | + + + + + documented in this encounter Visit Diagnoses Not on filedocumented in this encounter"
--- OUTSIDE RECORDS SUMMARY | ~2019-03-28 | XMS | Clinical Summary ---
Demographics + + + | Address | [address] | | | [place] [address] | + + + | Home Phone | | + + + | Preferred Language | Unknown | + + + | Marital Status | Single | + + + | Mosque Affiliation | Unknown | + + + | Race | Unknown | + + + | Ethnic Group | Unknown | + + + Author + + + | Author | [facility] (Historical as of | | | 11-05-18) | + + + | Organization | [facility] (Historical as of | | | 11-05-18) [...] Team Providers + +------+ + | Care Duct Installer Name | Role | Phone | [...] + + | CARMELA (acute kidney injury) ([facility]) | 03/24/2018 | + + + [...] +------+-------+ + | MEDICARE | MEDICA | [id number] | | | [address] | | | RE | | | | [place] [address] | | | IP-OP | | | | | + +--------+ +------+-------+ + | [employer]DS HE[employer] PLAN | ODS | [id number] | | | | | | HEALTH [...] | Self | [birth year] | Home: | [address] | | | al/Jimmie | | 1941 | [phone] [place] [address] | | | marian | | | [phone] | | + +--------+ +--------+ + +
--- OUTSIDE RECORDS SUMMARY | ~2019-03-28 | XMS | Encounter Summary ---
Demographics + + + | Address | [address] | | | [place] [address] | + + + | Home Phone [...] | Author | [facility] | | | and [place] | + + + | Organization | [facility] [...] Team Providers + +------+ + | Care Reflexologist Name | Role | Phone | + +------+ + PCP | Unavailable | + +------+ + Encounter Details +--------+ + + + + | Date | Type | Department | Care Team | Description | +--------+ + + + + | 02/27/ | Hospital | [facility] | | | | 2001 | Encounter | MED CTR XRAY [address] | | | | | | [place] | | | | | | [place] [address] | | | | | | [phone] | | | +--------+ + + + [...]
--- OUTSIDE RECORDS SUMMARY | ~2019-03-28 | XMS | Encounter Summary ---
Demographics + + + | Address | [address] | | | [place] [address] | + + + | Home Phone | | + + + | Preferred Language | Unknown | + + + | Marital Status | | + + + | Adventist Affiliation | Unknown | + + + | Race | Unknown | + + + | Ethnic Group | Unknown | + + + Author + + + | Author | [facility] | | | and [place] | + + + | Organization | [facility] | [...] Team Providers + +------+ + | Care Heel Wheeler Name | Role | Phone | + +------+ + PCP | Unavailable | + +------+ + Encounter Details +--------+ + + + + | Date | Type | Department | Care Team | Description | +--------+ + + + + | 08/30/ | Hospital | [facility] | | | | 2000 | Encounter | MED CTR LABORATORY | | | | | | [address] [place] | | | | | | [place] | | | | | | [address] | | | | | | [phone] | | | +--------+ + + + [...]
--- OUTSIDE RECORDS SUMMARY | ~2019-03-28 | XMS | Encounter Summary ---
Demographics + + + | Address | [address] | | | [place] [address] | + + + | Home Phone [...] + | Author | [facility] | | | and [place] | + + + | Organization | [facility] [...] Team Providers + +------+ + | Care Costume Shop Manager Name | Role | Phone | [...] + + | 04/16/ | Refill | [facility] | Maya Curry MD | Medication Refill | | 2017 | | MEDICINE [place] | [address] | | | | | [address] | [place], [place] | | | | | [place], [place] | [address] | | | | | [address] | | | | | | [phone] | | | +--------+--------+ + + + [...]
--- OUTSIDE RECORDS SUMMARY | ~2019-03-28 | XMS | Encounter Summary ---
Demographics + + + | Address | [address] | | | [place] [address] | + + + | Home Phone | | + + + | Preferred Language | Unknown | + + + | Marital Status | | + + + | Mosque Affiliation | Unknown | + + + | Race | Unknown | + + + | Ethnic Group | Unknown | + + + Author + + + | Author | [facility] | | | and [place] | + + + | Organization | [facility] | | | and [place] [...] Team Providers + +------+ + | Care Concrete Mixing Plant Laborer Name | Role | Phone | + +------+ + PCP | Unavailable | + +------+ + Encounter Details +--------+ + + + + | Date | Type | Department | Care Team | Description | +--------+ + + + + | 09/18/ | Hospital | [facility] | | | | 2001 - | Encounter | MED CTR CANCER | | | | | | CENTER [address] | | | | 12/17/ | | [place] | | | | 2001 | | [address] | | | | | | [phone] | | | +--------+ + + + [...]
--- OUTSIDE RECORDS SUMMARY | ~2019-03-28 | XMS | Encounter Summary ---
Demographics + + + | Address | [address] | | | [place] [address] | + + + | Home Phone | | + + + | Preferred Language | Unknown | + + + | Marital Status | | + + + | Anglican Affiliation | Unknown | + + + | Race | Unknown | + + + | Ethnic Group | Unknown | + + + Author + + + | Author | [facility] | | | and [place] | + + + | Organization | [facility] | | | and [place] [...] Team Providers + +------+ + | Care Superannuation Funds Manager Name | Role | Phone | + +------+ + PCP | Unavailable | + +------+ + Encounter Details +--------+ + + + + | Date | Type | Department | Care Team | Description | +--------+ + + + + | 05/23/ | Hospital | [facility] | | | | 2007 | Encounter | MED CTR XRAY [address] | | | | | | [place] | | | | | | [place] [address] | | | | | | [phone] | | | +--------+ + + + [...]
--- OUTSIDE RECORDS SUMMARY | ~2019-03-28 | XMS | Encounter Summary ---
Demographics + + + | Address | [address] | | | [place] [address] | + + + | Home Phone [...] Author | [facility] | | | and [place] | + + + | Organization | [facility] | | | [...] Team Providers + +------+ + | Care Logistics Research Engineer Name | Role | Phone | + +------+ + | Maya Curry MD | PCP | | + +------+ + Encounter Details +--------+ + + + + | Date | Type | Department | Care Team | Description | +--------+ + + + + | 03/02/ | Abstract | [facility] [place] [facility] | Maya Curry MD | | | 2017 | | MEDICINE [place] | [address] | | | | | [address] | [place] | | | | | [place], [place] | [address] | | | | | [address] | | | | | | [phone] | | | +--------+ + + + [...]
--- OUTSIDE RECORDS SUMMARY | ~2019-03-28 | XMS | Encounter Summary ---
Demographics + + + | Address | [address] | | | [place] [address] | + + + | Home Phone | | + + + | Preferred Language | Unknown | + + + | Marital Status | | + + + | Moravian Affiliation | Unknown | + + + | Race | Unknown | + + + | Ethnic Group | Unknown | + + + Author + + + | Author | [facility] | | | and [place] | + + + | Organization | [facility] | [...] Team Providers + +------+ + | Care Structural Steel Worker Name | Role | Phone | [...] [place] | | | | | [place], [place] | [address] | | | | | [address] | | | | | | [phone] | | | +--------+ + + + [...] 1.54 cm AR Dec | | | [place]: 1.90 m/s2 AR Dec Time: 2358.76 ms [...] TR | | | Vmax: 3.60 m/s Gas Appliance Servicer: Authenticated by: Jam | | | Stevan [...] mlLAESV Index (A-L): 83.15 ml/m2LAAs A2C: 33.81 [id number] A-L | | A2C: 142.49 mlLALs A2C: 6.81 cmLAAs A4C: 34.72 [id number] A-L A4C: 134.41 mlLALs | | A4C: 7.61 cmTAPSE: 1.54 cmAR Dec [place]: 1.90 m/s2AR Dec Time: 2358.76 msAR | | maxP.26 mmHgAR PHT: 684.04 msAR Vmax: 4.00 m/sHR: 55.71 BPMAV maxP.35 | | mmHgAV meanP.96 mmHgAV Vmax: 1.52 m/Sariah Vmean: 1.02 m/Sariah VTI: 39.70 cmAVA | | Vmax: 1.41 cm2AVA (VTI): 1.07 [id number] Vmax: 0.00 cm2/m2AVAI (VTI): 0.00 | | cm2/m2LVCI Dopp: 1.54 l/qxse4DIWK Dopp: 2.71 l/minHR: 63.74 BPMLVOT maxP.11 | [...] maxP.03 mmHgTR Vmax: 3.60 m/s | | Gas Appliance Servicer:Authenticated by: Jam Keys Date/Time: 07-07-2017 20:14:40 | [...] | |TAPSE: 1.54 cm | |AR Dec [place]: 1.90 m/s2 | |AR Dec Time: 2358.76 [...] |TR Vmax: 3.60 m/s | | | |Gas Appliance Servicer: | |Authenticated by: Jam Calles | |Report [...]
--- OUTSIDE RECORDS SUMMARY | ~2019-03-28 | XMS | Encounter Summary ---
Demographics + + + | Address | [address] | | | [place] [address] | + + + | Home Phone | | + + + | Preferred Language | Unknown | + + + | Marital Status | | + + + | Sabianism Affiliation | Unknown | + + + | Race | Unknown | + + + | Ethnic Group | Unknown | + + + Author + + + | Author | [facility] | | | and [place] | + + + | Organization | [facility] | | | and [...] Team Providers + +------+ + | Care Medication Specialist Name | Role | Phone | + +------+ + PCP | Unavailable | + +------+ + Encounter Details +--------+ + + + + | Date | Type | Department | Care Team | Description | +--------+ + + + + | 09/09/ | Hospital | [facility] | | | | 2003 | Encounter | MED CTR XRAY [address] | | | | | | [place] | | | | | | [place] [address] | | | | | | [phone] | | | +--------+ + + + [...]
--- OUTSIDE RECORDS SUMMARY | ~2019-03-28 | XMS | Encounter Summary ---
Demographics + + + | Address | [address] | | | [place] [address] | + + + | Home Phone | | + + + | Preferred Language | Unknown | + + + | Marital Status | | + + + | Baptist Affiliation | Unknown | + + + | Race | Unknown | + + + | Ethnic Group | Unknown | + + + Author + + + | Author | [facility] | | | and [place] | + + + | Organization | [facility] | | | and [place] [...] Team Providers + +------+ + | Care Subscription Agent Name | Role | Phone | + +------+ + PCP | Unavailable | + +------+ + Encounter Details +--------+ + + + + | Date | Type | Department | Care Team | Description | +--------+ + + + + | 08/24/ | Hospital | [facility] | | | | 2001 | Encounter | MED CTR GENERIC OP | | | | | | CONV DEPT [address] | | | | | | [place], | | | | | | [place] [address] | | | | | | [phone] | | | +--------+ + + + [...]
--- OUTSIDE RECORDS SUMMARY | ~2019-03-28 | XMS | Encounter Summary ---
Demographics + + + | Address | [address] | | | [place] [address] | + + + | Home Phone [...] | Author | [facility] | | | and [place] | + + + | Organization | [facility] | | | and [place] [...] Team Providers + +------+ + | Care Puff Iron Operator Name | Role | Phone | [...] | | | | 06/26/ | | [place] | | | | 2001 | | [address] | | | | | | [phone] | | | +--------+ + + + [...]
--- OUTSIDE RECORDS SUMMARY | ~2019-03-28 | XMS | Encounter Summary ---
Demographics + + + | Address | [address] | | | [place] [address] | + + + | Home Phone | | + + + | Preferred Language | Unknown | + + + | Marital Status | | + + + | Holiness Affiliation | Unknown | + + + | Race | Unknown | + + + | Ethnic Group | Unknown | + + + Author + + + | Author | [facility] | | | and [place] | + + + | Organization | [facility] | | [...] Team Providers + +------+ + | Care Food Analyst Name | Role | Phone | + +------+ + PCP | Unavailable | + +------+ + Encounter Details +--------+ + + + + | Date | Type | Department | Care Team | Description | +--------+ + + + + | 10/09/ | Hospital | [facility] | | | | 1999 | Encounter | MED CTR GENERIC OP | | | | | | CONV DEPT [address] | | | | | | [place], | | | | | | [place] [address] | | | | | | [phone] | | | +--------+ + + + [...]
--- OUTSIDE RECORDS SUMMARY | ~2019-03-28 | XMS | Encounter Summary ---
Demographics + + + | Address | [address] | | | [place] [address] | + + + | Home Phone | | + + + | Preferred Language | Unknown | + + + | Marital Status | | + + + | Yarsani Affiliation | Unknown | + + + | Race | Unknown | + + + | Ethnic Group | Unknown | + + + Author + + + | Author | [facility] | | | and [place] | + + + | Organization | [facility] | | | and [place] [...] Team Providers + +------+ + | Care Office Services Clerk Name | Role | Phone | + +------+ + PCP | Unavailable | + +------+ + Encounter Details +--------+ + + + + | Date | Type | Department | Care Team | Description | +--------+ + + + + | 02/27/ | Hospital | [facility] | | | | 2001 | Encounter | MED CTR XRAY [address] | | | | | | [place] | | | | | | [place] [address] | | | | | | [phone] | | | +--------+ + + + [...]
--- OUTSIDE RECORDS SUMMARY | ~2019-03-28 | XMS | Encounter Summary ---
Demographics + + + | Address | [address] | | | [place] [address] | + + + | Home Phone [...] | Author | [facility] | | | and [place] | + + + | Organization | [facility] | | | and [...] Providers + +------+ + | Care Sales Support Associate Name | Role | Phone | + +------+ + PCP | Unavailable | + +------+ + Encounter Details +--------+ + + + + | Date | Type | Department | Care Team | Description | +--------+ + + + + | 10/13/ | Hospital | [facility] | | | | 1999 | Encounter | MED CTR XRAY [address] | | | | | | [place] | | | | | | [place] [address] | | | | | | [phone] | | | +--------+ + + + [...]
--- OUTSIDE RECORDS SUMMARY | ~2019-03-28 | XMS | Clinical Summary ---
Demographics + + + | Address | [address] | | | [place] [address] | + + + | Home Phone | | + + + | Preferred Language | Unknown | + + + | Marital Status | | + + + | Confucianism Affiliation | Unknown | + + + | Race | Unknown | + + + | Ethnic Group | Unknown | + + + Author + + + | Author | [facility] | | | and [place] | + + + | Organization | [facility] | | | and [place] [...] Team Providers + +------+ + | Care Digital Advertising Analyst Name | Role | Phone | [...] + +--------+ | MEDICARE | MEDICA | [id number] | 06/21/19 | [phone] | | Medica | | | RE | | 05-Pre | 5 | | re | | | PART A | | sent | | | | | | AND B | | | | | | + +--------+ +--------+ + +--------+ | MODA | MODA | [id number] | 05/21/19 | [phone] | [address] | Indemn | | | HEALTH | | 08-Pre | 9 | [phone] | ity | | | MDCR | | sent | | [place], | | | | [place] | | | | [place] [address] | | + +--------+ +--------+ + +--------+ + +--------+ +--------+ + + | Guarantor Name | Accoun | Relation to | Date | Phone | Billing Address | | | t Type | Patient | of | | | | | | | | | | + +--------+ +--------+ + + | Nancy Celis | Person | Self | [birth year] | [address] | | | al/Fam | | 1941 | [phone] | [place] [address] | | | marian | | | 4 (Home) | | + +--------+ +--------+ + + Advance Directives + + + + + | Type | Date Recorded | Patient | Explanation | | | | Physical Meteorologist | | + + + + + | Power of | | | | | Environmental Studies Program Director | | | | + + + + + | Advance | | | | | Directive | | | | + + + + +
--- OUTSIDE RECORDS SUMMARY | ~2019-03-28 | XMS | Encounter Summary ---
Demographics + + + | Address | [address] | | | [place] [address] | + + + | Home Phone [...] + | Author | [facility] | | | and [place] | + + + | Organization | [facility] | | [...] Team Providers + +------+ + | Care Veneer Marker Name | Role | Phone | + [...] + + | 04/01/ | Telephone | [facility] | Maya Curry MD | Appointment | | 2019 | | MEDICINE [place] | [address] | | | | | [address] | [place] | | | | | [place] | [address] | | | | | [address] | | | | | | [phone] | | | +--------+ + + + [...]
--- OUTSIDE RECORDS SUMMARY | ~2019-03-28 | XMS | Encounter Summary ---
Demographics + + + | Address | [address] | | | [place] [address] | + + + | Home Phone [...] + | Author | [facility] | | | and [place] | + + + | Organization | [facility] | | | and [place] [...] Team Providers + +------+ + | Care Hplc Chemist Name | Role | Phone | + [...] | | | | 2003 | | [address] | | | | | | [phone] | | | +--------+ + + + [...]
--- OUTSIDE RECORDS SUMMARY | ~2019-03-28 | XMS | Encounter Summary ---
Demographics + + + | Address | [address] | | | [place] [address] | + + + | Home Phone | | + + + | Preferred Language | Unknown | + + + | Marital Status | | + + + | Bahai Affiliation | Unknown | + + + | Race | Unknown | + + + | Ethnic Group | Unknown | + + + Author + + + | Author | [facility] | | | and [place] | + + + | Organization | [facility] | [...] + +------+ + | Care Director Of User Experience Name | Role | Phone | + [...] + + | 09/12/ | Telephone | [facility] | Gerardo Castro MD | Other (recall for | | 2013 | | GASTROENTEROLOGY | [address], [place] | colonoscopy) | | | | [address] [place] | [address] [place] [facility] [place] | | | | | [address] [place], [place] | [address] | | | | | [address] | | | | | | [phone] | | | +--------+ + + + [...]
--- OUTSIDE RECORDS SUMMARY | ~2019-03-28 | XMS | Encounter Summary ---
Demographics + + + | Address | [address] | | | [place] [address] | + + + | Home Phone | | + + + | Preferred Language | Unknown | + + + | Marital Status | | + + + | Zoroastrian Affiliation | Unknown | + + + | Race | Unknown | + + + | Ethnic Group | Unknown | + + + Author + + + | Author | [facility] | | | and [place] | + + + | Organization | [facility] | [...] Team Providers + +------+ + | Care Astrochemist Name | Role | Phone | + [...] | | | | 2001 | | [address] | | | | | | [phone] | | | +--------+ + + + [...]
--- OUTSIDE RECORDS SUMMARY | ~2019-03-28 | XMS | Encounter Summary ---
Demographics + + + | Address | [address] | | | [place] [address] | + + + | Home Phone [...] Author | [facility] | | | and [place] | + + + | Organization | [facility] | | | and [...] Team Providers + +------+ + | Care State Archivist Name | Role | Phone | + +------+ + PCP | Unavailable | + +------+ + Encounter Details +--------+ + + + + | Date | Type | Department | Care Team | Description | +--------+ + + + + | 05/23/ | Hospital | [facility] | | | | 2007 | Encounter | MED CTR XRAY [address] | | | | | | [place] | | | | | | [place] [address] | | | | | | [phone] | | | +--------+ + + + [...]
--- OUTSIDE RECORDS SUMMARY | ~2019-03-28 | XMS | Encounter Summary ---
Demographics + + + | Address | [address] | | | [place] [address] | + + + | Home Phone [...] | Author | [facility] | | | and [place] | + + + | Organization | [facility] | | | [...] Team Providers + +------+ + | Care World Travel Counselor Name | Role | Phone | + +------+ + PCP | Unavailable | + +------+ + Encounter Details +--------+ + + + + | Date | Type | Department | Care Team | Description | +--------+ + + + + | 11/13/ | Hospital | [facility] | | | | 2005 | Encounter | MED CTR XRAY [address] | | | | | | [place] | | | | | | [place] [address] | | | | | | [phone] | | | +--------+ + + + [...]
--- OUTSIDE RECORDS SUMMARY | ~2019-03-28 | XMS | Encounter Summary ---
Demographics + + + | Address | [address] | | | [place] [address] | + + + | Home Phone [...] | Author | [facility] | | | and [place] | + + + | Organization | [facility] | | | and [place] [...] Team Providers + +------+ + | Care Carpet Binder Name | Role | Phone | + +------+ + PCP | Unavailable | + +------+ + Encounter Details +--------+ + + + + | Date | Type | Department | Care Team | Description | +--------+ + + + + | 09/05/ | Hospital | [facility] | | | | 2002 | Encounter | MED CTR XRAY [address] | | | | | | [place] | | | | | | [place] [address] | | | | | | [phone] | | | +--------+ + + + [...]
--- OUTSIDE RECORDS SUMMARY | ~2019-03-28 | XMS | Encounter Summary ---
Demographics + + + | Address | [address] | | | [place] [address] | + + + | Home Phone [...] | Author | [facility] | | | and [place] | + + + | Organization | [facility] | | [...] Team Providers + +------+ + | Care Dross Puller Name | Role | Phone | [...] | | | | 2003 | | [address] | | | | | | [phone] | | | +--------+ + + + [...]
--- OUTSIDE RECORDS SUMMARY | ~2019-03-28 | XMS | Encounter Summary ---
Demographics + + + | Address | [address] | | | [place] [address] | + + + | Home Phone [...] Author | [facility] | | | and [place] | + + + | Organization | [facility] | | [...] Team Providers + +------+ + | Care Detention Attendant Name | Role | Phone | + [...] of | [address], | | | | | malignant | [address], [place] | [address] | | | | | neoplasm of | [address] [place] | [place], | | | | | large | [place], [place] | [place] [address] | | | | | intestine | [address] | Phone: | | | | | Procedures | Phone: | [phone] | | | | | [place] | [phone] | Fax: | | | | | COLONOSCOPY, | Fax: | [phone] | | | | | DIAGNOSTIC | [phone] | | | | | | [place] | | | | | | | [...] of | [address] | [address], | | | | | malignant | [address], [place] | [address] | | | | | neoplasm of | [address] [place] | [place], | | | | | large | [place], [place] | [place] [address] | | | | | intestine | [address] | Phone: | | | | | Procedures | Phone: | [phone] | | | | | [place] | [phone] | Fax: | | | | | COLONOSCOPY, | Fax: | [phone] | | | | | DIAGNOSTIC | [phone] | | | | | | [place] | | | | | | | COLONOSCOPY, | | | | | | | BIOPSY | | | +--------+ + + + + + Encounter Details +--------+---------+ + + + | Date | Type | Department | Care Team | Description | +--------+---------+ + + + | 01/18/ | Office | [facility] | Gerardo Castro MD | 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
--- OUTSIDE RECORDS SUMMARY | ~2019-03-28 | XMS | Encounter Summary ---
Demographics + + + | Address | [address] | | | [place] [address] | + + + | Home Phone [...] | Author | [facility] | | | and [place] | + + + | Organization | [facility] | | | and [...] Team Providers + +------+ + | Care Track Laying Supervisor Name | Role | Phone | + +------+ + | Sangeetha Dixon MD | PCP | | + +------+ + Encounter Details +--------+ + + + + | Date | Type | Department | Care Team | Description | +--------+ + + + + | 01/17/ | Abstract | [facility] | Gerardo Castro MD | | | 2011 | | GASTROENTEROLOGY | [address], [place] | | | | | [address] [place] | [address] [place], [place] | | | | | [address] [place], [place] | [address] | | | | | [address] | | | | | | [phone] | | | +--------+ + + + + Social History + +-------+ +--------+------+ | Tobacco Use | Types | Packs/Day | Years | Date | | | | | Used | | + +-------+ +--------+------+ | Never Smoker | | | | | + +-------+ +--------+------+ + + +---------+ + | Alcohol Use [...]
--- OUTSIDE RECORDS SUMMARY | ~2019-03-28 | XMS | Encounter Summary ---
Demographics + + + | Address | [address] | | | [place] [address] | + + + | Home Phone [...] + | Author | [facility] | | | and [place] | + + + | Organization | [facility] [...] Providers + +------+ + | Care Sales Project Engineer Name | Role | Phone | [...] | | 2017 | visit | [facility] [place] | CANDY SEPARATOR ENROBING [address] | monitoring, INR | | | | [address] | [place] | range 2-3 (Primary | | | | [place] | [address] | Dx); Chronic atrial | | | | [address] | | fibrillation (HCC) | | | | [phone] | | | +--------+ + + + [...] seen for PT/INR or primary care since [facility] closed. PCP: Dr. Curry, has appt scheduled for mid February. Last seen for INR 09/23/16 when I was at [facility]. INR 2.6 on that date. Taking 2.5mg [...] Take by mouth Daily. Cholecalciferol (VITAMIN D-3) 54071 units CAPS Take by mouth Once a [...]
--- OUTSIDE RECORDS SUMMARY | ~2019-03-28 | XMS | Encounter Summary ---
Demographics + + + | Address | [address] | | | [place] [address] | + + + | Home Phone | | + + + | Preferred Language | Unknown | + + + | Marital Status | | + + + | Catholic Affiliation | Unknown | + + + | Race | Unknown | + + + | Ethnic Group | Unknown | + + + Author + + + | Author | [facility] | | | and [place] | + + + | Organization | [facility] | | [...] Team Providers + +------+ + | Care Drop Worker Name | Role | Phone | + +------+ + | Maya Curry MD | PCP | | + +------+ + Encounter Details +--------+ + + + + | Date | Type | Department | Care Team | Description | +--------+ + + + + | 04/19/ | Abstract | [facility] [place] [facility] | Maya Curry MD | | | 2017 | | MEDICINE [place] | [address] | | | | | [address] | [place] | | | | | [place], [place] | [address] | | | | | [address] | | | | | | [phone] | | | +--------+ + + + [...]
--- OUTSIDE RECORDS SUMMARY | ~2019-03-28 | XMS | Encounter Summary ---
Demographics + + + | Address | [address] | | | [place] [address] | + + + | Home Phone [...] Author | [facility] | | | and [place] | + + + | Organization | [facility] | | | and [...] Team Providers + +------+ + | Care Merchandise For Resale Purchasing Agent Name | Role | Phone | [...] 2011 | | GASTROENTEROLOGY | [address], [place] | | | | | [address] [place] | [address] [place], [place] | | | | | [address] [place], [place] | [address] | | | | | [address] | | | | | | [phone] | | | +--------+ + + + [...]
--- OUTSIDE RECORDS SUMMARY | ~2019-03-28 | XMS | Encounter Summary ---
Demographics + + + | Address | [address] | | | [place] [address] | + + + | Home Phone | | + + + | Preferred Language | Unknown | + + + | Marital Status | | + + + | Christian Affiliation | Unknown | + + + | Race | Unknown | + + + | Ethnic Group | Unknown | + + + Author + + + | Author | [facility] | | | and [place] | + + + | Organization | [facility] | | | and [...] Team Providers + +------+ + | Care Assembler Musical Instruments Name | Role | Phone | + +------+ + PCP | Unavailable | + +------+ + Encounter Details +--------+ + + + + | Date | Type | Department | Care Team | Description | +--------+ + + + + | 08/31/ | Hospital | [facility] | | | | 2002 | Encounter | MED CTR LABORATORY | | | | | | [address] | | | | | | [place] | | | | | | [address] | | | | | | [phone] | | | +--------+ + + + [...]
--- OUTSIDE RECORDS SUMMARY | ~2019-03-28 | XMS | Encounter Summary ---
Demographics + + + | Address | [address] | | | [place] [address] | + + + | Home Phone [...] [facility] | | | and [place] | + + + | Organization | [facility] | | [...] Team Providers + +------+ + | Care Carder Blankets Name | Role | Phone | + +------+ + PCP | Unavailable | + +------+ + Encounter Details +--------+ + + + + | Date | Type | Department | Care Team | Description | +--------+ + + + + | 11/11/ | Hospital | [facility] | Gerardo Castro MD | | | 2006 | Encounter | MED CTR GENERIC OP | [address], [address] | | | | | CONV DEPT [address] | [address] [place], [place] | | | | | [place], | [address] | | | | | [place] [address] | | | | | | [phone] | | | +--------+ + + + [...]
--- OUTSIDE RECORDS SUMMARY | ~2019-03-28 | XMS | Encounter Summary ---
Demographics + + + | Address | [address] | | | [place] [address] | + + + | Home Phone [...] Author | [facility] | | | and [place] | + + + | Organization | [facility] | | | and [place] [...] Team Providers + +------+ + | Care Master Naval Parachutist Name | Role | Phone | + [...] | | | | 2003 | | [address] | | | | | | [phone] | | | +--------+ + + + [...]
--- OUTSIDE RECORDS SUMMARY | ~2019-03-28 | XMS | Encounter Summary ---
Demographics + + + | Address | [address] | | | [place] [address] | + + + | Home Phone [...] | Author | [facility] | | | and [place] | + + + | Organization | [facility] | | | and [...] Team Providers + +------+ + | Care Teacher'S Aide Name | Role | Phone | + +------+ + | Maya Curry MD | PCP | | + +------+ + Reason for Visit + + + | Reason | Comments | + + + | Establish Care | re-establish care prior patient of [facility]. | + + + Encounter Details +--------+---------+ + + + | Date | Type | Department | Care Team | Description | +--------+---------+ + + + | 05/05/ | Office | [facility] | Maya Curry MD | Cellulitis of right | | 2018 | Visit | MEDICINE [place] | [address] | lower extremity; | | | | [address] | [place] | HYPERTENSION, BENIGN | | | | [place] | [address] | ESSENTIAL | | | | [address] | | | | | | [phone] | | | +--------+---------+ + + + [...] your provider decide on. Date Last Reviewed: 12/21/201519995045-2900 [employer]. [address] [place] [address], [place] [address]. All righ ts reserved. This information is [...] your provider decide on. Date Last Reviewed: 12/21/201519993900-1295 [employer]. [address] [place] [address]. All righ ts reserved. This information is not intended as a substitute for professional medical care. Always follow your healthcare professional's instructions. documented in this encounter Progress Notes Maya Curry MD - 05/05/2017 1:00 PM PST Subjective: Patient ID: Nancy Celis is a 76 y.o. female. Chief Complaint Patient presents with Establish Care re-establish care prior patient of [facility]. HPI Nancy is a 76 year lod [...] infection (aliza lulitis). She was seen at [place] [facility]. When she was there the ED physician told her she h ad low blood pressure so she stopped her BP medication. 03/22/17 hit RLE on car door and got cellulitis and not healing. [facility], diagnosed her and gave her Cephalexin and [...] Take by mouth Daily. Cholecalciferol (VITAMIN D-3) 92399 units CAPS Take by mouth Once a [...] ST. | [address] | [place], [place] | [phone] | | [facility] | | [id number] | | | - LABORATORY | | [...]
--- OUTSIDE RECORDS SUMMARY | ~2019-03-28 | XMS | Encounter Summary ---
Demographics + + + | Address | [address] | | | [place] [address] | + + + | Home Phone [...] | Author | [facility] | | | and [place] | + + + | Organization | [facility] | | | and [...] Team Providers + +------+ + | Care Valve Setter Name | Role | Phone | + +------+ + PCP | Unavailable | + +------+ + Encounter Details +--------+ + + + + | Date | Type | Department | Care Team | Description | +--------+ + + + + | 05/06/ | Hospital | [facility] | Keith Koenig, | | | 2010 | Encounter | [facility] | [address] | | | | | [address] [place] | [place], [place] | | | | | [place], [place] | [address] | | | | | [address] | | | | | | [phone] | | | +--------+ + + + [...]
--- OUTSIDE RECORDS SUMMARY | ~2019-03-28 | XMS | Encounter Summary ---
Demographics + + + | Address | [address] | | | [place] [address] | + + + | Home Phone | | + + + | Preferred Language | Unknown | + + + | Marital Status | | + + + | Restoration Affiliation | Unknown | + + + | Race | Unknown | + + + | Ethnic Group | Unknown | + + + Author + + + | Author | [facility] | | | and [place] | + + + | Organization | [facility] [...] Team Providers + +------+ + | Care Construction Cost Estimator Name | Role | Phone | + [...] + + | 11/25/ | Telephone | [facility] | Maya Curry MD | Anticoagulation | | 2018 | | MEDICINE [place] | [address] | ([address] | | | | [address] | [place], [place] | | | | | [place], [place] | [id number] | | | | | [address] | | | | | | [phone] | | | +--------+ + + + [...]
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
--- OUTSIDE RECORDS SUMMARY | ~2019-03-28 | XMS | Encounter Summary ---
Demographics + + + | Address | [address] | | | [place] [address] | + + + | Home Phone [...] | Author | [facility] | | | and Juanitoana | + + + | Organization | [facility] | | | [...] Team Providers + +------+ + | Care Geospatial Specialist Name | Role | Phone | [...] 2011 | | GASTROENTEROLOGY | [address], [place] | | | | | [address] [place] | [address] [place], [place] | | | | | [address] [place], [place] | [address] | | | | | [address] | | | | | | [phone] | | | +--------+ + + + [...]
--- OUTSIDE RECORDS SUMMARY | ~2019-03-28 | XMS | Encounter Summary ---
Demographics + + + | Address | [address] | | | [place] [address] | + + + | Home Phone [...] + | Author | [facility] | | | and [place] | + + + | Organization | [facility] [...] Team Providers + +------+ + | Care Echo Vascular Tech Name | Role | Phone | [...] + + | 02/07/ | Telephone | [facility] | Gerardo Castro MD | Results, Pathology | | 2011 | | GASTROENTEROLOGY | [address], [place] | | | | | [address] [facility] | [address] [place] [address] | | | | | [address] [place], [place] | [address] | | | | | [address] | | | | | | [phone] | | | +--------+ + + + [...]
--- OUTSIDE RECORDS SUMMARY | ~2019-03-28 | XMS | Encounter Summary ---
Demographics + + + | Address | [address] | | | [place] [address] | [...] | Author | [facility] | | | and Juanitoana | + + + | Organization | [facility] | | [...] Team Providers + +------+ + | Care Sorting Supervisor Name | Role | Phone | + +------+ + PCP | Unavailable | + +------+ + Encounter Details +--------+ + + + + | Date | Type | Department | Care Team | Description | +--------+ + + + + | 10/27/ | Hospital | [facility] | | | | 2005 | Encounter | [facility] [address] | | | | | | [place] | | | | | | [place] [address] | | | | | | [phone] | | | +--------+ + + + [...]
--- OUTSIDE RECORDS SUMMARY | ~2019-03-28 | XMS | Encounter Summary ---
Demographics + + + | Address | [address] | | | [place] [address] | + + + | Home Phone | | + + + | Preferred Language | Unknown | + + + | Marital Status | | + + + | Orthodox Affiliation | Unknown | + + + | Race | Unknown | + + + | Ethnic Group | Unknown | + + + Author + + + | Author | [facility] | | | and Juanitoana | + + + | Organization | [facility] | [...] Team Providers + +------+ + | Care Vacuum System Tester Name | Role | Phone | + +------+ + | Maya Curry MD | PCP | | + +------+ + Encounter Details +--------+ + + + + | Date | Type | Department | Care Team | Description | +--------+ + + + + | 10/14/ | Abstract | [facility] | Jens Woodward, | | | 2016 | | [facility] [address] | AFFILIATE MANAGER [address] [facility] | | | | | [address] [place], | [place] | | | | | [place] [address] | [address] | | | | | [phone] | | | +--------+ + + + [...]
--- OUTSIDE RECORDS SUMMARY | 2019-03-28 16:48 | XMS ---
PreManage Notification: IRIS OLIVAREZ Security Parking Garage Manager Events No recent Security Events currently on file CRITERIA MET - [facility] - Has Care Guidelines CARE PROVIDERS PEDRO IGNACIO [facility] Current PHONE: Unknown Ryan Meza Internal Medicine: Pulmonary Disease 03/30/2018-Current PHONE: Unknown Sarbjit has no Care Guidelines for this patient. Care History Medical/Surgical 03/30/2018 [facility] - Patient is currently established with [facility]. If patient is seen in the ED during business hours. Please contact [facility] at [facility]. Care Recommendation: This patient has had [...] providing care. E.D. VISIT COUNT (12 MO.) 7 [facility]TON[facility] Denny TOTAL 7 NOTE: Visits indicate total known visits. 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 01/03/2019 11:51 [facility] [place] TYPE: Emergency COMPLAINT: - SOB, COUGH 08/18/2018 19:18 [facility] [place] TYPE: Emergency COMPLAINT: - DIZZINESS DIAGNOSES: - Dehydration - Other ferry terminal supervisor (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 - Anemia, unspecified - [...] history of urinary (tract) infections - Other custodial (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 - Prsnl hx of TIA (TIA), 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 deficits - Hypotension, unspecified - Unspecified atrial fibrillation 04/27/2018 12:12 [facility] [place] TYPE: Emergency COMPLAINT: - SEIZURE DIAGNOSES: - Prsnl hx of TIA (TIA), 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 deficits - Unspecified atrial fibrillation - Unspecified convulsions - Other custodial (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 - Hypertensive heart disease with heart failure - Heart failure, unspecified 03/29/2018 14:33 [facility] [place] TYPE: Emergency COMPLAINT: - LETHARGIC DIAGNOSES: - intermediate card tender (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 of anticoagulants - shelter (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 - Personal history of malignant neoplasm of large intestine - Hypertensive heart disease with heart failure - Heart failure, unspecified - Other custodial (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 - Weakness - Unspecified atrial fibrillation INPATIENT VISIT TRACKING (12 MO.) 01/03/2019 16:[address] 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
[2019-03-28] MEDS ORDERED: BIOFREEZE118 ML TOP (16:59)
[2019-03-28] MEDS ORDERED: ASPERCREME1 EACH TOP (17:00)
== END 2019-03-28 19:48 | disposition home or self-care (01) ==
LOC: ED 16:45
DX: S00.83XA Contusion of other part of head, initial encounter (principal); I11.0 Hypertensive heart disease with heart failure; I50.9 Heart failure, unspecified; I48.91 Unspecified atrial fibrillation; Z87.891 Personal history of nicotine dependence; Z79.899 Other long term (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; W22.8XXA Striking against or struck by other objects, initial encounter
CPT/HCPCS: 70450; 99284-25

== ENCOUNTER 2020-01-26 14:40 | Emergency (ER) | payer MEDICARE, OTHER ==
[~2020-01-26] VITALS: Ht 157.5 cm; Wt 77.2 kg
[~2020-01-26 14:40] MED LIST changes: +ASPERCREME1 EACH TOP
--- OUTSIDE RECORDS SUMMARY | 2020-01-26 14:42 | XMS ---
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 Care History Medical/Surgical 03/29/2019 [facility] Patient needs ED follow up visit.\T\nbsp; Sent request to PCP office to see if patient can get in to be seen after fall. 03/30/2018 [facility] - Patient is currently established with [facility]. If patient is seen in the ED during business hours. Please contact CHWs at [facility]. Care Recommendation: This patient has had 5 or more Emergency Department visits in the last 12 months.\T\nbsp; Patient requires education on the scope and purpose of the ED as an acute care provider not a Primary Care Provider and should not be utilized for chronic conditions.\T\nbsp; These are guidelines and the provider should exercise clinical judgment when providing care. Iain VISIT COUNT (12 MO.) 2 [facility] TOTAL 2 NOTE: Visits indicate total known visits. ED/UCC VISIT TRACKING (12 MO.) 01/26/2020 14:41 [facility] [place] TYPE: Emergency COMPLAINT: - FALL 03/28/2019 16:[address] [facility] [place] TYPE: Emergency COMPLAINT: - FALL DIAGNOSES: - Other alf (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 - Contusion of left thigh, initial encounter - Heart failure, unspecified - Unspecified injury of head, initial encounter - Personal history of nicotine dependence - Hypertensive heart disease with heart failure - Unspecified atrial fibrillation - Striking against or struck by other objects, initial encounter - Contusion of other part of head, initial encounter - Contusion of unspecified part of head, initial encounter INPATIENT VISIT TRACKING (12 MO.) No inpatient visits to display in this time frame [email or web address]
[2020-01-26] MEDS ORDERED: ATIVAN1 MG PO (15:14)
[2020-01-26] MEDS ORDERED: BIOFREEZE118 ML TOP (15:15)
[2020-01-26] MEDS ORDERED: LEXAPRO10 MG PO (15:15)
[2020-01-26] MEDS ORDERED: MIRTAZAPINE15 MG PO (15:16)
[2020-01-26] MEDS ORDERED: TYLENOL325 MG PO (15:16)
[2020-01-26] MEDS ORDERED: BACTRIM DS TAB1 EACH PO (19:02)
[2020-01-26] MEDS ORDERED: ACETAMINOPHEN-1 EAC1 PO (19:02)
--- NOTE | 2020-01-28 14:12 | EKG ---
[facility] [address] [facility] [place] [address] Signed Atrial fibrillation Left axis deviation Low voltage QRS Anterolateral infarct (cited on or before 07-JUL-2017) Abnormal ECG When compared with ECG of 04-JAN-2019 21:19, Vent. rate has decreased BY 39 BPM QRS voltage has decreased T wave inversion now evident in Inferior leads Confirmed by TAN BEDOLLA MD ([id number]) on 01/28/2020 2:12:01 PM Electronically Signed By: TAN BEDOLLA MD 01/28/20 1412 PATIENT NAME: EMILY OSBORNIRIS Electrocardiogram DATE OF : 38 PHYSICIAN: TAN BEDOLLA MD REPORT #: [id number] REPORT IS CONFIDENTIAL AND NOT TO BE RELEASED WITHOUT AUTHORIZATION
== END 2020-01-26 19:21 | disposition home or self-care (01) ==
LOC: ED 14:40
DX: S76.012A Strain of muscle, fascia and tendon of left hip, initial encounter (principal); S86.912A Strain of unspecified muscle(s) and tendon(s) at lower leg level, left leg, initial encounter; N39.0 Urinary tract infection, site not specified; W05.0XXA Fall from non-moving wheelchair, initial encounter; I11.0 Hypertensive heart disease with heart failure; I50.9 Heart failure, unspecified; Z86.73 Personal history of transient ischemic attack (TIA), and cerebral infarction without residual deficits; Z79.899 Other long term (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; Z85.038 Personal history of other malignant neoplasm of large intestine
CPT/HCPCS: 71045; 73502; 73560; 73700; 81001; 87077; 87088; 87186; 93005; 93010; 96372; 99284-25; J3010

== ENCOUNTER 2021-03-25 14:41 | Emergency (ER) | payer MEDICARE, OTHER ==
[~2021-03-25] VITALS: Ht 157.5 cm; Wt 77.2 kg
--- NOTE | ~2021-03-25 | EKG ---
[facility] [address] [facility] [place], [place] [address] Draft EK completed, results pending confirmation PATIENT NAME: IRIS OLIVAREZ Electrocardiogram DATE OF : 38 PHYSICIAN: PRELIMINARY REPORT #: [id number] REPORT IS CONFIDENTIAL AND NOT TO BE RELEASED WITHOUT AUTHORIZATION
[~2021-03-25 14:41] MED LIST changes: +ACETAMINOPHEN-1 EAC1 PO; +ATIVAN1 MG PO; +BACTRIM DS TAB1 EACH PO; +LEXAPRO10 MG PO; +MIRTAZAPINE15 MG PO; +TYLENOL325 MG PO
--- OUTSIDE RECORDS SUMMARY | 2021-03-25 14:42 | XMS ---
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 Care History Medical/Surgical 03/29/2019 [facility] Patient needs ED follow up visit.\T\nbsp; Sent request to PCP office to see if patient can get in to be seen after fall. 03/30/2018 [facility] - Patient is currently established with [facility]. If patient is seen in the ED during business hours. Please contact CHWs at [facility]. Care Recommendation: This patient has had 5 [...] care. E.D. VISIT COUNT (12 MO.) 1 MARIA ANTONIA Denny TOTAL 1 NOTE: Visits indicate total known visits. ED/UCC VISIT TRACKING (12 MO.) 03/25/2021 14:41 [facility] [place] TYPE: Emergency COMPLAINT: - SOB INPATIENT VISIT TRACKING (12 MO.) No inpatient visits to display in this time frame [email or web address]
[2021-03-25] MEDS ORDERED: LEXAPRO20 MG PO (15:37)
== END 2021-03-25 19:43 | disposition home or self-care (01) ==
LOC: ED 14:41
DX: I11.0 Hypertensive heart disease with heart failure (principal); I50.9 Heart failure, unspecified; I48.91 Unspecified atrial fibrillation; Z79.01 Long term (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 of anticoagulants; Z79.899 Other long term (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; Z20.822 Contact with and (suspected) exposure to COVID-19
CPT/HCPCS: 51702; 71045; 80048; 83880; 85025; 94640; 99285-25; C9803; J1940; U0003

== ENCOUNTER 2021-10-28 14:29 | Emergency (ER) | payer MEDICARE, OTHER ==
[~2021-10-28] VITALS: Ht 157.5 cm; Wt 77.2 kg
[~2021-10-28 14:29] MED LIST changes: +LEXAPRO20 MG PO
--- OUTSIDE RECORDS SUMMARY | 2021-10-28 14:30 | XMS ---
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 Care History Medical/Surgical 03/26/2021 [facility] - Patient is currently established with [facility]. If patient is seen in the ED during business hours. Please contact CHWs at [facility]. Care Recommendation: This patient has had 5 or more Emergency Department visits in the last 12 months. Patient requires education on the scope and purpose of the ED as an acute care provider not a Primary Care Provider and should not be utilized for chronic conditions. These are guidelines and the provider should exercise clinical judgment when providing care. 03/29/2019 [facility] Patient needs ED follow up visit.\T\nbsp; Sent request to PCP office to see if patient can get in to be seen after fall. [place] VISIT COUNT (12 MO.) 2 MARIA ANTONIA Denny TOTAL 2 NOTE: Visits indicate total known visits. ED/UCC VISIT TRACKING (12 MO.) 10/28/2021 14:29 [facility] [place] TYPE: Emergency COMPLAINT: - MULTIPLE COMPLAINTS 03/25/2021 14:[address] [facility] [place] TYPE: Emergency COMPLAINT: - SOB DIAGNOSES: - Other jail (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 - Heart failure, unspecified - Unspecified atrial fibrillation - intermediate manager (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 of anticoagulants - Shortness of breath - Hypertensive heart disease with heart failure INPATIENT VISIT TRACKING (12 MO.) No inpatient visits to display in this time frame [email or web address]
[2021-10-28] MEDS ORDERED: LIDODERM1 EACH TOP (16:16)
[2021-10-28] MEDS ORDERED: HYDROCODON-ACE1 EA10 PO (16:16)
== END 2021-10-28 17:05 | disposition home or self-care (01) ==
LOC: ED 14:29
DX: M48.56XA Collapsed vertebra, not elsewhere classified, lumbar region, initial encounter for fracture (principal); I11.0 Hypertensive heart disease with heart failure; I50.9 Heart failure, unspecified; I48.91 Unspecified atrial fibrillation; Z79.899 Other long term (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
CPT/HCPCS: 72100; A9270

== ENCOUNTER 2023-01-26 15:00 | Emergency (ER) | payer MEDICARE, OTHER ==
[~2023-01-26 15:00] MED LIST changes: +HYDROCODON-ACE1 EA10 PO; +LIDODERM1 EACH TOP
--- OUTSIDE RECORDS SUMMARY | 2023-01-26 15:02 | XMS ---
PreManage Notification: IRIS OLIVAREZ Security Third Hand Events No recent Security Events currently on file CRITERIA MET - PDMP CARE PROVIDERS ALLISON HAND [facility] 03/26/2021-Current PHONE: Unknown YAZAN BROWER Internal Medicine: Pulmonary Disease 03/30/2018-Current PHONE: Unknown Sarbjit has no Care Guidelines for this patient. Care History Medical/Surgical 03/26/2021 [facility] - Patient is currently established with [facility]. If patient is seen in the ED during business hours. Please contact CHWs at [facility]. Care Recommendation: This patient has had 5 or more Emergency Department visits in the last 12 months. Patient requires education on the scope and purpose of the ED as an acute care provider not a Primary Care Provider and should not be utilized for chronic conditions. These are guidelines and the provider should exercise clinical judgment when providing care. 03/29/2019 [facility] Patient needs ED follow up visit.\T\nbsp; Sent request to PCP office to see if patient can get in to be seen after fall. E.D. VISIT COUNT (12 MO.) 1 MARIA ANTONIA Denny TOTAL 1 NOTE: Visits indicate total known visits. ED/UCC VISIT TRACKING (12 MO.) 01/26/2023 15:01 [facility] [place] TYPE: Emergency COMPLAINT: - ALTERED LOC INPATIENT VISIT TRACKING (12 MO.) No inpatient visits to display in this time frame [email or web address]
[2023-01-26 16:13] LABS: BASOPHILS 0.4 % (0-2); EOSINOPHILS 0.1 % (0-6); HEMATOCRIT 34.1 % (35.0-50.0); HEMOGLOBIN 11.1 g/dL (12.0-18.0); MCH 30.5 (27-36); MCHC 32.6 g/dl (30-36); MCV 93.4 fl (81-99); MONOCYTES 4.6 % (0-12); NEUTROPHILS 84.9 % (39-80); RBC 3.65 M/ul (4.3-5.7); RDW 13.7 (10.5-15.0)
[2023-01-26 16:30] LABS: ALBUMIN 3.5 g/dL (3.4-5.0); ALBUMIN/GLOBULIN RATIO 0.85 (1.1-2.4); ANION GAP 18.5 (7-21); BILIRUBIN, TOTAL 1.3 ng/dL (0.2-1.0); BUN/CREATININE RATIO 14.11 (6.0-28.6); CALCIUM 9.3 mg/dL (8.5-10.1); CREATININE, SERUM 1.63 mg/dL (0.55-1.02); POTASSIUM 4.5 mmol/L (3.5-5.1); PROTEIN, TOTAL 7.6 g/dL (6.4-8.2)
[2023-01-26 16:37] LABS: SMEAR REVIEW BLOOD SEE COMMENTS
[2023-01-26 16:38] LABS: PLATELET COUNT 212 K/uL (140-440)
[2023-01-26 17:00] LABS: BILIRUBIN, URINE POSITIVE (negative); BLOOD/HGB, URINE SMALL (Negative); KETONE, URINE NEGATIVE (Negative); LEUK ESTERASE, URINE MODERATE (negative); NITRITE, URINE NEGATIVE (negative)
[2023-01-26 17:11] LABS: AMPHETAMINES, URINE NEGATIVE (NEGATIVE); BARBITURATES, URINE NEGATIVE (NEGATIVE); BENZODIAZEPINE, URINE NEGATIVE (NEGATIVE); BUPRENORPHINE, URINE NEGATIVE (NEGATIVE); CANNABINOID, URINE NEGATIVE (NEGATIVE); COCAINE, URINE NEGATIVE (NEGATIVE); ECSTASY, URINE NEGATIVE (NEGATIVE); FENTANYL, URINE NEGATIVE (NEGATIVE); METHADONE, URINE NEGATIVE (NEGATIVE); OPIATES, URINE NEGATIVE (NEGATIVE); OXYCODONE, URINE NEGATIVE (NEGATIVE); PHENCYCLIDINE, URINE NEGATIVE (NEGATIVE)
[2023-01-26 17:32] LABS: CRYSTALS, URINE NONE SEEN (0-1+); EPITHELIAL CELLS, URINE SQUAMOUS 1+ /lpf (0-1+); RED BLOOD CELLS, URINE 0-1 /hpf (0-5); WHITE BLOOD CELLS, URINE >50 /HPF (0-5)
[2023-01-26 17:33] LABS: BACTERIA, URINE 1+ /hpf (negative); CASTS, URINE NONE SEEN \\lpf; REFLEX CULTURE, URINE Yes (No)
[2023-01-26 17:34] LABS: COLLECTION TYPE, URINE CLEAN CATCH
[2023-01-26 18:32] LABS: INFLUENZA B NAA NEGATIVE (NEGATIVE); RESPIRATORY SYNCYTIAL VIR NAA NEGATIVE (NEGATIVE)
[2023-01-26] MEDS ORDERED: CEFDINIR300 MG PO (18:54)
[2023-01-26 20:34] VITALS: BP 125/76
--- NOTE | 2023-01-28 11:54 | EKG ---
[facility] [address] [facility] [place] [address] Signed Atrial fibrillation with rapid ventricular response Anteroseptal infarct (cited on or before 24-FEB-2017) Abnormal ECG When compared with ECG of 26-JAN-2020 19:34, Vent. rate has increased BY 39 BPM Questionable change in initial forces of Lateral leads Nonspecific T wave abnormality now evident in Lateral leads Confirmed by SOL VÁZQUEZ MD ([id number]) on 01/28/2023 11:54:10 AM Electronically Signed By: SOL VÁZQUEZ 01/28/23 1154 PATIENT NAME: EMILY OSBORNIRIS Electrocardiogram DATE OF : 38 PHYSICIAN: SOL VÁZQUEZ REPORT #: [id number] REPORT IS CONFIDENTIAL AND NOT TO BE RELEASED WITHOUT AUTHORIZATION
== END 2023-01-26 20:15 | disposition home or self-care (01) ==
LOC: ED 15:00
PROVIDERS: Emergency Medicine
DX: N39.0 Urinary tract infection, site not specified (principal); M79.605 Pain in left leg; I11.0 Hypertensive heart disease with heart failure; I50.9 Heart failure, unspecified; I69.954 Hemiplegia and hemiparesis following unspecified cerebrovascular disease affecting left non-dominant side; Z79.899 Other long term (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; Z20.822 Contact with and (suspected) exposure to COVID-19
CPT/HCPCS: 36415; 51701; 71045; 80053; 80307; 81001; 84484; 85025; 85060; 87088; 87502; 93005; 93010; 99285-25; C9803; J0696; U0002

== ENCOUNTER 2023-01-30 07:31 | Emergency (ER) | payer MEDICARE, OTHER ==
[~2023-01-30] VITALS: Ht 157.5 cm; Wt 73.9 kg
[~2023-01-30 07:31] MED LIST changes: +CEFDINIR300 MG PO
--- OUTSIDE RECORDS SUMMARY | 2023-01-30 07:33 | XMS ---
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 Care History Medical/Surgical 03/26/2021 [facility] - Patient is currently established with [facility]. If patient is seen in the ED during business hours. Please contact CHWs at [facility]. Care Recommendation: This patient has had 5 or more Emergency Department visits in the last 12 months. Patient requires education on the scope and purpose of the ED as an acute care provider not a Primary Care Provider and should not be utilized for chronic conditions. These are guidelines and the provider should exercise clinical judgment when providing care. 03/29/2019 [facility] Patient needs ED follow up visit.\T\nbsp; Sent request to PCP office to see if patient can get in to be seen after fall. [place] VISIT COUNT (12 MO.) 2 MARIA ANTONIA Denny TOTAL 2 NOTE: Visits indicate total known visits. ED/UCC VISIT TRACKING (12 MO.) 01/30/2023 07:31 [facility] [place] TYPE: Emergency COMPLAINT: - SEIZURE 01/26/2023 15:[address] [facility] [place] TYPE: Emergency COMPLAINT: - ALTERED LOC DIAGNOSES: - Contact with and (suspected) exposure to COVID-19 - Heart failure, unspecified - Hemiplegia and hemiparesis following unspecified cerebrovascular disease affecting left non-dominant side - Hypertensive heart disease with heart failure - Other [place] [facility] (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 - Pain in left leg - Transient alteration of awareness - Urinary tract infection, site not specified INPATIENT VISIT TRACKING (12 MO.) No inpatient visits to display in this time frame [email or web address]
[2023-01-30 07:50] LABS: BASOPHILS 0.7 % (0-2); EOSINOPHILS 1.3 % (0-6); HEMATOCRIT 36.4 % (35.0-50.0); LYMPHOCYTES 16.6 % (24-44); MCH 30.2 (27-36); MCHC 33.1 g/dl (30-36); MCV 91.2 fl (81-99); MONOCYTES 6.7 % (0-12); NEUTROPHILS 74.7 % (39-80); PLATELET COUNT 210 K/uL (140-440); RBC 3.99 M/ul (4.3-5.7)
[2023-01-30 07:55] LABS: INR 1.13 (0.80-1.30); PROTIME 13.9 Sec (11.2-14.2)
[2023-01-30 08:06] LABS: ALBUMIN 3.2 g/dL (3.4-5.0); ALBUMIN/GLOBULIN RATIO 0.73 (1.1-2.4); ANION GAP 15.1 (7-21); BILIRUBIN, TOTAL 1.5 ng/dL (0.2-1.0); BUN/CREATININE RATIO 11.71 (6.0-28.6); CREATININE, SERUM 1.28 mg/dL (0.55-1.02); POTASSIUM 4.1 mmol/L (3.5-5.1); PROTEIN, TOTAL 7.6 g/dL (6.4-8.2)
[2023-01-30 08:49] LABS: BILIRUBIN, URINE NEGATIVE (negative); BLOOD/HGB, URINE TRACE-I (Negative); KETONE, URINE TRACE (Negative); LEUK ESTERASE, URINE SMALL (negative); NITRITE, URINE NEGATIVE (negative); PH, URINE 5.5 (5-7)
[2023-01-30 09:01] LABS: BACTERIA, URINE RARE /hpf (negative); CRYSTALS, URINE NONE SEEN (0-1+); EPITHELIAL CELLS, URINE SQUAMOUS 3+ /lpf (0-1+)
[2023-01-30 09:02] LABS: CASTS, URINE NONE SEEN \\lpf; COLLECTION TYPE, URINE CLEAN CATCH; REFLEX CULTURE, URINE No (No)
[2023-01-30] MEDS ORDERED: KEPPRA500 MG PO (09:43)
[2023-01-30 10:26] VITALS: BP 139/82
--- NOTE | 2023-02-01 05:53 | EKG ---
[facility] [address] [facility] [place] [address] Signed Atrial fibrillation Left axis deviation Minimal voltage criteria for LVH, may be normal variant ( Polo product ) Anteroseptal infarct (cited on or before 24-FEB-2017) Abnormal ECG When compared with ECG of 26-JAN-2023 16:20, Nonspecific T wave abnormality, improved in Inferior leads Confirmed by RABIA DEVLIN MD ([id number]) on 02/01/2023 5:52:47 AM Electronically Signed By: RABIA DEVLIN 02/01/23 0553 PATIENT NAME: EMILY OSBORNIRIS MICAELA Electrocardiogram DATE OF : 38 PHYSICIAN: RABIA DEVLIN REPORT #: [id number] REPORT IS CONFIDENTIAL AND NOT TO BE RELEASED WITHOUT AUTHORIZATION
== END 2023-01-30 10:27 | disposition home or self-care (01) ==
LOC: ED 07:31
PROVIDERS: Family Medicine
DX: R56.9 Unspecified convulsions (principal); I69.354 Hemiplegia and hemiparesis following cerebral infarction affecting left non-dominant side; I11.0 Hypertensive heart disease with heart failure; I50.9 Heart failure, unspecified; I48.91 Unspecified atrial fibrillation; Z79.899 Other long term (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
CPT/HCPCS: 36415; 70450; 80053; 81001; 84484; 85025; 85610; 93005; 93010; J1953; J2060

== ENCOUNTER 2023-02-17 14:18 | Emergency (ER) | payer MEDICARE, OTHER ==
[~2023-02-17] VITALS: Ht 157.5 cm; Wt 73.9 kg
[~2023-02-17 14:18] MED LIST changes: +KEPPRA500 MG PO
--- OUTSIDE RECORDS SUMMARY | 2023-02-17 14:20 | XMS ---
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 Care History Medical/Surgical 03/26/2021 [facility] - Patient is currently established with [facility]. If patient is seen in the ED during business hours. Please contact CHWs at [facility]. Care Recommendation: This patient has had 5 or more Emergency Department visits in the last 12 months. Patient requires education on the scope and purpose of the ED as an acute care provider not a Primary Care Provider and should not be utilized for chronic conditions. These are guidelines and the provider should exercise clinical judgment when providing care. 03/29/2019 [facility] Patient needs ED follow up visit.\T\nbsp; Sent request to PCP office to see if patient can get in to be seen after fall. [place] VISIT COUNT (12 MO.) 3 MARIA ANTONIA Denny TOTAL 3 NOTE: Visits indicate total known visits. ED/UCC VISIT TRACKING (12 MO.) 02/17/2023 14:18 [facility] [place] TYPE: Emergency COMPLAINT: - URINE PROBLEM 01/30/2023 07:31 [facility] TYPE: Emergency COMPLAINT: - SEIZURE DIAGNOSES: - Heart failure, unspecified - Hemiplegia and hemiparesis following cerebral infarction affecting left non-dominant side - Hypertensive heart disease with heart failure - Other director long term care (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 - Unspecified atrial fibrillation - Unspecified convulsions 01/26/2023 15:01 [facility] [place] TYPE: Emergency COMPLAINT: - ALTERED LOC DIAGNOSES: - Contact with and (suspected) exposure to COVID-19 - Heart failure, unspecified - Hemiplegia and hemiparesis following unspecified cerebrovascular disease affecting left non-dominant side - Hypertensive heart disease with heart failure - Other director long term care (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 - Pain in left leg - Transient alteration of awareness - Urinary tract infection, site not specified INPATIENT VISIT TRACKING (12 MO.) No inpatient visits to display in this time frame [email or web address]
[2023-02-17 14:49] LABS: BILIRUBIN, URINE NEGATIVE (negative); BLOOD/HGB, URINE NEGATIVE (Negative); KETONE, URINE NEGATIVE (Negative); LEUK ESTERASE, URINE MODERATE (negative); NITRITE, URINE NEGATIVE (negative)
[2023-02-17 15:00] LABS: BACTERIA, URINE RARE /hpf (negative); CASTS, URINE NONE SEEN \\lpf; COLLECTION TYPE, URINE CATH; CRYSTALS, URINE NONE SEEN (0-1+); EPITHELIAL CELLS, URINE SQUAMOUS 1+ /lpf (0-1+); RED BLOOD CELLS, URINE 0-1 /hpf (0-5); REFLEX CULTURE, URINE Yes (No); WHITE BLOOD CELLS, URINE >50 /HPF (0-5)
[2023-02-17 15:17] LABS: BASOPHILS 0.6 % (0-2); EOSINOPHILS 5.1 % (0-6); HEMATOCRIT 28.3 % (35.0-50.0); HEMOGLOBIN 9.3 g/dL (12.0-18.0); LYMPHOCYTES 25.1 % (24-44); MCH 29.9 (27-36); MCV 90.6 fl (81-99); MONOCYTES 8.6 % (0-12); NEUTROPHILS 60.6 % (39-80); PLATELET COUNT 210 K/uL (140-440); RBC 3.13 M/ul (4.3-5.7); RDW 13.4 (10.5-15.0)
[2023-02-17 15:31] LABS: ALBUMIN 1.9 g/dL (3.4-5.0); ALBUMIN/GLOBULIN RATIO 0.46 (1.1-2.4); ANION GAP 12.5 (7-21); BILIRUBIN, TOTAL 0.6 ng/dL (0.2-1.0); BUN/CREATININE RATIO 14.88 (6.0-28.6); CALCIUM 7.9 mg/dL (8.5-10.1); CREATININE, SERUM 1.68 mg/dL (0.55-1.02); POTASSIUM 3.5 mmol/L (3.5-5.1)
[2023-02-17] MEDS ORDERED: CIPRO500 MG PO (15:47)
[2023-02-17] MEDS ORDERED: ONDANSETRON ODT4 MG PO (15:47)
[2023-02-17] MEDS ORDERED: HYDROCODON-ACE1 EA10 PO (15:47)
[2023-02-17 16:44] VITALS: BP 104/53
== END 2023-02-17 16:47 | disposition home or self-care (01) ==
LOC: ED 14:18
PROVIDERS: Emergency Medicine
DX: S42.295A Other nondisplaced fracture of upper end of left humerus, initial encounter for closed fracture (principal); N39.0 Urinary tract infection, site not specified; I11.0 Hypertensive heart disease with heart failure; I50.9 Heart failure, unspecified; I69.954 Hemiplegia and hemiparesis following unspecified cerebrovascular disease affecting left non-dominant side; F03.90 Unspecified dementia, unspecified severity, without behavioral disturbance, psychotic disturbance, mood disturbance, and anxiety; X58.XXXA Exposure to other specified factors, initial encounter; Z79.899 Other long term (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
CPT/HCPCS: 36415; 73060; 80053; 81001; 85025

== ENCOUNTER 2024-03-10 11:52 | Emergency (ER) | payer MEDICARE, OTHER ==
[~2024-03-10] VITALS: Ht 157.5 cm; Wt 80.2 kg
[2024-03-10] MEDS ORDERED: SODIUM CHLORIDE 0.9% 1,000 ML IV PRN (13:00)
[2024-03-10] MEDS ORDERED: levETIRAcetam 500 MG/5 ML VIAL IV ONE (13:30)
[2024-03-10 14:10] LABS: BASOPHILS 0.7 % (0-2); EOSINOPHILS 3.5 % (0-6); HEMATOCRIT 31.6 % (35.0-50.0); HEMOGLOBIN 10.2 g/dL (12.0-18.0); LYMPHOCYTES 23.6 % (24-44); MCHC 32.2 g/dl (30-36); MCV 96.3 fl (81-99); MONOCYTES 13.4 % (0-12); NEUTROPHILS 58.8 % (39-80); PLATELET COUNT 204 K/uL (140-440); RBC 3.28 M/ul (4.3-5.7); RDW 14.3 (10.5-15.0)
[2024-03-10 14:22] LABS: INR 0.99 (0.80-1.30); PROTIME 12.7 Sec (11.2-14.2)
[2024-03-10 14:24] LABS: PARTIAL THROMBOPLASTIN TIME 26.4 Sec (22.9-41.3)
[2024-03-10 14:29] LABS: ALBUMIN 2.6 g/dL (3.4-5.0); ALBUMIN/GLOBULIN RATIO 0.6 (1.1-2.4); ANION GAP 13.2 (7-21); BILIRUBIN, TOTAL 0.5 ng/dL (0.2-1.0); BUN/CREATININE RATIO 11.55 (6.0-28.6); CALCIUM 8.2 mg/dL (8.5-10.1); CREATININE, SERUM 2.25 mg/dL (0.55-1.02); POTASSIUM 5.2 mmol/L (3.5-5.1); PROTEIN, TOTAL 6.9 g/dL (6.4-8.2)
[2024-03-10 16:27] VITALS: BP 104/64
--- NOTE | 2024-03-11 19:32 | EKG ---
[facility] [address] [facility] [place] [address] Signed Atrial fibrillation Left axis deviation Inferior infarct , age undetermined Anteroseptal infarct , age undetermined Abnormal ECG When compared with ECG of 30-Jan-2023 No significant change was found Confirmed by Tad Esquivel MD ([id number]) on 03/11/2024 7:31:57 PM Electronically Signed By: TAD ESQUIVEL MD 03/11/241931 PATIENT NAME: IRIS OLIVAREZ Electrocardiogram DATE OF : 38 PHYSICIAN: TAD ESQUIVEL MD REPORT #: [id number] REPORT IS CONFIDENTIAL AND NOT TO BE RELEASED WITHOUT AUTHORIZATION
== END 2024-03-10 16:27 | disposition home or self-care (01) ==
LOC: ED 11:52
PROVIDERS: Emergency Medicine
DX: R56.9 Unspecified convulsions (principal); I11.0 Hypertensive heart disease with heart failure; I50.9 Heart failure, unspecified; F03.90 Unspecified dementia, unspecified severity, without behavioral disturbance, psychotic disturbance, mood disturbance, and anxiety; Z79.899 Other long term (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
CPT/HCPCS: 36415; 71045; 80053; 83735; 84484; 85025; 85610; 85730; 93005; 93010; 96374; 99284-25; J1953; J7030